=== PATIENT | female | born 1965 | race Caucasian/White ===

== ENCOUNTER 2016-10-18 12:29 | Inpatient (IN) ==
--- NOTE | 2016-10-18 13:10 | Emergency Department Note ---
Disposition Clinical Impression: Pulmonary edema, HLD (hyperlipidemia), Chronic renal failure, Diabetes mellitus , HTN (hypertension), Super-super obese, Anemia, Lower extremity edema, Fluid overload, CHF (congestive heart failure) Disposition: Admitted As Inpatient Referrals: NO,PCP [Non-Partnered Physician] - Forms: ED Satisfaction Letter General Adult HPI - General Chief complaint: ED Extremity Problem,Nontraumatic Stated complaint: LLE pain Time Seen by Provider: 10/18/16 13:08 Source: patient, family - History of Present Illness HPI Narrative: 51-year-old female with a history of diabetes and renal failure reports to the emergency department complaining of left lower extremity swelling and pain. The patient has a history of CVA and does not move her left lower extremity well. She has had progressive swelling in the left lower extremity associated with pain. There is no history of fall or injury. She does note she is having trouble even walking at this time secondary to the pain and swelling. There is no history of fever. No history of chest pain shortness of breath or abdominal pain. She describes baseline lower extremity edema but much worse on the left particular in the medial thigh and calf areas. She has not had any coughing up of blood. There is no history of syncope. No coldness blueness or acute weakness in any of the extremities. Chronic left lower extremity weakness secondary to remote CVA is reported. The patient is usually able to get up and get around but over the last month is essentially been nearly bedbound secondary to the pain and swelling. There is no history of fever. No acute back pain no history of bowel or bladder problems. No other complaints or concerns. The family and patient are concerned about left lower extremity swelling and pain. Onset (ago): day(s) Pain Scale: 10 - Related Data Home Medications Medication Instructions Recorded Confirmed Albuterol Sulfate [Proair Hfa] 2 puff IH Q4H PRN 06/07/16 06/07/16 Aspirin 81 mg PO DAILY 06/07/16 06/07/16 Atorvastatin Calcium [Lipitor] 20 mg PO DAILY 06/07/16 06/07/16 Furosemide [Lasix] 80 mg PO DAILY 06/07/16 06/07/16 Gabapentin [Neurontin] 300 mg PO BID 06/07/16 06/07/16 Insulin DETEMIR [Levemir Flextouch] 5 unit SQ QAM 06/07/16 06/07/16 Insulin DETEMIR [Levemir Flextouch] 15 unit SQ QPM 06/07/16 06/07/16 NIFEdipine [Nifedical Xl] 60 mg PO DAILY 06/07/16 06/07/16 Previous Rx's Medication Instructions Recorded Carvedilol 12.5 mg PO BID 30 Days 06/10/16 Darbepoetin [Aranesp] 100 mcg SQ QMONTH syringe 06/10/16 Darbepoetin [Aranesp] 200 mcg SQ QMONTH syringe 06/10/16 Furosemide [Lasix] 40 mg PO 1500 30 Days 06/10/16 Allergies Allergy/AdvReac Type Severity Reaction Status Date / Time No Known Allergies Allergy Verified 10/18/16 12:50 All systems ED: reviewed and negative except as stated. Past Medical History - Past Medical History Medical history: Reports: coronary artery disease, CVA, diabetes, hyperlipidemia , hypertension, renal disease, venous stasis, other Surgical history: Reports: no surgical history Psychiatric history: Reports: no psych history RISK MANAGEMENT SPECIALIST history: Reports: no RISK MANAGEMENT SPECIALIST history - Social History Smoking Status: Former smoker Smokeless Tobacco Status: No Alcohol use: Reports: none Drug use: Reports: none Physical Exam - General Limitations: no limitations General appearance: alert, in no apparent distress - Head Head exam: atraumatic, normocephalic, normal inspection - Eye Eye exam: Present: normal appearance, PERRL, EOMI - ENT ENT exam: normal exam, normal oropharynx, mucous membranes moist, normal external ear exam - Neck Neck exam: Present: normal inspection, full ROM, trachea midline - Chest Chest inspection: Present: symmetric chest wall rise. Absent: tenderness - Respiratory Respiratory exam: Present: normal lung sounds bilaterally. Absent: respiratory distress - Cardiovascular Cardiovascular exam: Present: regular rate, normal rhythm, normal heart sounds - Abdominal Exam Abdominal exam: Present: soft, Non-Tender. Absent: tenderness, distention, guarding, rebound, rigidity - Extremities Exam Extremities exam: Present: full ROM, tenderness, normal capillary refill, pedal edema, calf tenderness. Absent: normal inspection (Markedly lower extremity edema with multiple scabbed lesions and venous stasis changes noted bilaterally , significantly worse edema on the left particular in the medial thigh area. No crepitance of the skin or blackening. There is no evidence of acute joint compromise. There is pain with movement left knee and hip. There is pain in the medial thigh and calf areas.) - Expanded Lower Extremity Exam Neurovascular/Tendon exam: Present: normal capillary refill. Absent: pulse deficit, motor deficit, sensory deficit, tendon deficit - Back Exam Back exam: Present: normal inspection, full ROM. Absent: tenderness, CVA tenderness (R), CVA tenderness (L), vertebral tenderness - Neurological Exam Neurological exam: Present: alert, oriented X3, CN II-XII intact. Absent: motor sensory deficit - Psychiatric Psychiatric exam: Present: normal affect, normal mood - Skin Skin exam: Present: warm, dry, intact, normal color, other (Lower extremity venous stasis with multiple scabbed lesions, no tai cellulitic change noted no crepitance.). Absent: rash, cyanosis, diaphoresis, erythema, pallor, mottled Course Vital Signs Temperature 98.4 F 10/18/16 12:45 Pulse Rate 81 10/18/16 12:45 Respiratory Rate 18 10/18/16 12:45 Blood Pressure 161/62 10/18/16 12:45 O2 Sat by Pulse Oximetry 94 L 10/18/16 12:45 Temperature 98.4 F 10/18/16 12:45 Pulse Rate 81 10/18/16 12:45 Respiratory Rate 18 10/18/16 12:45 Blood Pressure 161/62 10/18/16 12:45 O2 Sat by Pulse Oximetry 94 L 10/18/16 12:45 Oxygen Delivery Oxygen Delivery Room Air Medical Decision Making - [facility] Narrative Medical decision making narrative: The patient appears to have fluid overload state, she has massive lower extremity edema worse on the left, she does demonstrate some pulmonary congestion and significant renal failure anemia and hypoalbuminemia. The patient is currently stable. She denies rectal bleeding. She may require transfusion. Lasix was given IV. Type and screen was ordered. Based on her multiple comorbidities, as well as severe anemia, renal failure, apparent fluid overload status, and marked functional decline, thought it would be appropriate to admit the patient to the hospital. I discussed the case with the hospitalist on-call who has accepted the patient to their care. - Lab Data Lab results reviewed: Yes I reviewed the patient's lab results. Result diagrams: 10/18/16 13:47 10/18/16 13:47 Lab Results 10/18/16 10/18/16 10/18/16 Range/Units 13:47 13:47 13:47 WBC 9.9 (4.3-11.1) K/mcL RBC 2.52 L (3.82-4.97) M/mcL Hgb 6.1 L (11.5-15.4) g/dL Hct 21.8 L (35.3-44.9) % MCV 86.5 (83.0-100.0) fL MCH 24.2 L (28.0-33.3) pg MCHC 28.0 L (31.6-35.5) g/dL RDW 18.2 H (11.5-14.5) % Plt Count 275 (140-400) K/mcL MPV 9.3 L (9.4-12.4) fL Immature Gran % 1.0 (0-4) % Seg Neutrophils % 82.8 % Lymphocytes % 5.3 % Monocytes % 7.6 % Eosinophils % 2.8 % Basophils % 0.5 % Neutrophils # 8.2 (1.6-8.9) K/mcL Lymphocytes # 0.5 L (0.6-4.6) K/mcL Monocytes # 0.8 (0.0-1.3) K/mcL Eosinophils # 0.3 (0.0-0.6) K/mcL Basophils # 0.1 (0.0-0.2) K/mcL Platelet Estimate Normal (Normal) Hypochromasia Present A (Not Present) Anisocytosis 2+ A (Not Present) Microcytosis Present A (Not Present) PT 15.4 H (9.4-12.1) Seconds INR 1.4 APTT 37.0 H (26.0-36.0) Seconds D-Dimer 2641 H (0-500) ng/mLFEU Sodium 137 (136-145) mEq/L Potassium 4.5 (3.5-4.5) mEq/L Chloride 106 (98-109) mEq/L Carbon Dioxide 18 L (19-29) mEq/L BUN 101 H (7-20) mg/dL Creatinine 7.06 H (0.57-1.11) mg/dL Est GFR ( Amer) 7 L (> 60) Est GFR (Non-Af Amer) 6 L (> 60) BUN/Creatinine Ratio 14 (6-26) Glucose 129 H (70-99) mg/dL Calculated Osmolality 317 H (280-300) Lactic Acid (0.5-2.2) mmol/L Calcium 8.0 L (8.6-10.8) mg/dL Total Bilirubin 0.6 (0.2-1.2) mg/dL Direct Bilirubin 0.5 (0.0-0.5) mg/dL Indirect Bilirubin 0.1 (0.0-1.2) mg/dL AST 12 (5-34) Units/L ALT < 6 (0-55) Units/L Alkaline Phosphatase 185 H (38-126) Units/L Troponin I (0-0.03) ng/mL C-Reactive Protein 157 H (Less than 5) mg/L B-Natriuretic Peptide (0-100) pg/mL Serum Total Protein 8.8 H (6.0-8.3) g/dL Albumin 2.1 L (3.5-5.0) g/dL Globulin 6.7 H (2.4-3.5) g/dL Albumin/Globulin Ratio 0.3 L (1.1-2.2) 10/18/16 10/18/16 10/18/16 Range/Units 13:47 13:47 13:47 WBC (4.3-11.1) K/mcL RBC (3.82-4.97) M/mcL Hgb (11.5-15.4) g/dL Hct (35.3-44.9) % MCV (83.0-100.0) fL MCH (28.0-33.3) pg MCHC (31.6-35.5) g/dL RDW (11.5-14.5) % Plt Count (140-400) K/mcL MPV (9.4-12.4) fL Immature Gran % (0-4) % Seg Neutrophils % % Lymphocytes % % Monocytes % % Eosinophils % % Basophils % % Neutrophils # (1.6-8.9) K/mcL Lymphocytes # (0.6-4.6) K/mcL Monocytes # (0.0-1.3) K/mcL Eosinophils # (0.0-0.6) K/mcL Basophils # (0.0-0.2) K/mcL Platelet Estimate (Normal) Hypochromasia (Not Present) Anisocytosis (Not Present) Microcytosis (Not Present) PT (9.4-12.1) Seconds INR APTT (26.0-36.0) Seconds D-Dimer (0-500) ng/mLFEU Sodium (136-145) mEq/L Potassium (3.5-4.5) mEq/L Chloride (98-109) mEq/L Carbon Dioxide (19-29) mEq/L BUN (7-20) mg/dL Creatinine (0.57-1.11) mg/dL Est GFR ( Amer) (> 60) Est GFR (Non-Af Amer) (> 60) BUN/Creatinine Ratio (6-26) Glucose (70-99) mg/dL Calculated Osmolality (280-300) Lactic Acid 0.5 (0.5-2.2) mmol/L Calcium (8.6-10.8) mg/dL Total Bilirubin (0.2-1.2) mg/dL Direct Bilirubin (0.0-0.5) mg/dL Indirect Bilirubin (0.0-1.2) mg/dL AST (5-34) Units/L ALT (0-55) Units/L Alkaline Phosphatase (38-126) Units/L Troponin I 0.02 (0-0.03) ng/mL C-Reactive Protein (Less than 5) mg/L B-Natriuretic Peptide 976 H (0-100) pg/mL Serum Total Protein (6.0-8.3) g/dL Albumin (3.5-5.0) g/dL Globulin (2.4-3.5) g/dL Albumin/Globulin Ratio (1.1-2.2) - Radiology Data Radiology results reviewed: Yes I reviewed the patient's radiology results.
[2016-10-18] MEDS ORDERED: *HR* HYDROmorphone (PF) 1 MG/ML SYRINGE IVP ONE (13:35)
[2016-10-18] MEDS ORDERED: Ondansetron 4 MG/2 ML VIAL IVP ONE (13:36)
[2016-10-18] MEDS ORDERED: *HR* HYDROcodone/Acet 5/325 mg TABLET PO ONE (13:54)
[2016-10-18 14:04] LABS: Basophils # 0.1 K/mcL (0.0-0.2); Basophils % 0.5 %; Eosinophils # 0.3 K/mcL (0.0-0.6); Eosinophils % 2.8 %; Hematocrit 21.8 % (35.3-44.9); Hemoglobin 6.1 g/dL (11.5-15.4); Lymphocytes # 0.5 K/mcL (0.6-4.6); Lymphocytes % 5.3 %; Mean Corpuscular Hemoglobin 24.2 pg (28.0-33.3); Mean Corpuscular Volume 86.5 fL (83.0-100.0); Mean Platelet Volume 9.3 fL (9.4-12.4); Monocytes # 0.8 K/mcL (0.0-1.3); Monocytes % 7.6 %; Neutrophils # 8.2 K/mcL (1.6-8.9); Platelet Count 275 K/mcL (140-400); Red Blood Count 2.52 M/mcL (3.82-4.97); Red Cell Distribution Width 18.2 % (11.5-14.5); Segmented Neutrophils % 82.8 %
[2016-10-18 14:10] LABS: INR 1.4; Prothrombin Time 15.4 Seconds (9.4-12.1)
[2016-10-18 14:20] LABS: Alanine Aminotransferase < 6 Units/L (0-55); Albumin 2.1 g/dL (3.5-5.0); Albumin/Globulin Ratio 0.3 (1.1-2.2); Alkaline Phosphatase 185 Units/L (38-126); Aspartate Amino Transferase 12 Units/L (5-34); BUN/Creatinine Ratio 14 (6-26); Bilirubin,Direct 0.5 mg/dL (0.0-0.5); Bilirubin,Indirect 0.1 mg/dL (0.0-1.2); Bilirubin,Total 0.6 mg/dL (0.2-1.2); Blood Urea Nitrogen 101 mg/dL (7-20); C-Reactive Protein 157 mg/L (Less than 5); Carbon Dioxide 18 mEq/L (19-29); Chloride 106 mEq/L (98-109); Globulin 6.7 g/dL (2.4-3.5); Glucose 129 mg/dL (70-99); Osmolality,Calculated 317 (280-300); Potassium 4.5 mEq/L (3.5-4.5); Sodium 137 mEq/L (136-145); Total Protein 8.8 g/dL (6.0-8.3); eGFR For African Americans 7 (> 60); eGFR For Non-African Americans 6 (> 60)
[2016-10-18 14:24] LABS: Anisocytosis 2+ (Not Present); Hypochromasia Present (Not Present); Microcytosis Present (Not Present); Platelet Estimate Normal (Normal)
[2016-10-18] MEDS ORDERED: Furosemide 40 MG in 0.9 % Sodium Chloride 50 ML IVPB ONE (15:28)
[2016-10-18] MEDS ORDERED: Naloxone 0.4 MG/ML INJ IVP PRN (17:09)
[2016-10-18] MEDS ORDERED: Dextrose Gel 15 GM PO PRN ×2 (17:12)
[2016-10-18] MEDS ORDERED: D5% in Water 1,000 ML IV PRN (17:12)
[2016-10-18] MEDS ORDERED: *HR* Dextrose 50 % in Water (Syg) 50 ML SYRINGE IVP PRN (17:12)
--- NOTE | 2016-10-18 17:38 | Internal Med History&Physical ---
Date of Encounter: 10/18/16 Time of Encounter: 17:00 Assessment and Plan (1) Acute on chronic renal failure Current visit: Yes Status: Acute -Follow up nephrology consult with DR. Greene (he is aware of the patient and requests a renal US) -Machine Ironer to evaluate in a.m. and will assess the need for hemodialysis -Given current clinical picture consistent with pulmonary edema, will need to continue Lasix at this time. (2) Dyspnea on exertion Current visit: Yes Status: Acute Continue IV diuresis Patient received 1 dose of Lasix in the ER Continue O2 supplementation as needed (3) Metabolic acidosis Current visit: Yes Status: Acute Likely secondary to acute renal failure Continue to monitor If worsens will supplement bicarb (4) COPD (chronic obstructive pulmonary disease) Current visit: Yes Status: Chronic Not in acute exacerbation Continue bronchodilator support as needed Continue O2 supplementation as needed Qualifiers: COPD type: unspecified COPD Qualified Code(s): J44.9 - Chronic obstructive pulmonary disease, unspecified (5) Hypertension Current visit: Yes Status: Chronic We will hold nifedipine at this time due to worsening peripheral edema Continue carvedilol We will add hydralazine IV when necessary systolic blood pressure greater than 160 Continue to closely monitor blood pressure Qualifiers: Hypertension type: essential hypertension Qualified Code(s): I10 - Essential (primary) hypertension (6) Anemia Current visit: Yes Status: Acute No active bleeding noted at this time Could be dilutional Follow up iron studies prior to transfusion We will transfuse 1 unit PRBC at this time and closely monitor for volume overload Continue to monitor H&H closely Qualifiers: Anemia type: unspecified type Qualified Code(s): D64.9 - Anemia, unspecified (7) CHF (congestive heart failure) Current visit: Yes Status: Chronic -2D echo form May 2016 reports of mild left ventricular diastolic dysfunction with LVEF of 60-65% -follow up repeat 2D echo -continue diuretic therapy -monitor daily weights -monitor I/Os -fluid restricted diet Qualifiers: Congestive heart failure type: diastolic Congestive heart failure chronicity: chronic Qualified Code(s): I50.32 - Chronic diastolic (congestive ) heart failure (8) Diabetes mellitus Current visit: Yes Status: Chronic -continue home insulin regimen -added as needed correctional low dose insulin ss algorithm -monitor fingerstick and blood glucose Qualifiers: Diabetes mellitus type: type 2 Diabetes mellitus complication status: with unspecified complications Diabetes mellitus care home insulin use: with petroleum terminal plant operator use Qualified Code(s): E11.8 - Type 2 diabetes mellitus with unspecified complications; Z79.4 - 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 Fernández is a 51 year old female with past medical history of CK disease stage V, hypertension, insulin-dependent diabetes, morbid obesity, hyperlipidemia, COPD who presents to the ER for worsening bilateral lower extremity edema, and dyspnea on exertion. Patient is noted to have previous admission due to the same symptoms in May 2016. Patient states she has history of bilateral lower extremity edema, however she has been noticing to have worsening of left lower extremity swelling along with pain, and worsening shortness of breath with exertion. As per family present at bedside, patient has difficulty ambulating and needs assistance with ambulation. Patient reports of currently having an appointment with validation analyst (Dr. Godoy) on Oct for evaluation of initiation of hemodialysis. At this time patient is resting comfortably in bed, denies any headache, chest pain, shortness of breath, abdominal pain, nausea, vomiting, fever, or chills. She received 1 dose of IV Lasix and hydrocodone in the ER which relieved her presenting symptoms. She states she is comfortable at rest and has no difficulty breathing at rest. Social hx: Former smoker-quit 6 months ago-history 1ppd x 30+ years Past Med Surg Social Fam HX - Past Medical History Medical history: coronary artery disease, CVA, diabetes, hyperlipidemia, hypertension, renal disease, venous stasis, other Psychiatric history: no psych history - Past Surgical History Surgical History: no surgical history - Social History Smoking Status: Former smoker Smokeless Tobacco Status: No Alcohol use: none Drug use: none Internal Medicine - H&P: Meds Albuterol Sulfate [Proair Hfa] 2 puff IH Q4H PRN 06/07/16 [History] Aspirin 81 mg PO DAILY 06/07/16 [History] Atorvastatin Calcium [Lipitor] 20 mg PO DAILY 06/07/16 [History] Furosemide [Lasix] 80 mg PO QAM 06/07/16 [History] Gabapentin [Neurontin] 300 mg PO BID 06/07/16 [History] Insulin DETEMIR [Levemir Flextouch] 5 unit SQ QAM 06/07/16 [History] Insulin DETEMIR [Levemir Flextouch] 15 unit SQ QPM 06/07/16 [History] NIFEdipine [Nifedical Xl] 60 mg PO DAILY 06/07/16 [History] Carvedilol 12.5 mg PO BID 30 Days 06/10/16 [Rx] Furosemide [Lasix] 20 mg PO QPM 10/18/16 [History] Oxygen 3.5 l .ROUTE AD 10/18/16 [History] Allergies lisinopril Adverse Reaction (Verified 10/18/16 15:49) Cough All Systems PM: A 10-system review of systems was performed and is negative for pertinent findings except as documented above in the HPI. - Constitutional Constitutional: as per HPI - Constitutional Vitals: Temp Pulse Resp BP Pulse Ox 97.3 F L 72 18 168/65 99 10/18/16 17:21 10/18/16 17:21 10/18/16 17:21 10/18/16 17:21 10/18/16 17:21 General appearance: Present: cooperative, A&O X 3, morbidly obese, pleasant, no acute distress, answers questions appropriately - Head Head exam: Present: atraumatic, normocephalic - Eye Eye exam: Present: conjuntiva pink, sclera anicteric - Respiratory Respiratory exam: Absent: respiratory distress, wheezes (bibasilar crackles) - Cardiovascular Cardiovascular exam: Present: RRR, +S1, +S2, systolic murmur - GI/Abdominal GI/Abdominal exam: Present: distended (obese), normal bowel sounds, soft. Absent: tenderness - Extremities Exam Extremities exam: Present: pedal edema (chronic venous stasis/lymphedema in bilateral lower extremities), warm, radial pulses palpable and symetrical. Absent: calf tenderness, tenderness - Neurological Exam Neurological exam: Present: alert, oriented X3, no focal deficits - Psychiatric Psychiatric exam: Present: normal affect, normal mood Internal Med - H&P Results - Labs CBC & Chem 7: 10/18/16 13:47 10/18/16 13:47
[2016-10-18] MEDS ORDERED: NON-FORMULARY MEDICATION 1 EACH EACH (Insulin Detemir [Levemir Flextouch] 15 UNIT) SQ SCH (18:00)
[2016-10-18] MEDS: *HR* Heparin 5,000 UNIT/ML VIAL SQ SCH (18:22)
[2016-10-18] MEDS: Insulin DETEMIR 100 UNIT/ML X5UNITS SQ SCH (18:22)
[2016-10-18 18:29] LABS: % Iron Saturation 9 % (15-50); Iron 22 mcg/dL (50-170); Transferrin 168 mg/dL (180-382)
[2016-10-18] MEDS ORDERED: 0.9 % Sodium Chloride 500 ML ONE (18:39)
[2016-10-18 18:49] LABS: Ferritin 178 ng/ml (5-204)
[2016-10-18] MEDS: Gabapentin 300 MG CAPSULE PO SCH (21:25)
[2016-10-18] MEDS: Insulin LISPRO 300 UNITS/3 ML VIAL SQ SCH (21:25)
[2016-10-19 04:20] LABS: Red Cell Distribution Width 17.9 % (11.5-14.5)
[2016-10-19 04:22] LABS: Basophils # 0.1 K/mcL (0.0-0.2); Basophils % 0.5 %; Eosinophils # 0.3 K/mcL (0.0-0.6); Eosinophils % 2.7 %; Hematocrit 19.9 % (35.3-44.9); Lymphocytes # 0.5 K/mcL (0.6-4.6); Lymphocytes % 4.9 %; Mean Corpuscular HGB Conc 29.1 g/dL (31.6-35.5); Mean Corpuscular Hemoglobin 25.3 pg (28.0-33.3); Mean Corpuscular Volume 86.9 fL (83.0-100.0); Mean Platelet Volume 9.4 fL (9.4-12.4); Monocytes # 1.1 K/mcL (0.0-1.3); Monocytes % 11.1 %; Nucleated Red Blood Cells 0.2 /100 WBC (0); Platelet Count 227 K/mcL (140-400); Red Blood Count 2.29 M/mcL (3.82-4.97); Segmented Neutrophils % 79.8 %
[2016-10-19 04:39] LABS: Hemoglobin 5.8 g/dL (11.5-15.4)
[2016-10-19 04:42] LABS: Calcium 7.6 mg/dL (8.6-10.8); Magnesium 1.5 mg/dL (1.6-2.6); Phosphorous 8.4 mg/dL (2.3-4.7); Potassium 5.2 mEq/L (3.5-4.5)
[2016-10-19 05:01] LABS: Anisocytosis 1+ (Not Present)
[2016-10-19 05:02] LABS: Basophilic Stippling 1+ (Not Present); Hypochromasia Present (Not Present); Platelet Estimate Normal (Normal); Polychromasia 1+ (Not Present)
[2016-10-19] MEDS ORDERED: Acetaminophen 325 MG TABLET PO ONE (05:13)
[2016-10-19] MEDS: *HR* Heparin 5,000 UNIT/ML VIAL SQ SCH ×2 (05:58→18:05)
[2016-10-19] MEDS: Insulin LISPRO 300 UNITS/3 ML VIAL SQ SCH ×4 (08:05→23:41)
[2016-10-19] MEDS: Furosemide 20 MG/2 ML VIAL IVP SCH ×2 (08:17→11:43)
[2016-10-19] MEDS: Furosemide 40 MG/4 ML VIAL IVP SCH ×3 (08:17→23:40)
[2016-10-19] MEDS: Gabapentin 300 MG CAPSULE PO SCH ×2 (08:22→23:40)
[2016-10-19] MEDS: Insulin DETEMIR 100 UNIT/ML X5UNITS SQ SCH ×2 (08:23→18:08)
[2016-10-19] MEDS ORDERED: NON-FORMULARY MEDICATION 1 EACH EACH (Insulin Detemir [Levemir Flextouch] 5 UNIT) SQ SCH (09:00)
[2016-10-19] MEDS ORDERED: Aspirin 81 MG TAB.CHEW PO SCH (09:00)
--- NOTE | 2016-10-19 09:49 | Internal Med Progress Note ---
Date of Encounter: 10/19/16 Time of Encounter: 09:42 - Assessment and plan (1) Acute on chronic renal failure Current Visit: Yes Status: Acute Assessment and plan: noted to have progressive worsening in renal function along with worsening metabolic acidosis, anemia, volume overload; Nephrology consulted, plan to initiate HD during this admission; plan for tunneled HD catheter today; high risk patient for respiratory failure and cardiac arrhythmias; Telemetry monitoring; (2) Anemia Current Visit: Yes Status: Acute Assessment and plan: acute on chronic, likely related to worseninf CKD; iron profile shows low iron stores; received 2units of PRBC so far; check LDH, Haptoglobin and reticulocyte count; will require Epogen and IV iron therapy with HD; Qualifiers: Anemia type: unspecified type Qualified Code(s): D64.9 - Anemia, unspecified (3) CHF (congestive heart failure) Current Visit: Yes Status: Chronic Qualifiers: Congestive heart failure type: diastolic Congestive heart failure chronicity: chronic Qualified Code(s): I50.32 - Chronic diastolic (congestive ) heart failure (4) Fluid overload Current Visit: Yes Status: Acute Assessment and plan: related to worsening renal failure; Qualifiers: Hypervolemia type: other Qualified Code(s): E87.79 - Other fluid overload (5) HLD (hyperlipidemia) Current Visit: Yes Status: Chronic Qualifiers: Hyperlipidemia type: unspecified Qualified Code(s): E78.5 - Hyperlipidemia , unspecified (6) COPD (chronic obstructive pulmonary disease) Current Visit: Yes Status: Chronic Qualifiers: COPD type: unspecified COPD Qualified Code(s): J44.9 - Chronic obstructive pulmonary disease, unspecified (7) Diabetes mellitus Current Visit: Yes Status: Chronic Qualifiers: Diabetes mellitus type: type 2 Diabetes mellitus complication status: with unspecified complications Diabetes mellitus chcf insulin 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 Qualified Code(s): E11.8 - Type 2 diabetes mellitus with unspecified complications; 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 (8) HTN (hypertension) Current Visit: Yes Status: Chronic Qualifiers: Hypertension type: essential hypertension Qualified Code(s): I10 - Essential (primary) hypertension (9) CKD (chronic kidney disease) stage 5, GFR less than 15 ml/min Current Visit: Yes Status: Chronic (10) Lymphedema of both lower extremities Current Visit: Yes Status: Chronic Assessment and plan: worsening pedal edema on chronic leg swelling; Venous Doppler shows no e/o- DVT; - Subjective Interval history: Reports feeling okay; no chest pain but does have significant leg swelling, left more than right, exertional dyspnea; no nausea, vomiting, diarrhea, recent weight loss; receiving blood transfusion at this time; - Constitutional Vitals: Temp Pulse Resp BP Pulse Ox 97.8 F 70 16 102/65 99 10/19/16 08:31 10/19/16 08:31 10/19/16 08:31 10/19/16 08:31 10/19/16 08:31 General appearance: Present: cooperative, A&O X 3, morbidly obese, answers questions appropriately - Head Head exam: Present: atraumatic, normocephalic - Neck Neck exam general surgery: Present: supple, trachea midline. Absent: lymphadenopathy - Respiratory Respiratory exam: Present: CTAB. Absent: accessory muscle use, rales, rhonchi, wheezes - Cardiovascular Cardiovascular exam: Present: RRR, +S1, +S2, systolic murmur (likely flow murmur ). Absent: diastolic murmur, gallop, rubs - GI/Abdominal GI/Abdominal exam: Present: normal bowel sounds, soft (very obese, nontender), no peritoneal signs. Absent: distended, tenderness - Extremities Exam Extremities exam: Present: pedal edema (B/L chronic lymphangitis with worsening edema left>right; ), warm, radial pulses palpable and symetrical. Absent: calf tenderness, cyanotic - Neurological Exam Neurological exam: Present: CN II-XII intact, oriented X3, no focal deficits. Absent: pronater drift, facial droop, speech deficit - Skin Skin exam: Present: dry, intact Internal Medicine: Result - Labs CBC & Chem 7: 10/19/16 20:53 10/19/16 04:04 Labs: Short CBC 10/19/16 Range/Units 04:04 WBC 10.0 (4.3-11.1) K/mcL Hgb 5.8 L* (11.5-15.4) g/dL Hct 19.9 L (35.3-44.9) % Plt Count 227 (140-400) K/mcL Neutrophils # 8.0 (1.6-8.9) K/mcL BMP 10/19/16 04:04 Sodium 137 Potassium 5.2 H Chloride 108 Carbon Dioxide 18 L BUN 105 H Creatinine 7.45 H Glucose 142 H Calcium 7.6 L - ABG Interpretation ABG results: PT/INR, D-dimer PT 15.4 Seconds (9.4-12.1) H 10/18/16 13:47 D-Dimer 2641 ng/mLFEU (0-500) H 10/18/16 13:47 Consult Discharge Plan - Plan Instructions: Heart Failure (DC) Referrals: Dee Negron SALES COMMUNICATIONS MANAGER [Primary Care Provider] - 10/27/16 10:00 am ()
[2016-10-19] MEDS ORDERED: 0.9 % Sodium Chloride 250 ML IV PRN (10:30)
--- NOTE | 2016-10-19 12:27 | Electrocardiograph Report ---
[facility] Test Date: 2016-10-18 Pat Name: Areli Fernández Department: 105 Room: 2A13 Gender: F Cloth [place]olt Bander: : 1965 Requested By: Jj Encarnacion Order Number: [id number] Reading MD: Adiel Kang DO Measurements Intervals [place] Rate: 77 P: 19 ND: 166 QRS: -29 QRSD: 95 T: 51 QT: 375 QTc: 407 Interpretive Statements Sinus rhythm Possible anterior myocardial infarction Electronically Signed On 10-19-16 12:25:52 EST by Adiel Kang DO
--- NOTE | 2016-10-19 12:27 | Electrocardiograph Report ---
[facility] Test Date: 2016-10-18 Pat Name: Areli Fernández Department: 112 Room: 2A13 Gender: F [address]: BALDO : 1965 Requested By: Sharmila Shine Order Number: [id number] Reading MD: Adiel Kang DO Measurements Intervals [place] Rate: 70 P: 47 NE: 213 QRS: -23 QRSD: 108 T: 59 QT: 396 QTc: 417 Interpretive Statements Sinus rhythm First degree AV block Possible anterior myocardial infarction, age undetermined Electronically Signed On 10-19-16 12:26:24 EST by Adiel Kang DO
[2016-10-19 12:37] LABS: Basophils % 0.4 %; Eosinophils # 0.3 K/mcL (0.0-0.6); Eosinophils % 2.8 %; Hematocrit 20.9 % (35.3-44.9); INR 1.4; Lymphocytes # 0.7 K/mcL (0.6-4.6); Lymphocytes % 6.9 %; Mean Corpuscular HGB Conc 28.7 g/dL (31.6-35.5); Mean Corpuscular Hemoglobin 25.1 pg (28.0-33.3); Mean Corpuscular Volume 87.4 fL (83.0-100.0); Monocytes % 10.8 %; Platelet Count 233 K/mcL (140-400); Prothrombin Time 15.1 Seconds (9.4-12.1); Red Blood Count 2.39 M/mcL (3.82-4.97); Red Cell Distribution Width 17.7 % (11.5-14.5); Segmented Neutrophils % 78.1 %
[2016-10-19 12:38] LABS: Neutrophils # 7.3 K/mcL (1.6-8.9)
[2016-10-19 12:40] LABS: Activated Partial Thrombo Time 36.1 Seconds (26.0-36.0)
[2016-10-19 13:11] LABS: Hepatitis B Surface Antigen Nonreactive (Nonreactive)
[2016-10-19 13:22] LABS: Folate 4.4 ng/mL (7.0-31.4); Hepatitis A Antibody IgM Nonreactive (Nonreactive); Hepatitis B Core IgM Nonreactive (Nonreactive); Hepatitis B Surface Antigen Nonreactive (Nonreactive); Hepatitis C Virus Antibody Nonreactive (Nonreactive); Vitamin B12 846 pg/mL (213-816)
[2016-10-19] MEDS ORDERED: Heparin 1,000 UNITS/500 mL NS 500 ML ONE (15:35)
--- NOTE | 2016-10-19 15:43 | Nephrology Consult Note ---
Date of Encounter: 10/19/16 Time of Encounter: 15:40 Assessment and Plan (1) Acute on chronic renal failure Current Visit: Yes Status: Acute Patient with stage 5 CKD several months ago. She was referred to vascular surgery for vein mapping and placement of an access and missed several appointments. Secondary to multiple metabolic derangements including hyperkalemia and acidosis I will order a tunneled catheter and initiate hemodialysis. Avoid nephrotoxic agents and adjust medication for renal function. (2) Dyspnea on exertion Current Visit: Yes Status: Acute Secondary to volume overload. Per primary team. (3) Diabetes mellitus Current Visit: Yes Status: Chronic per primary team. Qualifiers: Diabetes mellitus type: type 2 Diabetes mellitus complication status: with unspecified complications Diabetes mellitus intermediate insulin use: with intermodal dispatcher use Qualified Code(s): E11.8 - Type 2 diabetes mellitus with unspecified complications; Z79.4 - intermodal dispatcher (current) use of insulin History of Present Illness - Reason for Consult Consult date: 10/19/16 Chronic Kidney Disease - Chief Complaint CHRISTOPHER on CKD - History of Present Illness Ms. Fernández is a 51 yo woman followed by Dr. Dougherty for CKD who presents secondary to leg swelling. Patient reports she has been in her usual state of health. She was referred for vein mapping, but did not show for multiple appointments. She also has not seen Dr. Mccabe for several months. She presents because she is concerned that her legs have been swelling. She also reported that she had dyspnea upon admission. She denies any other complaints. Past Med Surg Social Fam HX - Past Medical History Medical history: coronary artery disease, CVA, diabetes, hyperlipidemia, hypertension, renal disease, venous stasis, other Psychiatric history: no psych history - Past Surgical History Surgical History: no surgical history - Social History Smoking Status: Former smoker Smokeless Tobacco Status: No Alcohol use: none Drug use: none Medications and Allergies Albuterol Sulfate [Proair Hfa] 2 puff IH Q4H PRN 06/07/16 [History] Aspirin 81 mg PO DAILY 06/07/16 [History] Atorvastatin Calcium [Lipitor] 20 mg PO DAILY 06/07/16 [History] Furosemide [Lasix] 80 mg PO QAM 06/07/16 [History] Gabapentin [Neurontin] 300 mg PO BID 06/07/16 [History] Insulin DETEMIR [Levemir Flextouch] 5 unit SQ QAM 06/07/16 [History] Insulin DETEMIR [Levemir Flextouch] 15 unit SQ QPM 06/07/16 [History] NIFEdipine [Nifedical Xl] 60 mg PO DAILY 06/07/16 [History] Carvedilol 12.5 mg PO BID 30 Days 06/10/16 [Rx] Furosemide [Lasix] 20 mg PO QPM 10/18/16 [History] Oxygen 3.5 l .ROUTE AD 10/18/16 [History] Allergies lisinopril Adverse Reaction (Verified 10/18/16 15:49) Cough Review of Systems All Systems: reviewed and no additional remarkable complaints except as stated ( as documented in the HPI) Exam - Vital Signs Vital signs: Initial Vital Signs Temp Pulse Resp BP Pulse Ox 98.4 F 81 18 161/62 94 L 10/18/16 12:45 10/18/16 12:45 10/18/16 12:45 10/18/16 12:45 10/18/16 12:45 Vital Signs - Last 8 Hours Temp Pulse Resp BP Pulse Ox 10/19/16 15:00 97.8 F 67 12 100/61 95 10/19/16 11:38 98 F 62 18 101/65 97 10/19/16 11:05 97.4 F L 62 16 90/45 98 10/19/16 08:31 97.8 F 70 16 102/65 99 10/19/16 08:16 97.6 F 63 14 109/73 99 Intake and Output 10/18/16 10/19/16 10/19/16 23:59 07:59 15:59 Intake Total 470 / 524 300 / 300 Output Total 0 / 0 Balance 470 / 524 300 / 300 Intake: Oral 120 / 120 Blood Product 350 / 350 300 / 300 Rbcs Leuko Poor As-1 300 / 300 Unit [id number] Rbcs Leuko Poor As-3 2nd 350 / 350 Unit [id number] Output: Urine 0 / 0 Other: Meal Dinner NPO Percent of Meal Consumed 25% # Voids 1 Weight 185.519 kg 183.025 kg Blood Glucose* 146 131 105 Patient Weight 10/19/16 23:59 Weight 183.025 kg - General Appearance General appearance: well-developed, well-nourished EENT: ATNC Neck: supple Additional Comments: few rales appreciated in the bases. Cardiology: edema, regular rate Gastrointestinal: normoactive bowel sounds, no tenderness, obese Integumentary: warm and dry Neurologic: alert and oriented x3 Musculoskeletal: no cyanosis Psychiatric: mood/affect appropriate Results - Lab Results 10/19/16 11:51 10/19/16 04:04 Most recent lab results Calcium 7.6 mg/dL (8.6-10.8) L 10/19/16 04:04 Phosphorus 8.4 mg/dL (2.3-4.7) H 10/19/16 04:04 Magnesium 1.5 mg/dL (1.6-2.6) L 10/19/16 04:04 Consult Discharge Plan - Plan Instructions: Heart Failure (DC) Referrals: Dee Negron CNP [Primary Care Provider] - 10/27/16 10:00 am ()
[2016-10-19] MEDS ORDERED: ceFAZolin 1,000 MG in D5% in Water 100 ML IVPB ONE (16:05)
[2016-10-19] MEDS ORDERED: *HR* FentaNYL (PF) 100 MCG/2 ML VIAL IVP PRN (16:06)
[2016-10-19] MEDS ORDERED: *HR* Midazolam HCl 2 MG/2 ML VIAL IVP PRN (16:06)
[2016-10-19 16:21] LABS: Immature Reticulocyte % 30.7 % (11.0-38.0); Retculocyte # 0.08 M/mcL (0.05-0.10); Reticulocyte % 3.3 % (1.6-2.8)
[2016-10-19] MEDS ORDERED: 0.9 % Sodium Chloride 500 ML ONE (16:25)
[2016-10-19] MEDS ORDERED: *HR* Heparin 5,000 UNIT/ML VIAL ONE (16:56)
[2016-10-19 21:01] LABS: Hematocrit 21.2 % (35.3-44.9); Hemoglobin 6.3 g/dL (11.5-15.4)
[2016-10-19] MEDS: Miconazole w/zinc oxide&karaya 92 APPL/92 GM TUBE TP SCH (22:30)
[2016-10-20] MEDS ORDERED: *HR* FentaNYL (PF) 100 MCG/2 ML VIAL IVP PRN (00:43)
[2016-10-20 06:19] LABS: VBG HCO3 23.2 mEq/L (21-27); VBG PH 7.36 pH Units (7.32-7.42)
[2016-10-20] MEDS ORDERED: Calcium Gluconate 2,000 MG in D5% in Water 100 ML IVPB ONE (06:19)
[2016-10-20] MEDS ORDERED: levETIRAcetam 1,000 MG in 0.9 % Sodium Chloride 100 ML IVPB ONE (06:19)
[2016-10-20] MEDS ORDERED: Magnesium Sulfate 1 GM in D5% in Water 100 ML IVPB ONE (06:19)
[2016-10-20 06:21] LABS: Basophils # 0.1 K/mcL (0.0-0.2); Basophils % 0.5 %; Eosinophils # 0.3 K/mcL (0.0-0.6); Eosinophils % 2.5 %; Hematocrit 21.7 % (35.3-44.9); Hemoglobin 6.3 g/dL (11.5-15.4); Immature Granulocytes % 1.3 % (0-4); Lymphocytes # 0.7 K/mcL (0.6-4.6); Mean Corpuscular Hemoglobin 25.3 pg (28.0-33.3); Mean Corpuscular Volume 87.1 fL (83.0-100.0); Mean Platelet Volume 9.2 fL (9.4-12.4); Monocytes # 1.3 K/mcL (0.0-1.3); Monocytes % 12.1 %; Neutrophils # 8.5 K/mcL (1.6-8.9); Platelet Count 213 K/mcL (140-400); Red Blood Count 2.49 M/mcL (3.82-4.97); Red Cell Distribution Width 17.9 % (11.5-14.5); Segmented Neutrophils % 77.6 %
[2016-10-20] MEDS ORDERED: *HR* LORazepam 2 MG/ML VIAL IVP PRN (06:22)
[2016-10-20 06:33] LABS: Calcium 7.6 mg/dL (8.6-10.8); Potassium 4.8 mEq/L (3.5-4.5)
[2016-10-20 06:50] LABS: Magnesium 1.6 mg/dL (1.6-2.6)
--- NOTE | 2016-10-20 06:56 | Event Note ---
Date of Encounter: 10/20/16 Time of Encounter: 06:44 Rapid Response Acute alteration in mental status. Lethargy /stuporous and somnolence. Arousable only with noxious stimuli. Encephalopathic. Spontaneous involuntary myoclonic jerking and twitching evident. Assessment= 1... Toxic metabolic encephalopathy/delirium 2... Acute on chronic, stage V renal failure/end-stage renal disease 3....Severe metabolic and derangements 4... Acute myoclonic seizure activity 5....Sepsis associated coagulopathy Rule out TTP/DIC/HUS 6....Suspect CHARLES/OHS 7....Epistaxis, witnessed episode p= Repletion of electrolytes deficits CT head scan stroke protocol EEG Keppra loading dose Neurology consult NPO status pending improvement in clinical status and neuro findings When necessary IV Ativan for convulsions Simplify medication regimen to avoid adverse drug drug interaction Hemodialysis as per nephrology team Cpap/Bipap Pulmonary toilet Transfer to N. versus ICU for higher level of care. Potential need for intubation for airway protection Orders written Vital Signs Temp Pulse Resp BP Pulse Ox 10/20/16 03:39 97.8 F 64 16 130/75 97 10/19/16 23:38 137/67 10/19/16 22:43 97.4 F L 68 18 104/81 95 10/19/16 22:16 97.6 F 20 132/74 10/19/16 21:10 145/68 10/19/16 20:55 149/82 10/19/16 20:40 150/75 10/19/16 20:25 132/74 10/19/16 20:10 126/65 10/19/16 19:55 141/80 10/19/16 19:40 144/84 10/19/16 19:25 142/61 10/19/16 19:10 97.6 F 22 129/60 10/19/16 18:09 97.6 F 68 20 99/65 96 10/19/16 17:36 94 L 10/19/16 17:02 67 20 125/62 93 L 10/19/16 16:55 71 20 111/70 92 L 10/19/16 15:00 97.8 F 67 12 100/61 95 10/19/16 11:38 98 F 62 18 101/65 97 10/19/16 11:05 97.4 F L 62 16 90/45 98 10/19/16 08:31 97.8 F 70 16 102/65 99 10/19/16 08:16 97.6 F 63 14 109/73 99 10/19/16 07:14 97.8 F 66 18 120/76 97 Intake and Output 10/19/16 10/19/16 10/20/16 15:59 23:59 07:59 Intake Total 300 / 300 400 / 400 Output Total 0 / 0 Balance 300 / 300 400 / 400 Intake: IV Fluids 100 / 100 Ancef 1,000 MG In 100 / 100 Dextrose 5% 100 ML @ 200 mls/hr IVPB ONCE ONE Rx#: [id number] Blood Product 300 / 300 Rbcs Leuko Poor As-1 300 / 300 Unit [id number] Intake, Rinseback and 300 / 300 Flushes Output: Total Dialysis Output 0 / 0 Other: Meal NPO Weight 180.2 kg Blood Glucose* 105 197 Hemodialysis Net Fluid 0 Removed (mL) Patient Weight 10/20/16 23:59 Weight 180.2 kg Short CBC 10/20/16 10/19/16 10/19/16 Range/Units 06:10 20:53 11:51 WBC 11.0 9.4 (4.3-11.1) K/mcL Hgb 6.3 L 6.3 L 6.0 L* (11.5-15.4) g/dL Hct 21.7 L 21.2 L 20.9 L (35.3-44.9) % Plt Count 213 233 (140-400) K/mcL Neutrophils # 8.5 7.3 (1.6-8.9) K/mcL BMP 10/20/16 Range/Units 06:10 Sodium 139 (136-145) mEq/L Potassium 4.8 H (3.5-4.5) mEq/L Chloride 108 (98-109) mEq/L Carbon Dioxide 19 (19-29) mEq/L BUN 90 H (7-20) mg/dL Creatinine 6.76 H (0.57-1.11) mg/dL Glucose 119 H (70-99) mg/dL Calcium 7.6 L (8.6-10.8) mg/dL 10/20/16 06:10 VBG pH 7.36 VBG pCO2 41 VBG pO2 76 H VBG HCO3 23.2 Abnormal lab results RBC 2.49 M/mcL (3.82-4.97) L 10/20/16 06:10 Hgb 6.3 g/dL (11.5-15.4) L 10/20/16 06:10 Hct 21.7 % (35.3-44.9) L 10/20/16 06:10 MCH 25.3 pg (28.0-33.3) L 10/20/16 06:10 MCHC 29.0 g/dL (31.6-35.5) L 10/20/16 06:10 RDW 17.9 % (11.5-14.5) H 10/20/16 06:10 MPV 9.2 fL (9.4-12.4) L 10/20/16 06:10 Nucleated RBCs/100 WBC 0.2 /100 WBC (0) H 10/19/16 04:04 Polychromasia 1+ (Not Present) A 10/19/16 04:04 Hypochromasia Present (Not Present) A 10/19/16 04:04 Basophilic Stippling 1+ (Not Present) A 10/19/16 04:04 Anisocytosis 1+ (Not Present) A 10/19/16 04:04 Microcytosis Present (Not Present) A 10/18/16 13:47 Percent Retic 3.3 % (1.6-2.8) H 10/19/16 16:09 Retic Hgb Equivalent 20.4 pg (28.61-36.33) L 10/19/16 16:09 PT 15.1 Seconds (9.4-12.1) H 10/19/16 11:51 APTT 36.1 Seconds (26.0-36.0) H 10/19/16 11:51 D-Dimer 2641 ng/mLFEU (0-500) H 10/18/16 13:47 VBG pO2 76 mmHg (25-40) H 10/20/16 06:10 Potassium 4.8 mEq/L (3.5-4.5) H 10/20/16 06:10 BUN 90 mg/dL (7-20) H 10/20/16 06:10 Creatinine 6.76 mg/dL (0.57-1.11) H 10/20/16 06:10 Est GFR ( Amer) 8 (> 60) L 10/20/16 06:10 Est GFR (Non-Af Amer) 6 (> 60) L 10/20/16 06:10 Glucose 119 mg/dL (70-99) H 10/20/16 06:10 POC Glucose 142 (58-89) H 10/20/16 06:12 Calculated Osmolality 317 (280-300) H 10/20/16 06:10 Uric Acid 10.2 mg/dL (2.6-6.0) H 10/19/16 11:51 Calcium 7.6 mg/dL (8.6-10.8) L 10/20/16 06:10 Ionized Calcium 0.92 mmol/L (1.15-1.35) L 10/20/16 06:10 Phosphorus 8.4 mg/dL (2.3-4.7) H 10/19/16 04:04 Iron 22 mcg/dL (50-170) L 10/18/16 13:47 % Saturation 9 % (15-50) L 10/18/16 13:47 Transferrin 168 mg/dL (180-382) L 10/18/16 13:47 Alkaline Phosphatase 185 Units/L (38-126) H 10/18/16 13:47 C-Reactive Protein 157 mg/L (Less than 5) H 10/18/16 13:47 B-Natriuretic Peptide 976 pg/mL (0-100) H 10/18/16 13:47 Serum Total Protein 8.8 g/dL (6.0-8.3) H 10/18/16 13:47 Albumin 2.1 g/dL (3.5-5.0) L 10/18/16 13:47 Globulin 6.7 g/dL (2.4-3.5) H 10/18/16 13:47 Albumin/Globulin Ratio 0.3 (1.1-2.2) L 10/18/16 13:47 Vitamin B12 846 pg/mL (213-816) H 10/19/16 11:51 25-OH Vitamin D Total 7 ng/mL (30-80) L 10/19/16 11:51 Folate 4.4 ng/mL (7.0-31.4) L 10/19/16 11:51 PTH Intact 479.6 pg/ml (8.5-72.5) H 10/19/16 11:51 Laboratory Results WBC 11.0 K/mcL (4.3-11.1) 10/20/16 06:10 RBC 2.49 M/mcL (3.82-4.97) L 10/20/16 06:10 Hgb 6.3 g/dL (11.5-15.4) L 10/20/16 06:10 Hct 21.7 % (35.3-44.9) L 10/20/16 06:10 MCV 87.1 fL (83.0-100.0) 10/20/16 06:10 MCH 25.3 pg (28.0-33.3) L 10/20/16 06:10 MCHC 29.0 g/dL (31.6-35.5) L 10/20/16 06:10 RDW 17.9 % (11.5-14.5) H 10/20/16 06:10 Plt Count 213 K/mcL (140-400) 10/20/16 06:10 MPV 9.2 fL (9.4-12.4) L 10/20/16 06:10 Reticulocyte # 0.08 M/mcL (0.05-0.10) 10/19/16 16:09 Immature Gran % 1.3 % (0-4) 10/20/16 06:10 Seg Neutrophils % 77.6 % 10/20/16 06:10 Lymphocytes % 6.0 % 10/20/16 06:10 Monocytes % 12.1 % 10/20/16 06:10 Eosinophils % 2.5 % 10/20/16 06:10 Basophils % 0.5 % 10/20/16 06:10 Neutrophils # 8.5 K/mcL (1.6-8.9) 10/20/16 06:10 Lymphocytes # 0.7 K/mcL (0.6-4.6) 10/20/16 06:10 Monocytes # 1.3 K/mcL (0.0-1.3) 10/20/16 06:10 Eosinophils # 0.3 K/mcL (0.0-0.6) 10/20/16 06:10 Basophils # 0.1 K/mcL (0.0-0.2) 10/20/16 06:10 Nucleated RBCs/100 WBC 0.2 /100 WBC (0) H 10/19/16 04:04 Platelet Estimate Normal (Normal) 10/19/16 04:04 Polychromasia 1+ (Not Present) A 10/19/16 04:04 Hypochromasia Present (Not Present) A 10/19/16 04:04 Basophilic Stippling 1+ (Not Present) A 10/19/16 04:04 Anisocytosis 1+ (Not Present) A 10/19/16 04:04 Microcytosis Present (Not Present) A 10/18/16 13:47 Percent Retic 3.3 % (1.6-2.8) H 10/19/16 16:09 Immature Retic Fraction 30.7 % (11.0-38.0) 10/19/16 16:09 Retic Hgb Equivalent 20.4 pg (28.61-36.33) L 10/19/16 16:09 PT 15.1 Seconds (9.4-12.1) H 10/19/16 11:51 INR 1.4 10/19/16 11:51 APTT 36.1 Seconds (26.0-36.0) H 10/19/16 11:51 D-Dimer 2641 ng/mLFEU (0-500) H 10/18/16 13:47 VBG pH 7.36 pH Units (7.32-7.42) 10/20/16 06:10 VBG pCO2 41 mmHg (41-51) 10/20/16 06:10 VBG pO2 76 mmHg (25-40) H 10/20/16 06:10 VBG HCO3 23.2 mEq/L (21-27) 10/20/16 06:10 Sodium 139 mEq/L (136-145) 10/20/16 06:10 Potassium 4.8 mEq/L (3.5-4.5) H 10/20/16 06:10 Chloride 108 mEq/L (98-109) 10/20/16 06:10 Carbon Dioxide 19 mEq/L (19-29) 10/20/16 06:10 BUN 90 mg/dL (7-20) H 10/20/16 06:10 Creatinine 6.76 mg/dL (0.57-1.11) H 10/20/16 06:10 Est GFR ( Amer) 8 (> 60) L 10/20/16 06:10 Est GFR (Non-Af Amer) 6 (> 60) L 10/20/16 06:10 BUN/Creatinine Ratio 13 (6-26) 10/20/16 06:10 Glucose 119 mg/dL (70-99) H 10/20/16 06:10 POC Glucose 142 (58-89) H 10/20/16 06:12 Calculated Osmolality 317 (280-300) H 10/20/16 06:10 Lactic Acid 0.5 mmol/L (0.5-2.2) 10/18/16 13:47 Uric Acid 10.2 mg/dL (2.6-6.0) H 10/19/16 11:51 Calcium 7.6 mg/dL (8.6-10.8) L 10/20/16 06:10 Ionized Calcium 0.92 mmol/L (1.15-1.35) L 10/20/16 06:10 Phosphorus 8.4 mg/dL (2.3-4.7) H 10/19/16 04:04 Magnesium 1.6 mg/dL (1.6-2.6) 10/20/16 06:10 Iron 22 mcg/dL (50-170) L 10/18/16 13:47 % Saturation 9 % (15-50) L 10/18/16 13:47 Transferrin 168 mg/dL (180-382) L 10/18/16 13:47 Ferritin 178 ng/ml (5-204) 10/18/16 13:47 Total Bilirubin 0.6 mg/dL (0.2-1.2) 10/18/16 13:47 Direct Bilirubin 0.5 mg/dL (0.0-0.5) 10/18/16 13:47 Indirect Bilirubin 0.1 mg/dL (0.0-1.2) 10/18/16 13:47 AST 12 Units/L (5-34) 10/18/16 13:47 ALT < 6 Units/L (0-55) 10/18/16 13:47 Alkaline Phosphatase 185 Units/L (38-126) H 10/18/16 13:47 Lactate Dehydrogenase 196 Units/L (159-327) 10/19/16 16:09 Troponin I 0.02 ng/mL (0-0.03) 10/18/16 13:47 C-Reactive Protein 157 mg/L (Less than 5) H 10/18/16 13:47 B-Natriuretic Peptide 976 pg/mL (0-100) H 10/18/16 13:47 Serum Total Protein 8.8 g/dL (6.0-8.3) H 10/18/16 13:47 Albumin 2.1 g/dL (3.5-5.0) L 10/18/16 13:47 Globulin 6.7 g/dL (2.4-3.5) H 10/18/16 13:47 Albumin/Globulin Ratio 0.3 (1.1-2.2) L 10/18/16 13:47 Vitamin B12 846 pg/mL (213-816) H 10/19/16 11:51 25-OH Vitamin D Total 7 ng/mL (30-80) L 10/19/16 11:51 Folate 4.4 ng/mL (7.0-31.4) L 10/19/16 11:51 PTH Intact 479.6 pg/ml (8.5-72.5) H 10/19/16 11:51 Hepatitis A IgM Ab Nonreactive (Nonreactive) 10/19/16 11:51 Hep Bs Antigen Nonreactive (Nonreactive) 10/19/16 11:51 Hep Bs Antibody 0.50 mIU/mL 10/19/16 11:51 Hep B Core IgM Ab Nonreactive (Nonreactive) 10/19/16 11:51 Hepatitis C Ab Screen Nonreactive (Nonreactive) 10/19/16 11:51 Blood Type A NEGATIVE 10/18/16 17:02 Antibody Screen NEGATIVE 10/18/16 17:02 Crossmatch See Detail 10/18/16 17:02 Impressions Femur X-Ray 10/18/16 13:34 IMPRESSION: Subcutaneous edema without acute or focal bony abnormality. D/ / Angy Rosa Cha, MD / Angy Rosa Cha, MD Interpreting Provider: Angy Rosa Cha, MD Tibia/Fibula X-Ray 10/18/16 13:34 IMPRESSION: Subcutaneous edema without focal or acute bony abnormality suspected. D/ / Angy Rosa Cha, MD / Angy Rosa Cha, MD Interpreting Provider: Angy Rosa Cha, MD Chest X-Ray 10/18/16 13:36 IMPRESSION: Cardiomegaly with suspected pulmonary edema. D/ / Angy Rosa Cha, MD / Angy Rosa Cha, MD Interpreting Provider: Angy Rosa Cha, MD
[2016-10-20] MEDS: *HR* Heparin 5,000 UNIT/ML VIAL SQ SCH ×2 (06:59→18:30)
[2016-10-20] MEDS: Furosemide 40 MG/4 ML VIAL IVP SCH ×2 (09:00→21:03)
[2016-10-20] MEDS: Gabapentin 300 MG CAPSULE PO SCH (09:00)
[2016-10-20] MEDS: Insulin LISPRO 300 UNITS/3 ML VIAL SQ SCH ×4 (09:06→21:04)
[2016-10-20] MEDS: *HR* OxyCODONE Immed Rel 5 MG TABLET PO PRN (09:18)
[2016-10-20] MEDS: Insulin DETEMIR 100 UNIT/ML X5UNITS SQ SCH ×2 (09:19→18:31)
[2016-10-20] MEDS: Miconazole w/zinc oxide&karaya 92 APPL/92 GM TUBE TP SCH ×2 (09:19→21:04)
[2016-10-20] MEDS ORDERED: Calcium Gluconate 1,000 MG in D5% in Water 100 ML IVPB ONE (09:57)
[2016-10-20] MEDS ORDERED: Permethrin Cream Rinse 60 ML LIQUID TP ONE (10:30)
[2016-10-20] MEDS ORDERED: 0.9 % Sodium Chloride 250 ML IV PRN (10:31)
[2016-10-20] MEDS ORDERED: *HR* Heparin 10,000 UNIT/10 ML VIAL IV PRN (10:31)
--- NOTE | 2016-10-20 10:31 | Nephrology Progress Note ---
Date of Encounter: 10/20/16 Time of Encounter: 10:30 - Assessment and Plan (1) Acute on chronic renal failure Current Visit: Yes Status: Acute Patient with stage 5 CKD that worsened. Will now declare her ESRD. A tunneled catheter has been placed. Her first HD session was 10/19/16. She will dialyze daily for 3 days then she will be on a MWF schedule. Social work is consulted for outpatient HD placement. Will consult nutrition for her renal diet. Renal dose medications. Vein mapping has been ordered. She will need permanent access placed. (2) Dyspnea on exertion Current Visit: Yes Status: Acute Will remove fluid with dialysis. (3) Diabetes mellitus Current Visit: Yes Status: Chronic Per primary team. Qualifiers: Diabetes mellitus type: type 2 Diabetes mellitus complication status: with unspecified complications Diabetes mellitus rn long term care insulin use: with rn long term care use Qualified Code(s): E11.8 - Type 2 diabetes mellitus with unspecified complications; Z79.4 - intermodal dispatcher (current) use of insulin (4) Hyperparathyroidism Current Visit: Yes Status: Acute Elevated PTH hyperphosphotemia - start binders. Educate on low phosphorus diet Vitamin D deficiency - Replacement ordered hypocalcemia - replace as needed. Repeat PTH as an outpatient. (5) Anemia Current Visit: Yes Status: Acute Etiology unclear. Inappropriate response to transfusion. No evidence of bleeding. Will check stool guiac. Evaluate for hemolysis with labs. Transfuse on dialysis. 1-2 units depending on results of hemolysis labs. iron deficiency - getting transfusion. Will start oral iron. Will likely need IV iron. Folate deficiency - replacement ordered. Vitamin B12 normal. Qualifiers: Anemia type: unspecified type Qualified Code(s): D64.9 - Anemia, unspecified (6) Hyperuricemia Current Visit: Yes Status: Acute Elevate uric acid. Nutrition consulted for dietary education. Allopurinol ordered. (7) Altered mental state Current Visit: Yes Status: Acute Concern for seizure, but patient able to verbalize during the event. Could be secondary to excess gabapentin. Primary team to evaluate. I will discontinue the gabapentin. Qualifiers: Qualified Code(s): R41.82 - Altered mental status, unspecified Subjective Principal diagnosis: CHRISTOPHER/CKD Volume overload Interval history: This am patient was found to have tremors and altered conciousness and concern for seizure activity. She was transferred to a higher level of care. When I spoke with her she was feeling better. She did not have a complaint. She wanted to eat the [employer] sandwich her family brought for her. No chest pain, no sob. ROS otherwise seemed appropriate. Objective - Vital Signs Vital signs: Vital Signs Temp Pulse Resp BP Pulse Ox 10/20/16 07:45 97.4 F L 63 18 132/76 93 L 10/20/16 07:14 97.4 F L 63 18 132/76 92 L 10/20/16 03:39 97.8 F 64 16 130/75 97 10/19/16 23:38 137/67 10/19/16 22:43 97.4 F L 68 18 104/81 95 10/19/16 22:16 97.6 F 20 132/74 10/19/16 21:10 145/68 10/19/16 20:55 149/82 10/19/16 20:40 150/75 10/19/16 20:25 132/74 10/19/16 20:10 126/65 10/19/16 19:55 141/80 10/19/16 19:40 144/84 10/19/16 19:25 142/61 10/19/16 19:10 97.6 F 22 129/60 10/19/16 18:09 97.6 F 68 20 99/65 96 10/19/16 17:36 94 L 10/19/16 17:02 67 20 125/62 93 L 10/19/16 16:55 71 20 111/70 92 L 10/19/16 15:00 97.8 F 67 12 100/61 95 10/19/16 11:38 98 F 62 18 101/65 97 10/19/16 11:05 97.4 F L 62 16 90/45 98 Intake and Output 10/19/16 10/20/16 10/20/16 23:59 07:59 15:59 Intake Total 400 / 400 Output Total 0 / 0 Balance 400 / 400 Intake: IV Fluids 100 / 100 Ancef 1,000 MG In 100 / 100 Dextrose 5% 100 ML @ 200 mls/hr IVPB ONCE ONE Rx#: [id number] Intake, Rinseback and 300 / 300 Flushes Output: Total Dialysis Output 0 / 0 Other: Weight 180.2 kg Blood Glucose* 197 Hemodialysis Net Fluid 0 Removed (mL) Patient Weight 10/20/16 23:59 Weight 180.2 kg - General Appearance General appearance: Present: well-developed, well-nourished, obese EENT: Present: ATNC Neck: Present: supple Respiratory: Present: clear Cardiology: Present: edema, regular rate, regular rhythm Gastrointestinal: Present: normoactive bowel sounds, no tenderness, obese Integumentary: Present: warm and dry Neurologic: Present: alert and oriented x3 Musculoskeletal: Present: no cyanosis Psychiatric: Present: mood/affect appropriate - Lab 10/20/16 06:10 10/20/16 06:10 Most recent lab results Calcium 7.6 mg/dL (8.6-10.8) L 10/20/16 06:10 Phosphorus 8.4 mg/dL (2.3-4.7) H 10/19/16 04:04 Magnesium 1.6 mg/dL (1.6-2.6) 10/20/16 06:10 Consult Discharge Plan - Plan Instructions: Heart Failure (DC) Referrals: Dee Negron, INDUSTRIAL ENGINEER [Primary Care Provider] - 10/27/16 10:00 am ()
[2016-10-20] MEDS ORDERED: 0.9 % Sodium Chloride 1,000 ML PRIME SCH (10:45)
[2016-10-20 10:48] LABS: Hemoglobin 6.2 g/dL (11.5-15.4)
[2016-10-20 10:50] LABS: Basophils # 0.1 K/mcL (0.0-0.2); Basophils % 0.7 %; Eosinophils # 0.2 K/mcL (0.0-0.6); Eosinophils % 2.1 %; Hematocrit 21.2 % (35.3-44.9); Immature Granulocytes % 0.9 % (0-4); Lymphocytes # 0.6 K/mcL (0.6-4.6); Mean Corpuscular HGB Conc 29.2 g/dL (31.6-35.5); Mean Corpuscular Hemoglobin 25.5 pg (28.0-33.3); Mean Corpuscular Volume 87.2 fL (83.0-100.0); Mean Platelet Volume 9.7 fL (9.4-12.4); Monocytes % 10.2 %; Neutrophils # 8.1 K/mcL (1.6-8.9); Platelet Count 226 K/mcL (140-400); Red Blood Count 2.43 M/mcL (3.82-4.97); Red Cell Distribution Width 17.8 % (11.5-14.5); Segmented Neutrophils % 80.1 %
[2016-10-20 10:55] LABS: INR 1.3; Prothrombin Time 14.5 Seconds (9.4-12.1)
[2016-10-20 10:58] LABS: Activated Partial Thrombo Time 21.9 Seconds (26.0-36.0)
[2016-10-20] MEDS ORDERED: 0.9 % Sodium Chloride 3,000 ML ONE (10:58)
[2016-10-20 11:05] LABS: Albumin/Globulin Ratio 0.3 (1.1-2.2); Bilirubin,Total 0.6 mg/dL (0.2-1.2); Calcium 7.8 mg/dL (8.6-10.8); Globulin 6.3 g/dL (2.4-3.5); Potassium 4.8 mEq/L (3.5-4.5); Total Protein 8.1 g/dL (6.0-8.3)
[2016-10-20 11:07] LABS: Albumin 1.8 g/dL (3.5-5.0)
[2016-10-20] MEDS: Folic Acid 1 MG TABLET PO SCH (11:52)
[2016-10-20 12:14] LABS: Hypochromasia Present (Not Present); Platelet Estimate Normal (Normal)
[2016-10-20 12:15] LABS: Anisocytosis 1+ (Not Present); Microcytosis Present (Not Present)
--- NOTE | 2016-10-20 13:09 | Neurology - Consult Note ---
Date of Encounter: 10/20/16 Time of Encounter: 09:45 Assessment and Plan (1) Altered mental state Current Visit: Yes Status: Acute PT had change in Mental status earlier which is better now, at considering her symptoms it was thought that she may have had a seizure, scheduled for EEG, will review, at this time dont think she need to be on any AEDS, unless any abnormality on EEG she has h/o Parkinsonism, and multiple conditions, also having Myoclonic jerking continue other meds, will review EEG, suspect due to metabolic and perhaps medication related History of Present Illness HPI: Ms. Fernández is a 51 year old female had Acute alteration in mental status. Lethargy /stuporous and somnolence. Arousable only with noxious stimuli. . Spontaneous involuntary myoclonic jerking and twitching noted, evaluated by rapid response, back to normal gradually. patient has past medical history of CK disease stage V, hypertension, insulin- dependent diabetes, morbid obesity, hyperlipidemia, COPD who was admitted for worsening of bilateral lower extremity edema, and dyspnea on exertion. she was having worsening shortness of breath with exertion. She received 1 dose of IV Lasix and hydrocodone in the ER which relieved her symptoms. she has history of Parkinsonism diagnosed in [place] in 2013, not sure she is on meds or not, she is on lot of meds Past Med Surg Social Fam HX - Past Medical History Medical history: coronary artery disease, CVA, diabetes, hyperlipidemia, hypertension, renal disease, venous stasis, other Psychiatric history: no psych history - Past Surgical History Surgical History: no surgical history - Social History Smoking Status: Former smoker Smokeless Tobacco Status: No Alcohol use: none Drug use: none Medications and Allergies Albuterol Sulfate [Proair Hfa] 2 puff IH Q4H PRN 06/07/16 [History] Aspirin 81 mg PO DAILY 06/07/16 [History] Atorvastatin Calcium [Lipitor] 20 mg PO DAILY 06/07/16 [History] Furosemide [Lasix] 80 mg PO QAM 06/07/16 [History] Gabapentin [Neurontin] 300 mg PO BID 06/07/16 [History] Insulin DETEMIR [Levemir Flextouch] 5 unit SQ QAM 06/07/16 [History] Insulin DETEMIR [Levemir Flextouch] 15 unit SQ QPM 06/07/16 [History] NIFEdipine [Nifedical Xl] 60 mg PO DAILY 06/07/16 [History] Carvedilol 12.5 mg PO BID 30 Days 06/10/16 [Rx] Furosemide [Lasix] 20 mg PO QPM 10/18/16 [History] Oxygen 3.5 l .ROUTE AD 10/18/16 [History] Allergies lisinopril Adverse Reaction (Verified 10/18/16 15:49) Cough All Systems: A 10-system review of systems was performed and is negative for pertinent findings except as documented above in the HPI. Review of Systems: A 10-system review of systems was performed and is negative for pertinent findings except as documented above in the HPI. Physical Examination - Vital Signs Vital Signs: Initial Vital Signs Temp Pulse Resp BP Pulse Ox 98.4 F 81 18 161/62 94 L 10/18/16 12:45 10/18/16 12:45 10/18/16 12:45 10/18/16 12:45 10/18/16 12:45 - Constitutional General appearance: comfortable (HEART : S1 S2 Audible, LUNG: CTA, EXT: non pitting pedal edema ) - Neurologic Detailed motor examination: grossly full strength in all extremities Motor examination - right side: 4/5: deltoids, biceps, triceps, wrist flexion, wrist extension, feed mixer helper, hip flexors, tibialis Anterior, quadriceps, toe extension (EHL), plantarflexion Motor examination - left side: 4/5: deltoids, biceps, triceps, wrist flexion, wrist extension, hip flexors, feed mixer helper, quadriceps, tibialis Anterior, toe extension (EHL), plantarflexion Detailed sensory examination: other (Decrease in both lower extremeties, ) Reflexes: Biceps: 1+, Triceps: 1+, Brachioradialis: 1+, Patella: 0, Achilles: 0 Mental Status Examination: awake, alert, oriented to person, oriented to place, follows commands appropriately, follows simple commands, localizes noxious stimulation Cranial nerve examination: PERRL, EOMI, sensory to face intact, no facial asymmetry is present, no dysarthria, hearing is intact symmetrically Cerebellar examination: no dysmetria Results - Laboratory Findings CBC and BMP: 10/21/16 01:46 10/21/16 01:46 Abnormal lab findings: Abnormal lab results RBC 2.43 M/mcL (3.82-4.97) L 10/20/16 10:38 Hgb 6.2 g/dL (11.5-15.4) L 10/20/16 10:38 Hct 21.2 % (35.3-44.9) L 10/20/16 10:38 MCH 25.5 pg (28.0-33.3) L 10/20/16 10:38 MCHC 29.2 g/dL (31.6-35.5) L 10/20/16 10:38 RDW 17.8 % (11.5-14.5) H 10/20/16 10:38 Nucleated RBCs/100 WBC 0.2 /100 WBC (0) H 10/19/16 04:04 Polychromasia 1+ (Not Present) A 10/19/16 04:04 Hypochromasia Present (Not Present) A 10/20/16 10:38 Basophilic Stippling 1+ (Not Present) A 10/19/16 04:04 Anisocytosis 1+ (Not Present) A 10/20/16 10:38 Microcytosis Present (Not Present) A 10/20/16 10:38 Percent Retic 3.3 % (1.6-2.8) H 10/19/16 16:09 Retic Hgb Equivalent 20.4 pg (28.61-36.33) L 10/19/16 16:09 PT 14.5 Seconds (9.4-12.1) H 10/20/16 10:38 APTT 21.9 Seconds (26.0-36.0) L 10/20/16 10:38 D-Dimer 2641 ng/mLFEU (0-500) H 10/18/16 13:47 VBG pO2 76 mmHg (25-40) H 10/20/16 06:10 Potassium 4.8 mEq/L (3.5-4.5) H 10/20/16 10:38 Carbon Dioxide 18 mEq/L (19-29) L 10/20/16 10:38 BUN 92 mg/dL (7-20) H 10/20/16 10:38 Creatinine 6.92 mg/dL (0.57-1.11) H 10/20/16 10:38 Est GFR ( Amer) 8 (> 60) L 10/20/16 10:38 Est GFR (Non-Af Amer) 6 (> 60) L 10/20/16 10:38 Glucose 117 mg/dL (70-99) H 10/20/16 10:38 POC Glucose 137 (58-89) H 10/20/16 11:30 Calculated Osmolality 317 (280-300) H 10/20/16 10:38 Uric Acid 10.2 mg/dL (2.6-6.0) H 10/19/16 11:51 Calcium 7.8 mg/dL (8.6-10.8) L 10/20/16 10:38 Ionized Calcium 0.99 mmol/L (1.15-1.35) L 10/20/16 12:02 Phosphorus 8.4 mg/dL (2.3-4.7) H 10/19/16 04:04 Iron 22 mcg/dL (50-170) L 10/18/16 13:47 % Saturation 9 % (15-50) L 10/18/16 13:47 Transferrin 168 mg/dL (180-382) L 10/18/16 13:47 Alkaline Phosphatase 161 Units/L (38-126) H 10/20/16 10:38 C-Reactive Protein 157 mg/L (Less than 5) H 10/18/16 13:47 B-Natriuretic Peptide 976 pg/mL (0-100) H 10/18/16 13:47 Albumin 1.8 g/dL (3.5-5.0) L 10/20/16 10:38 Globulin 6.3 g/dL (2.4-3.5) H 10/20/16 10:38 Albumin/Globulin Ratio 0.3 (1.1-2.2) L 10/20/16 10:38 Vitamin B12 846 pg/mL (213-816) H 10/19/16 11:51 25-OH Vitamin D Total 7 ng/mL (30-80) L 10/19/16 11:51 Folate 4.4 ng/mL (7.0-31.4) L 10/19/16 11:51 PTH Intact 479.6 pg/ml (8.5-72.5) H 10/19/16 11:51 Consult Discharge Plan - Plan Instructions: Heart Failure (DC) Referrals: Dee Negron, SECURITIES ADVISER [Primary Care Provider] - 10/27/16 10:00 am ()
[2016-10-20] MEDS: Calcium Acetate 667 MG CAPSULE PO SCH ×2 (16:11→18:30)
--- NOTE | 2016-10-20 16:31 | EEG/EMG/Oth Biometrics Report ---
EEG Procedure Report Date of procedure: 10/20/16 EEG Procedure: Routine EEG Procedure Note: pt with jerking of body, with altered consciousness Routine EEG Routine 18-channel digital EEG was obtained to rule out any seizure activity or focal abnormalities. FINDINGS: Background rhythm during awake stage shows well-organized, well- developed, average voltage 8 to 9 hertz alpha activity in the posterior regions. It blocks with eye opening and it is bilaterally synchronous and symmetrical. No vivna-diz-kbij discharges or any lateralizing abnormalities are seen. Photic stimulation did not produce any abnormalities. Hyperventilation was not performed. No abnormalities were found during the procedure. Intermittent EMG artifacts were seen. Stage II sleep was not achieved. IMPRESSION: Normal awake study. No epileptiform discharges or any other paroxysmal activities or focal abnormalities seen. Clinical correlation is recommended
--- NOTE | 2016-10-20 17:50 | Internal Med Progress Note ---
Date of Encounter: 10/20/16 Time of Encounter: 10:00 - Assessment and plan (1) Acute on chronic renal failure Current Visit: Yes Status: Acute Assessment and plan: noted to have progressive worsening in renal function along with worsening metabolic acidosis, anemia, volume overload; Nephrology consulted, plan to initiate HD during this admission; plan for tunneled HD catheter today; high risk patient for respiratory failure and cardiac arrhythmias; Telemetry monitoring; (2) DVT prophylaxis Current Visit: Yes Status: Acute Assessment and plan: We will use subcutaneous heparin. (3) Fluid overload Current Visit: Yes Status: Acute Assessment and plan: related to worsening renal failure; will get hemodialysis today. Qualifiers: Hypervolemia type: other Qualified Code(s): E87.79 - Other fluid overload (4) Lower extremity edema Current Visit: Yes Status: Acute Assessment and plan: Likely related to fluid overload. Should improve with diuresis and hemodialysis and fluid removal. Qualifiers: Laterality: bilateral Qualified Code(s): R60.0 - Localized edema (5) CHF (congestive heart failure) Current Visit: Yes Status: Chronic Qualifiers: Congestive heart failure type: diastolic Congestive heart failure chronicity: chronic Qualified Code(s): I50.32 - Chronic diastolic (congestive ) heart failure (6) Diabetes mellitus Current Visit: Yes Status: Chronic Assessment and plan: Insulin sliding scale. Qualifiers: Diabetes mellitus type: type 2 Diabetes mellitus complication status: with unspecified complications Diabetes mellitus shelter insulin use: with intermediate designer use Qualified Code(s): E11.8 - Type 2 diabetes mellitus with unspecified complications; Z79.4 - penitentiary (current) use of insulin (7) Anemia Current Visit: Yes Status: Acute Assessment and plan: I will reorder hemolysis studies. We will transfuse 2 units PRBCs and monitor her response. I suspect anemia related to chronic disease secondary to kidney dysfunction. We will check iron studies. Qualifiers: Anemia type: unspecified type Qualified Code(s): D64.9 - Anemia, unspecified - Subjective Interval history: history is limited by mental confusion. Per records she had a rapid response for generalized upper and lower body shaking movements.he was arousable during the event. she remembers the episode and says that she has been having shaking movements in the past. Denies headache and vision changes. - Constitutional Vitals: Temp Pulse Resp BP Pulse Ox 96.4 F L 66 12 111/67 100 10/20/16 16:03 10/20/16 16:03 10/20/16 16:03 10/20/16 17:20 10/20/16 16:03 General appearance: Present: cooperative, A&O X 3, morbidly obese, answers questions appropriately - Respiratory Respiratory exam: Present: CTAB. Absent: accessory muscle use, rales, rhonchi, wheezes - Cardiovascular Cardiovascular exam: Present: RRR, +S1, +S2. Absent: diastolic murmur, gallop, rubs, systolic murmur - GI/Abdominal GI/Abdominal exam: Present: normal bowel sounds, soft, no peritoneal signs. Absent: distended, tenderness - Extremities Exam Extremities exam: Present: pedal edema, warm, radial pulses palpable and symetrical. Absent: calf tenderness, cyanotic - Neurological Exam Neurological exam: Present: CN II-XII intact, no focal deficits. Absent: pronater drift, facial droop, speech deficit - Skin Skin exam: Present: dry, intact Internal Medicine: Result - Labs CBC & Chem 7: 10/20/16 10:38 10/20/16 10:38 Labs: Short CBC 10/19/16 10/20/16 10/20/16 Range/Units 20:53 06:10 10:38 WBC 11.0 10.1 (4.3-11.1) K/mcL Hgb 6.3 L 6.3 L 6.2 L (11.5-15.4) g/dL Hct 21.2 L 21.7 L 21.2 L (35.3-44.9) % Plt Count 213 226 (140-400) K/mcL Neutrophils # 8.5 8.1 (1.6-8.9) K/mcL BMP 10/20/16 10/20/16 06:10 10:38 Sodium 139 139 Potassium 4.8 H 4.8 H Chloride 108 107 Carbon Dioxide 19 18 L BUN 90 H 92 H Creatinine 6.76 H 6.92 H Glucose 119 H 117 H Calcium 7.6 L 7.8 L Liver Function 10/20/16 Range/Units 10:38 Total Bilirubin 0.6 (0.2-1.2) mg/dL AST 9 (5-34) Units/L ALT 6 (0-55) Units/L Alkaline Phosphatase 161 H (38-126) Units/L Albumin 1.8 L (3.5-5.0) g/dL - ABG Interpretation ABG results: PT/INR, D-dimer PT 14.5 Seconds (9.4-12.1) H 10/20/16 10:38 D-Dimer 2641 ng/mLFEU (0-500) H 10/18/16 13:47 - Impressions Impressions Guidance Needle Placement Ultrasound 10/19/16 00:00 IMPRESSION: Successful ultrasound and fluoroscopy guided tunneled dialysis catheter placement . D/ / 10/20/2016 10:37:08 Alexis Butt MD / jenni Interpreting Provider: Alexis Butt MD Permanent Dialysis Access 10/19/16 00:00 IMPRESSION: Successful ultrasound and fluoroscopy guided tunneled dialysis catheter placement . D/ /20/2016 10:37:08 Alexis Butt MD / jenni Interpreting Provider: Alexis Butt MD Head CT 10/20/16 06:43 IMPRESSION: New focal area of white matter disease in the right parietal lobe, favored to be chronic given the associated dilatation of the posterior wall of the right lateral ventricle. No obvious hemorrhage noted Paranasal sinus disease D/ / Joseluis Ferrara MD / Joseluis Ferrara MD Interpreting Provider: Joseluis Ferrara MD Consult Discharge Plan - Plan Instructions: Heart Failure (DC) Referrals: Dee Negron, BUYER INTERNSHIP [Primary Care Provider] - 10/27/16 10:00 am ()
[2016-10-21 01:56] LABS: Basophils # 0.1 K/mcL (0.0-0.2); Basophils % 0.5 %; Eosinophils # 0.3 K/mcL (0.0-0.6); Eosinophils % 3.1 %; Hematocrit 21.2 % (35.3-44.9); Hemoglobin 6.4 g/dL (11.5-15.4); Immature Granulocytes % 1.1 % (0-4); Lymphocytes # 0.5 K/mcL (0.6-4.6); Lymphocytes % 5.4 %; Mean Corpuscular HGB Conc 30.2 g/dL (31.6-35.5); Mean Corpuscular Hemoglobin 25.8 pg (28.0-33.3); Mean Corpuscular Volume 85.5 fL (83.0-100.0); Mean Platelet Volume 9.4 fL (9.4-12.4); Monocytes # 1.6 K/mcL (0.0-1.3); Monocytes % 15.6 %; Neutrophils # 7.4 K/mcL (1.6-8.9); Platelet Count 214 K/mcL (140-400); Red Blood Count 2.48 M/mcL (3.82-4.97); Red Cell Distribution Width 17.9 % (11.5-14.5); Segmented Neutrophils % 74.3 %
[2016-10-21 02:04] LABS: INR 1.4
[2016-10-21 02:07] LABS: Activated Partial Thrombo Time 35.4 Seconds (26.0-36.0)
[2016-10-21 02:08] LABS: Magnesium 1.6 mg/dL (1.6-2.6)
[2016-10-21 02:13] LABS: Albumin/Globulin Ratio 0.3 (1.1-2.2); Bilirubin,Total 0.6 mg/dL (0.2-1.2); Calcium 7.6 mg/dL (8.6-10.8); Globulin 6.1 g/dL (2.4-3.5); Potassium 4.4 mEq/L (3.5-4.5); Total Protein 7.8 g/dL (6.0-8.3)
[2016-10-21 02:14] LABS: Albumin 1.7 g/dL (3.5-5.0)
[2016-10-21] MEDS ORDERED: Magnesium Sulfate 2 GM in D5% in Water 100 ML IVPB PRN (03:16)
[2016-10-21] MEDS ORDERED: Potassium Phosphate 44 MEQ in 0.9 % Sodium Chloride 250 ML IVPB PRN (03:16)
[2016-10-21] MEDS ORDERED: Calcium Gluconate 1,000 MG in D5% in Water 100 ML IVPB PRN (03:16)
[2016-10-21] MEDS: *HR* Heparin 5,000 UNIT/ML VIAL SQ SCH ×2 (05:10→20:59)
--- NOTE | 2016-10-21 07:33 | Venous Imaging Report ---
LE Venous Duplex Patient Name:Areli Fernández Order Number:[id number] Procedure Date:10/18/2016 Date:1965Age:51 yrs Gender:Female Location:[facility] ED Room #: 11 Automotive Parts Advisor:Frida Escobar RVT, RDCS Referring MD:Jj Encarnacion MD manufacturing engineer:Dee Negron, RN PAR[place] Reading MD:Justin Calderon MD Study Quality:Technically Difficult Primary Indications:Edema and pain Secondary Indications: Risk Factors Yes/No Anticoagulants Yes Impressions: Left lower extremity: normal superficial and deep exam. Incomplete exam secondary to body habitus Recommendations: Test completed on 10/18/2016 at 2:45:00 pm. Critical findings reported to Dr Joyce in person at 2:45:00 pm on 10/18/2016 by Frida Escobar RVT, RDCS. Findings Venous Duplex Results: Right: Venous imaging of the lower extremity reveals full patency and normal vessel compressibility of the right common femoral. Doppler signals in the evaluated veins were normal. Left: Venous imaging of the lower extremity reveals full patency and normal vessel compressibility of the left common femoral, left superficial femoral, left popliteal, left great saphenous and left lesser saphenous. Doppler signals in the evaluated veins were normal. The left superficial femoral, left posterior tibial and left peroneal veins were not well visualized. Lower Extremity Venous Duplex Side Vein Compress Spontaneous Flow Augment Diameter (cm) Depth (cm) Left Common Femoral Normal Yes Phasic Yes Left Superficial Femoral Normal Yes Phasic Yes Left Popliteal Normal Yes Phasic Yes Left Posterior Tibial Left Peroneal Left Great Saphenous Normal Yes Phasic Yes Left Lesser Saphenous Normal Yes Phasic Yes Right Common Femoral Normal Yes Phasic Yes Updated by Justin Calderon MD on 10/21/2016 7:29:06 AM electronically signed on 10/21/2016 7:29:15 AM with status of Final
[2016-10-21] MEDS: Insulin LISPRO 300 UNITS/3 ML VIAL SQ SCH ×4 (07:35→20:47)
[2016-10-21] MEDS: Folic Acid 1 MG TABLET PO SCH (07:41)
[2016-10-21] MEDS: Furosemide 40 MG/4 ML VIAL IVP SCH ×2 (07:41→20:59)
[2016-10-21] MEDS: Calcium Acetate 667 MG CAPSULE PO SCH ×3 (07:41→17:22)
[2016-10-21] MEDS: Miconazole w/zinc oxide&karaya 92 APPL/92 GM TUBE TP SCH (07:42)
[2016-10-21] MEDS: Insulin DETEMIR 100 UNIT/ML X5UNITS SQ SCH ×2 (07:45→21:29)
[2016-10-21] MEDS ORDERED: 0.9 % Sodium Chloride 250 ML IV PRN ×2 (08:07→09:43)
--- NOTE | 2016-10-21 09:35 | Neurology Progress Note ---
Date of Encounter: 10/21/16 Time of Encounter: 09:33 Assessment and Plan (1) Myoclonic jerking Current Visit: Yes Status: Acute Patient with a history of Parkinson's disease. She reports her muscle jerks and tremors are at her baseline. She underwent an EEG yesterday to evaluate for seizure-like activity. No evidence of epileptiform activity on her EEG. Recommend to continue her current medication regimen. Neurology will sign off. Subjective Principal diagnosis: CHRISTOPHER/CKD Volume overload Interval history: patient reports no complaints overnight. I discussed results of her EEG with her which showed no seizure-like activity. She reports that her muscle jerking and tremors are baseline. She is currently undergoing dialysis for renal failure. No other complaints. Objective - Constitutional Vitals: Temp Pulse Resp BP Pulse Ox 97.6 F 63 16 122/60 100 10/21/16 07:13 10/21/16 07:13 10/21/16 07:13 10/21/16 07:13 10/21/16 07:13 General appearance: Present: A&O X 3, pleasant, no acute distress - Head Head exam: Present: atraumatic, normal inspection, normocephalic - Eye Eye exam: Present: EOMI, normal appearance. Absent: conjunctival injection - Extremities Exam Extremities exam: Present: full ROM, normal inspection - Neurological Exam Motor Examination: Present: grossly full strength in all extremities Motor examination - left side: 4/5: deltoids, biceps, triceps, wrist flexion, wrist extension, hip flexors, fuel truck driver, quadriceps, tibialis Anterior, toe extension (EHL), plantarflexion Sensation intact: Present: other (Decreased sensation to light touch in the lower extremities) Mental Status Examination: Present: awake, alert, oriented to person, oriented to place, follows commands appropriately, answers questions appropriately, makes eye contact, follows simple commands, localizes noxious stimulation Cranial nerve examination: Present: PERRL, EOMI, sensory to face intact, no facial asymmetry is present, no dysarthria, hearing is intact symmetrically Cerebellar examination: Present: no dysmetria Results - Laboratory Findings CBC and BMP: 10/21/16 01:46 10/21/16 01:46 Abnormal lab findings: Abnormal lab results RBC 2.48 M/mcL (3.82-4.97) L 10/21/16 01:46 Hgb 6.4 g/dL (11.5-15.4) L 10/21/16 01:46 Hct 21.2 % (35.3-44.9) L 10/21/16 01:46 MCH 25.8 pg (28.0-33.3) L 10/21/16 01:46 MCHC 30.2 g/dL (31.6-35.5) L 10/21/16 01:46 RDW 17.9 % (11.5-14.5) H 10/21/16 01:46 Lymphocytes # 0.5 K/mcL (0.6-4.6) L 10/21/16 01:46 Monocytes # 1.6 K/mcL (0.0-1.3) H 10/21/16 01:46 Nucleated RBCs/100 WBC 0.2 /100 WBC (0) H 10/19/16 04:04 Polychromasia 1+ (Not Present) A 10/19/16 04:04 Hypochromasia Present (Not Present) A 10/20/16 10:38 Basophilic Stippling 1+ (Not Present) A 10/19/16 04:04 Anisocytosis 1+ (Not Present) A 10/20/16 10:38 Microcytosis Present (Not Present) A 10/20/16 10:38 Percent Retic 3.3 % (1.6-2.8) H 10/19/16 16:09 Retic Hgb Equivalent 20.4 pg (28.61-36.33) L 10/19/16 16:09 PT 15.0 Seconds (9.4-12.1) H 10/21/16 01:46 D-Dimer 2641 ng/mLFEU (0-500) H 10/18/16 13:47 VBG pO2 76 mmHg (25-40) H 10/20/16 06:10 BUN 73 mg/dL (7-20) H 10/21/16 01:46 Creatinine 6.03 mg/dL (0.57-1.11) H 10/21/16 01:46 Est GFR ( Amer) 9 (> 60) L 10/21/16 01:46 Est GFR (Non-Af Amer) 7 (> 60) L 10/21/16 01:46 Glucose 112 mg/dL (70-99) H 10/21/16 01:46 POC Glucose 144 (58-89) H 10/20/16 20:21 Calculated Osmolality 310 (280-300) H 10/21/16 01:46 Uric Acid 10.2 mg/dL (2.6-6.0) H 10/19/16 11:51 Calcium 7.6 mg/dL (8.6-10.8) L 10/21/16 01:46 Ionized Calcium 1.00 mmol/L (1.15-1.35) L 10/21/16 01:46 Phosphorus 6.4 mg/dL (2.3-4.7) H 10/21/16 01:46 Iron 22 mcg/dL (50-170) L 10/18/16 13:47 % Saturation 9 % (15-50) L 10/18/16 13:47 Transferrin 168 mg/dL (180-382) L 10/18/16 13:47 Alkaline Phosphatase 155 Units/L (38-126) H 10/21/16 01:46 C-Reactive Protein 157 mg/L (Less than 5) H 10/18/16 13:47 B-Natriuretic Peptide 976 pg/mL (0-100) H 10/18/16 13:47 Albumin 1.7 g/dL (3.5-5.0) L 10/21/16 01:46 Globulin 6.1 g/dL (2.4-3.5) H 10/21/16 01:46 Albumin/Globulin Ratio 0.3 (1.1-2.2) L 10/21/16 01:46 Vitamin B12 846 pg/mL (213-816) H 10/19/16 11:51 25-OH Vitamin D Total 7 ng/mL (30-80) L 10/19/16 11:51 Folate 4.4 ng/mL (7.0-31.4) L 10/19/16 11:51 PTH Intact 479.6 pg/ml (8.5-72.5) H 10/19/16 11:51 Consult Discharge Plan - Plan Instructions: Heart Failure (DC) Referrals: Dee Negron, MANAGER OF RADIOLOGY [Primary Care Provider] - 10/27/16 10:00 am ()
--- NOTE | 2016-10-21 10:06 | ECHO - Doppler Report ---
Echocardiogram Name: Areli Fernández Date of Study: 10/20/2016 Date: 1965 Ht: 69.0 in Medical Record#: [id number] Age: 51 Wt: 397.0 lb Gender: Female BSA: 2.76 Order #: [id number] Location: [facility] Room #: IC10 Reading Physician: Laverne Rubin DO Mainframe Architect: Dorothy Boston Ordering Physician: Sharmila Shine MD Primary Physician: Dee Negron CNP Indications: Congestive heart failure Impressions: LVEF 55%. Moderate concentric hypertrophy of the left ventricle. There is evidence of moderate diastolic dysfunction of the left ventricle. Normal right ventricular size and function. Aortic sclerosis without stenosis. No pulmonary hypertension. Findings: Study Quality * Technically sub-optimal due to body habitus. ECG Findings * Sinus bradycardia. Left Ventricle * Moderate concentric left ventricular hypertrophy. * Moderate left ventricular diastolic dysfunction. * LVEF 55%. Aortic Valve * No aortic regurgitation. * Aortic valve not well visualized. * No aortic stenosis. PV 3.1m/s, MG 18 mmHg, DI 0.56, ZURDO 1.76cm2 * Aortic sclerosis. Mitral Valve * No mitral regurgitation. * Normal mitral valve structure. * No mitral stenosis. Tricuspid Valve * Tricuspid valve not well visualized. * Trace tricuspid regurgitation. Pulmonic Valve * Pulmonic valve is not well visualized. * No pulmonic stenosis. * No pulmonic regurgitation. Pulmonary Artery * Pulmonary artery not well visualized. Right Ventricle * Normal right ventricular structure and function. Left Atrium * Normal left atrial size. Right Atrium * Normal right atrial size. Interatrial Septum * Interatrial septum not well evaluated. IVC * The IVC is not well evaluated. Pericardium * There is no pericardial effusion present. Aorta * Difficult to visualize. History Hypertension Diabetes Hypercholesteremia History of CAD/PTCA 06/08/2016 a Previous Echo was performed. Measurements: BP: 113/ 55 2D Normal Values IVSd: 1.10 cm 0.6 - 1.0 cm LVIDd: 5.85 cm 3.7 - 5.6 cm LVPWd: 1.31 cm 0.6 - 1.1 cm LVIDs: 3.90 cm 1.5 - 3.6 cm AO: 2.10 cm < 4.0 cm LA: 3.80 cm 2.0 - 4.0cm %FS: 33.30 cm >25 % LVOT Diam: 2.00 cm LA volume: 91 Mitral Valve Peak E:1.64 m/sec Peak A:1.20 m/sec E/A Ratio:1.4 Peak E' Lat Edmond:9.57 cm/s Peak E' Med Edmond:7.09 cm/s E/E' Lat Ratio:17.1 E/E' Med Ratio:23.1 LVOT Peak Edmond:1.52 m/sec Mean Edmond:.98 m/sec Peak Grad:9.00 mmHg Mean Grad:4.33 mmHg Aortic Valve Peak Edmond:3.96 m/sec Mean Edmond:2.50 m/sec Peak Grad:63.00 mmHg Mean Grad:29.00 mmHg Valve Area:1.35 cm2 Updated by Laverne Rubin on 10/21/2016 9:59:11 AM electronically signed on 10/21/2016 10:01:19 AM with status of Final Wall Motion Guevara: 1=Normal, 2=Hypokinesis, 3=Akinesis, 4=Dyskinesis, 5=Aneurysmal, 6=Hyperkinetic, X=Not Visualized (Blank)=Missing
--- NOTE | 2016-10-21 10:24 | Internal Med Progress Note ---
<Win Uriostegui - Last Filed: 10/21/16 16:09> Date of Encounter: 10/21/16 Time of Encounter: 10:23 - Assessment and plan (1) Acute on chronic renal failure Current Visit: Yes Status: Acute Assessment and plan: noted to have progressive worsening in renal function along with worsening metabolic acidosis, anemia, volume overload; Nephrology consulted, HD today. high risk patient for respiratory failure and cardiac arrhythmias; Telemetry monitoring; Renal dose meds (2) Anemia Current Visit: Yes Status: Acute Assessment and plan: Suspect anemia related to chronic disease secondary to kidney dysfunction. We will check iron studies. Iron 22, %sat 9, Transferrin 168, Ferritin 168. LDH, Haptoglobin pending. Indirect bili 0.1 on 10/18/16 Pt. has already received 3 units PRBC with inappropriate response to transfusion. No evidence of bleeding. Hemolysis labs pending FOBS pending Hgb 6.4 Will transfuse 2 more units PRBC and monitor cbc Qualifiers: Anemia type: unspecified type Qualified Code(s): D64.9 - Anemia, unspecified (3) Fluid overload Current Visit: Yes Status: Acute Assessment and plan: related to worsening renal failure; will get hemodialysis today. net negative 412ml since admission Qualifiers: Hypervolemia type: other Qualified Code(s): E87.79 - Other fluid overload (4) Lower extremity edema Current Visit: Yes Status: Acute Assessment and plan: Likely related to fluid overload. Should improve with diuresis and hemodialysis and fluid removal. Qualifiers: Laterality: bilateral Qualified Code(s): R60.0 - Localized edema (5) CHF (congestive heart failure) Current Visit: Yes Status: Chronic Qualifiers: Congestive heart failure type: diastolic Congestive heart failure chronicity: chronic Qualified Code(s): I50.32 - Chronic diastolic (congestive ) heart failure (6) Diabetes mellitus Current Visit: Yes Status: Chronic Assessment and plan: Insulin sliding scale. Qualifiers: Diabetes mellitus type: type 2 Diabetes mellitus complication status: with unspecified complications Diabetes mellitus longterm insulin use: with terminal make up operator use Qualified Code(s): E11.8 - Type 2 diabetes mellitus with unspecified complications; Z79.4 - skilled nursing (current) use of insulin (7) DVT prophylaxis Current Visit: Yes Status: Acute Assessment and plan: Heparin subq - Subjective Interval history: Patient seen and examined. States she is feeling better today. - Constitutional Vitals: Temp Pulse Resp BP Pulse Ox 97.6 F 63 16 122/60 100 10/21/16 07:13 10/21/16 07:13 10/21/16 07:13 10/21/16 07:13 10/21/16 07:13 General appearance: Present: cooperative, A&O X 3, morbidly obese, answers questions appropriately - Head Head exam: Present: atraumatic, normocephalic - Eye Eye exam: Present: PERRL, conjuntiva pink, sclera anicteric Pupils: Present: PERRL - Neck Neck exam general surgery: Present: supple, trachea midline. Absent: lymphadenopathy - Respiratory Respiratory exam: Present: rhonchi, wheezes. Absent: accessory muscle use, CTAB , rales - Cardiovascular Cardiovascular exam: Present: RRR, +S1, +S2. Absent: diastolic murmur, gallop, rubs, systolic murmur - GI/Abdominal GI/Abdominal exam: Present: normal bowel sounds, soft, no peritoneal signs. Absent: distended, tenderness - Extremities Exam Extremities exam: Present: pedal edema, warm, radial pulses palpable and symetrical. Absent: calf tenderness, cyanotic - Neurological Exam Neurological exam: Present: CN II-XII intact, oriented X3, no focal deficits. Absent: pronater drift, facial droop, speech deficit - Skin Skin exam: Present: dry, intact Internal Medicine: Result - Labs CBC & Chem 7: 10/21/16 01:46 10/21/16 01:46 Labs: Short CBC 10/20/16 10/21/16 Range/Units 10:38 01:46 WBC 10.1 9.9 (4.3-11.1) K/mcL Hgb 6.2 L 6.4 L (11.5-15.4) g/dL Hct 21.2 L 21.2 L (35.3-44.9) % Plt Count 226 214 (140-400) K/mcL Neutrophils # 8.1 7.4 (1.6-8.9) K/mcL BMP 10/20/16 10/21/16 10:38 01:46 Sodium 139 139 Potassium 4.8 H 4.4 Chloride 107 105 Carbon Dioxide 18 L 23 BUN 92 H 73 H Creatinine 6.92 H 6.03 H Glucose 117 H 112 H Calcium 7.8 L 7.6 L Liver Function 10/20/16 10/21/16 Range/Units 10:38 01:46 Total Bilirubin 0.6 0.6 (0.2-1.2) mg/dL AST 9 7 (5-34) Units/L ALT 6 6 (0-55) Units/L Alkaline Phosphatase 161 H 155 H (38-126) Units/L Albumin 1.8 L 1.7 L (3.5-5.0) g/dL - ABG Interpretation ABG results: PT/INR, D-dimer PT 15.0 Seconds (9.4-12.1) H 10/21/16 01:46 D-Dimer 2641 ng/mLFEU (0-500) H 10/18/16 13:47 - Impressions Impressions Guidance Needle Placement Ultrasound 10/19/16 00:00 IMPRESSION: Successful ultrasound and fluoroscopy guided tunneled dialysis catheter placement . D/ /20/2016 10:37:08 Alexis Butt MD / jenni Interpreting Provider: Alexis Butt MD Permanent Dialysis Access 10/19/16 00:00 IMPRESSION: Successful ultrasound and fluoroscopy guided tunneled dialysis catheter placement . D/ /20/2016 10:37:08 Alexis Butt MD / jenni Interpreting Provider: Alexis Butt MD Retroperitoneum Ultrasound 10/19/16 20:30 IMPRESSION: 1. Diffusely increased renal parenchymal echogenicity in keeping with chronic medical renal disease. 2. No evidence of obstructive uropathy. 3. Empty urinary bladder. D/ / Lokesh Garcia MD / Lokesh Garcia MD Interpreting Provider: Lokesh Garcia MD Head CT 10/20/16 06:43 IMPRESSION: New focal area of white matter disease in the right parietal lobe, favored to be chronic given the associated dilatation of the posterior wall of the right lateral ventricle. No obvious hemorrhage noted Paranasal sinus disease D/ / Joseluis Ferrara MD / Joseluis Ferrara MD Interpreting Provider: Joseluis Ferrara MD Consult Discharge Plan - Plan Instructions: Heart Failure (DC) Referrals: Dee Negron RESIDENTIAL ELECTRICIAN [Primary Care Provider] - 10/27/16 10:00 am () <RamuFili - Last Filed: 10/21/16 18:17> - Assessment and plan (1) Acute on chronic renal failure Current Visit: Yes Status: Acute (2) DVT prophylaxis Current Visit: Yes Status: Acute (3) Fluid overload Current Visit: Yes Status: Acute Qualifiers: Hypervolemia type: other Qualified Code(s): E87.79 - Other fluid overload (4) Lower extremity edema Current Visit: Yes Status: Acute Qualifiers: Laterality: bilateral Qualified Code(s): R60.0 - Localized edema (5) CHF (congestive heart failure) Current Visit: Yes Status: Chronic Qualifiers: Congestive heart failure type: diastolic Congestive heart failure chronicity: chronic Qualified Code(s): I50.32 - Chronic diastolic (congestive ) heart failure (6) Diabetes mellitus Current Visit: Yes Status: Chronic Qualifiers: Diabetes mellitus type: type 2 Diabetes mellitus complication status: with unspecified complications Diabetes mellitus longterm insulin use: with terminal make up operator use Qualified Code(s): E11.8 - Type 2 diabetes mellitus with unspecified complications; Z79.4 - skilled nursing (current) use of insulin (7) Anemia Current Visit: Yes Status: Acute Qualifiers: Anemia type: unspecified type Qualified Code(s): D64.9 - Anemia, unspecified - Constitutional Vitals: Temp Pulse Resp BP Pulse Ox 98.7 F 65 18 106/79 99 10/21/16 16:51 10/21/16 16:24 10/21/16 16:24 10/21/16 16:51 10/21/16 11:04 Internal Medicine: Result - Labs CBC & Chem 7: 10/21/16 01:46 10/21/16 01:46 Labs: Short CBC 10/21/16 Range/Units 01:46 WBC 9.9 (4.3-11.1) K/mcL Hgb 6.4 L (11.5-15.4) g/dL Hct 21.2 L (35.3-44.9) % Plt Count 214 (140-400) K/mcL Neutrophils # 7.4 (1.6-8.9) K/mcL BMP 10/21/16 01:46 Sodium 139 Potassium 4.4 Chloride 105 Carbon Dioxide 23 BUN 73 H Creatinine 6.03 H Glucose 112 H Calcium 7.6 L Liver Function 10/21/16 Range/Units 01:46 Total Bilirubin 0.6 (0.2-1.2) mg/dL AST 7 (5-34) Units/L ALT 6 (0-55) Units/L Alkaline Phosphatase 155 H (38-126) Units/L Albumin 1.7 L (3.5-5.0) g/dL - ABG Interpretation ABG results: PT/INR, D-dimer PT 15.0 Seconds (9.4-12.1) H 10/21/16 01:46 D-Dimer 2641 ng/mLFEU (0-500) H 10/18/16 13:47 - Impressions Impressions Retroperitoneum Ultrasound 10/19/16 20:30 IMPRESSION: 1. Diffusely increased renal parenchymal echogenicity in keeping with chronic medical renal disease. 2. No evidence of obstructive uropathy. 3. Empty urinary bladder. D/ / Lokesh Garcia MD / Lokesh Garcia MD Interpreting Provider: Lokesh Garcia MD - Attending Attestation I examined this patient and my medical decision-making was reviewed with the Resident Physician. I agree with the documented findings, disposition and treatment plan as described except to the extent set forth below. Continue hemodialysis per nephrology. Transfuse 2 units PRBC today. Check Hemoccult stool. Follow-up H&H in the morning. Appreciate neurology recommendations.
[2016-10-21 11:27] LABS: Magnesium 1.7 mg/dL (1.6-2.6)
[2016-10-21 11:33] LABS: Ionized Calcium 1.03 mmol/L (1.15-1.35)
[2016-10-21] MEDS ORDERED: *HR* Heparin 10,000 UNIT/10 ML VIAL IV PRN (17:49)
[2016-10-21] MEDS ORDERED: 0.9 % Sodium Chloride 3,000 ML ONE (17:58)
--- NOTE | 2016-10-21 19:23 | Nephrology Progress Note ---
Date of Encounter: 10/21/16 Time of Encounter: 19:21 - Assessment and Plan (1) Acute on chronic renal failure Current Visit: Yes Status: Acute Patient with stage 5 CKD that worsened. Will now declare her ESRD. A tunneled catheter has been placed. Her first HD session was 10/19/16. She has dialyzed daily for 3 days nowshe will be on a MWF schedule. Social work is consulted for outpatient HD placement. Consulted nutrition for her renal diet. Renal dose medications. Vein mapping has been ordered. She will need permanent access placed. (2) Dyspnea on exertion Current Visit: Yes Status: Acute Will remove fluid with dialysis. (3) Diabetes mellitus Current Visit: Yes Status: Chronic Per primary team. 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 Educate on low phosphorus diet Vitamin D deficiency - Replacement ordered hypocalcemia - replace as needed. Repeat PTH as an outpatient. (5) Anemia Current Visit: Yes Status: Acute Etiology unclear. Inappropriate response to transfusion. No evidence of bleeding. Will check stool guiac. No hemolysis based on labs and not acute bleeding noted. Transfuse on dialysis. 1-2 units depending on results of hemolysis labs. iron deficiency - getting transfusion. Will start oral iron. Will likely need IV iron. Folate deficiency - replacement ordered. Vitamin B12 normal. Consider hematology consult. Qualifiers: Qualified Code(s): D64.9 - Anemia, unspecified (6) Hyperuricemia Current Visit: Yes Status: Acute Elevate uric acid. Nutrition consulted for dietary education. Allopurinol ordered. (7) Altered mental state Current Visit: Yes Status: Acute Concern for seizure, but patient able to verbalize during the event. Could be secondary to excess gabapentin. Primary team and neurology managing. Discontinued gabapentin. Qualifiers: Qualified Code(s): R41.82 - Altered mental status, unspecified Subjective Principal diagnosis: CHRISTOPHER/CKD Volume overload Interval history: Patient seen on dialysis. She has no new complaint. No chest pain, no sob. ROS otherwise seemed appropriate. Objective - Vital Signs Vital signs: Vital Signs Temp Pulse Resp BP Pulse Ox 10/21/16 17:50 165/88 10/21/16 17:35 157/87 10/21/16 17:20 156/82 10/21/16 17:05 156/74 10/21/16 16:51 98.7 F 106/79 10/21/16 16:50 151/92 10/21/16 16:35 106/79 10/21/16 16:24 98.7 F 65 18 138/85 10/21/16 16:20 120/71 10/21/16 16:09 98.9 F 61 20 120/71 10/21/16 16:05 126/81 10/21/16 15:50 131/70 10/21/16 15:35 106/79 10/21/16 15:20 104/70 10/21/16 15:05 142/61 10/21/16 11:04 97.5 F L 68 18 127/63 99 10/21/16 07:13 97.6 F 63 16 122/60 100 10/21/16 04:11 62 10/21/16 03:54 97.9 F 65 14 123/73 100 10/20/16 23:07 65 10/20/16 23:00 98.1 F 67 18 115/47 97 10/20/16 20:38 98.2 F 10/20/16 20:00 98.2 F 61 12 101/56 98 Intake and Output 10/21/16 10/21/16 10/21/16 07:59 15:59 23:59 Intake Total 214 / 214 480 / 480 1400 / 1400 Balance 214 / 214 480 / 480 1400 / 1400 Intake: IV Fluids 214 / 214 Calcium Gluconate 1,000 110 / 110 MG In Dextrose 5% 100 ML @ 50 mls/hr IVPB Q6HR PRN Rx#:[id number] Magnesium Sulfate 2 GM In 104 / 104 Dextrose 5% 100 ML @ 50 mls/hr IVPB Q6H PRN Rx#: [id number] Oral 480 / 480 Blood Product 1400 / 1400 Rbcs Leuko Poor As-1 700 / 700 Unit [id number] Rbcs Leuko Poor As-1 700 / 700 Unit [id number] Other: Meal Lunch Percent of Meal Consumed 100% Weight 178.3 kg Blood Glucose* 99 131 Hemodialysis Net Fluid 875 3000 Removed (mL) Patient Weight 10/21/16 23:59 Weight 178.3 kg - General Appearance General appearance: Present: well-developed, well-nourished, obese EENT: Present: ATNC Neck: Present: supple Respiratory: Present: clear Cardiology: Present: edema, regular rate, regular rhythm Gastrointestinal: Present: normoactive bowel sounds Neurologic: Present: alert and oriented x3 Psychiatric: Present: mood/affect appropriate - Lab 10/22/16 05:46 10/22/16 05:46 Most recent lab results Calcium 7.6 mg/dL (8.6-10.8) L 10/21/16 01:46 Phosphorus 6.4 mg/dL (2.3-4.7) H 10/21/16 01:46 Magnesium 1.7 mg/dL (1.6-2.6) 10/21/16 11:12 Consult Discharge Plan - Plan Instructions: Heart Failure (DC) Referrals: Dee Negron CNP [Primary Care Provider] - 10/27/16 10:00 am ()
[2016-10-21] MEDS: *HR* OxyCODONE Immed Rel 5 MG TABLET PO PRN (20:28)
[2016-10-22] MEDS: Miconazole w/zinc oxide&karaya 92 APPL/92 GM TUBE TP SCH ×3 (00:30→21:43)
[2016-10-22 06:09] LABS: Basophils # 0.1 K/mcL (0.0-0.2); Basophils % 0.8 %; Eosinophils # 0.4 K/mcL (0.0-0.6); Hematocrit 26.1 % (35.3-44.9); Hemoglobin 7.7 g/dL (11.5-15.4); Immature Granulocytes % 0.8 % (0-4); Lymphocytes # 0.5 K/mcL (0.6-4.6); Lymphocytes % 5.9 %; Mean Corpuscular HGB Conc 29.5 g/dL (31.6-35.5); Mean Corpuscular Hemoglobin 25.7 pg (28.0-33.3); Mean Platelet Volume 9.7 fL (9.4-12.4); Monocytes # 1.5 K/mcL (0.0-1.3); Monocytes % 16.4 %; Neutrophils # 6.7 K/mcL (1.6-8.9); Platelet Count 235 K/mcL (140-400); Red Cell Distribution Width 17.5 % (11.5-14.5); Segmented Neutrophils % 72.1 %
[2016-10-22 06:23] LABS: Alanine Aminotransferase < 6 Units/L (0-55); Albumin 1.8 g/dL (3.5-5.0); Albumin/Globulin Ratio 0.3 (1.1-2.2); Alkaline Phosphatase 164 Units/L (38-126); Aspartate Amino Transferase 8 Units/L (5-34); BUN/Creatinine Ratio 11 (6-26); Bilirubin,Total 0.6 mg/dL (0.2-1.2); Blood Urea Nitrogen 58 mg/dL (7-20); Carbon Dioxide 22 mEq/L (19-29); Chloride 106 mEq/L (98-109); Globulin 6.6 g/dL (2.4-3.5); Glucose 69 mg/dL (70-99); Magnesium 1.8 mg/dL (1.6-2.6); Osmolality,Calculated 303 (280-300); Phosphorous 5.7 mg/dL (2.3-4.7); Potassium 4.6 mEq/L (3.5-4.5); Sodium 139 mEq/L (136-145); Total Protein 8.4 g/dL (6.0-8.3); eGFR For African Americans 11 (> 60); eGFR For Non-African Americans 9 (> 60)
[2016-10-22] MEDS: *HR* Heparin 5,000 UNIT/ML VIAL SQ SCH ×2 (06:25→18:30)
--- NOTE | 2016-10-22 06:58 | Venous Imaging Report ---
UE Vein Map Patient Name:Areli Fernández Order Number:[id number] Procedure Date:10/21/2016 Date:1965Age:51 yrs Gender:Female Location:[facility] Room #: 2A9 Electrical Test Engineer:Karrie Deluna RVT Referring MD:Eleuterio Greene MD early head start director:Dee Negron, [employer] Reading MD:Aki Scott MD Primary Indications:mapping for dialysis access Risk Factors Yes/No Hx central line Yes Recent IV therapy ( past 2 weeks) Yes Impressions: Normal right upper extremity deep and superficial venous exam. Normal left upper extremity deep venous exam. Acute superficial thrombosis is present in the left cephalic vein. Measurements are listed below. Recommendations: Critical findings reported to Patient's nurse in person by Karrie Deluna RVT. Findings Venous Duplex Results: Right: Venous imaging of the upper extremity reveals full patency and normal vessel compressibility of the right jugular, right subclavian, right axillary, right brachial, right cephalic upper arm, right cephalic forearm, right basilic upper arm, right basilic forearm, right radial and right ulnar. Doppler signals in the evaluated veins were normal. Left: Venous imaging of the upper extremity reveals full patency and normal vessel compressibility of the left jugular, left subclavian, left axillary, left brachial, left cephalic forearm, left basilic upper arm, left radial and left ulnar. Doppler signals in the evaluated veins were normal. There is an acute partially occlusive thrombus seen in the left cephalic upper arm. It demonstrates a partially compressible vein. Flow was phasic and it did augment. Prior Study: No prior study available for comparison. Upper Extremity Vein Map Side Vein Depth (cm) Diameter (cm) Characteristics Flow Right Proximal Basilic - Upper Arm 2.77 0.52 Normal Right Mid Basilic - Upper Arm 1.98 0.49 Normal Right Proximal Basilic - Forearm 0.43 0.18 Normal Right Mid Basilic - Forearm 0.48 0.17 Normal Right Distal Basilic - Forearm 0.35 0.17 Normal Right Proximal Cephalic - Upper Arm 1.93 0.42 Normal Right Mid Cephalic - Upper Arm 1.51 0.41 Normal Right Distal Cephalic - Upper Arm 0.94 0.50 Normal Right Proximal Cephalic - Forearm 0.64 0.20 Normal Right Mid Cephalic - Forearm 1.05 0.21 Normal Right Distal Cephalic - Forearm 0.71 0.22 Normal Left Proximal Basilic - Upper Arm 2.48 0.52 Normal Left Mid Basilic - Upper Arm 2.13 0.43 Normal Left Distal Basilic - Upper Arm 1.34 0.43 Normal Left Proximal Cephalic - Upper Arm 1.31 0.29 Normal Left Mid Cephalic - Upper Arm 1.23 0.39 Normal Left Distal Cephalic - Upper Arm 0.43 0.70 Thrombus Left Proximal Cephalic - Forearm 0.85 0.21 Normal Left Mid Cephalic - Forearm 0.47 0.17 Normal Left Distal Cephalic - Forearm 0.30 0.17 Normal Right Distal Basilic - Upper Arm 1.58 0.50 Normal Updated by Aki Scott MD on 10/22/2016 6:52:40 AM electronically signed on 10/22/2016 6:53:14 AM with status of Final
[2016-10-22 07:48] LABS: Haptoglobin 293 mg/dL (30-200)
[2016-10-22] MEDS: Furosemide 40 MG/4 ML VIAL IVP SCH ×2 (08:57→21:43)
[2016-10-22] MEDS: *HR* OxyCODONE Immed Rel 5 MG TABLET PO PRN ×2 (08:59→23:56)
[2016-10-22] MEDS: Folic Acid 1 MG TABLET PO SCH (09:01)
[2016-10-22] MEDS: Calcium Acetate 667 MG CAPSULE PO SCH ×3 (09:02→18:29)
[2016-10-22] MEDS: Insulin LISPRO 300 UNITS/3 ML VIAL SQ SCH ×4 (09:40→21:47)
[2016-10-22] MEDS: Insulin DETEMIR 100 UNIT/ML X5UNITS SQ SCH ×2 (09:43→18:32)
--- NOTE | 2016-10-22 09:57 | Nephrology Progress Note ---
Date of Encounter: 10/22/16 Time of Encounter: 09:54 - Assessment and Plan (1) ESRD (end stage renal disease) on dialysis Current Visit: Yes Status: Acute Plan for a M, W, F dialysis schedule with next treatment tomorrow location worker Christy working on getting patient a chair time at [facility] Continue renal diet and fluid restriction Vein mapping complete Avoid nephrotoxins if possible (2) Anemia Current Visit: Yes Status: Acute Hgb 7.7 up from 6.4 Transfer per parameters Qualifiers: Anemia type: unspecified type Qualified Code(s): D64.9 - Anemia, unspecified (3) Fluid overload Current Visit: Yes Status: Acute Will continue to pull fluids with dialysis Continue diuretics Qualifiers: Hypervolemia type: other Qualified Code(s): E87.79 - Other fluid overload (4) Diabetes mellitus Current Visit: Yes Status: Chronic per primary team Qualifiers: Diabetes mellitus type: type 2 Diabetes mellitus complication status: with unspecified complications Diabetes mellitus fpc insulin use: with fpc use Qualified Code(s): E11.8 - Type 2 diabetes mellitus with unspecified complications; 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 States she will be going to [facility] for her outpatient dialysis treatments. Objective - Vital Signs Vital signs: Vital Signs Temp Pulse Resp BP Pulse Ox 10/22/16 07:07 97.7 F 60 18 145/91 97 10/22/16 04:37 98.7 F 59 16 132/75 95 10/22/16 00:58 98.2 F 64 16 126/76 97 10/21/16 20:02 98.5 F 69 16 144/66 97 10/21/16 19:24 98.7 F 22 160/87 10/21/16 18:05 160/87 10/21/16 17:50 165/88 10/21/16 17:35 157/87 10/21/16 17:20 156/82 10/21/16 17:05 156/74 10/21/16 16:51 98.7 F 106/79 10/21/16 16:50 151/92 10/21/16 16:35 106/79 10/21/16 16:24 98.7 F 65 18 138/85 10/21/16 16:20 120/71 10/21/16 16:09 98.9 F 61 20 120/71 10/21/16 16:05 126/81 10/21/16 15:50 131/70 10/21/16 15:35 106/79 10/21/16 15:20 104/70 10/21/16 15:05 142/61 10/21/16 11:04 97.5 F L 68 18 127/63 99 Intake and Output 10/21/16 10/22/16 10/22/16 23:59 07:59 15:59 Intake Total 1400 / 1400 0 / 0 240 / 240 Output Total 4400 / 4400 0 / 0 Balance -3000 / -3000 0 / 0 240 / 240 Intake: Oral 0 / 0 240 / 240 Blood Product 1400 / 1400 Rbcs Leuko Poor As-1 700 / 700 Unit [id number] Rbcs Leuko Poor As-1 700 / 700 Unit [id number] Output: Urine 100 / 100 0 / 0 Total Dialysis Output 4300 / 4300 Other: Meal Breakfast Percent of Meal Consumed 100% Weight 177.8 kg Blood Glucose* 99 70 Hemodialysis Net Fluid 3000 Removed (mL) Patient Weight 10/22/16 23:59 Weight 177.8 kg - General Appearance General appearance: Present: obese EENT: Present: ATNC, mucous membranes moist, hearing intact, vision intact Neck: Present: supple Respiratory: Present: clear Cardiology: Present: edema, normal S1, normal S2 Dialysis Vascular Access: Venous Catheter Gastrointestinal: Present: no guarding, obese Integumentary: Present: warm and dry Neurologic: Present: alert and oriented x3 Psychiatric: Present: mood/affect appropriate, cooperative - Lab 10/22/16 05:46 10/22/16 05:46 Most recent lab results Calcium 8.0 mg/dL (8.6-10.8) L 10/22/16 05:46 Phosphorus 5.7 mg/dL (2.3-4.7) H 10/22/16 05:46 Magnesium 1.8 mg/dL (1.6-2.6) 10/22/16 05:46 Consult Discharge Plan - Plan Instructions: Heart Failure (DC) Referrals: Dee Negron, TIRE MOLDER [Primary Care Provider] - 10/27/16 10:00 am ()
--- NOTE | 2016-10-22 10:29 | Internal Med Progress Note ---
<Win Uriostegui - Last Filed: 10/22/16 15:21> Date of Encounter: 10/22/16 Time of Encounter: 10:27 - Assessment and plan (1) Acute on chronic renal failure Current Visit: Yes Status: Acute Assessment and plan: noted to have progressive worsening in renal function along with worsening metabolic acidosis, anemia, volume overload; Nephrology consulted, high risk patient for respiratory failure and cardiac arrhythmias; Telemetry monitoring; 10/22/16: Plan for a M, W, F dialysis schedule with next treatment tomorrow. petroleum refinery worker Christy working on getting patient a chair time at [facility] Continue renal diet and fluid restriction. K+4.6 Cr 5.14 Phos 5.7, continue phosphate binder Monitor closely (2) Anemia Current Visit: Yes Status: Acute Assessment and plan: Suspect anemia related to chronic disease secondary to kidney dysfunction. We will check iron studies. Iron 22, %sat 9, Transferrin 168, Ferritin 168. LDH, Haptoglobin pending. Indirect bili 0.1 on 10/18/16 Pt. has already received 3 units PRBC with inappropriate response to transfusion. No evidence of bleeding. Hemolysis labs pending FOBS pending Hgb 6.4 Will transfuse 2 more units PRBC and monitor cbc 10/22/16: Hgb: 7.7. Start IV iron Monitor H&H Transfuse if Hgb <7 Will consult Hematology. Qualifiers: Anemia type: unspecified type Qualified Code(s): D64.9 - Anemia, unspecified (3) Fluid overload Current Visit: Yes Status: Acute Assessment and plan: related to worsening renal failure; will get hemodialysis today. net negative 412ml since admission 10/22/16: Net negative 3522 since admission still appears fluid overloaded w BL LE and UE edema HD m-w-f Qualifiers: Hypervolemia type: other Qualified Code(s): E87.79 - Other fluid overload (4) Lower extremity edema Current Visit: Yes Status: Acute Assessment and plan: Likely related to fluid overload. Should improve with hemodialysis and fluid removal. Qualifiers: Laterality: bilateral Qualified Code(s): R60.0 - Localized edema (5) CHF (congestive heart failure) Current Visit: Yes Status: Chronic Qualifiers: Congestive heart failure type: diastolic Congestive heart failure chronicity: chronic Qualified Code(s): I50.32 - Chronic diastolic (congestive ) heart failure (6) Diabetes mellitus Current Visit: Yes Status: Chronic Assessment and plan: Insulin sliding scale. Qualifiers: Diabetes mellitus type: type 2 Diabetes mellitus complication status: with unspecified complications Diabetes mellitus terminal manager insulin use: with terminal manager use Qualified Code(s): E11.8 - Type 2 diabetes mellitus with unspecified complications; Z79.4 - halfway (current) use of insulin (7) DVT prophylaxis Current Visit: Yes Status: Acute Assessment and plan: Heparin subq (8) Sacral pain Current Visit: Yes Status: Acute Assessment and plan: Unable to inspect at this time d/t morbid obesity and small bed. Order for bariatric bed wound care consult - Subjective Interval history: Patient seen and examined. States she is feeling better today. Sitting up in bed eating. She is complaining of pain in her bottom from laying in bed a lot. Had dialysis yesterday. Next HD treatment planned for tomorrow. petroleum refinery worker Christy working on getting patient a chair time at [facility]. Denies chest pain, sob, abd pain, n/v/d. - Constitutional Vitals: Temp Pulse Resp BP Pulse Ox 97.7 F 60 18 145/91 97 10/22/16 07:07 10/22/16 07:07 10/22/16 07:07 10/22/16 07:07 10/22/16 07:07 General appearance: Present: cooperative, A&O X 3, morbidly obese, answers questions appropriately - Head Head exam: Present: atraumatic, normocephalic - Eye Eye exam: Present: PERRL, conjuntiva pink, sclera anicteric Pupils: Present: PERRL - Neck Neck exam general surgery: Present: supple, trachea midline. Absent: lymphadenopathy - Respiratory Respiratory exam: Present: rhonchi, wheezes - Cardiovascular Cardiovascular exam: Present: RRR, +S1, +S2, systolic murmur - GI/Abdominal GI/Abdominal exam: Present: normal bowel sounds, soft, no peritoneal signs. Absent: distended, tenderness - Extremities Exam Extremities exam: Present: pedal edema. Absent: normal inspection (b/l venous stasis) - Neurological Exam Neurological exam: Present: CN II-XII intact, oriented X3, no focal deficits. Absent: facial droop, speech deficit - Skin Skin exam: Present: dry, intact Internal Medicine: Result - Labs CBC & Chem 7: 10/22/16 05:46 10/22/16 05:46 Labs: Short CBC 10/22/16 Range/Units 05:46 WBC 9.2 (4.3-11.1) K/mcL Hgb 7.7 L (11.5-15.4) g/dL Hct 26.1 L (35.3-44.9) % Plt Count 235 (140-400) K/mcL Neutrophils # 6.7 (1.6-8.9) K/mcL BMP 10/22/16 05:46 Sodium 139 Potassium 4.6 H Chloride 106 Carbon Dioxide 22 BUN 58 H Creatinine 5.14 H Glucose 69 L Calcium 8.0 L Liver Function 10/22/16 Range/Units 05:46 Total Bilirubin 0.6 (0.2-1.2) mg/dL AST 8 (5-34) Units/L ALT < 6 (0-55) Units/L Alkaline Phosphatase 164 H (38-126) Units/L Albumin 1.8 L (3.5-5.0) g/dL - ABG Interpretation ABG results: PT/INR, D-dimer PT 15.0 Seconds (9.4-12.1) H 10/21/16 01:46 D-Dimer 2641 ng/mLFEU (0-500) H 10/18/16 13:47 Consult Discharge Plan - Plan Instructions: Heart Failure (DC) Referrals: Dee Negron, [employer] [Primary Care Provider] - 10/27/16 10:00 am () <Fili Guallpa - Last Filed: 10/22/16 18:56> - Assessment and plan (1) Acute on chronic renal failure Current Visit: Yes Status: Acute (2) DVT prophylaxis Current Visit: Yes Status: Acute (3) Fluid overload Current Visit: Yes Status: Acute Qualifiers: Hypervolemia type: other Qualified Code(s): E87.79 - Other fluid overload (4) Lower extremity edema Current Visit: Yes Status: Acute Qualifiers: Laterality: bilateral Qualified Code(s): R60.0 - Localized edema (5) CHF (congestive heart failure) Current Visit: Yes Status: Chronic Qualifiers: Congestive heart failure type: diastolic Congestive heart failure chronicity: chronic Qualified Code(s): I50.32 - Chronic diastolic (congestive ) heart failure (6) Diabetes mellitus Current Visit: Yes Status: Chronic Qualifiers: Diabetes mellitus type: type 2 Diabetes mellitus complication status: with unspecified complications Diabetes mellitus terminal manager insulin use: with mcfp use Qualified Code(s): E11.8 - Type 2 diabetes mellitus with unspecified complications; Z79.4 - terminal manager (current) use of insulin (7) Anemia Current Visit: Yes Status: Acute Qualifiers: Anemia type: unspecified type Qualified Code(s): D64.9 - Anemia, unspecified - Constitutional Vitals: Temp Pulse Resp BP Pulse Ox 97.6 F 62 18 114/58 95 10/22/16 14:39 10/22/16 14:39 10/22/16 14:39 10/22/16 14:39 10/22/16 14:39 Internal Medicine: Result - Labs CBC & Chem 7: 10/22/16 05:46 10/22/16 05:46 Labs: Short CBC 10/22/16 Range/Units 05:46 WBC 9.2 (4.3-11.1) K/mcL Hgb 7.7 L (11.5-15.4) g/dL Hct 26.1 L (35.3-44.9) % Plt Count 235 (140-400) K/mcL Neutrophils # 6.7 (1.6-8.9) K/mcL BMP 10/22/16 05:46 Sodium 139 Potassium 4.6 H Chloride 106 Carbon Dioxide 22 BUN 58 H Creatinine 5.14 H Glucose 69 L Calcium 8.0 L Liver Function 10/22/16 Range/Units 05:46 Total Bilirubin 0.6 (0.2-1.2) mg/dL AST 8 (5-34) Units/L ALT < 6 (0-55) Units/L Alkaline Phosphatase 164 H (38-126) Units/L Albumin 1.8 L (3.5-5.0) g/dL - ABG Interpretation ABG results: PT/INR, D-dimer PT 15.0 Seconds (9.4-12.1) H 10/21/16 01:46 D-Dimer 2641 ng/mLFEU (0-500) H 10/18/16 13:47 - Attending Attestation I examined this patient and my medical decision-making was reviewed with the Resident Physician. I agree with the documented findings, disposition and treatment plan as described except to the extent set forth below. Patient appears in no acute distress. Overall improving. Hemoglobin improving with transfusion however does not show adequate response. We will consult hematology.
[2016-10-23 05:13] LABS: Hemoglobin 7.5 g/dL (11.5-15.4); Mean Platelet Volume 9.6 fL (9.4-12.4); Red Cell Distribution Width 17.7 % (11.5-14.5)
[2016-10-23 05:15] LABS: Basophils # 0.1 K/mcL (0.0-0.2); Basophils % 0.8 %; Eosinophils # 0.4 K/mcL (0.0-0.6); Hematocrit 25.7 % (35.3-44.9); Immature Granulocytes % 0.8 % (0-4); Lymphocytes # 0.6 K/mcL (0.6-4.6); Lymphocytes % 6.8 %; Mean Corpuscular HGB Conc 29.2 g/dL (31.6-35.5); Mean Corpuscular Hemoglobin 26.1 pg (28.0-33.3); Mean Corpuscular Volume 89.5 fL (83.0-100.0); Monocytes # 1.5 K/mcL (0.0-1.3); Monocytes % 16.5 %; Neutrophils # 6.5 K/mcL (1.6-8.9); Platelet Count 210 K/mcL (140-400); Red Blood Count 2.87 M/mcL (3.82-4.97); Segmented Neutrophils % 71.1 %
[2016-10-23 05:26] LABS: Albumin/Globulin Ratio 0.3 (1.1-2.2); Alkaline Phosphatase 167 Units/L (38-126); Aspartate Amino Transferase 8 Units/L (5-34); BUN/Creatinine Ratio 11 (6-26); Bilirubin,Total 0.7 mg/dL (0.2-1.2); Blood Urea Nitrogen 68 mg/dL (7-20); Calcium 8.3 mg/dL (8.6-10.8); Carbon Dioxide 24 mEq/L (19-29); Chloride 105 mEq/L (98-109); Globulin 6.4 g/dL (2.4-3.5); Glucose 105 mg/dL (70-99); Osmolality,Calculated 306 (280-300); Sodium 138 mEq/L (136-145); Total Protein 8.3 g/dL (6.0-8.3); eGFR For African Americans 9 (> 60); eGFR For Non-African Americans 7 (> 60)
[2016-10-23 05:39] LABS: Alanine Aminotransferase < 6 Units/L (0-55); Albumin 1.9 g/dL (3.5-5.0)
[2016-10-23] MEDS: *HR* Heparin 5,000 UNIT/ML VIAL SQ SCH ×2 (06:15→21:21)
[2016-10-23] MEDS: Folic Acid 1 MG TABLET PO SCH (06:15)
[2016-10-23 06:42] LABS: Hypochromasia Present (Not Present)
[2016-10-23 06:43] LABS: Platelet Estimate Normal (Normal)
[2016-10-23 08:14] LABS: ANA IgG by ELISA NONE DETECTED (None Detected)
[2016-10-23] MEDS ORDERED: 0.9 % Sodium Chloride 250 ML IV PRN (08:49)
--- NOTE | 2016-10-23 10:10 | Internal Med Progress Note ---
<Fili Guallpa - Last Filed: 10/23/16 17:12> - Assessment and plan (1) Acute on chronic renal failure Current Visit: Yes Status: Acute (2) DVT prophylaxis Current Visit: Yes Status: Acute (3) Fluid overload Current Visit: Yes Status: Acute Qualifiers: Hypervolemia type: other Qualified Code(s): E87.79 - Other fluid overload (4) Lower extremity edema Current Visit: Yes Status: Acute Qualifiers: Laterality: bilateral Qualified Code(s): R60.0 - Localized edema (5) CHF (congestive heart failure) Current Visit: Yes Status: Chronic Qualifiers: Congestive heart failure type: diastolic Congestive heart failure chronicity: chronic Qualified Code(s): I50.32 - Chronic diastolic (congestive ) heart failure (6) Diabetes mellitus Current Visit: Yes Status: Chronic Qualifiers: Diabetes mellitus type: type 2 Diabetes mellitus complication status: with unspecified complications Diabetes mellitus superintendent terminal insulin use: with custodial use Qualified Code(s): E11.8 - Type 2 diabetes mellitus with unspecified complications; Z79.4 - intermodal customer service (current) use of insulin (7) Anemia Current Visit: Yes Status: Acute Qualifiers: Anemia type: unspecified type Qualified Code(s): D64.9 - Anemia, unspecified - Constitutional Vitals: Temp Pulse Resp BP Pulse Ox 98 F 61 16 143/66 100 10/23/16 06:48 10/23/16 11:00 10/23/16 11:00 10/23/16 11:00 10/23/16 11:00 Internal Medicine: Result - Labs CBC & Chem 7: 10/23/16 04:43 10/23/16 04:43 Labs: Short CBC 10/23/16 Range/Units 04:43 WBC 9.1 (4.3-11.1) K/mcL Hgb 7.5 L (11.5-15.4) g/dL Hct 25.7 L (35.3-44.9) % Plt Count 210 (140-400) K/mcL Neutrophils # 6.5 (1.6-8.9) K/mcL BMP 10/23/16 04:43 Sodium 138 Potassium 5.0 H Chloride 105 Carbon Dioxide 24 BUN 68 H Creatinine 6.17 H Glucose 105 H Calcium 8.3 L Liver Function 10/23/16 Range/Units 04:43 Total Bilirubin 0.7 (0.2-1.2) mg/dL AST 8 (5-34) Units/L ALT < 6 (0-55) Units/L Alkaline Phosphatase 167 H (38-126) Units/L Albumin 1.9 L (3.5-5.0) g/dL - ABG Interpretation ABG results: PT/INR, D-dimer PT 15.0 Seconds (9.4-12.1) H 10/21/16 01:46 D-Dimer 2641 ng/mLFEU (0-500) H 10/18/16 13:47 - Impressions Impressions Guidance Needle Placement Ultrasound 10/19/16 00:00 IMPRESSION: Successful ultrasound and fluoroscopy guided tunneled dialysis catheter placement . D/ : / 10/20/2016 10:37:08 Alexis Butt MD / jenni Interpreting Provider: Alexis Butt MD Permanent Dialysis Access 10/19/16 00:00 IMPRESSION: Successful ultrasound and fluoroscopy guided tunneled dialysis catheter placement . D/ : / 10/20/2016 10:37:08 Alexis Butt MD / jenni Interpreting Provider: Alexis Butt MD Consult Discharge Plan - Plan Instructions: Heart Failure (DC) Referrals: Dee Negron, SHEETMETAL WORKER [Primary Care Provider] - 10/27/16 10:00 am () - Attending Attestation I examined this patient and my medical decision-making was reviewed with the Resident Physician. I agree with the documented findings, disposition and treatment plan as described except to the extent set forth below. For ESRD the patient will continue with hemodialysis. For edema, fluid overload and CHF she will have fluid removed with dialysis. She is severely debilitated then, I had a long discussion with her about need for subacute rehabilitation placement however she adamantly refuses. I consulted hematology for further workup of anemia. We will follow-up with him. Transfusions and hemoglobin less than 7.0. <Win Uriostegui - Last Filed: 10/23/16 19:30> Date of Encounter: 10/23/16 Time of Encounter: 10:10 - Assessment and plan (1) Acute on chronic renal failure Current Visit: Yes Status: Acute Assessment and plan: noted to have progressive worsening in renal function along with worsening metabolic acidosis, anemia, volume overload; Nephrology consulted, high risk patient for respiratory failure and cardiac arrhythmias; Telemetry monitoring; 10/22/16: Plan for a M, W, F dialysis schedule with next treatment tomorrow. sheetmetal worker Christy working on getting patient a chair time at [facility] Continue renal diet and fluid restriction. K+4.6 Cr 5.14 Phos 5.7 Monitor closely 10/23/16 Hemodialysis today K+ 5 Cr 6.17 (2) Anemia Current Visit: Yes Status: Acute Assessment and plan: Suspect anemia related to chronic disease secondary to kidney dysfunction. We will check iron studies. Iron 22, %sat 9, Transferrin 168, Ferritin 168. LDH, Haptoglobin pending. Indirect bili 0.1 on 10/18/16 Pt. has already received 3 units PRBC with inappropriate response to transfusion. No evidence of bleeding. Hemolysis labs pending FOBS pending Hgb 6.4 Will transfuse 2 more units PRBC and monitor cbc 10/22/16: Hgb: 7.7. Start IV iron Monitor H&H Transfuse if Hgb <7 Will consult Hematology. 10/23/16 Hgb 7.5 IV iron with HD today. Heme consult pending Qualifiers: Anemia type: unspecified type Qualified Code(s): D64.9 - Anemia, unspecified (3) Fluid overload Current Visit: Yes Status: Acute Assessment and plan: related to worsening renal failure; will get hemodialysis today. net negative 412ml since admission 10/22/16: Net negative 3522 since admission still appears fluid overloaded w BL LE and UE edema HD m-w-f 10/23/16: net negative 6802 HD today Qualifiers: Hypervolemia type: other Qualified Code(s): E87.79 - Other fluid overload (4) Lower extremity edema Current Visit: Yes Status: Acute Assessment and plan: Likely related to fluid overload. Should improve with hemodialysis and fluid removal. Qualifiers: Laterality: bilateral Qualified Code(s): R60.0 - Localized edema (5) CHF (congestive heart failure) Current Visit: Yes Status: Chronic Qualifiers: Congestive heart failure type: diastolic Congestive heart failure chronicity: chronic Qualified Code(s): I50.32 - Chronic diastolic (congestive ) heart failure (6) Diabetes mellitus Current Visit: Yes Status: Chronic Assessment and plan: Insulin sliding scale. Qualifiers: Diabetes mellitus type: type 2 Diabetes mellitus complication status: with unspecified complications Diabetes mellitus custodial insulin use: with superintendent terminal use Qualified Code(s): E11.8 - Type 2 diabetes mellitus with unspecified complications; Z79.4 - intermodal customer service (current) use of insulin (7) DVT prophylaxis Current Visit: Yes Status: Acute Assessment and plan: Heparin subq (8) Sacral pain Current Visit: Yes Status: Acute Assessment and plan: Unable to inspect at this time d/t morbid obesity and small bed. Order for bariatric bed wound care consult 2 small 2cm ulcers on bottom, stage I 1 small 3cm ulcer on sacram, stage II Wound care following. Pt. up to chair. PT/OT. - Subjective Interval history: Patient seen and examined. States she is feeling better today. She was unhappy as she was informed that she would benefit from transfer to a SNF upon discharge. She stated over and over that she wants to go home and not to a SNF. HD scheduled for today. Denies chest pain, sob, abd pain, n/v/d. - Constitutional Vitals: Temp Pulse Resp BP Pulse Ox 98 F 61 18 124/79 100 10/23/16 06:48 10/23/16 06:48 10/23/16 06:48 10/23/16 06:48 10/23/16 06:48 General appearance: Present: cooperative, A&O X 3, morbidly obese, answers questions appropriately - Head Head exam: Present: atraumatic, normocephalic - Eye Eye exam: Present: PERRL, conjuntiva pink, sclera anicteric Pupils: Present: PERRL - Neck Neck exam general surgery: Present: supple, trachea midline. Absent: lymphadenopathy - Respiratory Respiratory exam: Present: wheezes - Cardiovascular Cardiovascular exam: Present: RRR, +S1, +S2. Absent: diastolic murmur, gallop, rubs, systolic murmur - GI/Abdominal GI/Abdominal exam: Present: distended, normal bowel sounds, soft, no peritoneal signs. Absent: tenderness - Extremities Exam Extremities exam: Present: pedal edema, warm, radial pulses palpable and symetrical. Absent: calf tenderness, cyanotic - Neurological Exam Neurological exam: Present: CN II-XII intact, oriented X3, no focal deficits. Absent: facial droop, speech deficit - Skin Skin exam: Present: dry, intact Internal Medicine: Result - Labs CBC & Chem 7: 10/23/16 04:43 10/23/16 04:43 Labs: Short CBC 10/23/16 Range/Units 04:43 WBC 9.1 (4.3-11.1) K/mcL Hgb 7.5 L (11.5-15.4) g/dL Hct 25.7 L (35.3-44.9) % Plt Count 210 (140-400) K/mcL Neutrophils # 6.5 (1.6-8.9) K/mcL BMP 10/23/16 04:43 Sodium 138 Potassium 5.0 H Chloride 105 Carbon Dioxide 24 BUN 68 H Creatinine 6.17 H Glucose 105 H Calcium 8.3 L Liver Function 10/23/16 Range/Units 04:43 Total Bilirubin 0.7 (0.2-1.2) mg/dL AST 8 (5-34) Units/L ALT < 6 (0-55) Units/L Alkaline Phosphatase 167 H (38-126) Units/L Albumin 1.9 L (3.5-5.0) g/dL - ABG Interpretation ABG results: PT/INR, D-dimer PT 15.0 Seconds (9.4-12.1) H 10/21/16 01:46 D-Dimer 2641 ng/mLFEU (0-500) H 10/18/16 13:47
--- NOTE | 2016-10-23 11:14 | Nephrology Progress Note ---
Date of Encounter: 10/23/16 Time of Encounter: 17:25 - Assessment and Plan (1) ESRD (end stage renal disease) on dialysis Current Visit: Yes Status: Acute Progression to ESRD. HD today; pt was seen on HD. I reviewed the pt's vitals, labs and HD pressures. Next HD is planned for Wednesday. Will be available this weekend as needed. Thank you. (2) Fluid overload Current Visit: Yes Status: Acute Qualifiers: Hypervolemia type: other Qualified Code(s): E87.79 - Other fluid overload Subjective Principal diagnosis: CHRISTOPHER/CKD Volume overload Interval history: Pt was s/e both earlier today and then this afternoon after 5pm while on HD. She did not affirm N/V/D or cramping while on HD. Objective - Vital Signs Vital signs: Vital Signs Temp Pulse Resp BP Pulse Ox 10/23/16 06:48 98 F 61 18 124/79 100 10/23/16 03:41 97.6 F 59 20 134/90 98 10/22/16 23:26 97.7 F 60 18 162/76 98 10/22/16 19:08 97.8 F 67 18 145/70 96 10/22/16 14:39 97.6 F 62 18 114/58 95 10/22/16 11:25 98.4 F 64 18 140/59 95 Intake and Output 10/22/16 10/23/16 10/23/16 23:59 07:59 15:59 Intake Total 360 / 360 Balance 360 / 360 Intake: Oral 360 / 360 Other: Meal Dinner Percent of Meal Consumed 100% Weight 183.4 kg Blood Glucose* 135 98 Patient Weight 10/23/16 23:59 Weight 183.4 kg - General Appearance General appearance: Present: well-developed, well-nourished, appears started age , obese EENT: Present: ATNC, PERRL, mucous membranes moist Neck: Present: supple Respiratory: Present: clear Cardiology: Present: edema, regular rate, regular rhythm, normal S1, normal S2 Dialysis Vascular Access: Venous Catheter Gastrointestinal: Present: normoactive bowel sounds, no tenderness, no guarding Integumentary: Present: no rash, warm and dry Neurologic: Present: no focal deficit, no asterixis, alert and oriented x3 Musculoskeletal: Present: no deformities, no erythema, no cyanosis Psychiatric: Present: mood/affect appropriate, cooperative - Lab 10/23/16 04:43 10/23/16 04:43 Most recent lab results Calcium 8.3 mg/dL (8.6-10.8) L 10/23/16 04:43 Phosphorus 5.7 mg/dL (2.3-4.7) H 10/22/16 05:46 Magnesium 1.8 mg/dL (1.6-2.6) 10/22/16 05:46 Consult Discharge Plan - Plan Instructions: Heart Failure (DC) Referrals: Dee Negron, IVANIA [Primary Care Provider] - 10/27/16 10:00 am ()
[2016-10-23] MEDS: Insulin LISPRO 300 UNITS/3 ML VIAL SQ SCH ×4 (12:06→21:23)
[2016-10-23] MEDS: Calcium Acetate 667 MG CAPSULE PO SCH ×3 (12:07→21:20)
[2016-10-23] MEDS: Insulin DETEMIR 100 UNIT/ML X5UNITS SQ SCH ×2 (12:08→21:22)
[2016-10-23] MEDS: Miconazole w/zinc oxide&karaya 92 APPL/92 GM TUBE TP SCH ×2 (12:17→21:22)
[2016-10-23] MEDS: Furosemide 40 MG/4 ML VIAL IVP SCH ×2 (12:17→21:21)
[2016-10-23] MEDS: *HR* OxyCODONE Immed Rel 5 MG TABLET PO PRN ×2 (12:17→20:34)
--- NOTE | 2016-10-23 15:09 | Oncology Inp Consult Note ---
<Tran Schwartz - Last Filed: 10/23/16 15:01> Date of Encounter: 10/23/16 Time of Encounter: 15:01 Assessment and Plan (1) Anemia Status: Acute Assessment and plan: In setting of chronic disease Per record review, baseline hemoglobin appears to be around 8.2 (as of 05/2016). Hemoglobin on admission 5.8 currently improved to 7.5 Patient has received multiple units of PRBCs Workup including vitamin levels and assessing for hemolysis has been normal so far while in hospital In light of chronic kidney disease and new diagnosis of ESRD may be secondary to lack of erythropoitein less likely to be bone marrow issue given normal WBC and platelet counts. No evidence of bleeding but may consider tagged RBC scan to determine if patient having a silent bleed Will obtain peripheral smear and recheck coagulation studies Will continue to follow Qualifiers: Anemia type: unspecified type Qualified Code(s): D64.9 - Anemia, unspecified - Data of Consult Patient: new to practice Consult date: 10/23/16 Requesting Physician: Fili Guallpa MD Primary Care Provider: Dee Negron CNP - Consult Narrative Reason for consult: anemia History of present illness: Ms. Fernández is a 51 year old female with past medical history of CHF with LVEF 55 %, morbid obesity, COPD, on home oxygen, type 2 diabetes mellitus and new diagnosis of ESRD requiring dialysis whom oncology was asked to consult for anemia which has been poorly responsive to transfusions of RBCs. Per note, patient is a poor historian and most of information was gathered from chart and review of notes. Patient states she originally presented to emergency room after helping her sister move lights into her car and experiencing increased pain in the back of her right leg which felt tight. SHe states her leg still is painful but overall is looking better and less swollen and tight than it was when she came to the emergency room. She also reports she received her first dialysis 3 days ago on 10/20 and before she was hospitalized she was not requiring dialysis. She will plan to continue dialysis M/W?F as an outpatient. She does endorse a history of anemia but is unsure what her last hemoglobin was. She states she has no current complaints otehr than the pain in her back from lying on the bed. Sister who is in the room with her states she recently became aware that the patient was rescheduling appointments. Patient had been telling her sister that the doctors office's were rescheduling but now is aware that the patient was rescheduling because patient did not want to come. Sister also states that they have been informed while they were here that there was a diagnosis of Parkinsons from [facility] and sister states they were never informed of that diagnosis and does not believe it is accurate. Both sister and patient deny any history of heart failure. Past Med Surg Social Fam HX - Past Medical History Medical history: coronary artery disease, CVA, diabetes, hyperlipidemia, hypertension, renal disease, venous stasis, other Psychiatric history: no psych history - Past Surgical History Surgical History: no surgical history - Social History Smoking Status: Former smoker Smokeless Tobacco Status: No Alcohol use: none Drug use: none Medications and Allergies Albuterol Sulfate [Proair Hfa] 2 puff IH Q4H PRN 06/07/16 [History] Aspirin 81 mg PO DAILY 06/07/16 [History] Atorvastatin Calcium [Lipitor] 20 mg PO DAILY 06/07/16 [History] Furosemide [Lasix] 80 mg PO QAM 06/07/16 [History] Gabapentin [Neurontin] 300 mg PO BID 06/07/16 [History] Insulin DETEMIR [Levemir Flextouch] 5 unit SQ QAM 06/07/16 [History] Insulin DETEMIR [Levemir Flextouch] 15 unit SQ QPM 06/07/16 [History] NIFEdipine [Nifedical Xl] 60 mg PO DAILY 06/07/16 [History] Carvedilol 12.5 mg PO BID 30 Days 06/10/16 [Rx] Furosemide [Lasix] 20 mg PO QPM 10/18/16 [History] Oxygen 3.5 l .ROUTE AD 10/18/16 [History] Allergies lisinopril Adverse Reaction (Verified 10/18/16 15:49) Cough Constitutional: Absent: chills, fever(s) Eyes: Absent: change in vision, dry eye Ears: Absent: decreased hearing Nose, mouth and throat: Absent: change in voice, hoarseness Cardiovascular: Present: leg edema, pedal edema. Absent: chest pain, irregular heart rhythm Respiratory: Present: other (on home oxygen). Absent: hemoptysis, wheezing, pain on inspiration, chest congestion Gastrointestinal: Absent: abdominal pain, change in bowel habits, change in stool character, constipation Musculoskeletal: Present: back pain, myalgias. Absent: deformity, muscle cramps Integumentary: Present: dry skin. Absent: change in hair Hematologic/Lymphatic: Present: other (amenia). Absent: easy bleeding, easy bruising Oncology - Exam - Constitutional Vitals: Temp Pulse Resp BP Pulse Ox 98 F 61 16 143/66 100 10/23/16 06:48 10/23/16 11:00 10/23/16 11:00 10/23/16 11:00 10/23/16 11:00 Provider Comments:: sitting in bed General appearance: cooperative, morbidly obese - Head Head exam: Present: atraumatic, normocephalic - Eye Eye exam: Present: EOMI, normal appearance. Absent: conjunctival injection, scleral icterus - ENT ENT exam: Present: mucous membranes moist - Neck Neck exam: Present: normal inspection. Absent: lymphadenopathy - Respiratory Respiratory exam: Present: rhonchi. Absent: rales, respiratory distress, stridor, wheezes Additional comments: diminished sounds bilaterally - Cardiovascular Cardiovascular exam: Present: RRR, systolic murmur (2/6 holosystolic murmur heard at aortic post). Absent: clicks, gallop - GI/Abdominal GI/Abdominal exam: Present: normal bowel sounds, soft. Absent: distended, firm , tenderness - Extremities Exam Extremities exam: Present: pedal edema. Absent: calf tenderness - Neurological Exam Neurological exam: Present: alert, oriented X3 Oncology - Results - Labs Labs: Short CBC 10/23/16 Range/Units 04:43 WBC 9.1 (4.3-11.1) K/mcL Hgb 7.5 L (11.5-15.4) g/dL Hct 25.7 L (35.3-44.9) % Plt Count 210 (140-400) K/mcL Neutrophils # 6.5 (1.6-8.9) K/mcL BMP 10/23/16 04:43 Sodium 138 Potassium 5.0 H Chloride 105 Carbon Dioxide 24 BUN 68 H Creatinine 6.17 H Glucose 105 H Calcium 8.3 L Liver Function 10/23/16 Range/Units 04:43 Total Bilirubin 0.7 (0.2-1.2) mg/dL AST 8 (5-34) Units/L ALT < 6 (0-55) Units/L Alkaline Phosphatase 167 H (38-126) Units/L Albumin 1.9 L (3.5-5.0) g/dL Consult Discharge Plan - Plan Instructions: Heart Failure (DC) Referrals: Dee Negron CNP [Primary Care Provider] - 10/27/16 10:00 am () <Michael Richardson - Last Filed: 10/23/16 17:22> - Data of Consult Requesting Physician: Fili Guallpa MD Primary Care Provider: Dee Negron CNP - Consult Narrative History of present illness: Ms. Fernández is a 51 year old female Oncology - Exam - Constitutional Vitals: Temp Pulse Resp BP Pulse Ox 98 F 61 16 143/66 100 10/23/16 06:48 10/23/16 11:00 10/23/16 11:00 10/23/16 11:00 10/23/16 11:00 Oncology - Results - Labs Labs: Short CBC 10/23/16 Range/Units 04:43 WBC 9.1 (4.3-11.1) K/mcL Hgb 7.5 L (11.5-15.4) g/dL Hct 25.7 L (35.3-44.9) % Plt Count 210 (140-400) K/mcL Neutrophils # 6.5 (1.6-8.9) K/mcL BMP 10/23/16 04:43 Sodium 138 Potassium 5.0 H Chloride 105 Carbon Dioxide 24 BUN 68 H Creatinine 6.17 H Glucose 105 H Calcium 8.3 L Liver Function 10/23/16 Range/Units 04:43 Total Bilirubin 0.7 (0.2-1.2) mg/dL AST 8 (5-34) Units/L ALT < 6 (0-55) Units/L Alkaline Phosphatase 167 H (38-126) Units/L Albumin 1.9 L (3.5-5.0) g/dL
[2016-10-23] MEDS ORDERED: *HR* Heparin 10,000 UNIT/10 ML VIAL IV PRN (18:47)
[2016-10-24] MEDS: *HR* OxyCODONE Immed Rel 5 MG TABLET PO PRN ×4 (03:29→21:18)
[2016-10-24] MEDS: *HR* Heparin 5,000 UNIT/ML VIAL SQ SCH ×2 (05:08→18:58)
[2016-10-24 07:07] LABS: Calcium 8.2 mg/dL (8.6-10.8); Potassium 4.4 mEq/L (3.5-4.5)
--- NOTE | 2016-10-24 07:39 | Internal Med Progress Note ---
Date of Encounter: 10/24/16 Time of Encounter: 15:00 - Assessment and plan (1) Acute on chronic renal failure Current Visit: Yes Status: Acute Assessment and plan: noted to have progressive worsening in renal function along with worsening metabolic acidosis, anemia, volume overload; Nephrology consulted, high risk patient for respiratory failure and cardiac arrhythmias; Telemetry monitoring; 10/22/16: Plan for a M, W, F dialysis schedule with next treatment tomorrow. community mental health social worker Christy working on getting patient a chair time at [facility] Continue renal diet and fluid restriction. K+4.6 Cr 5.14 Phos 5.7 Monitor closely 10/23/16 Hemodialysis today K+ 5 Cr 6.17 (2) DVT prophylaxis Current Visit: Yes Status: Acute Assessment and plan: Heparin subq (3) Fluid overload Current Visit: Yes Status: Acute Assessment and plan: related to worsening renal failure; will get hemodialysis today. net negative 412ml since admission 10/22/16: Net negative 3522 since admission still appears fluid overloaded w BL LE and UE edema HD m-w-f 10/23/16: net negative 6802 HD today Qualifiers: Hypervolemia type: other Qualified Code(s): E87.79 - Other fluid overload (4) Lower extremity edema Current Visit: Yes Status: Acute Assessment and plan: Likely related to fluid overload. Should improve with hemodialysis and fluid removal. Qualifiers: Laterality: bilateral Qualified Code(s): R60.0 - Localized edema (5) CHF (congestive heart failure) Current Visit: Yes Status: Chronic Assessment and plan: Complaints compensated. Remove fluid with hemodialysis. Fluid restriction and daily weights. Qualifiers: Congestive heart failure type: diastolic Congestive heart failure chronicity: acute on chronic Qualified Code(s): I50.33 - Acute on chronic diastolic (congestive) heart failure (6) Diabetes mellitus Current Visit: Yes Status: Chronic Assessment and plan: Insulin sliding scale. Qualifiers: Diabetes mellitus type: type 2 Diabetes mellitus complication status: with unspecified complications Diabetes mellitus [facility] insulin use: with watermaster use Qualified Code(s): E11.8 - Type 2 diabetes mellitus with unspecified complications; Z79.4 - shelter (current) use of insulin (7) Anemia Current Visit: Yes Status: Acute Assessment and plan: Suspect anemia related to chronic disease secondary to kidney dysfunction. Iron studies show some iron deficiency. Patient started on IV iron will continue dose with hemodialysis. Hemoglobin is stable today. Monitor daily. Iron 22, %sat 9, Transferrin 168, Ferritin 168. LDH, Haptoglobin pending. Indirect bili 0.1 on 10/18/16 Pt. has already received 3 units PRBC with inappropriate response to transfusion. No evidence of bleeding. Hemolysis labs pending FOBS pending Hgb 6.4 Will transfuse 2 more units PRBC and monitor cbc 10/22/16: Hgb: 7.7. Start IV iron Monitor H&H Transfuse if Hgb <7 Will consult Hematology. 10/23/16 Hgb 7.5 IV iron with HD today. Heme consult pending Qualifiers: Anemia type: iron deficiency Iron deficiency anemia type: other iron deficiency Qualified Code(s): D50.8 - Other iron deficiency anemias (8) Decubitus ulcer of buttock, stage 2 Current Visit: Yes Status: Acute Assessment and plan: Turning regimen and skin care team consult. Qualifiers: Laterality: right Qualified Code(s): L89.312 - Pressure ulcer of right buttock, stage 2 (9) Decubitus ulcer of buttock, stage 2 Current Visit: Yes Status: Acute Qualifiers: Laterality: left Qualified Code(s): L89.322 - Pressure ulcer of left buttock, stage 2 - Subjective Interval history: history is limited by mental confusion. Per records she had a rapid response for generalized upper and lower body shaking movements.he was arousable during the event. she remembers the episode and says that she has been having shaking movements in the past. Denies headache and vision changes. - Constitutional Vitals: Temp Pulse Resp BP Pulse Ox 98.9 F 63 16 140/76 97 10/24/16 07:03 10/24/16 07:03 10/24/16 07:03 10/24/16 07:03 10/24/16 07:03 General appearance: Present: cooperative, A&O X 3, morbidly obese, answers questions appropriately - Respiratory Respiratory exam: Present: CTAB. Absent: accessory muscle use, rales, rhonchi, wheezes - Cardiovascular Cardiovascular exam: Present: RRR, +S1, +S2, systolic murmur. Absent: diastolic murmur, gallop, rubs - GI/Abdominal GI/Abdominal exam: Present: normal bowel sounds, soft, no peritoneal signs. Absent: distended, tenderness - Extremities Exam Extremities exam: Present: pedal edema, warm, radial pulses palpable and symetrical. Absent: calf tenderness, cyanotic - Neurological Exam Neurological exam: Present: CN II-XII intact, oriented X3, no focal deficits. Absent: pronater drift, facial droop, speech deficit - Skin Additional comments: stage II buttock skin ulcers. Internal Medicine: Result - Labs CBC & Chem 7: 10/23/16 04:43 10/24/16 06:06 Labs: BMP 10/24/16 06:06 Sodium 136 Potassium 4.4 Chloride 102 Carbon Dioxide 23 BUN 46 H D Creatinine 4.66 H Glucose 104 H Calcium 8.2 L - ABG Interpretation ABG results: PT/INR, D-dimer PT 15.0 Seconds (9.4-12.1) H 10/21/16 01:46 D-Dimer 2641 ng/mLFEU (0-500) H 10/18/16 13:47 - Impressions Impressions Guidance Needle Placement Ultrasound 10/19/16 00:00 IMPRESSION: Successful ultrasound and fluoroscopy guided tunneled dialysis catheter placement . D/ / 10/20/2016 10:37:08 Alexis Butt MD / jenni Interpreting Provider: Alexis Butt MD Permanent Dialysis Access 10/19/16 00:00 IMPRESSION: Successful ultrasound and fluoroscopy guided tunneled dialysis catheter placement . D/ / 10/20/2016 10:37:08 Alexis Butt MD / jenni Interpreting Provider: Alexis Butt MD Consult Discharge Plan - Plan Instructions: Heart Failure (DC) Referrals: Dee Negron CNP [Primary Care Provider] - 10/27/16 10:00 am ()
[2016-10-24] MEDS: Insulin LISPRO 300 UNITS/3 ML VIAL SQ SCH ×4 (09:29→21:19)
[2016-10-24] MEDS: Insulin DETEMIR 100 UNIT/ML X5UNITS SQ SCH ×2 (09:30→18:57)
[2016-10-24] MEDS: Folic Acid 1 MG TABLET PO SCH (09:34)
[2016-10-24] MEDS: Calcium Acetate 667 MG CAPSULE PO SCH ×3 (09:35→18:58)
[2016-10-24] MEDS: Miconazole w/zinc oxide&karaya 92 APPL/92 GM TUBE TP SCH ×2 (09:35→21:19)
[2016-10-24] MEDS: Furosemide 40 MG/4 ML VIAL IVP SCH ×2 (09:36→21:18)
--- NOTE | 2016-10-24 11:48 | Discharge Summary ---
Date of Encounter: 10/24/16 Time of Encounter: 11:46 - Discharge Diagnosis (1) Acute on chronic renal failure Status: Acute (2) Fluid overload Priority: Primary Status: Acute Qualifiers: Hypervolemia type: other Qualified Code(s): E87.79 - Other fluid overload (3) Lower extremity edema Priority: Secondary Status: Acute Qualifiers: Laterality: bilateral Qualified Code(s): R60.0 - Localized edema (4) CHF (congestive heart failure) Priority: Secondary Status: Chronic Qualifiers: Congestive heart failure type: diastolic Congestive heart failure chronicity: acute on chronic Qualified Code(s): I50.33 - Acute on chronic diastolic (congestive) heart failure (5) Diabetes mellitus Priority: Secondary Status: Chronic Qualifiers: Diabetes mellitus type: type 2 Diabetes mellitus complication status: with unspecified complications 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 use: with equipment operator intermodal yard use Qualified Code(s): E11.8 - Type 2 diabetes mellitus with unspecified complications; Z79.4 - senior care (current) use of insulin (6) Anemia Priority: Secondary Status: Acute Qualifiers: Anemia type: iron deficiency (7) Decubitus ulcer of buttock, stage 2 Priority: Secondary Status: Acute Qualifiers: Laterality: right Qualified Code(s): L89.312 - Pressure ulcer of right buttock, stage 2 (8) Decubitus ulcer of buttock, stage 2 Priority: Secondary Status: Acute Qualifiers: Laterality: left Qualified Code(s): L89.322 - Pressure ulcer of left buttock, stage 2 - Discharge Medications Home Medications: Albuterol Sulfate [Proair Hfa] 2 puff IH Q4H PRN 06/07/16 [History] Aspirin 81 mg PO DAILY 06/07/16 [History] Atorvastatin Calcium [Lipitor] 20 mg PO DAILY 06/07/16 [History] Furosemide [Lasix] 80 mg PO QAM 06/07/16 [History] Gabapentin [Neurontin] 300 mg PO BID 06/07/16 [History] Insulin DETEMIR [Levemir Flextouch] 5 unit SQ QAM 06/07/16 [History] Insulin DETEMIR [Levemir Flextouch] 15 unit SQ QPM 06/07/16 [History] NIFEdipine [Nifedical Xl] 60 mg PO DAILY 06/07/16 [History] Carvedilol 12.5 mg PO BID 30 Days 06/10/16 [Rx] Furosemide [Lasix] 20 mg PO QPM 10/18/16 [History] Oxygen 3.5 l .ROUTE AD 10/18/16 [History] Allergies/Adverse Reactions: Allergies lisinopril Adverse Reaction (Verified 10/18/16 15:49) Cough Date of admission: 10/18/16 17:09 Primary care physician: Dee Negron CNP Consults: 10/18/16 18:10 Consult to Supervisor [employer] [CONS] Routine Reason for SW Consult: possible home health need 10/19/16 06:40 Consult to Wound Care [CONS] Routine Reason for Consult: wound to buttocks Call Completed: Yes 10/19/16 10:00 Consult to Interventional Radiology [CONS] Routine Consulting Provider: Radiology Interventional Cols Reason for Consult: permcath placement for dialysis re ESRD Call Completed: No 10/19/16 10:14 Consult to Supervisor [employer] [CONS] Routine Reason for SW Consult: patient will need outpatient dialysis. 10/19/16 10:30 Consult to Dialysis [CONS] ONCE 10/20/16 09:00 Consult to Neurology [CONS] Routine Consulting Provider: Neurology [facility] Reason for Consult: New onset myoclonic jerking and twitches in ESRD patient beginning HD. Please eval and advise. Call Completed: No 10/20/16 10:20 Consult to Interpret Exam [CONS] Routine Consulting Provider: Radha Rodriguez I Consult to Interpret Exam: Interpret EEG 10/20/16 10:30 Consult to Dialysis [CONS] ONCE 10/20/16 10:45 Consult to Dialysis [CONS] ONCE 10/20/16 10:49 dietary consult [Consult to Nutrition] [CONS] Routine Comment: Diabetic with ESRD, obesity and hyperuricemia Consulting Provider: NUTRITION Reason for Dietary Consult: Diet Education Other:: needs dietary education. 10/21/16 08:15 Consult to Dialysis [CONS] ONCE 10/21/16 09:45 Consult to Dialysis [CONS] ONCE 10/22/16 11:24 Consult to Physical Therapy [CONS] Routine Comment: Evaluate, develop and implement POC OT [Consult to Occupational Therapy] [CONS] Routine Comment: Evaluate, develop and implement POC 10/22/16 15:25 Consult to Oncology Hematology [CONS] Routine Consulting Provider: [place]. Reason for Consult: Inappropriate response to PRBC Call Completed: Yes 10/23/16 09:00 Consult to Dialysis [CONS] ONCE - Discharge Instructions Instructions: Heart Failure (DC) Follow Up With: Dee Negron CNP [Primary Care Provider] - 10/27/16 10:00 am () Hospital course: Ms. Fernández is a 51 year old female - Time Spent with Patient Total time spent providing and/or coordinating discharge services: - Constitutional Vitals: Temp Pulse Resp BP Pulse Ox 98.4 F 64 14 142/70 89 L 10/24/16 11:14 10/24/16 11:14 10/24/16 11:14 10/24/16 11:14 10/24/16 11:14 General appearance: Present: cooperative, A&O X 3, morbidly obese, answers questions appropriately
[2016-10-25] MEDS: *HR* OxyCODONE Immed Rel 5 MG TABLET PO PRN ×4 (01:43→15:06)
[2016-10-25] MEDS: *HR* Heparin 5,000 UNIT/ML VIAL SQ SCH ×2 (05:57→17:17)
[2016-10-25 06:11] LABS: Calcium 8.2 mg/dL (8.6-10.8); Potassium 4.3 mEq/L (3.5-4.5)
[2016-10-25] MEDS: Insulin LISPRO 300 UNITS/3 ML VIAL SQ SCH ×4 (10:37→21:09)
[2016-10-25] MEDS: Insulin DETEMIR 100 UNIT/ML X5UNITS SQ SCH ×2 (10:37→17:14)
[2016-10-25] MEDS: Folic Acid 1 MG TABLET PO SCH (10:43)
[2016-10-25] MEDS: Furosemide 40 MG/4 ML VIAL IVP SCH ×2 (10:43→21:08)
[2016-10-25] MEDS: Calcium Acetate 667 MG CAPSULE PO SCH ×3 (10:43→17:17)
[2016-10-25] MEDS: Miconazole w/zinc oxide&karaya 92 APPL/92 GM TUBE TP SCH ×2 (10:43→21:09)
--- NOTE | 2016-10-25 19:22 | Internal Med Progress Note ---
Date of Encounter: 10/25/16 Time of Encounter: 13:00 - Assessment and plan (1) Acute on chronic renal failure Current Visit: Yes Status: Acute Assessment and plan: noted to have progressive worsening in renal function along with worsening metabolic acidosis, anemia, volume overload; Nephrology consulted, high risk patient for respiratory failure and cardiac arrhythmias; Telemetry monitoring; 10/22/16: Plan for a M, W, F dialysis schedule with next treatment tomorrow. crop or grain farmworker Christy working on getting patient a chair time at [facility] Continue renal diet and fluid restriction. K+4.6 Cr 5.14 Phos 5.7 Monitor closely 10/23/16 Hemodialysis today K+ 5 Cr 6.17 (2) DVT prophylaxis Current Visit: Yes Status: Acute Assessment and plan: Heparin subq (3) Fluid overload Current Visit: Yes Status: Acute Assessment and plan: related to worsening renal failure; will get hemodialysis tomorrow. net negative 412ml since admission 10/22/16: Net negative 3522 since admission still appears fluid overloaded w BL LE and UE edema HD m-w-f 10/23/16: net negative 6802 HD today Continue removing fluid removed will follow with hemodialysis Qualifiers: Hypervolemia type: other Qualified Code(s): E87.79 - Other fluid overload (4) Lower extremity edema Current Visit: Yes Status: Acute Assessment and plan: Likely related to fluid overload. Should improve with hemodialysis and fluid removal. Qualifiers: Laterality: bilateral Qualified Code(s): R60.0 - Localized edema (5) CHF (congestive heart failure) Current Visit: Yes Status: Chronic Assessment and plan: Currently it is compensated. Remove fluid with hemodialysis. Oral Fluid restriction and daily weights. Qualifiers: Congestive heart failure type: diastolic Congestive heart failure chronicity: acute on chronic Qualified Code(s): I50.33 - Acute on chronic diastolic (congestive) heart failure (6) Diabetes mellitus Current Visit: Yes Status: Chronic Assessment and plan: Insulin sliding scale. Diabetic diet. Qualifiers: Diabetes mellitus type: type 2 Diabetes mellitus complication status: with unspecified complications Diabetes mellitus terminal operator insulin use: with terminal operator use Qualified Code(s): E11.8 - Type 2 diabetes mellitus with unspecified complications; Z79.4 - intermediate designer (current) use of insulin (7) Anemia Current Visit: Yes Status: Acute Assessment and plan: Suspect anemia related to chronic disease secondary to kidney dysfunction. Iron studies show some iron deficiency. Patient started on IV iron will continue dose with hemodialysis. Hemoglobin is stable today. Monitor daily. Iron 22, %sat 9, Transferrin 168, Ferritin 168. LDH, Haptoglobin pending. Indirect bili 0.1 on 10/18/16 Pt. has already received 3 units PRBC with inappropriate response to transfusion. No evidence of bleeding. Hemolysis labs pending FOBS pending Hgb 6.4 Will transfuse 2 more units PRBC and monitor cbc 10/22/16: Hgb: 7.7. Start IV iron Monitor H&H Transfuse if Hgb <7 Will consult Hematology. 10/23/16 Hgb 7.5 IV iron with HD today. Heme consult pending Qualifiers: Anemia type: iron deficiency Iron deficiency anemia type: other iron deficiency Qualified Code(s): D50.8 - Other iron deficiency anemias (8) Decubitus ulcer of buttock, stage 2 Current Visit: Yes Status: Acute Assessment and plan: Turning regimen and skin care team consult. Qualifiers: Laterality: right Qualified Code(s): L89.312 - Pressure ulcer of right buttock, stage 2 (9) Decubitus ulcer of buttock, stage 2 Current Visit: Yes Status: Acute Qualifiers: Laterality: left Qualified Code(s): L89.322 - Pressure ulcer of left buttock, stage 2 - Subjective Interval history: she reports severe sacral pain due to the position she lies in bed, changes with position, no radiation, not associated with numbness. She does have generalized lower extremity weakness. Her shortness of breath is at baseline right now. She has chronic lower extremity edema which also is close to her baseline. - Constitutional Vitals: Temp Pulse Resp BP Pulse Ox 98.3 F 66 16 141/61 96 10/25/16 15:17 10/25/16 15:17 10/25/16 15:17 10/25/16 15:17 10/25/16 15:17 General appearance: Present: cooperative, A&O X 3, morbidly obese, answers questions appropriately - Eye Eye exam: Present: PERRL, conjuntiva pink, sclera anicteric Pupils: Present: PERRL - Respiratory Respiratory exam: Present: CTAB. Absent: accessory muscle use, rales, rhonchi, wheezes - Cardiovascular Cardiovascular exam: Present: RRR, +S1, +S2. Absent: diastolic murmur, gallop, rubs, systolic murmur - GI/Abdominal GI/Abdominal exam: Present: normal bowel sounds, soft, no peritoneal signs. Absent: distended, tenderness Internal Medicine: Result - Labs CBC & Chem 7: 10/23/16 04:43 10/25/16 05:36 Labs: BMP 10/25/16 05:36 Sodium 135 L Potassium 4.3 Chloride 100 Carbon Dioxide 23 BUN 55 H Creatinine 5.74 H Glucose 104 H Calcium 8.2 L - ABG Interpretation ABG results: PT/INR, D-dimer PT 15.0 Seconds (9.4-12.1) H 10/21/16 01:46 D-Dimer 2641 ng/mLFEU (0-500) H 10/18/16 13:47 Consult Discharge Plan - Plan Instructions: Heart Failure (DC) Referrals: Dee Negron CNP [Primary Care Provider] - 10/27/16 10:00 am ()
[2016-10-26] MEDS: *HR* OxyCODONE Immed Rel 5 MG TABLET PO PRN ×4 (02:02→23:45)
[2016-10-26] MEDS: *HR* Heparin 5,000 UNIT/ML VIAL SQ SCH ×2 (05:33→17:19)
[2016-10-26 06:49] LABS: Calcium 8.2 mg/dL (8.6-10.8); Potassium 4.8 mEq/L (3.5-4.5)
[2016-10-26] MEDS ORDERED: 0.9 % Sodium Chloride 250 ML IV PRN (08:36)
[2016-10-26] MEDS: Insulin DETEMIR 100 UNIT/ML X5UNITS SQ SCH ×2 (08:45→17:19)
[2016-10-26] MEDS: Insulin LISPRO 300 UNITS/3 ML VIAL SQ SCH ×4 (08:45→20:41)
[2016-10-26] MEDS: Folic Acid 1 MG TABLET PO SCH (08:49)
[2016-10-26] MEDS: Calcium Acetate 667 MG CAPSULE PO SCH ×3 (08:49→17:19)
[2016-10-26] MEDS: Furosemide 40 MG/4 ML VIAL IVP SCH ×2 (08:50→20:30)
[2016-10-26] MEDS: Miconazole w/zinc oxide&karaya 92 APPL/92 GM TUBE TP SCH ×2 (08:50→20:30)
[2016-10-26 09:14] LABS: Basophils # 0.1 K/mcL (0.0-0.2); Basophils % 0.6 %; Eosinophils # 0.3 K/mcL (0.0-0.6); Eosinophils % 3.7 %; Hematocrit 25.4 % (35.3-44.9); Hemoglobin 7.3 g/dL (11.5-15.4); Immature Granulocytes % 0.8 % (0-4); Immature Platelets 2.8 % (1.1-6.1); Lymphocytes # 0.6 K/mcL (0.6-4.6); Lymphocytes % 5.9 %; Mean Corpuscular HGB Conc 28.7 g/dL (31.6-35.5); Mean Corpuscular Volume 90.4 fL (83.0-100.0); Mean Platelet Volume 10.1 fL (9.4-12.4); Monocytes # 1.3 K/mcL (0.0-1.3); Monocytes % 13.5 %; Platelet Count 216 K/mcL (140-400); Red Blood Count 2.81 M/mcL (3.82-4.97); Red Cell Distribution Width 17.2 % (11.5-14.5); Segmented Neutrophils % 75.5 %
[2016-10-26 09:29] LABS: Anisocytosis 2+ (Not Present); Hypochromasia Present (Not Present); Microcytosis Present (Not Present); Platelet Estimate Normal (Normal)
[2016-10-26 15:22] LABS: Kappa Qnt Free Light Chains 43.1 mg/dL (0.33-1.94); Lambda Qnt Free Light Chains 41.8 mg/dL (0.57-2.63)
--- NOTE | 2016-10-26 18:15 | Nephrology Progress Note ---
Date of Encounter: 10/26/16 Time of Encounter: 14:20 - Assessment and Plan (1) ESRD (end stage renal disease) on dialysis Current Visit: Yes Status: Acute Progression to ESRD. HD today. I reviewed the pt's vitals, labs and interval notes. I also called the dialysis unit and gave orders for outpt HD. Next HD is planned for Wednesday, which could be on an outpt basis at [facility] if discharged before then. Thank you. (2) Fluid overload Current Visit: Yes Status: Acute Edema is improving. Will continue to challenge her edema with UF during HD with a max limit of 10mL/kg/hr. Qualifiers: Hypervolemia type: other Qualified Code(s): E87.79 - Other fluid overload Subjective Principal diagnosis: CHRISTOPHER/CKD Volume overload Interval history: Pt was s/e earlier today. She did not affirm N/V/D. She reported feeling better without major uremic complaints. Objective - Vital Signs Vital signs: Vital Signs Temp Pulse Resp BP Pulse Ox 10/26/16 07:48 94 L 10/26/16 07:12 98.3 F 65 16 142/78 94 L 10/25/16 21:00 98.2 F 62 20 132/88 95 Intake and Output 10/26/16 10/26/16 10/26/16 07:59 15:59 23:59 Intake Total 345 / 345 Balance 345 / 345 Intake: IV Fluids 105 / 105 Venofer 100 MG In 0.9 % 105 / 105 Sodium Chloride 100 ML @ 200 mls/hr IVPB MOWEFR@ 1400 [facility] Rx#:[id number] Oral 240 / 240 Other: Meal Lunch Percent of Meal Consumed 90% Blood Glucose* 118 109 - General Appearance General appearance: Present: well-developed, well-nourished, appears started age , obese EENT: Present: ATNC, PERRL, mucous membranes moist Neck: Present: supple Respiratory: Present: clear (but limited by body habitus) Cardiology: Present: edema, regular rate (but limited by body habitus), regular rhythm, normal S1, normal S2 Dialysis Vascular Access: Venous Catheter (Tunneled dialysis catheter, right) Gastrointestinal: Present: normoactive bowel sounds, no tenderness, no guarding , obese Integumentary: Present: no rash, warm and dry Neurologic: Present: no focal deficit, no asterixis, alert and oriented x3 Musculoskeletal: Present: no deformities, no clubbing Psychiatric: Present: mood/affect appropriate, cooperative - Lab 10/26/16 05:49 10/26/16 05:49 Most recent lab results Calcium 8.2 mg/dL (8.6-10.8) L 10/26/16 05:49 Phosphorus 5.7 mg/dL (2.3-4.7) H 10/22/16 05:46 Magnesium 1.8 mg/dL (1.6-2.6) 10/22/16 05:46 Consult Discharge Plan - Plan Instructions: Heart Failure (DC) Referrals: Dee Negron, RECEIVING DOCK CHECKER [Primary Care Provider] - 11/06/16 10:00 am ()
[2016-10-26] MEDS ORDERED: *HR* Heparin 10,000 UNIT/10 ML VIAL IV PRN (19:18)
--- NOTE | 2016-10-26 19:43 | Internal Med Progress Note ---
Date of Encounter: 10/26/16 Time of Encounter: 13:00 - Assessment and plan (1) Acute on chronic renal failure Current Visit: Yes Status: Acute Assessment and plan: noted to have progressive worsening in renal function along with worsening metabolic acidosis, anemia, volume overload; Nephrology consulted, high risk patient for respiratory failure and cardiac arrhythmias; Telemetry monitoring; 10/22/16: Plan for a M, W, F dialysis schedule with next treatment tomorrow. homeworker Christy working on getting patient a chair time at [facility] Continue renal diet and fluid restriction. K+4.6 Cr 5.14 Phos 5.7 Monitor closely 10/23/16 Hemodialysis today K+ 5 Cr 6.17 10/26/2016: Patient had hemodialysis today, tolerated well. He has outpatient dialysis chair set up by social work, needs transportation set up, likely discharge tomorrow. (2) DVT prophylaxis Current Visit: Yes Status: Acute Assessment and plan: Heparin subq (3) Fluid overload Current Visit: Yes Status: Acute Assessment and plan: related to worsening renal failure; will get hemodialysis tomorrow. net negative 412ml since admission 10/22/16: Net negative 3522 since admission still appears fluid overloaded w BL LE and UE edema HD m-w-f 10/23/16: net negative 6802 HD today Continue removing fluid removed will follow with hemodialysis Qualifiers: Hypervolemia type: other Qualified Code(s): E87.79 - Other fluid overload (4) Lower extremity edema Current Visit: Yes Status: Acute Assessment and plan: Likely related to fluid overload. Should improve with hemodialysis and fluid removal. Qualifiers: Laterality: bilateral Qualified Code(s): R60.0 - Localized edema (5) CHF (congestive heart failure) Current Visit: Yes Status: Chronic Assessment and plan: Currently it is compensated. Remove fluid with hemodialysis. Oral Fluid restriction and daily weights. Qualifiers: Congestive heart failure type: diastolic Congestive heart failure chronicity: acute on chronic Qualified Code(s): I50.33 - Acute on chronic diastolic (congestive) heart failure (6) Diabetes mellitus Current Visit: Yes Status: Chronic Assessment and plan: Insulin sliding scale. Diabetic diet. 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 Iron studies show some iron deficiency. Patient started on IV iron will continue dose with hemodialysis. Hemoglobin is stable today. Monitor daily. Iron 22, %sat 9, Transferrin 168, Ferritin 168. LDH, Haptoglobin pending. Indirect bili 0.1 on 10/18/16 Pt. has already received 3 units PRBC with inappropriate response to transfusion. No evidence of bleeding. Hemolysis labs pending FOBS pending Hgb 6.4 Will transfuse 2 more units PRBC and monitor cbc 10/22/16: Hgb: 7.7. Start IV iron Monitor H&H Transfuse if Hgb <7 Will consult Hematology. 10/23/16 Hgb 7.5 IV iron with HD today. Heme consult pending 10/26/2016: Hemoglobin remains stable. We will transfuse if it dips below 7.0. Continue IV iron infusion were each hemodialysis for a total of 10 treatments. Qualifiers: Anemia type: iron deficiency Iron deficiency anemia type: other iron deficiency Qualified Code(s): D50.8 - Other iron deficiency anemias (8) Decubitus ulcer of buttock, stage 2 Current Visit: Yes Status: Acute Assessment and plan: Turning regimen and skin care team consult. Qualifiers: Laterality: right Qualified Code(s): L89.312 - Pressure ulcer of right buttock, stage 2 (9) Decubitus ulcer of buttock, stage 2 Current Visit: Yes Status: Acute Qualifiers: Laterality: left Qualified Code(s): L89.322 - Pressure ulcer of left buttock, stage 2 (10) Morbid obesity with BMI of 50.0-59.9, adult Current Visit: Yes Status: Acute Assessment and plan: Turning regimen to prevent pressure ulcers, Outpatient follow-up with exercise and weight loss regimen. PTOT for home health. The patient adamantly refuses subacute rehabilitation placement. - Subjective Interval history: she reports severe sacral pain has resolved since yesterday. Her shortness of breath is at baseline right now. She has chronic lower extremity edema which has improved significantly over the last few days and now is close to her baseline. - Constitutional Vitals: Temp Pulse Resp BP Pulse Ox 98.3 F 65 16 144/79 94 L 10/26/16 19:25 10/26/16 07:12 10/26/16 19:25 10/26/16 19:25 10/26/16 07:48 General appearance: Present: cooperative, A&O X 3, morbidly obese, answers questions appropriately - Eye Eye exam: Present: PERRL, conjuntiva pink, sclera anicteric Pupils: Present: PERRL - Respiratory Respiratory exam: Present: CTAB. Absent: accessory muscle use, rales, rhonchi, wheezes - Cardiovascular Cardiovascular exam: Present: RRR, +S1, +S2, systolic murmur. Absent: diastolic murmur, gallop, rubs - GI/Abdominal GI/Abdominal exam: Present: normal bowel sounds, soft, no peritoneal signs. Absent: distended, tenderness - Neurological Exam Neurological exam: Present: CN II-XII intact, oriented X3, no focal deficits. Absent: facial droop, speech deficit Internal Medicine: Result - Labs CBC & Chem 7: 10/26/16 05:49 10/26/16 05:49 Labs: Short CBC 10/26/16 Range/Units 05:49 WBC 9.3 (4.3-11.1) K/mcL Hgb 7.3 L (11.5-15.4) g/dL Hct 25.4 L (35.3-44.9) % Plt Count 216 (140-400) K/mcL Neutrophils # 7.0 (1.6-8.9) K/mcL BMP 10/26/16 05:49 Sodium 136 Potassium 4.8 H Chloride 100 Carbon Dioxide 24 BUN 66 H Creatinine 6.61 H Glucose 118 H Calcium 8.2 L - ABG Interpretation ABG results: PT/INR, D-dimer PT 15.0 Seconds (9.4-12.1) H 10/21/16 01:46 D-Dimer 2641 ng/mLFEU (0-500) H 10/18/16 13:47 Consult Discharge Plan - Plan Instructions: Heart Failure (DC) Referrals: Dee Negron ADDRESS CHANGE CLERK [Primary Care Provider] - 11/06/16 10:00 am ()
[2016-10-27] MEDS ORDERED: Acetaminophen 325 MG TABLET PO PRN (02:34)
[2016-10-27] MEDS: *HR* OxyCODONE Immed Rel 5 MG TABLET PO PRN ×4 (04:04→18:25)
[2016-10-27 05:47] LABS: Basophils # 0.1 K/mcL (0.0-0.2); Basophils % 0.8 %; Eosinophils # 0.3 K/mcL (0.0-0.6); Eosinophils % 3.1 %; Hematocrit 22.7 % (35.3-44.9); Hemoglobin 6.8 g/dL (11.5-15.4); Immature Granulocytes % 0.9 % (0-4); Lymphocytes # 0.6 K/mcL (0.6-4.6); Lymphocytes % 6.1 %; Mean Corpuscular Hemoglobin 26.5 pg (28.0-33.3); Mean Corpuscular Volume 88.3 fL (83.0-100.0); Mean Platelet Volume 9.7 fL (9.4-12.4); Monocytes # 1.6 K/mcL (0.0-1.3); Monocytes % 15.3 %; Neutrophils # 7.5 K/mcL (1.6-8.9); Platelet Count 166 K/mcL (140-400); Red Blood Count 2.57 M/mcL (3.82-4.97); Red Cell Distribution Width 17.2 % (11.5-14.5); Segmented Neutrophils % 73.8 %
[2016-10-27] MEDS: *HR* Heparin 5,000 UNIT/ML VIAL SQ SCH ×2 (05:57→16:56)
[2016-10-27 06:04] LABS: Calcium 7.9 mg/dL (8.6-10.8); Potassium 4.2 mEq/L (3.5-4.5)
[2016-10-27] MEDS: Insulin LISPRO 300 UNITS/3 ML VIAL SQ SCH ×4 (08:51→21:34)
[2016-10-27] MEDS: Insulin DETEMIR 100 UNIT/ML X5UNITS SQ SCH ×2 (08:52→16:55)
[2016-10-27] MEDS: Calcium Acetate 667 MG CAPSULE PO SCH ×3 (08:58→16:57)
[2016-10-27] MEDS: Folic Acid 1 MG TABLET PO SCH (08:58)
[2016-10-27] MEDS: Furosemide 40 MG/4 ML VIAL IVP SCH ×2 (08:59→21:29)
[2016-10-27] MEDS: Miconazole w/zinc oxide&karaya 92 APPL/92 GM TUBE TP SCH ×2 (09:05→21:34)
--- NOTE | 2016-10-27 09:08 | Event Note ---
Date of Encounter: 10/27/16 Time of Encounter: 09:06 Nephrology Chart Review Next HD is planned for tomorrow. In the interim, her H/H continues to drop despite typical measures such as Iron and CHAVO. So I recommend anemia workup and transfusion of 1-2 units, as per primary. I will be available today, but I plan to see her tomorrow with Dialysis. Thank you
--- NOTE | 2016-10-27 09:54 | Internal Med Progress Note ---
<Fred Hoff - Last Filed: 10/27/16 17:18> Date of Encounter: 10/27/16 Time of Encounter: 09:00 - Assessment and plan (1) Anemia Current Visit: Yes Status: Acute Assessment and plan: -Suspect anemia related to chronic disease secondary to kidney dysfunction. Iron studies show some iron deficiency. Patient started on IV iron will continue dose with hemodialysis. Hemoglobin is stable today. Monitor daily. -Iron 22, %sat 9, Transferrin 168, Ferritin 168. LDH, Haptoglobin. -Pt. has already received 5 units PRBC. No evidence of bleeding. GI has been consulted. -Hgb <7.0. Asymtomatic. Will transfuse 2 PRBC per nephrology recommendation. Likely dialysis tomorrow. Qualifiers: Anemia type: iron deficiency Iron deficiency anemia type: other iron deficiency Qualified Code(s): D50.8 - Other iron deficiency anemias (2) Acute on chronic renal failure Current Visit: Yes Status: Acute Assessment and plan: -Noted to have progressive worsening in renal function along with worsening metabolic acidosis, anemia, volume overload; Nephrology consulted. high risk patient for respiratory failure and cardiac arrhythmias; Telemetry monitoring; -Patient had hemodialysis on 10/26 and feels better afterward. Would like to go home. However, patient anemic. She has outpatient dialysis chair set up by social work, needs transportation set up, likely discharge in 2 days. (3) DVT prophylaxis Current Visit: Yes Status: Acute Assessment and plan: Heparin subq (4) Lower extremity edema Current Visit: Yes Status: Acute Assessment and plan: -Bilateral. L leg painful. Less painful compared to yesterday following dialysis. -Venous US neg for DVT. Pain most likeley from fluid overload. Qualifiers: Laterality: bilateral Qualified Code(s): R60.0 - Localized edema (5) Decubitus ulcer of buttock, stage 2 Current Visit: Yes Status: Acute Qualifiers: Laterality: left Qualified Code(s): L89.322 - Pressure ulcer of left buttock, stage 2 (6) ESRD (end stage renal disease) on dialysis Current Visit: Yes Status: Acute Assessment and plan: -Hemo Dialysis tomorrow. (7) CHF (congestive heart failure) Current Visit: Yes Status: Chronic Assessment and plan: Currently it is compensated. Remove fluid with hemodialysis. Oral Fluid restriction and daily weights. Qualifiers: Congestive heart failure type: diastolic Congestive heart failure chronicity: acute on chronic Qualified Code(s): I50.33 - Acute on chronic diastolic (congestive) heart failure (8) home mission worker involved in patient's care Current Visit: Yes Status: Acute Assessment and plan: -Patient set up with Home Health when discharged. - Time Spent With Patient 25 - 35 minutes - Subjective Interval history: Patient received hemodialysis yesterday. Feels much better today compared to yesterday. Denies CP, SOB, cough, abdominal pain, dizziness, blurry vision, weakness. Is eating and has had a bowel movement. She still has leg swelling bilaterally, which has decreased since dialysis. Compains of continual L leg pain. Doppler negative. States she would like to go home. - Constitutional Vitals: Temp Pulse Resp BP Pulse Ox 97.8 F 71 18 146/63 95 10/27/16 08:36 10/27/16 08:36 10/27/16 08:36 10/27/16 08:36 10/27/16 08:36 General appearance: Present: cooperative, A&O X 3, morbidly obese, answers questions appropriately - Respiratory Respiratory exam: Present: CTAB - Cardiovascular Cardiovascular exam: Present: RRR, systolic murmur (patient is aware) - Extremities Exam Additional comments: Bilateral lower leg swelling, Mild edema. Normal temperature. L leg pain when squeezed. no erythema. - Neurological Exam Neurological exam: Present: alert, no focal deficits - Psychiatric Psychiatric exam: Present: normal affect, normal mood Internal Medicine: Result - Labs CBC & Chem 7: 10/27/16 13:07 10/27/16 05:12 Labs: Short CBC 10/27/16 Range/Units 05:12 WBC 10.1 (4.3-11.1) K/mcL Hgb 6.8 L (11.5-15.4) g/dL Hct 22.7 L (35.3-44.9) % Plt Count 166 (140-400) K/mcL Neutrophils # 7.5 (1.6-8.9) K/mcL BMP 10/27/16 05:12 Sodium 133 L Potassium 4.2 Chloride 100 Carbon Dioxide 24 BUN 41 H D Creatinine 4.77 H Glucose 112 H Calcium 7.9 L - ABG Interpretation ABG results: PT/INR, D-dimer PT 15.0 Seconds (9.4-12.1) H 10/21/16 01:46 D-Dimer 2641 ng/mLFEU (0-500) H 10/18/16 13:47 - EKG Interpretation EKG Interpreted by Myself: No Consult Discharge Plan - Plan Instructions: Heart Failure (DC) Referrals: Dee Negron, EKG MANAGER [Primary Care Provider] - 11/06/16 10:00 am () <Juan Manuel Valiente - Last Filed: 10/27/16 18:40> - Assessment and plan (1) Anemia Current Visit: Yes Status: Acute Qualifiers: Anemia type: iron deficiency Iron deficiency anemia type: other iron deficiency Qualified Code(s): D50.8 - Other iron deficiency anemias (2) ESRD (end stage renal disease) on dialysis Current Visit: Yes Status: Acute (3) Decubitus ulcer of buttock, stage 2 Current Visit: Yes Status: Acute Qualifiers: Laterality: right Qualified Code(s): L89.312 - Pressure ulcer of right buttock, stage 2 (4) Diabetes mellitus Current Visit: Yes Status: Chronic Qualifiers: Diabetes mellitus type: type 2 Diabetes mellitus complication status: with unspecified complications Diabetes mellitus oil heaterman insulin use: with oil heaterman use Qualified Code(s): E11.8 - Type 2 diabetes mellitus with unspecified complications; Z79.4 - exterminator termite (current) use of insulin (5) Lymphedema of both lower extremities Current Visit: Yes Status: Chronic - Constitutional Vitals: Temp Pulse Resp BP Pulse Ox 99 F 71 16 116/69 95 10/27/16 16:00 10/27/16 16:00 10/27/16 16:00 10/27/16 16:00 10/27/16 16:00 Internal Medicine: Result - Labs CBC & Chem 7: 10/27/16 13:07 10/27/16 05:12 Labs: Short CBC 10/27/16 10/27/16 Range/Units 05:12 13:07 WBC 10.1 (4.3-11.1) K/mcL Hgb 6.8 L 6.9 L (11.5-15.4) g/dL Hct 22.7 L 22.9 L (35.3-44.9) % Plt Count 166 (140-400) K/mcL Neutrophils # 7.5 (1.6-8.9) K/mcL BMP 10/27/16 05:12 Sodium 133 L Potassium 4.2 Chloride 100 Carbon Dioxide 24 BUN 41 H D Creatinine 4.77 H Glucose 112 H Calcium 7.9 L - ABG Interpretation ABG results: PT/INR, D-dimer PT 15.0 Seconds (9.4-12.1) H 10/21/16 01:46 D-Dimer 2641 ng/mLFEU (0-500) H 10/18/16 13:47 - Attending Attestation I examined this patient and my medical decision-making was reviewed with the Resident Physician on 10/27/16. I agree with the documented findings, disposition and treatment plan as described except to the extent set forth below. Ms. Fernández is currently admitted for acute on chronic renal failure and starting of hemodialysis. She also has been very anemic and work up in progress. She remains moderate risk due to the potential of complications from renal failure and anemia. Ms. Fernández is resting comfortably. No new issues currently. Tolerated dialysis yesterday. No overt bleeding noted. Exam Alert. Comfortable Heart reg Lungs diminished Abd soft I/P 1. Anemia - work up in progress 2. ESRD on dialysis 3. Decubitus 4. CHF Further diagnoses and plan as above.
[2016-10-27 13:19] LABS: Hematocrit 22.9 % (35.3-44.9); Hemoglobin 6.9 g/dL (11.5-15.4)
--- NOTE | 2016-10-27 15:52 | Oncology Inp Progress Note ---
<Bharati Cortes E - Last Filed: 10/28/16 15:17> Date of Encounter: 10/27/16 Time of Encounter: 14:00 (1) Anemia Current Visit: Yes Status: Acute Assessment and plan: Peripheral smear-indicated normocytic anemia. Awaiting SPEP and Light chains. Could consider aranesp/procrit Will request GI consult. Oncology: Subj Interval history: Patient states she is feeling some better. Initial report having fatigue, and ongoing pain in her left leg. She is receiving dialysis and is being seen by Dr. Mccabe. Denies blood in stool and abdominal pain. Discussed with patient that we are going to ask for GI consult. - Constitutional Vitals: Vital Signs Temp Pulse Resp BP Pulse Ox 10/27/16 11:23 97.6 F 72 16 129/65 98 10/27/16 08:36 97.8 F 71 18 146/63 95 10/26/16 21:00 98.1 F 73 20 138/64 92 L 10/26/16 19:25 98.3 F 16 144/79 10/26/16 19:20 135/75 10/26/16 19:05 153/67 10/26/16 18:50 151/75 10/26/16 18:35 128/72 10/26/16 18:20 136/67 10/26/16 18:05 141/85 10/26/16 17:50 144/73 10/26/16 17:35 128/78 10/26/16 17:20 135/69 10/26/16 17:05 144/63 10/26/16 16:50 127/76 10/26/16 16:35 133/77 10/26/16 16:20 128/68 10/26/16 16:05 159/72 10/26/16 15:50 98.3 F 16 129/65 Intake and Output 10/26/16 10/27/16 10/27/16 23:59 07:59 15:59 Intake Total 380 / 380 Output Total 4600 / 4600 Balance -4600 / -4600 380 / 380 Intake: Oral 380 / 380 Output: Urine 0 / 0 Total Dialysis Output 4600 / 4600 Other: Meal Lunch Percent of Meal Consumed 100% Blood Glucose* 96 132 Hemodialysis Net Fluid 4000 Removed (mL) General appearance: cooperative, morbidly obese, no acute distress - Head Head exam: Present: normal inspection - ENT ENT exam: Present: mucous membranes moist - Respiratory Respiratory exam: Present: CTAB (Central line in right upper chest) - Cardiovascular Cardiovascular exam: Present: RRR (With murmur present) - GI/Abdominal GI/Abdominal exam: Present: normal bowel sounds, soft (Nontender) - Extremities Exam Extremities exam: Present: pedal edema (Edema in lower legs with dark brownish discoloration of the skin) - Neurological Exam Neurological exam: Present: alert - Psychiatric Psychiatric exam: Present: normal affect Oncology: Obj Data - Labs CBC & Chem 7: 10/28/16 08:32 10/28/16 08:32 Labs: Laboratory Results - last 24 hr 10/23/16 10/23/16 10/26/16 16:26 20:33 12:02 WBC RBC Hgb Hct MCV MCH MCHC RDW Plt Count MPV Immature Gran % Seg Neutrophils % Lymphocytes % Monocytes % Eosinophils % Basophils % Neutrophils # Lymphocytes # Monocytes # Eosinophils # Basophils # Smear Path Review See Below Sodium Potassium Chloride Carbon Dioxide BUN Creatinine Est GFR ( Amer) Est GFR (Non-Af Amer) BUN/Creatinine Ratio Glucose POC Glucose 109 H Calculated Osmolality Calcium Free [place] LC, Quant 43.10 H Free Lambda LC, Quant 41.80 H Free [place]/Lambda Ratio 1.03 10/26/16 10/27/16 10/27/16 20:35 05:12 05:12 WBC 10.1 RBC 2.57 L Hgb 6.8 L Hct 22.7 L MCV 88.3 MCH 26.5 L MCHC 30.0 L RDW 17.2 H Plt Count 166 MPV 9.7 Immature Gran % 0.9 Seg Neutrophils % 73.8 Lymphocytes % 6.1 Monocytes % 15.3 Eosinophils % 3.1 Basophils % 0.8 Neutrophils # 7.5 Lymphocytes # 0.6 Monocytes # 1.6 H Eosinophils # 0.3 Basophils # 0.1 Smear Path Review Sodium 133 L Potassium 4.2 Chloride 100 Carbon Dioxide 24 BUN 41 H D Creatinine 4.77 H Est GFR ( Amer) 12 L Est GFR (Non-Af Amer) 10 L BUN/Creatinine Ratio 9 Glucose 112 H POC Glucose 96 H Calculated Osmolality 287 Calcium 7.9 L Free [place] LC, Quant Free Lambda LC, Quant Free [place]/Lambda Ratio 10/27/16 10/27/16 08:38 13:07 WBC RBC Hgb 6.9 L Hct 22.9 L MCV MCH MCHC RDW Plt Count MPV Immature Gran % Seg Neutrophils % Lymphocytes % Monocytes % Eosinophils % Basophils % Neutrophils # Lymphocytes # Monocytes # Eosinophils # Basophils # Smear Path Review Sodium Potassium Chloride Carbon Dioxide BUN Creatinine Est GFR ( Amer) Est GFR (Non-Af Amer) BUN/Creatinine Ratio Glucose POC Glucose 105 H Calculated Osmolality Calcium Free [place] LC, Quant Free [place]ambda LC, Quant Free [place]/Lambda Ratio - ABG Interpretation ABG results: PT/INR, D-dimer PT 15.0 Seconds (9.4-12.1) H 10/21/16 01:46 D-Dimer 2641 ng/mLFEU (0-500) H 10/18/16 13:47 Consult Discharge Plan - Plan Instructions: Heart Failure (DC) Referrals: Dee Negron HOUSING MANAGEMENT OFFICER [Primary Care Provider] - 11/06/16 10:00 am () Attestation: My signature below is to certify that this patient is under my care and that I, or nurse practitioner, or a physician's paraprofessional education assistant working with me, has a face-to -face encounter with this patient. <Michael Richardson S - Last Filed: 10/28/16 17:05> - Constitutional Vitals: Vital Signs Temp Pulse Resp BP Pulse Ox 10/28/16 15:10 98.7 F 76 16 135/71 98 10/28/16 14:00 98.2 F 14 146/79 10/28/16 13:45 152/76 10/28/16 13:30 133/64 10/28/16 13:15 140/74 10/28/16 13:00 143/62 10/28/16 12:45 141/86 10/28/16 12:30 143/73 10/28/16 12:15 161/87 10/28/16 12:00 147/76 10/28/16 11:45 142/66 10/28/16 11:30 120/62 10/28/16 11:15 129/56 10/28/16 11:00 142/58 10/28/16 10:45 127/56 10/28/16 10:30 98.2 F 14 132/74 10/28/16 07:22 98.2 F 65 14 117/64 93 L 10/28/16 05:05 98.2 F 65 20 124/64 94 L 10/28/16 04:20 98.9 F 64 16 112/60 94 L 10/28/16 02:43 98.2 F 66 18 128/64 97 10/28/16 02:37 98.1 F 70 20 119/59 93 L 10/27/16 22:55 98.7 F 68 18 115/63 100 10/27/16 22:54 98.7 F 65 20 109/57 97 10/27/16 22:30 98.2 F 75 18 140/63 95 10/27/16 21:45 99.1 F 71 18 117/45 92 L Intake and Output 10/28/16 10/28/16 10/28/16 07:59 15:59 23:59 Intake Total 600 / 600 720 / 720 Output Total 800 / 800 3600 / 3600 Balance -200 / -200 -2880 / -2880 Intake: Oral 120 / 120 Blood Product 600 / 600 Rbcs Leuko Poor As-1 250 / 250 Unit [id number] Rbcs Leuko Poor As-1 350 / 350 Unit [id number] Intake, Rinseback and 600 / 600 Flushes Output: Urine 800 / 800 0 / 0 Total Dialysis Output 3600 / 3600 Other: Meal Breakfast Percent of Meal Consumed 40% Weight 171.6 kg Blood Glucose* 119 181 Hemodialysis Net Fluid 3600 Removed (mL) Patient Weight 10/28/16 23:59 Weight 171.6 kg Oncology: Obj Data - Labs CBC & Chem 7: 10/28/16 08:32 10/28/16 08:32 Labs: Laboratory Results - last 24 hr 10/27/16 10/27/16 10/28/16 16:55 20:21 07:25 WBC RBC Hgb Hct MCV MCH MCHC RDW Plt Count MPV Immature Gran % Seg Neutrophils % Lymphocytes % Monocytes % Eosinophils % Basophils % Neutrophils # Lymphocytes # Monocytes # Eosinophils # Basophils # Sodium Potassium Chloride Carbon Dioxide BUN Creatinine Est GFR ( Amer) Est GFR (Non-Af Amer) BUN/Creatinine Ratio Glucose POC Glucose 145 H 119 H Calculated Osmolality Calcium Blood Type A NEGATIVE Antibody Screen NEGATIVE Crossmatch See Detail 10/28/16 10/28/16 08:32 08:32 WBC 10.9 RBC 2.90 L Hgb 7.7 L Hct 25.6 L MCV 88.3 MCH 26.6 L MCHC 30.1 L RDW 17.2 H Plt Count 158 MPV 9.5 Immature Gran % 0.9 Seg Neutrophils % 73.4 Lymphocytes % 5.3 Monocytes % 16.6 Eosinophils % 3.3 Basophils % 0.5 Neutrophils # 8.0 Lymphocytes # 0.6 Monocytes # 1.8 H Eosinophils # 0.4 Basophils # 0.1 Sodium 133 L Potassium 4.2 Chloride 99 Carbon Dioxide 25 BUN 50 H Creatinine 6.12 H Est GFR ( Amer) 9 L Est GFR (Non-Af Amer) 7 L BUN/Creatinine Ratio 8 Glucose 128 H POC Glucose Calculated Osmolality 291 Calcium 8.2 L Blood Type Antibody Screen Crossmatch - ABG Interpretation ABG results: PT/INR, D-dimer PT 15.0 Seconds (9.4-12.1) H 10/21/16 01:46 D-Dimer 2641 ng/mLFEU (0-500) H 10/18/16 13:47 Attestation: My signature below is to certify that this patient is under my care and that I, or nurse practitioner, or a physician's paraprofessional education assistant working with me, has a face-to -face encounter with this patient.
[2016-10-27] MEDS ORDERED: 0.9 % Sodium Chloride 250 ML ONE (22:29)
[2016-10-28] MEDS ORDERED: 0.9 % Sodium Chloride 250 ML ONE (02:35)
[2016-10-28] MEDS: *HR* OxyCODONE Immed Rel 5 MG TABLET PO PRN ×3 (06:07→23:29)
[2016-10-28] MEDS: Folic Acid 1 MG TABLET PO SCH (06:07)
[2016-10-28] MEDS: *HR* Heparin 5,000 UNIT/ML VIAL SQ SCH ×2 (06:08→17:34)
[2016-10-28] MEDS: Insulin LISPRO 300 UNITS/3 ML VIAL SQ SCH ×4 (07:59→21:03)
[2016-10-28] MEDS: Calcium Acetate 667 MG CAPSULE PO SCH ×3 (08:00→17:34)
[2016-10-28] MEDS ORDERED: 0.9 % Sodium Chloride 250 ML IV PRN (08:31)
--- NOTE | 2016-10-28 08:35 | Gastroenterology Consult Note ---
<Jeannette Obrien - Last Filed: 10/28/16 10:41> Date of Encounter: 10/28/16 Time of Encounter: 10:00 - Assessment and plan (1) Alkaline phosphatase elevation Current Visit: Yes Status: Chronic Assessment and plan: normal LFTs, normal liver on imaging. Differentiate. (2) Anemia Current Visit: Yes Status: Acute Assessment and plan: Acute on chronic. 7 units of PRBC during this admission. hgb remains very low at 6.9. EGD/Cscope to evaluate for GIB, r/o esophagitis, gastritis, duodenitis, PUD, MW tear, AVMS, varices, tumor, polyps, colitis, anorectal pathology. Qualifiers: Anemia type: iron deficiency Iron deficiency anemia type: other iron deficiency Qualified Code(s): D50.8 - Other iron deficiency anemias (3) ESRD (end stage renal disease) on dialysis Current Visit: Yes Status: Chronic - Time Spent With Patient Total time spent is greater than 50% in coordination of care (as documented) at patient's floor/unit and/or counseling patient: less than 15 minutes GI History of Present Illness - Data of Consult Patient: new to practice Consult date: 10/28/16 Requesting Physician: Juan Manuel Valiente DO - Consult Narrative Reason for consult: anemia, r/o GIB History of present illness: Ms. Fernández is a 51 year old female with a PMH of ESRD now on dialysis, hypertension, insulin-dependent diabetes, morbid obesity, hyperlipidemia, COPD who presents to the ER for worsening bilateral lower extremity edema, and dyspnea on exertion. Patient is noted to have previous admission due to the same symptoms in May 2016. Patient states she has history of bilateral lower extremity edema, however she has been noticing to have worsening of left lower extremity swelling along with pain, and worsening shortness of breath with exertion. As per family present at bedside, patient has difficulty ambulating and needs assistance with ambulation. She was noted to have a hgb of 5 on admission. During her hospital course (9 days), she has received 7 units PRBC. Currently her hgb is 6.9. GI consulted to r/o GIB. Hematology has also been consulted due to her inappropriate response to repeat blood transfusion. Iron studies at time of admission showed very low Fe (22). She is receiving IV iron supplementation at this time. Patient denies any GI symptoms, no black stool or blood in stools. Colonoscopy: No record - patient states last year on '[facility]' EGD: ? Past Med Surg Social Fam HX - Past Medical History Medical history: coronary artery disease, CVA, diabetes, hyperlipidemia, hypertension, renal disease, venous stasis, other Psychiatric history: no psych history - Past Surgical History Surgical History: no surgical history - Social History Smoking Status: Former smoker Smokeless Tobacco Status: No Alcohol use: none Drug use: none - Gastrointestinal NSAID use: None noted Anticoagulation Use: Heparin Number of BM Per Day: 1 - Constitutional Constitutional: as per HPI - EENT Eyes: as per HPI Ears: Present: as per HPI Nose, mouth and throat: Present: as per HPI Additional Comment: Edentulous - Cardiovascular Cardiovascular ROS: Present: as per HPI - Respiratory Respiratory IM: Present: as per HPI - Neurological ROS Neurological GI: Present: weakness - Hematologic/Lymphatic Hematologic/Lymphatic pediatric: Present: as per HPI - Musculoskeletal Musculoskeletal ROS GI: Present: joint swelling - Integumentary Integumentary GI: Present: as per HPI - Psychiatric ROS Psychiatric GI: Present: as per HPI - Endocrine Endocrine IM: Present: fatigue - Constitutional Vitals: Temp Pulse Resp BP Pulse Ox 98.2 F 65 14 117/64 93 L 10/28/16 07:22 10/28/16 07:22 10/28/16 07:22 10/28/16 07:22 10/28/16 07:22 General appearance: Present: A&O X 3, pleasant, no acute distress - Head Head exam: Present: atraumatic, normocephalic - Eye Eye exam: Present: normal appearance, sclera anicteric - ENT ENT exam: Present: mucous membranes moist Additional comments: Edentulous - Neck Neck exam general surgery: Present: normal inspection, trachea midline - Respiratory Respiratory exam: Present: decreased breath sounds - Cardiovascular Cardiovascular exam: Present: RRR, +S1, +S2 - GI/Abdominal GI/Abdominal exam: Present: normal bowel sounds, soft, no peritoneal signs - Rectal Rectal exam: Present: deferred - Extremities Exam Extremities exam: Present: joint swelling, pedal edema, warm Additional comments: discoloration - Neurological Exam Neurological exam: Present: no focal deficits - Psychiatric Psychiatric exam: Present: normal affect, normal mood - Skin Skin exam: Present: dry, intact, normal color, warm Results - Labs CBC & Chem 7: 10/28/16 08:32 10/28/16 08:32 Labs: Last Result ESR >= 130 mm/hr (0-15) H 10/23/16 20:33 Calcium 7.9 mg/dL (8.6-10.8) L 10/27/16 05:12 Iron 22 mcg/dL (50-170) L 10/18/16 13:47 % Saturation 9 % (15-50) L 10/18/16 13:47 Transferrin 168 mg/dL (180-382) L 10/18/16 13:47 Ferritin 178 ng/ml (5-204) 10/18/16 13:47 Troponin I 0.02 ng/mL (0-0.03) 10/18/16 13:47 C-Reactive Protein 157 mg/L (Less than 5) H 10/18/16 13:47 Vitamin B12 846 pg/mL (213-816) H 10/19/16 11:51 Folate 4.4 ng/mL (7.0-31.4) L 10/19/16 11:51 Entire Visit Hgb 6.9 g/dL (11.5-15.4) L 10/27/16 13:07 Hct 22.9 % (35.3-44.9) L 10/27/16 13:07 Haptoglobin 293 mg/dL (30-200) H 10/20/16 10:38 PT 15.0 Seconds (9.4-12.1) H 10/21/16 01:46 Ferritin 178 ng/ml (5-204) 10/18/16 13:47 Total Bilirubin 0.7 mg/dL (0.2-1.2) 10/23/16 04:43 AST 8 Units/L (5-34) 10/23/16 04:43 ALT < 6 Units/L (0-55) 10/23/16 04:43 Folate 4.4 ng/mL (7.0-31.4) L 10/19/16 11:51 - ABG ABG results: PT/INR, D-dimer PT 15.0 Seconds (9.4-12.1) H 10/21/16 01:46 D-Dimer 2641 ng/mLFEU (0-500) H 10/18/16 13:47 Consult Discharge Plan - Plan Instructions: Heart Failure (DC) Referrals: Dee Negron, CANDY ROLLING MACHINE OPERATOR [Primary Care Provider] - 11/06/16 10:00 am () <Alan Turner - Last Filed: 10/28/16 15:00> Time of Encounter: 14:00 - Time Spent With Patient Total time spent is greater than 50% in coordination of care (as documented) at patient's floor/unit and/or counseling patient: GI History of Present Illness - Data of Consult Requesting Physician: Juan Manuel Valiente DO - Consult Narrative History of present illness: Ms. Fernández is a 51 year old female - Constitutional Vitals: Temp Pulse Resp BP Pulse Ox 98.2 F 65 14 158/85 93 L 10/28/16 14:00 10/28/16 07:22 10/28/16 14:00 10/28/16 14:00 10/28/16 07:22 Results - Labs CBC & Chem 7: 10/28/16 08:32 10/28/16 08:32 Labs: Last Result ESR >= 130 mm/hr (0-15) H 10/23/16 20:33 Calcium 8.2 mg/dL (8.6-10.8) L 10/28/16 08:32 Iron 22 mcg/dL (50-170) L 10/18/16 13:47 % Saturation 9 % (15-50) L 10/18/16 13:47 Transferrin 168 mg/dL (180-382) L 10/18/16 13:47 Ferritin 178 ng/ml (5-204) 10/18/16 13:47 Troponin I 0.02 ng/mL (0-0.03) 10/18/16 13:47 C-Reactive Protein 157 mg/L (Less than 5) H 10/18/16 13:47 Vitamin B12 846 pg/mL (213-816) H 10/19/16 11:51 Folate 4.4 ng/mL (7.0-31.4) L 10/19/16 11:51 Entire Visit Hgb 7.7 g/dL (11.5-15.4) L 10/28/16 08:32 Hct 25.6 % (35.3-44.9) L 10/28/16 08:32 Haptoglobin 293 mg/dL (30-200) H 10/20/16 10:38 PT 15.0 Seconds (9.4-12.1) H 10/21/16 01:46 Ferritin 178 ng/ml (5-204) 10/18/16 13:47 Total Bilirubin 0.7 mg/dL (0.2-1.2) 10/23/16 04:43 AST 8 Units/L (5-34) 10/23/16 04:43 ALT < 6 Units/L (0-55) 10/23/16 04:43 Folate 4.4 ng/mL (7.0-31.4) L 10/19/16 11:51 - ABG ABG results: PT/INR, D-dimer PT 15.0 Seconds (9.4-12.1) H 10/21/16 01:46 D-Dimer 2641 ng/mLFEU (0-500) H 10/18/16 13:47 - Attending Attestation I examined this patient and my medical decision-making was reviewed with the INSURANCE ASSISTANT/PA/Advanced Practice Nurse/Resident Physician. I agree with the documented findings, disposition and treatment plan as described except to the extent set forth below.
[2016-10-28 08:42] LABS: Basophils # 0.1 K/mcL (0.0-0.2); Basophils % 0.5 %; Eosinophils # 0.4 K/mcL (0.0-0.6); Eosinophils % 3.3 %; Hematocrit 25.6 % (35.3-44.9); Hemoglobin 7.7 g/dL (11.5-15.4); Immature Granulocytes % 0.9 % (0-4); Lymphocytes # 0.6 K/mcL (0.6-4.6); Lymphocytes % 5.3 %; Mean Corpuscular HGB Conc 30.1 g/dL (31.6-35.5); Mean Corpuscular Hemoglobin 26.6 pg (28.0-33.3); Mean Corpuscular Volume 88.3 fL (83.0-100.0); Mean Platelet Volume 9.5 fL (9.4-12.4); Monocytes # 1.8 K/mcL (0.0-1.3); Monocytes % 16.6 %; Platelet Count 158 K/mcL (140-400); Red Cell Distribution Width 17.2 % (11.5-14.5); Segmented Neutrophils % 73.4 %
[2016-10-28 08:53] LABS: Calcium 8.2 mg/dL (8.6-10.8); Potassium 4.2 mEq/L (3.5-4.5)
--- NOTE | 2016-10-28 09:07 | Nephrology Progress Note ---
Date of Encounter: 10/28/16 Time of Encounter: 10:30 - Assessment and Plan (1) ESRD (end stage renal disease) on dialysis Current Visit: Yes Status: Chronic Progression to ESRD. HD is scheduled for today. I reviewed the pt's vitals, labs and interval notes. Edema: will continue to challenge her weight with fluid removal on HD today. I will change her to a PO diuretic regimen today (she has been on IV lasix). Anemia, multifactorial. Provided Aranesp to day. Agree with anemia work up. Appreciate GI and Heme/Onc. CKD-BMD: Agree with the Phos binder and will continue the D2 to help suppress iPTH (she has a hx of SHPT) Nutrition: goal serum albumin is 4, so I will have her start Nepro shakes. Renal multivitamin too. Thank you. (2) Fluid overload Current Visit: Yes Status: Acute Edema is improving. Will continue to challenge her edema with UF during HD with a max limit of 10mL/kg/hr. Qualifiers: Hypervolemia type: other Qualified Code(s): E87.79 - Other fluid overload (3) Secondary hyperparathyroidism (of renal origin) Current Visit: Yes Status: Acute (4) Hyperphosphatemia Current Visit: Yes Status: Acute (5) Anemia Current Visit: Yes Status: Acute Qualifiers: Anemia type: iron deficiency Iron deficiency anemia type: unspecified iron deficiency Qualified Code(s): D50.9 - Iron deficiency anemia, unspecified (6) Hypertension Current Visit: Yes Status: Chronic Controlled with the fluid removal of HD. Qualifiers: Hypertension type: essential hypertension Qualified Code(s): I10 - Essential (primary) hypertension Subjective Principal diagnosis: CHRISTOPHER/CKD Volume overload Interval history: Pt was s/e and she did not affirm N/V/D or uremic complaints. She was seen on HD. Objective - Vital Signs Vital signs: Vital Signs Temp Pulse Resp BP Pulse Ox 10/28/16 07:22 98.2 F 65 14 117/64 93 L 10/28/16 05:05 98.2 F 65 20 124/64 94 L 10/28/16 04:20 98.9 F 64 16 112/60 94 L 10/28/16 02:43 98.2 F 66 18 128/64 97 10/28/16 02:37 98.1 F 70 20 119/59 93 L 10/27/16 22:55 98.7 F 68 18 115/63 100 10/27/16 22:54 98.7 F 65 20 109/57 97 10/27/16 22:30 98.2 F 75 18 140/63 95 10/27/16 21:45 99.1 F 71 18 117/45 92 L 10/27/16 16:00 99 F 71 16 116/69 95 10/27/16 11:23 97.6 F 72 16 129/65 98 Intake and Output 10/27/16 10/28/16 10/28/16 23:59 07:59 15:59 Intake Total 360 / 360 600 / 600 Output Total 800 / 800 Balance 360 / 360 -200 / -200 Intake: Oral 360 / 360 Blood Product 0 / 0 600 / 600 Rbcs Leuko Poor As-1 0 / 0 250 / 250 Unit [id number] Rbcs Leuko Poor As-1 350 / 350 Unit [id number] Output: Urine 800 / 800 Other: Meal Dinner Percent of Meal Consumed 100% Weight 171.6 kg Blood Glucose* 145 119 Patient Weight 10/28/16 23:59 Weight 171.6 kg - General Appearance Exam: General appearance: Present: well-developed, well-nourished, appears started age , obese EENT: Present: ATNC, PERRL, mucous membranes moist Neck: Present: supple Respiratory: Present: clear (but limited by body habitus) Cardiology: Present: edema, regular rate (but limited by body habitus), regular rhythm, normal S1, normal S2 Dialysis Vascular Access: Venous Catheter (Tunneled dialysis catheter, right) Gastrointestinal: Present: normoactive bowel sounds, no tenderness, no guarding , obese Integumentary: Present: no rash, warm and dry Neurologic: Present: no focal deficit, no asterixis, alert and oriented x3 Musculoskeletal: Present: no deformities, no clubbing Psychiatric: Present: mood/affect appropriate, cooperative - Lab 10/29/16 04:31 10/29/16 04:31 Most recent lab results Calcium 8.2 mg/dL (8.6-10.8) L 10/28/16 08:32 Phosphorus 5.7 mg/dL (2.3-4.7) H 10/22/16 05:46 Magnesium 1.8 mg/dL (1.6-2.6) 10/22/16 05:46 Consult Discharge Plan - Plan Instructions: Heart Failure (DC) Referrals: Dee Negron, IVANIA [Primary Care Provider] - 11/06/16 10:00 am ()
[2016-10-28] MEDS: Insulin DETEMIR 100 UNIT/ML X5UNITS SQ SCH ×2 (09:38→17:34)
[2016-10-28] MEDS: Miconazole w/zinc oxide&karaya 92 APPL/92 GM TUBE TP SCH (09:47)
--- NOTE | 2016-10-28 12:43 | Internal Med Progress Note ---
<Fred Hoff - Last Filed: 10/28/16 19:01> Date of Encounter: 10/28/16 Time of Encounter: 07:15 - Assessment and plan (1) Anemia Current Visit: Yes Status: Acute Assessment and plan: -Suspect anemia related to chronic disease secondary to kidney dysfunction, Iron deficiency, Multiple Myloma. -Iron studies done. [place] and lamda light chains done. Hemodialysis started yesterday. 7 units PRBC given. Hemoglobin is stable today following blood transfusion. Monitor daily. -Patient remains asymptomatic. -Unknown source of bleeding. GI has been consulted. Colonoscopy and EGD scheduled. -Hgb >7.0. Asymtomatic. Continue to monitor. Qualifiers: Anemia type: iron deficiency Iron deficiency anemia type: unspecified iron deficiency Qualified Code(s): D50.9 - Iron deficiency anemia, unspecified (2) ESRD (end stage renal disease) on dialysis Current Visit: Yes Status: Chronic Assessment and plan: -HD scheduled for today. -Per nephrology: patient changed to PO diuretic regimen on 10/28 from IV lasixs; aranesp started for anemia; phos binder started and continue the vitamin D (aka D2) to help suppress iPTH for secondary hyperparathyroidism, albumin goal is 4...nepro shakes and renal multivitamin. (3) Acute on chronic renal failure Current Visit: Yes Status: Acute Assessment and plan: -Noted to have progressive worsening in renal function along with worsening metabolic acidosis, anemia, volume overload; Nephrology consulted. high risk patient for respiratory failure and cardiac arrhythmias; Telemetry monitoring; -Will follow nephrology recommendation (4) Decubitus ulcer of buttock, stage 2 Current Visit: Yes Status: Acute Assessment and plan: -Spoke with nurse. Wound care being done. -Continue specialty bed. TQ2 Qualifiers: Laterality: left Qualified Code(s): L89.322 - Pressure ulcer of left buttock, stage 2 (5) Abnormal laboratory test Current Visit: Yes Status: Acute Assessment and plan: -Patient has an elevated lambda and kappa light chains. Multiple myloma on diff. Does have renal failure, anemia. Lacks hypercalcemia. -Oncology on board. Will follow recommendations and call tomorrow if I do not hear from them. (6) CHF (congestive heart failure) Current Visit: Yes Status: Chronic Assessment and plan: Currently it is compensated. Remove fluid with hemodialysis. Oral Fluid restriction and daily weights. 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 (8) Lower extremity edema Current Visit: Yes Status: Chronic Assessment and plan: -Bilateral. L leg painful. Less painful compared to yesterday. -Venous US neg for DVT. Pain most likely from fluid overload. Qualifiers: Laterality: bilateral Qualified Code(s): R60.0 - Localized edema (9) DVT prophylaxis Current Visit: Yes Status: Acute Assessment and plan: Continue Heparin subq unless advised not to by GI. - Subjective Interval history: Patient received hemodialysis. Feels much better today compared to yesterday. Denies CP, SOB, cough, abdominal pain, dizziness, blurry vision, weakness. Is eating and has had a bowel movement. She still has leg swelling bilaterally, which has decreased since dialysis. Complains of continual L leg pain. Doppler negative. States she would like to go home. Scheduled for EGD and colonoscopy - Constitutional Vitals: Temp Pulse Resp BP Pulse Ox 98.2 F 65 14 117/64 93 L 10/28/16 07:22 10/28/16 07:22 10/28/16 07:22 10/28/16 07:22 10/28/16 07:22 General appearance: Present: cooperative, A&O X 3, morbidly obese, answers questions appropriately - Other Additional findings: Bilateral lower extremity edema. Resting comfortably in bed. A&Ox3. Lungs are CTAB. Heart is RRR. Internal Medicine: Result - Labs CBC & Chem 7: 10/28/16 08:32 10/28/16 08:32 Labs: Short CBC 10/27/16 10/28/16 Range/Units 13:07 08:32 WBC 10.9 (4.3-11.1) K/mcL Hgb 6.9 L 7.7 L (11.5-15.4) g/dL Hct 22.9 L 25.6 L (35.3-44.9) % Plt Count 158 (140-400) K/mcL Neutrophils # 8.0 (1.6-8.9) K/mcL BMP 10/28/16 08:32 Sodium 133 L Potassium 4.2 Chloride 99 Carbon Dioxide 25 BUN 50 H Creatinine 6.12 H Glucose 128 H Calcium 8.2 L - ABG Interpretation ABG results: PT/INR, D-dimer PT 15.0 Seconds (9.4-12.1) H 10/21/16 01:46 D-Dimer 2641 ng/mLFEU (0-500) H 10/18/16 13:47 Consult Discharge Plan - Plan Instructions: Heart Failure (DC) Referrals: Dee Negron, STATE EPIDEMIOLOGIST [Primary Care Provider] - 11/06/16 10:00 am () <Juan Manuel Valiente - Last Filed: 10/29/16 19:56> - Assessment and plan (1) Anemia Current Visit: Yes Status: Acute Qualifiers: Anemia type: iron deficiency Iron deficiency anemia type: unspecified iron deficiency Qualified Code(s): D50.9 - Iron deficiency anemia, unspecified (2) ESRD (end stage renal disease) on dialysis Current Visit: Yes Status: Chronic (3) Decubitus ulcer of buttock, stage 2 Current Visit: Yes Status: Acute Qualifiers: Laterality: right Qualified Code(s): L89.312 - Pressure ulcer of right buttock, stage 2 (4) Diabetes mellitus Current Visit: Yes Status: Chronic Qualifiers: Diabetes mellitus type: type 2 Diabetes mellitus complication status: with unspecified complications Diabetes mellitus buttermaker helper insulin use: with nursing home use Qualified Code(s): E11.8 - Type 2 diabetes mellitus with unspecified complications; Z79.4 - intermediate card tender (current) use of insulin (5) Lymphedema of both lower extremities Current Visit: Yes Status: Chronic - Constitutional Vitals: Temp Pulse Resp BP Pulse Ox 97.8 F 69 18 126/64 95 10/29/16 15:54 10/29/16 15:54 10/29/16 15:54 10/29/16 15:54 10/29/16 15:54 Internal Medicine: Result - Labs CBC & Chem 7: 10/29/16 04:31 10/29/16 04:31 Labs: Short CBC 10/29/16 Range/Units 04:31 WBC 10.7 (4.3-11.1) K/mcL Hgb 7.6 L (11.5-15.4) g/dL Hct 25.9 L (35.3-44.9) % Plt Count 155 (140-400) K/mcL Neutrophils # 7.6 (1.6-8.9) K/mcL BMP 10/29/16 04:31 Sodium 137 Potassium 4.0 Chloride 98 Carbon Dioxide 30 H BUN 32 H D Creatinine 4.72 H Glucose 89 Calcium 8.1 L - ABG Interpretation ABG results: PT/INR, D-dimer PT 15.0 Seconds (9.4-12.1) H 10/21/16 01:46 D-Dimer 2641 ng/mLFEU (0-500) H 10/18/16 13:47 - Attending Attestation I examined this patient and my medical decision-making was reviewed with the Resident Physician on 10/28/16. I agree with the documented findings, disposition and treatment plan as described except to the extent set forth below. Ms. Fernández is currently admitted for acute dialysis and work up of significant anemia. She remains moderate risk due to potential worsening of respiratory and overall status. Ms. Fernández is going to dialysis. She denies new issues. To have endoscopy tomorrow for anemia. Exam Alert. Comfortable Heart reg Lungs diminished Abd soft Edema present I/P 1. Anemia 2. Lymphedema Further diagnoses and plan as above.
[2016-10-28] MEDS: Furosemide 40 MG TABLET PO SCH (17:34)
[2016-10-28] MEDS ORDERED: SODIUM CHLORIDE/NAHCO3/KCL/PEG 4,000 ML SOLN.RECON PO ONE (19:00)
[2016-10-29 05:05] LABS: Eosinophils % 3.7 %; Hemoglobin 7.6 g/dL (11.5-15.4); Monocytes % 18.1 %
[2016-10-29 05:06] LABS: Basophils # 0.1 K/mcL (0.0-0.2); Basophils % 0.5 %; Eosinophils # 0.4 K/mcL (0.0-0.6); Hematocrit 25.9 % (35.3-44.9); Immature Granulocytes % 0.8 % (0-4); Lymphocytes # 0.7 K/mcL (0.6-4.6); Lymphocytes % 6.1 %; Mean Corpuscular HGB Conc 29.3 g/dL (31.6-35.5); Mean Corpuscular Volume 88.7 fL (83.0-100.0); Mean Platelet Volume 9.7 fL (9.4-12.4); Monocytes # 1.9 K/mcL (0.0-1.3); Neutrophils # 7.6 K/mcL (1.6-8.9); Platelet Count 155 K/mcL (140-400); Red Blood Count 2.92 M/mcL (3.82-4.97); Red Cell Distribution Width 17.1 % (11.5-14.5); Segmented Neutrophils % 70.8 %
[2016-10-29 05:15] LABS: Calcium 8.1 mg/dL (8.6-10.8)
[2016-10-29 05:52] LABS: Platelet Estimate Normal (Normal)
[2016-10-29 05:53] LABS: Hypochromasia Present (Not Present); Toxic Granulation Present (Not Present)
[2016-10-29] MEDS: Miconazole w/zinc oxide&karaya 92 APPL/92 GM TUBE TP SCH ×3 (06:32→21:31)
[2016-10-29] MEDS: *HR* Heparin 5,000 UNIT/ML VIAL SQ SCH ×2 (07:06→16:29)
[2016-10-29] MEDS: Insulin LISPRO 300 UNITS/3 ML VIAL SQ SCH ×4 (07:58→21:32)
[2016-10-29] MEDS: *HR* OxyCODONE Immed Rel 5 MG TABLET PO PRN ×2 (08:03→16:29)
[2016-10-29] MEDS: Furosemide 40 MG TABLET PO SCH ×2 (09:05→16:29)
[2016-10-29] MEDS: Folic Acid 1 MG TABLET PO SCH (09:10)
[2016-10-29] MEDS: Calcium Acetate 667 MG CAPSULE PO SCH ×3 (09:57→16:29)
[2016-10-29] MEDS: Insulin DETEMIR 100 UNIT/ML X5UNITS SQ SCH ×2 (11:30→16:31)
--- NOTE | 2016-10-29 12:51 | Anesthesia Evaluation PreOp ---
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: CVA Other Medical History: Renal (Acute on Chronic Renal failure), Diabetes Type II , Other (Metabolic acidosis) : No Alcohol Use: none Drug use: none Medications and Allergies Albuterol Sulfate [Proair Hfa] 2 puff IH Q4H PRN 06/07/16 [History] Aspirin 81 mg PO DAILY 06/07/16 [History] Atorvastatin Calcium [Lipitor] 20 mg PO DAILY 06/07/16 [History] Furosemide [Lasix] 80 mg PO QAM 06/07/16 [History] Gabapentin [Neurontin] 300 mg PO BID 06/07/16 [History] Insulin DETEMIR [Levemir Flextouch] 5 unit SQ QAM 06/07/16 [History] Insulin DETEMIR [Levemir Flextouch] 15 unit SQ QPM 06/07/16 [History] NIFEdipine [Nifedical Xl] 60 mg PO DAILY 06/07/16 [History] Carvedilol 12.5 mg PO BID 30 Days 06/10/16 [Rx] Furosemide [Lasix] 20 mg PO QPM 10/18/16 [History] Oxygen 3.5 l .ROUTE AD 10/18/16 [History] Allergies lisinopril Adverse Reaction (Verified 10/18/16 15:49) Cough - Meds/Allergy Pre-op Review Medications Reviewed: Yes Allergies Reviewed: Yes Beta Blockers on Current Med List: Yes If Beta Blockers taken, Date/Time (Last Dose taken): 10/29/2016 @ 09:07 Anesthesia Results - Labs 10/29/16 04:31 10/29/16 04:31 Echo 10/20/16 EF-55% Mild diastolic dysfunction - Imaging EKG: image reviewed (SR, 1st Degree AV Block,Poss old Ant. TX) Anesthesia Exam O2 Sat O2 Sat by Pulse Oximetry 96 O2 Sat by Pulse Oximetry 96 O2 Sat by Pulse Oximetry 89 O2 Sat by Pulse Oximetry 91 O2 Sat by Pulse Oximetry 91 O2 Sat by Pulse Oximetry 98 Vital Signs Temp Pulse Resp BP Pulse Ox 98.4 F 81 18 161/62 94 L 10/18/16 12:45 10/18/16 12:45 10/18/16 12:45 10/18/16 12:45 10/18/16 12:45 Vital Signs/O2 Sat, Most Current Temp Pulse Resp BP Pulse Ox 98.3 F 71 16 131/67 96 10/29/16 11:32 10/29/16 11:32 10/29/16 11:32 10/29/16 11:32 10/29/16 11:32
--- NOTE | 2016-10-29 18:28 | Event Note ---
<Fred Hoff - Last Filed: 10/29/16 18:23> Date of Encounter: 10/29/16 Time of Encounter: 07:15 Unable to put in progress note for patient. IT is beside me now to try to resolve issue. -Patient refused Colonoscopy and EGD. Very anxious at bed side about "being put under". Ultimately she refused to have proceedure. Dr. Turner saw patient at bedside. -Niles, with oncology, spoke with patient at bedside. Benze [place] proteins in urine negative. No Multiple myeloma. Oncology believes anemia due to chronic renal failure. -Patient is resting comfortably in the room. No questions. Family member present. -Heart has systolic mummer. Lungs CTABL. STill has peripheral edema, but improved. -Likely discharge home tomorrow following dialysis. <Juan Manuel Valiente - Last Filed: 10/29/16 19:53> Ms Fernández is currently inpatient due to ESRD and anemia. She remains moderate to high risk due to new dialysis and anemia work up. Ms. Fernández is very distressed due to fear of sedation. She does not want procedures. No CP or SOB. No cough. Exam Alert. Distressed due to fear Heart reg Lungs clear Abd soft and nontender Edema persists. I/P 1. Anemia - refuses endoscopy now. Will continue current treatment plan. 2. ESRD on HD 3. Edema - continue dialysis 4. Stage 2 decubitus of buttocks - conservative care 5. Acute on chronic diastyolic heart failure 6. Diabetes mellitus on insulin. Anticipate d/c tomorrow.
[2016-10-29] MEDS ORDERED: Permethrin Cream Rinse 60 ML LIQUID TP ONE (21:08)
--- NOTE | 2016-10-29 22:09 | Nephrology Progress Note ---
Date of Encounter: 10/29/16 Time of Encounter: 10:10 - Assessment and Plan (1) ESRD (end stage renal disease) on dialysis Current Visit: Yes Status: Chronic Progression to ESRD now on intermittant HD with the last treatment on Wednesday. The next HD is scheduled for tomorrow (Wednesday) Edema: will continue to challenge her weight with fluid removal on HD. Anemia, multifactorial. Status post Aranesp. Agree with anemia work up. Appreciate GI and Heme/Onc. CKD-BMD: Agree with the Phos binder and will continue the D2 to help suppress iPTH (she has a hx of SHPT) Nutrition: goal serum albumin is 4, so I will have her start Nepro shakes. Renal multivitamin too. Thank you. (2) Fluid overload Current Visit: Yes Status: Acute Edema is improving. Qualifiers: Hypervolemia type: other Qualified Code(s): E87.79 - Other fluid overload (3) Secondary hyperparathyroidism (of renal origin) Current Visit: Yes Status: Acute (4) Hyperphosphatemia Current Visit: Yes Status: Acute (5) Anemia Current Visit: Yes Status: Acute Qualifiers: Anemia type: iron deficiency Iron deficiency anemia type: unspecified iron deficiency Qualified Code(s): D50.9 - Iron deficiency anemia, unspecified (6) Hypertension Current Visit: Yes Status: Chronic Controlled with the fluid removal of HD. Qualifiers: Hypertension type: essential hypertension Qualified Code(s): I10 - Essential (primary) hypertension Subjective Principal diagnosis: CHRISTOPHER/CKD Volume overload Interval history: Pt was s/e and she did not affirm N/V/D or uremic complaints. She c/o itching diffusely that she attributed to her pain medications. Objective - Vital Signs Vital signs: Vital Signs Temp Pulse Resp BP Pulse Ox 10/29/16 15:54 97.8 F 69 18 126/64 95 10/29/16 11:32 98.3 F 71 16 131/67 96 10/29/16 07:40 98.1 F 70 18 120/53 96 10/29/16 04:00 98.9 F 66 22 120/69 89 L 10/29/16 01:20 98.3 F 70 22 121/63 91 L Intake and Output 10/29/16 10/29/16 10/29/16 07:59 15:59 23:59 Intake Total 300 / 300 240 / 240 Balance 300 / 300 240 / 240 Intake: Oral 300 / 300 240 / 240 Other: Meal Dinner Percent of Meal Consumed 60% Stool Size Large Large Stool Consistency formed loose liquid soft Stool Color Brown Green # Voids 1 # Urine Diapers 1 Blood Glucose* 94 93 132 - General Appearance General appearance: Present: well-developed, well-nourished, obese EENT: Present: ATNC, PERRL, mucous membranes moist Neck: Present: supple Respiratory: Present: clear Cardiology: Present: edema, normal S1, normal S2 Gastrointestinal: Present: normoactive bowel sounds, tenderness Integumentary: Present: no rash, warm and dry Neurologic: Present: no focal deficit, no asterixis, alert and oriented x3 Musculoskeletal: Present: no deformities, no clubbing Psychiatric: Present: mood/affect appropriate, cooperative - Lab 10/29/16 04:31 10/29/16 04:31 Most recent lab results Calcium 8.1 mg/dL (8.6-10.8) L 10/29/16 04:31 Phosphorus 5.7 mg/dL (2.3-4.7) H 10/22/16 05:46 Magnesium 1.8 mg/dL (1.6-2.6) 10/22/16 05:46 Consult Discharge Plan - Plan Instructions: Heart Failure (DC) Referrals: Dee Negron CNP [Primary Care Provider] - 11/06/16 10:00 am ()
[2016-10-30] MEDS ORDERED: 0.9 % Sodium Chloride 250 ML IV PRN (05:49)
[2016-10-30 05:52] LABS: Basophils # 0.1 K/mcL (0.0-0.2); Basophils % 0.6 %; Eosinophils # 0.4 K/mcL (0.0-0.6); Eosinophils % 3.2 %; Hematocrit 25.4 % (35.3-44.9); Hemoglobin 7.4 g/dL (11.5-15.4); Immature Granulocytes % 1.1 % (0-4); Lymphocytes # 0.6 K/mcL (0.6-4.6); Lymphocytes % 5.2 %; Mean Corpuscular HGB Conc 29.1 g/dL (31.6-35.5); Mean Corpuscular Hemoglobin 26.1 pg (28.0-33.3); Mean Corpuscular Volume 89.8 fL (83.0-100.0); Mean Platelet Volume 10.4 fL (9.4-12.4); Monocytes # 1.7 K/mcL (0.0-1.3); Monocytes % 15.2 %; Neutrophils # 8.5 K/mcL (1.6-8.9); Platelet Count 164 K/mcL (140-400); Red Blood Count 2.83 M/mcL (3.82-4.97); Red Cell Distribution Width 16.9 % (11.5-14.5); Segmented Neutrophils % 74.7 %
[2016-10-30 06:09] LABS: Calcium 7.9 mg/dL (8.6-10.8)
[2016-10-30] MEDS: *HR* Heparin 5,000 UNIT/ML VIAL SQ SCH (07:11)
--- NOTE | 2016-10-30 08:59 | Internal Med Progress Note ---
Date of Encounter: 10/30/16 Time of Encounter: 08:59 - Assessment and plan (1) Anemia Current Visit: Yes Status: Acute Qualifiers: Anemia type: iron deficiency Iron deficiency anemia type: unspecified iron deficiency Qualified Code(s): D50.9 - Iron deficiency anemia, unspecified (2) ESRD (end stage renal disease) on dialysis Current Visit: Yes Status: Chronic (3) Acute on chronic renal failure Current Visit: Yes Status: Acute (4) Decubitus ulcer of buttock, stage 2 Current Visit: Yes Status: Acute Qualifiers: Laterality: left Qualified Code(s): L89.322 - Pressure ulcer of left buttock, stage 2 (5) Abnormal laboratory test Current Visit: Yes Status: Acute (6) CHF (congestive heart failure) Current Visit: Yes Status: Chronic Qualifiers: Congestive heart failure type: diastolic Congestive heart failure chronicity: acute on chronic Qualified Code(s): I50.33 - Acute on chronic diastolic (congestive) heart failure (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 Feels much better today compared to yesterday. Denies CP, SOB, cough, abdominal pain, dizziness, blurry vision, weakness. Is eating and has had a bowel movement. She still has leg swelling bilaterally, which has decreased since dialysis. Complains of continual L leg pain. Doppler negative. States she would like to go home. Scheduled for EGD and colonoscopy - Constitutional Vitals: Temp Pulse Resp BP Pulse Ox 98.3 F 67 20 131/60 98 10/30/16 08:04 10/30/16 08:04 10/30/16 08:04 10/30/16 08:04 10/30/16 08:04 General appearance: Present: cooperative, A&O X 3, morbidly obese, answers questions appropriately Internal Medicine: Result - Labs CBC & Chem 7: 10/30/16 05:18 10/30/16 05:18 Labs: Short CBC 10/30/16 Range/Units 05:18 WBC 11.4 H (4.3-11.1) K/mcL Hgb 7.4 L (11.5-15.4) g/dL Hct 25.4 L (35.3-44.9) % Plt Count 164 (140-400) K/mcL Neutrophils # 8.5 (1.6-8.9) K/mcL BMP 10/30/16 05:18 Sodium 136 Potassium 4.0 Chloride 99 Carbon Dioxide 27 BUN 43 H D Creatinine 5.75 H Glucose 110 H Calcium 7.9 L - ABG Interpretation ABG results: PT/INR, D-dimer PT 15.0 Seconds (9.4-12.1) H 10/21/16 01:46 D-Dimer 2641 ng/mLFEU (0-500) H 10/18/16 13:47 Consult Discharge Plan - Plan Instructions: Heart Failure (DC) Referrals: Dee Negron CNP [Primary Care Provider] - 11/06/16 10:00 am ()
--- NOTE | 2016-10-30 09:05 | Oncology Inp Progress Note ---
Date of Encounter: 10/29/16 Time of Encounter: 17:40 (1) Anemia Current Visit: Yes Status: Acute Assessment and plan: I spoke to patient this evening about urine tests, immunofixation. We were concerned that patient's anemia could be related to a bone marrow malignancy. Specifically, we had concerns about multiple myeloma. However, urine test was negative for monoclonal proteins, negative Bence Del Rosario protein..Patient does not have multiple myeloma. Patient was relived. I spoke to her hospitalist physician about results. We believe she has anemia from ESRD. Hospitalist will re-consult us for any new concerns. Dr Richardson in agreement with above results and plan. Qualifiers: Anemia type: iron deficiency Iron deficiency anemia type: unspecified iron deficiency Qualified Code(s): D50.9 - Iron deficiency anemia, unspecified Oncology: Subj Interval history: Patient resting comfortably, no acute distress today - Constitutional Vitals: Vital Signs Temp Pulse Resp BP Pulse Ox 10/30/16 08:04 98.3 F 67 20 131/60 98 10/30/16 04:43 65 17 122/67 98 10/29/16 22:55 67 17 137/55 97 10/29/16 15:54 97.8 F 69 18 126/64 95 10/29/16 11:32 98.3 F 71 16 131/67 96 Intake and Output 10/29/16 10/30/16 10/30/16 23:59 07:59 15:59 Intake Total 640 / 640 0 / 0 Output Total 0 / 0 Balance 640 / 640 0 / 0 Intake: Oral 640 / 640 0 / 0 Output: Urine 0 / 0 Other: Meal Dinner Percent of Meal Consumed 60% Stool Size Large Stool Consistency loose Stool Color Brown Green # Voids 1 Weight 166.6 kg Blood Glucose* 140 111 Patient Weight 10/30/16 23:59 Weight 166.6 kg General appearance: cooperative, morbidly obese, no acute distress - Head Head exam: Present: atraumatic, normal inspection - ENT ENT exam: Present: mucous membranes moist - Cardiovascular Cardiovascular exam: Present: RRR - GI/Abdominal GI/Abdominal exam: Present: soft - Extremities Exam Extremities exam: Present: full ROM, joint swelling, normal inspection - Neurological Exam Neurological exam: Present: alert, oriented X3, no focal deficits - Psychiatric Psychiatric exam: Present: normal affect Oncology: Obj Data - Labs CBC & Chem 7: 10/30/16 05:18 10/30/16 05:18 Labs: Laboratory Results - last 24 hr 10/29/16 10/29/16 10/30/16 11:27 16:14 05:18 WBC 11.4 H RBC 2.83 L Hgb 7.4 L Hct 25.4 L MCV 89.8 MCH 26.1 L MCHC 29.1 L RDW 16.9 H Plt Count 164 MPV 10.4 Immature Gran % 1.1 Seg Neutrophils % 74.7 Lymphocytes % 5.2 Monocytes % 15.2 Eosinophils % 3.2 Basophils % 0.6 Neutrophils # 8.5 Lymphocytes # 0.6 Monocytes # 1.7 H Eosinophils # 0.4 Basophils # 0.1 Sodium Potassium Chloride Carbon Dioxide BUN Creatinine Est GFR ( Amer) Est GFR (Non-Af Amer) BUN/Creatinine Ratio Glucose POC Glucose 93 H 132 H Calculated Osmolality Calcium 10/30/16 05:18 WBC RBC Hgb Hct MCV MCH MCHC RDW Plt Count MPV Immature Gran % Seg Neutrophils % Lymphocytes % Monocytes % Eosinophils % Basophils % Neutrophils # Lymphocytes # Monocytes # Eosinophils # Basophils # Sodium 136 Potassium 4.0 Chloride 99 Carbon Dioxide 27 BUN 43 H D Creatinine 5.75 H Est GFR ( Amer) 9 L Est GFR (Non-Af Amer) 8 L BUN/Creatinine Ratio 7 Glucose 110 H POC Glucose Calculated Osmolality 293 Calcium 7.9 L - ABG Interpretation ABG results: PT/INR, D-dimer PT 15.0 Seconds (9.4-12.1) H 10/21/16 01:46 D-Dimer 2641 ng/mLFEU (0-500) H 10/18/16 13:47 Consult Discharge Plan - Plan Instructions: Heart Failure (DC) Referrals: Dee Negron CNP [Primary Care Provider] - 11/06/16 10:00 am ()
[2016-10-30 11:04] LABS: Beta Globulin (PEP) 0.9 g/dL (0.5-1.1)
--- NOTE | 2016-10-30 11:11 | Nephrology Progress Note ---
Date of Encounter: 10/30/16 Time of Encounter: 11:01 - Assessment and Plan (1) Acute on chronic renal failure Current Visit: Yes Status: Acute Patient with stage 5 CKD that worsened. She is now ESRD. A tunneled catheter has been placed. Her first HD session was 10/19/16. She is on dialysis on a MWF schedule. Renal dose medications. She will need permanent access placed. Possible discharge today. (2) Diabetes mellitus Current Visit: Yes Status: Chronic Per primary team. 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 Educate on low phosphorus diet Vitamin D deficiency - Replacement ordered hypocalcemia - replace as needed. Repeat PTH as an outpatient. (4) Anemia Current Visit: Yes Status: Acute iron deficiency - recieved transfusion. On oral iron. Folate deficiency - replacement ordered. Vitamin B12 normal. patient refused colonoscopy Qualifiers: Anemia type: iron deficiency Iron deficiency anemia type: unspecified iron deficiency Qualified Code(s): D50.9 - Iron deficiency anemia, unspecified (5) Hyperuricemia Current Visit: Yes Status: Acute Elevate uric acid. Nutrition consulted for dietary education. Allopurinol ordered. Subjective Principal diagnosis: CHRISTOPHER/CKD Volume overload Interval history: Patient seen and evaluated. She has no new complaint. She refused endoscopy. She is hoping to go home today. Objective - Vital Signs Vital signs: Vital Signs Temp Pulse Resp BP Pulse Ox 10/30/16 10:05 98.3 F 20 125/64 10/30/16 08:04 98.3 F 67 20 131/60 98 10/30/16 04:43 65 17 122/67 98 10/29/16 22:55 67 17 137/55 97 10/29/16 15:54 97.8 F 69 18 126/64 95 10/29/16 11:32 98.3 F 71 16 131/67 96 Intake and Output 10/29/16 10/30/16 10/30/16 23:59 07:59 15:59 Intake Total 640 / 640 840 / 840 Output Total 0 / 0 Balance 640 / 640 840 / 840 Intake: Oral 640 / 640 240 / 240 Intake, Rinseback and 600 / 600 Flushes Output: Urine 0 / 0 Other: Meal Dinner Breakfast Percent of Meal Consumed 60% 50% Stool Size Large Stool Consistency loose Stool Color Brown Green # Voids 1 Weight 166.6 kg Blood Glucose* 140 111 Patient Weight 10/30/16 23:59 Weight 166.6 kg - General Appearance General appearance: Present: well-developed, well-nourished EENT: Present: ATNC Neck: Present: supple Respiratory: Present: clear Cardiology: Present: no edema, regular rate, regular rhythm Gastrointestinal: Present: normoactive bowel sounds Integumentary: Present: warm and dry Neurologic: Present: alert and oriented x3 Musculoskeletal: Present: no cyanosis Psychiatric: Present: mood/affect appropriate - Lab 10/30/16 05:18 10/30/16 05:18 Most recent lab results Calcium 7.9 mg/dL (8.6-10.8) L 10/30/16 05:18 Phosphorus 5.7 mg/dL (2.3-4.7) H 10/22/16 05:46 Magnesium 1.8 mg/dL (1.6-2.6) 10/22/16 05:46 Consult Discharge Plan - Plan Instructions: Heart Failure (DC) Referrals: Dee Negron CNP [Primary Care Provider] - 11/06/16 10:00 am ()
--- NOTE | 2016-10-30 15:03 | Discharge Summary ---
<KavyaFred - Last Filed: 10/30/16 15:55> Time of Encounter: 13:00 - Discharge Diagnosis (1) Anemia Priority: Primary Status: Acute Comments: -Anemia likely due to Stage V CKD. -Patient did refuse colonoscopy and EGD -Patient will need close f/u with nephrology Qualifiers: Anemia type: iron deficiency Iron deficiency anemia type: unspecified iron deficiency Qualified Code(s): D50.9 - Iron deficiency anemia, unspecified (2) ESRD (end stage renal disease) on dialysis Status: Chronic Comments: -Dailysis MWF. 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 Status: Acute (7) Lower extremity edema Status: Chronic Qualifiers: Laterality: bilateral Qualified Code(s): R60.0 - Localized edema (8) DVT prophylaxis Status: Acute - Discharge Medications Prescriptions: Allopurinol [Zyloprim 100 MG] 100 mg PO Q48H #10 tablet B Complex W-C No.20/Folic Acid [Nephrocaps Softgel] 1 mg PO DAILY #30 capsule Ergocalciferol (VITAMIN D2) [Drisdol (50,000 Unit)] 50,000 unit PO QWEEK #5 capsule Folic Acid 5 mg PO DAILY #30 tablet Miconazole w/zinc oxide&karaya [Antifungal Extra Thick] 1 appl TP BID PRN #1 tube PRN Reason: Rash Home Medications: Aspirin 81 mg PO DAILY 06/07/16 [History] Atorvastatin Calcium [Lipitor] 20 mg PO DAILY 06/07/16 [History] Furosemide [Lasix] 80 mg PO QAM 06/07/16 [History] Gabapentin [Neurontin] 300 mg PO BID 06/07/16 [History] Insulin DETEMIR [Levemir Flextouch] 5 unit SQ QAM 06/07/16 [History] Insulin DETEMIR [Levemir Flextouch] 15 unit SQ QPM 06/07/16 [History] NIFEdipine [Nifedical Xl] 60 mg PO DAILY 06/07/16 [History] Carvedilol 12.5 mg PO BID 30 Days 06/10/16 [Rx] Furosemide [Lasix] 20 mg PO QPM 10/18/16 [History] Oxygen 3.5 l .ROUTE AD 10/18/16 [History] Albuterol Sulfate [Albuterol Inhaler] 2 puff IH Q4H PRN #0 inhaler 10/30/16 [Rx] Allopurinol [Zyloprim 100 MG] 100 mg PO Q48H #10 tablet 10/30/16 [Rx] B Complex W-C No.20/Folic Acid [Nephrocaps Softgel] 1 mg PO DAILY #30 capsule [Rx] Darbepoetin [Aranesp] 60 mcg SQ QWEEK syringe 10/30/16 [Rx] Ergocalciferol (VITAMIN D2) [Drisdol (50,000 Unit)] 50,000 unit PO QWEEK #5 capsule 10/30/16 [Rx] Folic Acid 5 mg PO DAILY #30 tablet 10/30/16 [Rx] Miconazole w/zinc oxide&karaya [Antifungal Extra Thick] 1 appl TP BID PRN #1 tube 10/30/16 [Rx] Allergies/Adverse Reactions: Allergies Fish Containing Products Allergy (Verified 10/30/16 11:00) Swelling of Lip/Tongue/Throat lisinopril Adverse Reaction (Verified 10/18/16 15:49) Cough Date of admission: 10/18/16 17:09 Primary care physician: Dee Negron CNP Consults: 10/18/16 18:10 Consult to Casino Supervisor [CONS] Routine Reason for SW Consult: possible home health need 10/19/16 06:40 Consult to Wound Care [CONS] Routine Reason for Consult: wound to buttocks Call Completed: Yes 10/19/16 10:00 Consult to Interventional Radiology [CONS] Routine Consulting Provider: Radiology Interventional Cols Reason for Consult: permcath placement for dialysis re ESRD Call Completed: No 10/19/16 10:14 Consult to Casino Supervisor [CONS] Routine Reason for SW Consult: patient will need outpatient dialysis. 10/19/16 10:30 Consult to Dialysis [CONS] ONCE 10/20/16 09:00 Consult to Neurology [CONS] Routine Consulting Provider: [facility] Reason for Consult: New onset myoclonic jerking and twitches in ESRD patient beginning HD. Please eval and advise. Call Completed: No 10/20/16 10:20 Consult to Interpret Exam [CONS] Routine Consulting Provider: Radha Rodriguez I Consult to Interpret Exam: Interpret EEG 10/20/16 10:30 Consult to Dialysis [CONS] ONCE 10/20/16 10:45 Consult to Dialysis [CONS] ONCE 10/20/16 10:49 dietary consult [Consult to Nutrition] [CONS] Routine Comment: Diabetic with ESRD, obesity and hyperuricemia Consulting Provider: NUTRITION Reason for Dietary Consult: Diet Education Other:: needs dietary education. 10/21/16 08:15 Consult to Dialysis [CONS] ONCE 10/21/16 09:45 Consult to Dialysis [CONS] ONCE 10/22/16 11:24 Consult to Physical Therapy [CONS] Routine Comment: Evaluate, develop and implement POC OT [Consult to Occupational Therapy] [CONS] Routine Comment: Evaluate, develop and implement POC 10/22/16 15:25 Consult to Oncology Hematology [CONS] Routine Consulting Provider: Emery Gonzalez Reason for Consult: Inappropriate response to PRBC Call Completed: Yes 10/23/16 09:00 Consult to Dialysis [CONS] ONCE 10/26/16 08:45 Consult to Dialysis [CONS] ONCE 10/27/16 17:15 Consult to Gastroenterology [CONS] Routine Consulting Provider: Chloe Evans Reason for Consult: R/o GI bleeding, anemia Time Notified: 17:16 Call Completed: No 10/28/16 08:45 Consult to Dialysis [CONS] ONCE 10/30/16 06:00 Consult to Dialysis [CONS] ONCE Discharging clinician: Fred Hoff Anticipated date of discharge: 10/30/16 - Patient Status Disposition: Home Health Service Condition: Fair Functional capacity at discharge: independent ambulation (per patient she is ambulatory, but doesn't like to walk.) Overall status at discharge: patient is back to baseline - Discharge Instructions Instructions: Heart Failure (DC), Anemia (GEN) Follow Up With: Dee Negron CNP [Primary Care Provider] - 11/06/16 10:00 am () Juan Miguel Mccabe, [Partnered Physician] - Additional Instructions: Please followup with primary care doctor in the next 3 days. Please call and make appointment with jailor concerning continuation of medication and dialysis. - Diet and Activity Activity: increase activity as tolerated Diet: diabetic diet Interval History: Patient feeling well today. ready to go home. No complaints or concerns. States that she has daily home health, is ambulatory, brother is able to pick her up. She feels comfortable going home. I spoke with the daughter over the phone. Spent 10 min discussion treatment, proceedures done, diagnosis and care for the patient. Answered any questions. Hospital course: Ms. Fernández is a 51 year old female that had a complex hospital stay. She has anemia due to chronic renal failure. First time hemodialysis this week. She will be on a MWF dialysis. Needs close followup with PCP, cardiology and nephrology. Patient has home health daily. - Time Spent with Patient Total time spent providing and/or coordinating discharge services: Less than 30 minutes - Constitutional Vitals: Temp Pulse Resp BP Pulse Ox 98.3 F 67 20 135/71 98 10/30/16 10:05 10/30/16 08:04 10/30/16 10:05 10/30/16 13:05 10/30/16 08:04 General appearance: Present: cooperative, A&O X 3, morbidly obese, answers questions appropriately Exam: -patient resting comfortably in bed and eating. - Respiratory Respiratory exam: Present: wheezes - Cardiovascular Cardiovascular exam: Present: RRR, systolic murmur - Other Additional findings: Lower extremities still swollen, but less comparted to admission. Not as painful to the touch. <Juan Manuel Valiente - Last Filed: 10/30/16 17:56> Date of Encounter: 10/30/16 - Discharge Diagnosis (1) ESRD (end stage renal disease) on dialysis Priority: Primary Status: Chronic (2) Anemia Status: Acute Qualifiers: Anemia type: iron deficiency Iron deficiency anemia type: unspecified iron deficiency Qualified Code(s): D50.9 - Iron deficiency anemia, unspecified (3) Decubitus ulcer of buttock, stage 2 Priority: Secondary Status: Acute Qualifiers: Laterality: right Qualified Code(s): L89.312 - Pressure ulcer of right buttock, stage 2 (4) Diabetes mellitus Priority: Secondary Status: Chronic Qualifiers: Diabetes mellitus type: type 2 Diabetes mellitus complication status: with unspecified complications 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: with truck terminal manager use Qualified Code(s): E11.8 - Type 2 diabetes mellitus with unspecified complications; Z79.4 - terminal computer operator (current) use of insulin (5) Lymphedema of both lower extremities Priority: Secondary Status: Chronic Date of admission: 10/18/16 17:09 Primary care physician: Dee Negron CNP Consults: 10/18/16 18:10 Consult to Casino Supervisor [CONS] Routine Reason for SW Consult: possible home health need 10/19/16 06:40 Consult to Wound Care [CONS] Routine Reason for Consult: wound to buttocks Call Completed: Yes 10/19/16 10:00 Consult to Interventional Radiology [CONS] Routine Consulting Provider: Radiology Interventional Cols Reason for Consult: permcath placement for dialysis re ESRD Call Completed: No 10/19/16 10:14 Consult to Casino Supervisor [CONS] Routine Reason for SW Consult: patient will need outpatient dialysis. 10/19/16 10:30 Consult to Dialysis [CONS] ONCE 10/20/16 09:00 Consult to Neurology [CONS] Routine Consulting Provider: [facility] Reason for Consult: New onset myoclonic jerking and twitches in ESRD patient beginning HD. Please eval and advise. Call Completed: No 10/20/16 10:20 Consult to Interpret Exam [CONS] Routine Consulting Provider: Radha Rodriguez I Consult to Interpret Exam: Interpret EEG 10/20/16 10:30 Consult to Dialysis [CONS] ONCE 10/20/16 10:45 Consult to Dialysis [CONS] ONCE 10/20/16 10:49 dietary consult [Consult to Nutrition] [CONS] Routine Comment: Diabetic with ESRD, obesity and hyperuricemia Consulting Provider: NUTRITION Reason for Dietary Consult: Diet Education Other:: needs dietary education. 10/21/16 08:15 Consult to Dialysis [CONS] ONCE 10/21/16 09:45 Consult to Dialysis [CONS] ONCE 10/22/16 11:24 Consult to Physical Therapy [CONS] Routine Comment: Evaluate, develop and implement POC OT [Consult to Occupational Therapy] [CONS] Routine Comment: Evaluate, develop and implement POC 10/22/16 15:25 Consult to Oncology Hematology [CONS] Routine Consulting Provider: Emery Gonzalez Reason for Consult: Inappropriate response to PRBC Call Completed: Yes 10/23/16 09:00 Consult to Dialysis [CONS] ONCE 10/26/16 08:45 Consult to Dialysis [CONS] ONCE 10/27/16 17:15 Consult to Gastroenterology [CONS] Routine Consulting Provider: Gastroentermelanie Evans Reason for Consult: R/o GI bleeding, anemia Time Notified: 17:16 Call Completed: No 10/28/16 08:45 Consult to Dialysis [CONS] ONCE 10/30/16 06:00 Consult to Dialysis [CONS] ONCE Hospital course: Ms. Fernández is a 51 year old female - Time Spent with Patient Total time spent providing and/or coordinating discharge services: 25min - Constitutional Vitals: Temp Pulse Resp BP Pulse Ox 98.4 F 76 20 141/64 96 10/30/16 15:29 10/30/16 15:29 10/30/16 15:29 10/30/16 15:29 10/30/16 15:29 - Attending Attestation I examined this patient and my medical decision-making was reviewed with the Resident Physician on 10/30/16. I agree with the documented findings, disposition and treatment plan as described except to the extent set forth below. Ms Fernández is feeling OK today. She did not want endoscopy yesterday. Tolerated dialysis today and is stable for discharge today. Exam Alert. Comfortable Heart reg Lungs diminished. Plan D/C today Follow up as outpatient.
[2016-10-30] MEDS: Insulin LISPRO 300 UNITS/3 ML VIAL SQ SCH ×2 (15:10→15:13)
[2016-10-30] MEDS: Calcium Acetate 667 MG CAPSULE PO SCH ×2 (15:11→15:12)
[2016-10-30] MEDS: Furosemide 40 MG TABLET PO SCH (15:12)
[2016-10-30] MEDS: Folic Acid 1 MG TABLET PO SCH (15:12)
[2016-10-30 15:31] VITALS: BP 141/64
--- NOTE | 2016-10-30 15:48 | Physician Discharge Referral ---
Home Health/Hosp Referral Info Transfer to: Home Health Attending Provider: Dr. 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 For more information, call the [employer] Tobacco Quit Line at 4-270-FUCI-NOW. - Dressing/Wound Care Site: Sacrum Type of Dressing/Treatments w/Frequency: Daily dressing change, clean the area, keep area dry, cover and secure. - Diet/Nutrition Diet/Nutrition Orders: Renal - Activity Activity Orders: Ambulate (once patient proves that she is stable, may be up ad viktoria) - Services Needed Following services are medically necessary services: Home Health Aide, Physical Therapy, Occupational Therapy Home Care Orders: -Patient will need wound care (sacrum ulcer). -She will need careful examination and help with her daily living needs. - Transfer Medications Prescriptions: Allopurinol [Zyloprim 100 MG] 100 mg PO Q48H #10 tablet Ergocalciferol (VITAMIN D2) [Drisdol (50,000 Unit)] 50,000 unit PO QWEEK #5 capsule Folic Acid 5 mg PO DAILY #30 tablet Miconazole w/zinc oxide&karaya [Antifungal Extra Thick] 1 appl TP BID PRN #1 tube PRN Reason: Rash Home Medications: Aspirin 81 mg PO DAILY 06/07/16 [History] Atorvastatin Calcium [Lipitor] 20 mg PO DAILY 06/07/16 [History] Furosemide [Lasix] 80 mg PO QAM 06/07/16 [History] Gabapentin [Neurontin] 300 mg PO BID 06/07/16 [History] Insulin DETEMIR [Levemir Flextouch] 5 unit SQ QAM 06/07/16 [History] Insulin DETEMIR [Levemir Flextouch] 15 unit SQ QPM 06/07/16 [History] NIFEdipine [Nifedical Xl] 60 mg PO DAILY 06/07/16 [History] Carvedilol 12.5 mg PO BID 30 Days 06/10/16 [Rx] Furosemide [Lasix] 20 mg PO QPM 10/18/16 [History] Oxygen 3.5 l .ROUTE AD 10/18/16 [History] Albuterol Sulfate [Albuterol Inhaler] 2 puff IH Q4H PRN #0 inhaler 10/30/16 [Rx] Allopurinol [Zyloprim 100 MG] 100 mg PO Q48H #10 tablet 10/30/16 [Rx] Darbepoetin [Aranesp] 60 mcg SQ QWEEK syringe 10/30/16 [Rx] Ergocalciferol (VITAMIN D2) [Drisdol (50,000 Unit)] 50,000 unit PO QWEEK #5 capsule 10/30/16 [Rx] Folic Acid 5 mg PO DAILY #30 tablet 10/30/16 [Rx] Miconazole w/zinc oxide&karaya [Antifungal Extra Thick] 1 appl TP BID PRN #1 tube 10/30/16 [Rx] Allergies/Adverse Reactions: Allergies Fish Containing Products Allergy (Verified 10/30/16 11:00) Swelling of Lip/Tongue/Throat lisinopril Adverse Reaction (Verified 10/18/16 15:49) Cough Certification: Further, I certify that my clinical findings support that this patient is homebound (i.e. absences from home require considerable and taxing effort and are for medical reasons or yazdanism services or infrequently or short duration when for other reasons) because: Homebound Reason: Leaving home requires considerable and taxing effort due to condition Attestation: My signature below is to certify that this patient is under my care and that I, or nurse practitioner, or a physician's interior design assistant working with me, has a face-to -face encounter with this patient.
[2016-10-31 01:51] LABS: Alkaline Phosphatase 188 U/L (40-120); Alkaline Phosphatase Bone 34 U/L (0-55)
[2016-10-31 08:31] LABS: Alkaline Phosphatase Liver 154 U/L (0-94); Alkaline Phosphatase Other 0 U/L
== END 2016-10-30 18:03 | disposition home health service (06) | DRG 470 ==
LOC: 2ANU 12:29 → EMEROO 12:29 → 2ANU 16:35 → SUATTDRO 17:09 → ICNU 10-20 08:37 → 2NNU 10-20 23:22 → 2ANU 10-21 22:23 → 2NENU 10-22 14:23
PROVIDERS: ADMIT Internal Medicine; ATTEND Internal Medicine
PROC: IRPERMA (2016-10-19 12:00)

== ENCOUNTER 2016-11-18 10:25 | Observation (INO) ==
[2016-11-18] MEDS ORDERED: 0.9 % Sodium Chloride 1,000 ML IVC ONE (11:53)
--- NOTE | 2016-11-18 11:53 | Emergency Department Note ---
Disposition Clinical Impression: Pulmonary edema, CHF (congestive heart failure), Chronic renal failure, Anemia , ESRD (end stage renal disease) on dialysis, Alkaline phosphatase elevation, Lower extremity edema, Diabetes mellitus, Super-super obese, Ataxia Disposition: Admitted As Inpatient Condition: Fair Referrals: Dee Negron CNP [Primary Care Provider] - Forms: ED Satisfaction Letter General Adult HPI - General Chief complaint: ED Weakness Stated complaint: Can't Hardly walk Source: patient Limitations: no limitations - History of Present Illness HPI Narrative: 51-year-old female reports to the emergency department complaining she is having difficulty walking secondary to swelling in the legs. The patient was recently admitted for 10 days she states. The patient has a history of coronary artery disease, CHF, obesity, diabetes, peripheral edema, and chronic renal failure on dialysis. The patient reports progressive swelling in both legs. She denies taking any anticoagulant medication. She states she had bilateral lower extremity ultrasounds recently which were negative. The patient denies any chest pain, no significant shortness of breath, no back pain falls or injuries. No fever or runny nose or ear pain or sore throat. There is no history of abdominal pain vomiting or diarrhea. No problems moving the arms or legs independently, no weakness or numbness in the arms or legs no confusion or dysarthria. The patient reports or difficulty walking secondary to significant leg swelling which is getting worse and worse. She reports she last had dialysis on Wednesday. The patient comes from home. Onset (ago): day(s) Pain Scale: 10 - Related Data Home Medications Medication Instructions Recorded Confirmed Aspirin 81 mg PO DAILY 06/07/16 11/18/16 Atorvastatin Calcium [Lipitor] 20 mg PO DAILY 06/07/16 11/18/16 Furosemide [Lasix] 80 mg PO QAM 06/07/16 11/18/16 Gabapentin [Neurontin] 300 mg PO BID 06/07/16 11/18/16 Insulin DETEMIR [Levemir Flextouch] 5 unit SQ QAM 06/07/16 11/18/16 Insulin DETEMIR [Levemir Flextouch] 15 unit SQ QPM 06/07/16 11/18/16 NIFEdipine [Nifedical Xl] 60 mg PO DAILY 06/07/16 11/18/16 Furosemide [Lasix] 20 mg PO QPM 10/18/16 11/18/16 Oxygen 2.5 - 3 l .ROUTE AD 10/18/16 11/18/16 Previous Rx's Medication Instructions Recorded Carvedilol 12.5 mg PO BID 30 Days 06/10/16 Albuterol Sulfate [Albuterol 2 puff IH Q4H PRN #0 inhaler 10/30/16 Inhaler] Miconazole w/zinc oxide&karaya 1 appl TP BID PRN #1 tube 10/30/16 [Antifungal Extra Thick] Allergies Allergy/AdvReac Type Severity Reaction Status Date / Time Fish Containing Products Allergy Anaphylaxis Verified 11/18/16 14:30 lisinopril AdvReac Cough Verified 11/18/16 10:28 All systems ED: reviewed and negative except as stated. Past Medical History - Past Medical History Medical history: Reports: coronary artery disease, CVA, diabetes, hyperlipidemia , hypertension, renal disease, venous stasis, other Surgical history: Reports: no surgical history Psychiatric history: Reports: no psych history ENGINEER AND GEOLOGIST history: Reports: no ENGINEER AND GEOLOGIST history - Social History Smoking Status: Never smoker Smokeless Tobacco Status: No Alcohol use: Reports: none Drug use: Reports: none Physical Exam - General Limitations: no limitations General appearance: alert, in no apparent distress - Head Head exam: atraumatic, normocephalic, normal inspection - Eye Eye exam: Present: normal appearance, PERRL, EOMI - ENT ENT exam: normal exam, normal oropharynx, mucous membranes moist - Neck Neck exam: Present: normal inspection, full ROM, trachea midline - Chest Chest inspection: Present: symmetric chest wall rise. Absent: tenderness - Respiratory Respiratory exam: Present: normal lung sounds bilaterally. Absent: respiratory distress - Cardiovascular Cardiovascular exam: Present: regular rate, normal rhythm, normal heart sounds - Abdominal Exam Abdominal exam: Present: soft, Non-Tender, other (Morbidly obese). Absent: tenderness, distention, guarding, rebound, rigidity - Extremities Exam Extremities exam: Present: full ROM, normal capillary refill, pedal edema, other (Marked essentially symmetric bilateral lower extremity edema). Absent: normal inspection, tenderness, calf tenderness - Expanded Lower Extremity Exam Hip/Pelvis exam: Present: full ROM Upper leg exam: Present: full ROM Knee exam: Present: full ROM Lower leg exam: Present: full ROM. Absent: Homans' sign Neurovascular/Tendon exam: Absent: motor deficit, sensory deficit, tendon deficit, extremity cold to touch - Back Exam Back exam: Present: normal inspection, full ROM. Absent: tenderness, CVA tenderness (R), CVA tenderness (L), vertebral tenderness - Neurological Exam Neurological exam: Present: alert, oriented X3, CN II-XII intact, motor sensory deficit - Psychiatric Psychiatric exam: Present: normal affect, normal mood - Skin Skin exam: Present: warm, dry, intact, normal color, other (Chronic venous stasis and chafing in the lower extremities). Absent: rash, cyanosis, diaphoresis, erythema, pallor, mottled Course Vital Signs Temperature 98.2 F 11/18/16 10:27 Pulse Rate 89 11/18/16 10:27 Respiratory Rate 18 11/18/16 10:27 Blood Pressure 161/71 11/18/16 10:27 O2 Sat by Pulse Oximetry 97 11/18/16 10:27 Temperature 98.2 F 11/18/16 10:27 Pulse Rate 73 11/18/16 11:30 Respiratory Rate 16 11/18/16 11:30 Blood Pressure 129/69 11/18/16 11:30 O2 Sat by Pulse Oximetry 96 11/18/16 11:30 Oxygen Delivery Oxygen Delivery Room Air Medical Decision Making - MDM Narrative Medical decision making narrative: The patient was previously admitted and reportedly they were able to help remove 20 pounds of fluid. She reports essentially a 20 pound water weight gain. The patient's sister is here with her, the patient is unable to ambulate and cannot provide for activities of daily living. Previously there was considering for alf and/or rehabilitation placement, the patient declined at that time but is now willing to go into an F. Given the patient' s multiple comorbidities, massive lower extremity edema, inability for self-care , ataxia, and second presentation with similar concerns, I thought it would be appropriate to admit to the hospital for further medical care and management, PT OT evaluations, and likely alf and/or rehabilitation placement. I reviewed the case with the social service director who reports the patient does not qualify for direct admission to a alf from the ED. I discussed the case with the hospitalist on-call. - Lab Data Lab results reviewed: Yes I reviewed the patient's lab results. Result diagrams: 11/18/16 12:39 11/18/16 12:39 Lab Results 02/05/2711/18/16 11/18/16 Range/Units 12:39 12:39 12:39 WBC 6.8 (4.3-11.1) K/mcL RBC 2.86 L (3.82-4.97) M/mcL Hgb 7.4 L (11.5-15.4) g/dL Hct 25.8 L (35.3-44.9) % MCV 90.2 (83.0-100.0) fL MCH 25.9 L (28.0-33.3) pg MCHC 28.7 L (31.6-35.5) g/dL RDW 18.3 H (11.5-14.5) % Plt Count 223 (140-400) K/mcL MPV 9.2 L (9.4-12.4) fL Immature Gran % 0.7 (0-4) % Seg Neutrophils % 76.3 % Lymphocytes % 7.9 % Monocytes % 10.2 % Eosinophils % 3.9 % Basophils % 1.0 % Neutrophils # 5.2 (1.6-8.9) K/mcL Lymphocytes # 0.5 L (0.6-4.6) K/mcL Monocytes # 0.7 (0.0-1.3) K/mcL Eosinophils # 0.3 (0.0-0.6) K/mcL Basophils # 0.1 (0.0-0.2) K/mcL Platelet Estimate Normal (Normal) Hypochromasia Present A (Not Present) Anisocytosis 1+ A (Not Present) Microcytosis Present A (Not Present) Macrocytosis Present A (Not Present) PT (9.4-12.1) Seconds INR APTT (26.0-36.0) Seconds Sodium 140 (136-145) mEq/L Potassium 4.3 (3.5-4.5) mEq/L Chloride 103 (98-109) mEq/L Carbon Dioxide 24 (19-29) mEq/L BUN 57 H (7-20) mg/dL Creatinine 7.79 H (0.57-1.11) mg/dL Est GFR ( Amer) 7 L (> 60) Est GFR (Non-Af Amer) 5 L (> 60) BUN/Creatinine Ratio 7 (6-26) Glucose 125 H (70-99) mg/dL Calculated Osmolality 307 H (280-300) Lactic Acid 0.7 (0.5-2.2) mmol/L Calcium 8.1 L (8.6-10.8) mg/dL Magnesium 1.5 L (1.6-2.6) mg/dL Total Bilirubin (0.2-1.2) mg/dL Direct Bilirubin (0.0-0.5) mg/dL Indirect Bilirubin (0.0-1.2) mg/dL AST (5-34) Units/L ALT (0-55) Units/L Alkaline Phosphatase (38-126) Units/L Troponin I (0-0.03) ng/mL C-Reactive Protein (Less than 5) mg/L B-Natriuretic Peptide (0-100) pg/mL Serum Total Protein (6.0-8.3) g/dL Albumin (3.5-5.0) g/dL Globulin (2.4-3.5) g/dL Albumin/Globulin Ratio (1.1-2.2) 11/18/16 11/18/16 11/18/16 Range/Units 12:39 12:39 12:39 WBC (4.3-11.1) K/mcL RBC (3.82-4.97) M/mcL Hgb (11.5-15.4) g/dL Hct (35.3-44.9) % MCV (83.0-100.0) fL MCH (28.0-33.3) pg MCHC (31.6-35.5) g/dL RDW (11.5-14.5) % Plt Count (140-400) K/mcL MPV (9.4-12.4) fL Immature Gran % (0-4) % Seg Neutrophils % % Lymphocytes % % Monocytes % % Eosinophils % % Basophils % % Neutrophils # (1.6-8.9) K/mcL Lymphocytes # (0.6-4.6) K/mcL Monocytes # (0.0-1.3) K/mcL Eosinophils # (0.0-0.6) K/mcL Basophils # (0.0-0.2) K/mcL Platelet Estimate (Normal) Hypochromasia (Not Present) Anisocytosis (Not Present) Microcytosis (Not Present) Macrocytosis (Not Present) PT (9.4-12.1) Seconds INR APTT (26.0-36.0) Seconds Sodium (136-145) mEq/L Potassium (3.5-4.5) mEq/L Chloride (98-109) mEq/L Carbon Dioxide (19-29) mEq/L BUN (7-20) mg/dL Creatinine (0.57-1.11) mg/dL Est GFR ( Amer) (> 60) Est GFR (Non-Af Amer) (> 60) BUN/Creatinine Ratio (6-26) Glucose (70-99) mg/dL Calculated Osmolality (280-300) Lactic Acid (0.5-2.2) mmol/L Calcium (8.6-10.8) mg/dL Magnesium (1.6-2.6) mg/dL Total Bilirubin 0.9 (0.2-1.2) mg/dL Direct Bilirubin 0.6 H (0.0-0.5) mg/dL Indirect Bilirubin 0.3 (0.0-1.2) mg/dL AST 16 (5-34) Units/L ALT 8 (0-55) Units/L Alkaline Phosphatase 210 H (38-126) Units/L Troponin I 0.01 (0-0.03) ng/mL C-Reactive Protein 92 H (Less than 5) mg/L B-Natriuretic Peptide (0-100) pg/mL Serum Total Protein 8.5 H (6.0-8.3) g/dL Albumin 1.9 L (3.5-5.0) g/dL Globulin 6.6 H (2.4-3.5) g/dL Albumin/Globulin Ratio 0.3 L (1.1-2.2) 11/18/16 11/18/16 Range/Units 12:39 12:39 WBC (4.3-11.1) K/mcL RBC (3.82-4.97) M/mcL Hgb (11.5-15.4) g/dL Hct (35.3-44.9) % MCV (83.0-100.0) fL MCH (28.0-33.3) pg MCHC (31.6-35.5) g/dL RDW (11.5-14.5) % Plt Count (140-400) K/mcL MPV (9.4-12.4) fL Immature Gran % (0-4) % Seg Neutrophils % % Lymphocytes % % Monocytes % % Eosinophils % % Basophils % % Neutrophils # (1.6-8.9) K/mcL Lymphocytes # (0.6-4.6) K/mcL Monocytes # (0.0-1.3) K/mcL Eosinophils # (0.0-0.6) K/mcL Basophils # (0.0-0.2) K/mcL Platelet Estimate (Normal) Hypochromasia (Not Present) Anisocytosis (Not Present) Microcytosis (Not Present) Macrocytosis (Not Present) PT 14.7 H (9.4-12.1) Seconds INR 1.4 APTT 32.4 (26.0-36.0) Seconds Sodium (136-145) mEq/L Potassium (3.5-4.5) mEq/L Chloride (98-109) mEq/L Carbon Dioxide (19-29) mEq/L BUN (7-20) mg/dL Creatinine (0.57-1.11) mg/dL Est GFR ( Amer) (> 60) Est GFR (Non-Af Amer) (> 60) BUN/Creatinine Ratio (6-26) Glucose (70-99) mg/dL Calculated Osmolality (280-300) Lactic Acid (0.5-2.2) mmol/L Calcium (8.6-10.8) mg/dL Magnesium (1.6-2.6) mg/dL Total Bilirubin (0.2-1.2) mg/dL Direct Bilirubin (0.0-0.5) mg/dL Indirect Bilirubin (0.0-1.2) mg/dL AST (5-34) Units/L ALT (0-55) Units/L Alkaline Phosphatase (38-126) Units/L Troponin I (0-0.03) ng/mL C-Reactive Protein (Less than 5) mg/L B-Natriuretic Peptide 953 H (0-100) pg/mL Serum Total Protein (6.0-8.3) g/dL Albumin (3.5-5.0) g/dL Globulin (2.4-3.5) g/dL Albumin/Globulin Ratio (1.1-2.2) - Radiology Data Radiology results reviewed: Yes I reviewed the patient's radiology results.
[2016-11-18 12:49] LABS: Basophils # 0.1 K/mcL (0.0-0.2); Eosinophils # 0.3 K/mcL (0.0-0.6); Eosinophils % 3.9 %; Hematocrit 25.8 % (35.3-44.9); Hemoglobin 7.4 g/dL (11.5-15.4); Immature Granulocytes % 0.7 % (0-4); Lymphocytes # 0.5 K/mcL (0.6-4.6); Lymphocytes % 7.9 %; Mean Corpuscular HGB Conc 28.7 g/dL (31.6-35.5); Mean Corpuscular Hemoglobin 25.9 pg (28.0-33.3); Mean Corpuscular Volume 90.2 fL (83.0-100.0); Mean Platelet Volume 9.2 fL (9.4-12.4); Monocytes # 0.7 K/mcL (0.0-1.3); Monocytes % 10.2 %; Neutrophils # 5.2 K/mcL (1.6-8.9); Platelet Count 223 K/mcL (140-400); Red Blood Count 2.86 M/mcL (3.82-4.97); Red Cell Distribution Width 18.3 % (11.5-14.5); Segmented Neutrophils % 76.3 %
[2016-11-18 12:53] LABS: INR 1.4; Prothrombin Time 14.7 Seconds (9.4-12.1)
[2016-11-18 12:56] LABS: Activated Partial Thrombo Time 32.4 Seconds (26.0-36.0)
[2016-11-18 13:03] LABS: Calcium 8.1 mg/dL (8.6-10.8); Magnesium 1.5 mg/dL (1.6-2.6); Potassium 4.3 mEq/L (3.5-4.5)
[2016-11-18 13:06] LABS: Albumin 1.9 g/dL (3.5-5.0); Albumin/Globulin Ratio 0.3 (1.1-2.2); Bilirubin,Direct 0.6 mg/dL (0.0-0.5); Bilirubin,Indirect 0.3 mg/dL (0.0-1.2); Bilirubin,Total 0.9 mg/dL (0.2-1.2); Globulin 6.6 g/dL (2.4-3.5); Total Protein 8.5 g/dL (6.0-8.3)
[2016-11-18 13:16] LABS: Hypochromasia Present (Not Present)
[2016-11-18 13:17] LABS: Anisocytosis 1+ (Not Present); Macrocytosis Present (Not Present); Microcytosis Present (Not Present); Platelet Estimate Normal (Normal)
[2016-11-18] MEDS ORDERED: Acetaminophen 325 MG TABLET PO PRN (14:57)
[2016-11-18] MEDS ORDERED: Naloxone 0.4 MG/ML INJ IVP PRN (14:57)
[2016-11-18] MEDS ORDERED: Dextrose Gel 15 GM PO PRN ×2 (15:09)
[2016-11-18] MEDS ORDERED: D5% in Water 1,000 ML IV PRN (15:09)
[2016-11-18] MEDS ORDERED: *HR* Dextrose 50 % in Water (Syg) 50 ML SYRINGE IVP PRN (15:09)
--- NOTE | 2016-11-18 15:22 | Internal Med History&Physical ---
Date of Encounter: 11/18/16 Time of Encounter: 15:13 Assessment and Plan (1) ESRD (end stage renal disease) on dialysis Current visit: Yes Status: Chronic Patient missed her dialysis session on Wednesday, last treatment was Wednesday. She is complaining of increased swelling in BLE, and CXR shows improved but persistent pulmonary vascular congestion and mild pulmonary edema. Potassium is 4.3, BUN/Cr 57/7.79. Explained the importance of making it to dialysis treatments. She reports she missed Wednesday's session because her legs hurt. Nephrology consulted, spoke with Dr. Mccabe and he plans to see patient and order dialysis. (2) Diastolic congestive heart failure Current visit: Yes Status: Acute Patient not reported any shortness of breath or GALE. Last echo 10/20/16 showed EF 55% with moderate diastolic dysfunction and moderate LVH. BNP elevated at 953, but down from previous of 976. Continue home dose of lasix. Qualifiers: Congestive heart failure chronicity: chronic Qualified Code(s): I50.32 - Chronic diastolic (congestive) heart failure (3) Type 2 diabetes mellitus Current visit: Yes Status: Acute Diabetic diet. 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 She is unable to dress herself or take care of activities of daily living. Increased swelling is likely due to missed dialysis on Wednesday. Explained the importance of making it to dialysis sessions. Social work consult for discharge planning PT/OT consult. (5) Risk for falls Current visit: No Status: Acute Patient has difficulty walking due to swelling in legs. Fall precautions PT/OT consulted. (6) Anemia Current visit: Yes Status: Chronic Anemia of chronic kidney disease. Hgb 7.4, consistent with previous results. Patient denies any signs of bleeding, denies black or bloody stools. No indication for transfusion at this time. Check CBC tomorrow morning. Qualifiers: Anemia type: iron deficiency Iron deficiency anemia type: unspecified iron deficiency Qualified Code(s): D50.9 - Iron deficiency anemia, unspecified (7) COPD (chronic obstructive pulmonary disease) Current visit: No Status: Chronic Patient with history of COPD. Denies any current SOB or cough. Expiratory wheezes heard on exam. duoneb treatments QIDR Albuterol Q4hr PRN Qualifiers: COPD type: unspecified COPD Qualified Code(s): J44.9 - Chronic obstructive pulmonary disease, unspecified (8) Hypertension Current visit: No Status: Chronic Continue home doses of carvedilol, nifedipine and lasix. Qualifiers: Hypertension type: essential hypertension Qualified Code(s): I10 - Essential (primary) hypertension (9) Lymphedema of both lower extremities Current visit: No Status: Chronic (10) Hypomagnesemia Current visit: Yes Status: Acute Magnesium of 1.5. Ordered Magnesium Oxide 400mg PO. Recheck magnesium with morning labs. (11) DVT prophylaxis Current visit: No Status: Acute Encourage ambulation anti-embolic stockings heparin 5,000u SQ BID Internal Medicine - H&P: HPI Chief complaint: leg swelling and difficulty walking Admitted From: Emergency Dept Plans for Post Hospital Care: Transfer [facility] History of present illness: Ms. Fernández is a 51 year old female with type 2 diabetes, ESRD on HD MWF, morbid obesity, HTN, COPD, diastolic CHF, who presented to the ED this morning with increased bilateral lower extremity swelling and difficulty walking. She reports she can't walk because her legs are painful and swollen. She is unable to care for herself at home or make it to dialysis appointments because of her discomfort. She missed dialysis on Wednesday and her last treatment was Wednesday. She denies any shortness of breath, chest pain, dizziness, lightheadedness, palpitations, focal weakness, nausea, vomiting or abdominal pain. She states, "I'd feel fine if my legs were okay". Evaluation in the ED revealed a CXR that showed improved but persistent pulmonary vascular congestion and mild pulmonary edema, Anemia with hgb of 7.4, but consistent with previous results, hypocalcemia with calcium of 8.1, also consistent with previous results, hypomagnesemia with magnesium of 1.5, elevated BNP of 953, but down from previous of 976. On exam, patient is alert and oriented, bilateral legs have significant swelling from hip to ankle, feet with only mild edema and +2 pedal pulses. Lungs have mild diffuse expiratory wheezes. Heart has regular rate and rhythm with loud systolic murmur. Past Med Surg Social Fam HX - Past Medical History Medical history: coronary artery disease, CVA, diabetes, hyperlipidemia, hypertension, renal disease, venous stasis, other Psychiatric history: no psych history - Past Surgical History Surgical History: no surgical history - Social History Smoking Status: Never smoker Smokeless Tobacco Status: No Alcohol use: none Drug use: none - Family History Mother Living Status: Age at : 56 Cause of : [place] Father Living Status: Age at : 72 Cause of : Lung CA Internal Medicine - H&P: Meds Aspirin 81 mg PO DAILY 06/07/16 [History] Atorvastatin Calcium [Lipitor] 20 mg PO DAILY 06/07/16 [History] Furosemide [Lasix] 80 mg PO QAM 06/07/16 [History] Gabapentin [Neurontin] 300 mg PO BID 06/07/16 [History] Insulin DETEMIR [Levemir Flextouch] 5 unit SQ QAM 06/07/16 [History] Insulin DETEMIR [Levemir Flextouch] 15 unit SQ QPM 06/07/16 [History] NIFEdipine [Nifedical Xl] 60 mg PO DAILY 06/07/16 [History] Carvedilol 12.5 mg PO BID 30 Days 06/10/16 [Rx] Furosemide [Lasix] 20 mg PO QPM 10/18/16 [History] Oxygen 2.5 - 3 l .ROUTE AD 10/18/16 [History] Albuterol Sulfate [Albuterol Inhaler] 2 puff IH Q4H PRN #0 inhaler 10/30/16 [Rx] Miconazole w/zinc oxide&karaya [Antifungal Extra Thick] 1 appl TP BID PRN #1 tube 10/30/16 [Rx] Allergies Fish Containing Products Allergy (Verified 11/18/16 14:30) Anaphylaxis lisinopril Adverse Reaction (Verified 11/18/16 10:28) Cough All Systems PM: A 10-system review of systems was performed and is negative for pertinent findings except as documented above in the HPI. - Constitutional Constitutional: no chills, no fever(s), no night sweats - EENT Eyes: no change in vision, no discharge, no pain, no photophobia Ears: no ear discharge, no ear pain, no tinnitus Nose, mouth and throat: no dysphagia, no nasal discharge, no neck pain, no sore throat - Cardiovascular Cardiovascular ROS IM: edema (BLE), no chest pain, no diaphoresis, no dyspnea, no lightheadedness, no palpitations, no syncope - Respiratory Respiratory: no cough, no dyspnea, no wheezing, no excessive phlegm production - Gastrointestinal Gastrointestinal: no abdominal pain, no diarrhea, no hematemesis, no hematochezia, no melena, no nausea, no vomiting - Genitourinary Genitourinary: no change in urinary stream, no dysuria, no flank pain, no hematuria - Musculoskeletal Musculoskeletal ROS IM: other (difficulty walking due to leg swelling), no numbness, no tingling - Integumentary Integumentary IM: no rash, no unusual bruising - Neurological Neurological ROS: no confusion, no convulsions, no focal weakness, no numbness, no tingling, no tremor(s) - Hematologic/Lymphatic Hematologic/Lymphatic: no easy bruising - Constitutional Vitals: Temp Pulse Resp BP Pulse Ox 98.2 F 67 18 176/86 96 11/18/16 10:27 11/18/16 14:30 11/18/16 14:30 11/18/16 14:30 11/18/16 14:30 General appearance: Present: A&O X 3, morbidly obese, no acute distress - Head Head exam: Present: atraumatic, normocephalic Additional comments: scabbed lesion on right worship, patient reported she "picked at something" - Eye Eye exam: Present: PERRL, conjuntiva pink, sclera anicteric Pupils: Present: PERRL - Neck Neck exam general surgery: Present: supple, trachea midline. Absent: lymphadenopathy - Respiratory Respiratory exam: Present: wheezes (bilateral diffuse mild expiratory). Absent : accessory muscle use, rales, rhonchi - Cardiovascular Cardiovascular exam: Present: RRR, +S1, +S2, systolic murmur. Absent: diastolic murmur, gallop, rubs - Expanded Cardiovascular Exam Type of murmur: Present: systolic Location: Present: RUSB Intensity: 3/6 Peripheral pulses: 2+: Radial (L), Radial (R), Dorsalis Pedis (L) PM, Dorsalis Pedis (R) PM - GI/Abdominal GI/Abdominal exam: Present: normal bowel sounds, soft, no peritoneal signs. Absent: distended, tenderness - Extremities Exam Extremities exam: Present: pedal edema, tenderness, warm, radial pulses palpable and symetrical. Absent: calf tenderness, cyanotic - Expanded Lower Extremities Exam Upper Leg exam: Present: swelling, tenderness Lower Leg exam: Present: swelling, tenderness - Neurological Exam Neurological exam: Present: CN II-XII intact, oriented X3, no focal deficits. Absent: pronater drift, facial droop, speech deficit - Skin Skin exam: Present: dry, intact Internal Med - H&P Results - Labs CBC & Chem 7: 11/18/16 12:39 11/18/16 12:39 Labs: All Lab Results (24 Hours) 11/18/16 11/18/16 11/18/16 Range/Units 12:39 12:39 12:39 WBC 6.8 (4.3-11.1) K/mcL RBC 2.86 L (3.82-4.97) M/mcL Hgb 7.4 L (11.5-15.4) g/dL Hct 25.8 L (35.3-44.9) % MCV 90.2 (83.0-100.0) fL MCH 25.9 L (28.0-33.3) pg MCHC 28.7 L (31.6-35.5) g/dL RDW 18.3 H (11.5-14.5) % Plt Count 223 (140-400) K/mcL MPV 9.2 L (9.4-12.4) fL Immature Gran % 0.7 (0-4) % Seg Neutrophils % 76.3 % Lymphocytes % 7.9 % Monocytes % 10.2 % Eosinophils % 3.9 % Basophils % 1.0 % Neutrophils # 5.2 (1.6-8.9) K/mcL Lymphocytes # 0.5 L (0.6-4.6) K/mcL Monocytes # 0.7 (0.0-1.3) K/mcL Eosinophils # 0.3 (0.0-0.6) K/mcL Basophils # 0.1 (0.0-0.2) K/mcL Platelet Estimate Normal (Normal) Hypochromasia Present A (Not Present) Anisocytosis 1+ A (Not Present) Microcytosis Present A (Not Present) Macrocytosis Present A (Not Present) PT (9.4-12.1) Seconds INR APTT (26.0-36.0) Seconds Sodium 140 (136-145) mEq/L Potassium 4.3 (3.5-4.5) mEq/L Chloride 103 (98-109) mEq/L Carbon Dioxide 24 (19-29) mEq/L BUN 57 H (7-20) mg/dL Creatinine 7.79 H (0.57-1.11) mg/dL Est GFR ( Amer) 7 L (> 60) Est GFR (Non-Af Amer) 5 L (> 60) BUN/Creatinine Ratio 7 (6-26) Glucose 125 H (70-99) mg/dL Calculated Osmolality 307 H (280-300) Lactic Acid 0.7 (0.5-2.2) mmol/L Calcium 8.1 L (8.6-10.8) mg/dL Magnesium 1.5 L (1.6-2.6) mg/dL Total Bilirubin (0.2-1.2) mg/dL Direct Bilirubin (0.0-0.5) mg/dL Indirect Bilirubin (0.0-1.2) mg/dL AST (5-34) Units/L ALT (0-55) Units/L Alkaline Phosphatase (38-126) Units/L Troponin I (0-0.03) ng/mL C-Reactive Protein (Less than 5) mg/L B-Natriuretic Peptide (0-100) pg/mL Serum Total Protein (6.0-8.3) g/dL Albumin (3.5-5.0) g/dL Globulin (2.4-3.5) g/dL Albumin/Globulin Ratio (1.1-2.2) 11/18/16 11/18/16 11/18/16 Range/Units 12:39 12:39 12:39 WBC (4.3-11.1) K/mcL RBC (3.82-4.97) M/mcL Hgb (11.5-15.4) g/dL Hct (35.3-44.9) % MCV (83.0-100.0) fL MCH (28.0-33.3) pg MCHC (31.6-35.5) g/dL RDW (11.5-14.5) % Plt Count (140-400) K/mcL MPV (9.4-12.4) fL Immature Gran % (0-4) % Seg Neutrophils % % Lymphocytes % % Monocytes % % Eosinophils % % Basophils % % Neutrophils # (1.6-8.9) K/mcL Lymphocytes # (0.6-4.6) K/mcL Monocytes # (0.0-1.3) K/mcL Eosinophils # (0.0-0.6) K/mcL Basophils # (0.0-0.2) K/mcL Platelet Estimate (Normal) Hypochromasia (Not Present) Anisocytosis (Not Present) Microcytosis (Not Present) Macrocytosis (Not Present) PT (9.4-12.1) Seconds INR APTT (26.0-36.0) Seconds Sodium (136-145) mEq/L Potassium (3.5-4.5) mEq/L Chloride (98-109) mEq/L Carbon Dioxide (19-29) mEq/L BUN (7-20) mg/dL Creatinine (0.57-1.11) mg/dL Est GFR ( Amer) (> 60) Est GFR (Non-Af Amer) (> 60) BUN/Creatinine Ratio (6-26) Glucose (70-99) mg/dL Calculated Osmolality (280-300) Lactic Acid (0.5-2.2) mmol/L Calcium (8.6-10.8) mg/dL Magnesium (1.6-2.6) mg/dL Total Bilirubin 0.9 (0.2-1.2) mg/dL Direct Bilirubin 0.6 H (0.0-0.5) mg/dL Indirect Bilirubin 0.3 (0.0-1.2) mg/dL AST 16 (5-34) Units/L ALT 8 (0-55) Units/L Alkaline Phosphatase 210 H (38-126) Units/L Troponin I 0.01 (0-0.03) ng/mL C-Reactive Protein 92 H (Less than 5) mg/L B-Natriuretic Peptide (0-100) pg/mL Serum Total Protein 8.5 H (6.0-8.3) g/dL Albumin 1.9 L (3.5-5.0) g/dL Globulin 6.6 H (2.4-3.5) g/dL Albumin/Globulin Ratio 0.3 L (1.1-2.2) 11/18/16 11/18/16 Range/Units 12:39 12:39 WBC (4.3-11.1) K/mcL RBC (3.82-4.97) M/mcL Hgb (11.5-15.4) g/dL Hct (35.3-44.9) % MCV (83.0-100.0) fL MCH (28.0-33.3) pg MCHC (31.6-35.5) g/dL RDW (11.5-14.5) % Plt Count (140-400) K/mcL MPV (9.4-12.4) fL Immature Gran % (0-4) % Seg Neutrophils % % Lymphocytes % % Monocytes % % Eosinophils % % Basophils % % Neutrophils # (1.6-8.9) K/mcL Lymphocytes # (0.6-4.6) K/mcL Monocytes # (0.0-1.3) K/mcL Eosinophils # (0.0-0.6) K/mcL Basophils # (0.0-0.2) K/mcL Platelet Estimate (Normal) Hypochromasia (Not Present) Anisocytosis (Not Present) Microcytosis (Not Present) Macrocytosis (Not Present) PT 14.7 H (9.4-12.1) Seconds INR 1.4 APTT 32.4 (26.0-36.0) Seconds Sodium (136-145) mEq/L Potassium (3.5-4.5) mEq/L Chloride (98-109) mEq/L Carbon Dioxide (19-29) mEq/L BUN (7-20) mg/dL Creatinine (0.57-1.11) mg/dL Est GFR ( Amer) (> 60) Est GFR (Non-Af Amer) (> 60) BUN/Creatinine Ratio (6-26) Glucose (70-99) mg/dL Calculated Osmolality (280-300) Lactic Acid (0.5-2.2) mmol/L Calcium (8.6-10.8) mg/dL Magnesium (1.6-2.6) mg/dL Total Bilirubin (0.2-1.2) mg/dL Direct Bilirubin (0.0-0.5) mg/dL Indirect Bilirubin (0.0-1.2) mg/dL AST (5-34) Units/L ALT (0-55) Units/L Alkaline Phosphatase (38-126) Units/L Troponin I (0-0.03) ng/mL C-Reactive Protein (Less than 5) mg/L B-Natriuretic Peptide 953 H (0-100) pg/mL Serum Total Protein (6.0-8.3) g/dL Albumin (3.5-5.0) g/dL Globulin (2.4-3.5) g/dL Albumin/Globulin Ratio (1.1-2.2)
[2016-11-18] MEDS ORDERED: 0.9 % Sodium Chloride 250 ML IV PRN (15:38)
[2016-11-18] MEDS ORDERED: Albuterol 2.5 MG/3 ML NEBULIZER IH PRN (15:40)
[2016-11-18] MEDS ORDERED: Miconazole w/zinc oxide&karaya 92 APPL/92 GM TUBE TP PRN (15:41)
[2016-11-18] MEDS: Ipratropium/Albuterol Neb 3 ML IH SCH ×2 (16:06→22:32)
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
[2016-11-18] MEDS: Insulin LISPRO 300 UNITS/3 ML VIAL SQ SCH ×2 (17:32→22:03)
[2016-11-18] MEDS: Furosemide 40 MG TABLET PO SCH (17:49)
[2016-11-18] MEDS: Magnesium Oxide 400 MG TABLET PO SCH (17:50)
[2016-11-18] MEDS ORDERED: Furosemide 20 MG TABLET PO SCH (18:00)
[2016-11-18 18:23] LABS: Hepatitis B Surface Antibody 0.12 mIU/mL; Hepatitis B Surface Antigen Nonreactive (Nonreactive)
[2016-11-18] MEDS ORDERED: 0.9 % Sodium Chloride 2,000 ML ONE (19:25)
[2016-11-18] MEDS: *HR* HYDROcodone/Acet 5/325 mg TABLET PO PRN ×2 (20:28→23:45)
[2016-11-18] MEDS: Gabapentin 300 MG CAPSULE PO SCH (20:28)
[2016-11-18] MEDS: Insulin DETEMIR 100 UNIT/ML X5UNITS SQ SCH (22:03)
[2016-11-19] MEDS: Ipratropium/Albuterol Neb 3 ML IH SCH ×4 (04:43→22:55)
[2016-11-19 06:23] LABS: Basophils # 0.1 K/mcL (0.0-0.2); Basophils % 0.9 %; Eosinophils # 0.3 K/mcL (0.0-0.6); Eosinophils % 4.9 %; Hematocrit 23.8 % (35.3-44.9); Hemoglobin 6.9 g/dL (11.5-15.4); Immature Granulocytes % 0.4 % (0-4); Lymphocytes # 0.6 K/mcL (0.6-4.6); Lymphocytes % 9.3 %; Mean Corpuscular Hemoglobin 25.7 pg (28.0-33.3); Mean Corpuscular Volume 88.5 fL (83.0-100.0); Mean Platelet Volume 9.4 fL (9.4-12.4); Monocytes # 1.1 K/mcL (0.0-1.3); Monocytes % 15.7 %; Neutrophils # 4.6 K/mcL (1.6-8.9); Platelet Count 209 K/mcL (140-400); Red Blood Count 2.69 M/mcL (3.82-4.97); Red Cell Distribution Width 18.2 % (11.5-14.5); Segmented Neutrophils % 68.8 %
[2016-11-19 06:37] LABS: Magnesium 1.3 mg/dL (1.6-2.6); Phosphorous 5.5 mg/dL (2.3-4.7); Potassium 4.2 mEq/L (3.5-4.5)
[2016-11-19] MEDS ORDERED: Aspirin 81 MG TAB.CHEW PO SCH (09:00)
[2016-11-19] MEDS: Insulin LISPRO 300 UNITS/3 ML VIAL SQ SCH ×4 (09:02→23:49)
[2016-11-19] MEDS: Furosemide 40 MG TABLET PO SCH (09:09)
[2016-11-19] MEDS: Magnesium Oxide 400 MG TABLET PO SCH (09:09)
[2016-11-19] MEDS: Insulin DETEMIR 100 UNIT/ML X5UNITS SQ SCH ×2 (09:10→21:59)
[2016-11-19] MEDS: NIFEdipine XL (24 HR) 60 MG TAB.ER.24 PO SCH (09:10)
[2016-11-19] MEDS: Gabapentin 300 MG CAPSULE PO SCH (09:17)
--- NOTE | 2016-11-19 09:18 | Nephrology Progress Note ---
Date of Encounter: 11/19/16 Time of Encounter: 09:15 - Assessment and Plan (1) ESRD (end stage renal disease) on dialysis Current Visit: Yes Status: Chronic Non-compliant with outpatient dialysis, missing treatments frequently 5100ml taken off yesterday UF again today for fluid removal Review of home meds show Lasix 100mg every am; patient has had no urine output documented, may no longer urinate. Will adjust dosage of Lasix Caution with higher dosage of Neurontin; patient on 300mg BID; prefer dialysis patient to be on no more than 100mg TID Needs a renal diet-ordered Needs fluid restriction-ordered Need strict I/Os Avoid nephrotoxins if possible Phos level 5.5. Not on binders at this time; will continue to monitor phos level in outpatient setting. (2) Anemia Current Visit: Yes Status: Chronic Will give a unit of PRBC today with UF. Continue to monitor closely. Patient's hgb has ran in the 7s at outpatient HD unit. Gets 8600 units epo and Venofer 50mg in outpatient HD. Will give Aranesp while hospitalized. Qualifiers: Anemia type: iron deficiency Iron deficiency anemia type: unspecified iron deficiency Qualified Code(s): D50.9 - Iron deficiency anemia, unspecified (3) Morbid obesity with BMI of 50.0-59.9, adult Current Visit: No Status: Acute per primary team (4) Hypertension Current Visit: No Status: Chronic Qualifiers: Hypertension type: essential hypertension Qualified Code(s): I10 - Essential (primary) hypertension Subjective Principal diagnosis: ESRD on dialysis, BLL edema, anemia Interval history: Patient seen and examined. Sitting on side of bed, states she is feeling better. Objective - Vital Signs Vital signs: Vital Signs Temp Pulse Resp BP Pulse Ox 11/19/16 07:38 98.2 F 66 18 138/61 94 L 11/19/16 04:43 24 84 L 11/19/16 04:06 98.0 F 68 20 139/49 92 L 11/19/16 00:19 98.2 F 66 14 158/72 97 11/18/16 22:32 16 98 11/18/16 20:30 97.9 F 65 18 165/81 97 11/18/16 20:05 97.9 F 16 160/77 11/18/16 20:00 140/62 11/18/16 19:45 136/74 11/18/16 19:30 155/79 11/18/16 19:15 150/73 11/18/16 19:00 144/59 11/18/16 18:45 139/68 11/18/16 18:30 149/91 11/18/16 18:21 95 11/18/16 18:15 138/76 11/18/16 18:00 177/60 11/18/16 17:45 169/77 11/18/16 17:30 182/63 11/18/16 17:15 172/78 11/18/16 17:00 97.9 F 16 178/79 11/18/16 16:06 16 95 11/18/16 15:34 91 L 11/18/16 15:33 97.9 F 66 16 138/61 82 L 11/18/16 15:00 16 163/88 Intake and Output 11/18/16 11/19/16 11/19/16 23:59 07:59 15:59 Intake Total 720 / 720 Output Total 5100 / 5100 Balance -4380 / -4380 Intake: Oral 120 / 120 Intake, Rinseback and 600 / 600 Flushes Output: Urine 0 / 0 Total Dialysis Output 5100 / 5100 Other: Meal [place] sandwich Percent of Meal Consumed 100% # Voids 1 Weight 166 kg Blood Glucose* 119 99 Hemodialysis Net Fluid 4500 Removed (mL) Patient Weight 11/19/16 23:59 Weight 166 kg - General Appearance General appearance: Present: obese EENT: Present: ATNC, mucous membranes moist, hearing intact, vision intact Neck: Present: supple Respiratory: Present: wheezing (left posterior-mild) Cardiology: Present: edema (chronic BLL edema, tight brownish skin on BLL), normal S1, normal S2 Dialysis Vascular Access: Venous Catheter Gastrointestinal: Present: no guarding, obese Integumentary: Present: warm and dry Neurologic: Present: alert and oriented x3 Psychiatric: Present: mood/affect appropriate, cooperative - Lab 11/19/16 06:03 11/19/16 06:03 Most recent lab results Calcium 8.0 mg/dL (8.6-10.8) L 11/19/16 06:03 Phosphorus 5.5 mg/dL (2.3-4.7) H 11/19/16 06:03 Magnesium 1.3 mg/dL (1.6-2.6) L 11/19/16 06:03 Consult Discharge Plan - Plan Referrals: Dee Negron, [employer] NE[employer]ER [Primary Care Provider] -
[2016-11-19] MEDS ORDERED: 0.9 % Sodium Chloride 250 ML IV PRN (09:24)
[2016-11-19] MEDS ORDERED: *HR* Heparin 10,000 UNIT/10 ML VIAL IV PRN (10:33)
[2016-11-19] MEDS ORDERED: 0.9 % Sodium Chloride 1,000 ML PRIME SCH (10:45)
[2016-11-19] MEDS: Darbepoetin 100 MCG/0.5 ML SYRINGE SQ SCH ×2 (11:59→15:40)
[2016-11-19] MEDS: *HR* HYDROcodone/Acet 5/325 mg TABLET PO PRN ×2 (15:43→21:58)
[2016-11-19] MEDS: *HR* Heparin 5,000 UNIT/ML VIAL SQ SCH (17:39)
--- NOTE | 2016-11-19 17:41 | Internal Med Progress Note ---
Date of Encounter: 11/19/16 Time of Encounter: 17:39 - Assessment and plan (1) Anemia Current Visit: Yes Status: Chronic Assessment and plan: Status post 1 unit of PRBC. hb 6.9 today,most likley 2/2 anemia of chronic disease. if drops further, may need another BT at HD. Aranesp while hospitalized. Qualifiers: Anemia type: iron deficiency Iron deficiency anemia type: unspecified iron deficiency Qualified Code(s): D50.9 - Iron deficiency anemia, unspecified (2) ESRD (end stage renal disease) on dialysis Current Visit: Yes Status: Chronic Assessment and plan: Non-compliant with outpatient dialysis, missing treatments frequently Underwent HD yesterday, 5100ml taken off yesterday, renal has been consulted. UF again today for fluid removal Dose of gabapentin was changed to 100mg TID Renal diet with fluid restriction. Need strict I/Os Avoid nephrotoxins (3) Lower extremity edema Current Visit: Yes Status: Chronic Assessment and plan: most likely 2/2 dvolume overload from ESRD and missed HD. nina has been stoppped as she does not make any urine. Qualifiers: Laterality: bilateral Qualified Code(s): R60.0 - Localized edema (4) HTN (hypertension) Current Visit: No Status: Chronic Assessment and plan: BP stable now, will continue home meds Qualifiers: Hypertension type: essential hypertension Qualified Code(s): I10 - Essential (primary) hypertension - Time Spent With Patient 25 - 35 minutes - Subjective Interval history: patinet at HD, reports feeling better. admitted for missed HD and volume overload. - Constitutional Vitals: Temp Pulse Resp BP Pulse Ox 98.3 F 61 17 115/54 93 L 11/19/16 16:18 11/19/16 16:18 11/19/16 16:18 11/19/16 16:18 11/19/16 16:18 General appearance: Present: A&O X 3, morbidly obese, no acute distress Exam: Neck: Present: supple Respiratory: occ wheezing.no creptns Cardiology: Present: edema (chronic BLL edema), normal S1, normal S2 Dialysis Vascular Access: Venous Catheter Gastrointestinal: Present: no guarding, obese Integumentary: Present: warm and dry Neurologic: Present: alert and oriented x3 Psychiatric: Present: mood/affect appropriate, cooperative Internal Medicine: Result - Labs CBC & Chem 7: 11/19/16 17:52 11/19/16 06:03 Labs: Short CBC 11/19/16 Range/Units 06:03 WBC 6.7 (4.3-11.1) K/mcL Hgb 6.9 L (11.5-15.4) g/dL Hct 23.8 L (35.3-44.9) % Plt Count 209 (140-400) K/mcL Neutrophils # 4.6 (1.6-8.9) K/mcL BMP 11/19/16 06:03 Sodium 139 Potassium 4.2 Chloride 103 Carbon Dioxide 26 BUN 39 H D Creatinine 5.76 H Glucose 97 Calcium 8.0 L - ABG Interpretation ABG results: PT/INR, D-dimer PT 14.7 Seconds (9.4-12.1) H 11/18/16 12:39 Consult Discharge Plan - Plan Referrals: Dee Negron, [facility] [Primary Care Provider] - 11/27/16 1:20 pm (Please follow up as schedule...)
[2016-11-19] MEDS ORDERED: *HR* OxyCODONE/APAP 5/325 TABLET PO PRN (17:54)
[2016-11-19 17:59] LABS: Basophils # 0.1 K/mcL (0.0-0.2); Basophils % 1.1 %; Eosinophils # 0.2 K/mcL (0.0-0.6); Eosinophils % 3.4 %; Hematocrit 27.7 % (35.3-44.9); Hemoglobin 8.1 g/dL (11.5-15.4); Immature Granulocytes % 0.6 % (0-4); Immature Platelets 1.4 % (1.1-6.1); Lymphocytes # 0.5 K/mcL (0.6-4.6); Lymphocytes % 8.2 %; Mean Corpuscular HGB Conc 29.2 g/dL (31.6-35.5); Mean Corpuscular Hemoglobin 25.6 pg (28.0-33.3); Mean Corpuscular Volume 87.7 fL (83.0-100.0); Mean Platelet Volume 8.8 fL (9.4-12.4); Monocytes # 0.7 K/mcL (0.0-1.3); Monocytes % 10.9 %; Neutrophils # 4.9 K/mcL (1.6-8.9); Platelet Count 250 K/mcL (140-400); Red Blood Count 3.16 M/mcL (3.82-4.97); Red Cell Distribution Width 17.8 % (11.5-14.5); Segmented Neutrophils % 75.8 %
[2016-11-19] MEDS: Gabapentin 100 MG CAPSULE PO SCH (21:59)
[2016-11-20] MEDS: Ipratropium/Albuterol Neb 3 ML IH SCH ×3 (04:30→16:17)
[2016-11-20] MEDS ORDERED: 0.9 % Sodium Chloride 250 ML IV PRN (05:04)
[2016-11-20 06:24] LABS: Basophils # 0.1 K/mcL (0.0-0.2); Basophils % 1.3 %; Eosinophils # 0.4 K/mcL (0.0-0.6); Eosinophils % 5.7 %; Hematocrit 25.3 % (35.3-44.9); Hemoglobin 7.5 g/dL (11.5-15.4); Immature Granulocytes % 0.6 % (0-4); Lymphocytes # 0.8 K/mcL (0.6-4.6); Lymphocytes % 11.1 %; Mean Corpuscular HGB Conc 29.6 g/dL (31.6-35.5); Mean Corpuscular Hemoglobin 26.2 pg (28.0-33.3); Mean Corpuscular Volume 88.5 fL (83.0-100.0); Mean Platelet Volume 9.8 fL (9.4-12.4); Monocytes % 14.6 %; Neutrophils # 4.6 K/mcL (1.6-8.9); Platelet Count 200 K/mcL (140-400); Red Blood Count 2.86 M/mcL (3.82-4.97); Red Cell Distribution Width 17.7 % (11.5-14.5); Segmented Neutrophils % 66.7 %
[2016-11-20 06:38] LABS: Potassium 4.2 mEq/L (3.5-4.5)
[2016-11-20] MEDS: *HR* Heparin 5,000 UNIT/ML VIAL SQ SCH (06:49)
[2016-11-20] MEDS ORDERED: 0.9 % Sodium Chloride 2,000 ML ONE (07:59)
[2016-11-20] MEDS ORDERED: *HR* Heparin 5,000 UNIT/ML VIAL ONE (07:59)
[2016-11-20] MEDS: Insulin LISPRO 300 UNITS/3 ML VIAL SQ SCH ×3 (08:01→15:49)
[2016-11-20] MEDS: Magnesium Oxide 400 MG TABLET PO SCH (08:04)
[2016-11-20] MEDS: Gabapentin 100 MG CAPSULE PO SCH (08:04)
[2016-11-20] MEDS ORDERED: Aspirin Enteric Coated 81 MG Tablet PO SCH (09:00)
--- NOTE | 2016-11-20 09:56 | Electrocardiograph Report ---
[address] [place] [address] Test Date: 2016-11-18 Pat Name: Areli Fernández Department: 103 Room: 2A Gender: F Record Changer: : 1965 Requested By: Jj Encarnacion Order Number: [id number] Reading MD: Uzma Jones Measurements Intervals [place] Rate: 64 P: 0 NH: 182 QRS: -25 QRSD: 100 T: 133 QT: 413 QTc: 423 Interpretive Statements SINUS RHYTHM POSSIBLE ANTERIOR MYOCARDIAL INFARCTION, OF INDETERMINATE AGE Electronically Signed On 11-20-2016 9:54:35 EST by Uzma Jones
--- NOTE | 2016-11-20 12:02 | Nephrology Progress Note ---
Date of Encounter: 11/20/16 Time of Encounter: 10:30 - Assessment and Plan (1) ESRD (end stage renal disease) on dialysis Status: Chronic Continue HD with UF as tolerated Will plan another UF tomorrow if still hospitalized Continue fluid restriction (2) Anemia Status: Chronic Hgb noted at 7.5 despite transfusion and aranesp Previously iron levels very low as of october, will recheck and dose with iv iron if needed Qualifiers: Anemia type: iron deficiency Iron deficiency anemia type: unspecified iron deficiency Qualified Code(s): D50.9 - Iron deficiency anemia, unspecified Subjective Principal diagnosis: ESRD on dialysis, BLL edema, anemia Interval history: Pt seen and examined on HD resting but arousable. No new complaints. s/p UF yesterday Objective - Vital Signs Vital signs: Vital Signs Temp Pulse Resp BP Pulse Ox 11/20/16 07:39 98.1 F 54 16 123/65 92 L 11/20/16 04:30 16 90 L 11/20/16 04:20 98.2 F 54 20 102/58 92 L 11/20/16 00:12 98.3 F 62 20 131/58 98 11/19/16 22:55 18 98 11/19/16 20:04 98.1 F 68 20 134/57 92 L 11/19/16 16:18 98.3 F 61 17 115/54 93 L 11/19/16 15:40 138/61 11/19/16 14:15 127/67 11/19/16 14:00 128/65 11/19/16 13:45 136/72 11/19/16 13:30 146/69 11/19/16 13:15 148/75 11/19/16 13:00 140/79 11/19/16 12:45 145/70 11/19/16 12:30 139/76 11/19/16 12:15 145/73 11/19/16 12:08 97.7 F 66 20 131/72 94 L Intake and Output 11/19/16 11/20/16 11/20/16 23:59 07:59 15:59 Intake Total 120 / 120 Balance 120 / 120 Intake: Oral 120 / 120 Other: Meal Breakfast Percent of Meal Consumed 30% Weight 163.2 kg 163.2 kg Blood Glucose* 136 95 88 Patient Weight 11/20/16 23:59 Weight 163.2 kg - General Appearance General appearance: Present: chronically ill (NAD) EENT: Present: ATNC, mucous membranes moist Neck: Present: no JVD, supple Additional Comments: good areation ant bilat Cardiology: Present: edema (LE bilat, chronic), normal S1, normal S2 Dialysis Vascular Access: Venous Catheter Gastrointestinal: Present: no tenderness, no guarding, obese Integumentary: Present: warm and dry, hyperpigmentation, chronic venous stasis Neurologic: Present: no focal deficit Musculoskeletal: Present: no deformities Psychiatric: Present: mood/affect appropriate - Lab 11/20/16 06:11 11/20/16 06:11 Most recent lab results Calcium 8.0 mg/dL (8.6-10.8) L 11/20/16 06:11 Phosphorus 5.5 mg/dL (2.3-4.7) H 11/19/16 06:03 Magnesium 1.3 mg/dL (1.6-2.6) L 11/19/16 06:03 Consult Discharge Plan - Plan Instructions: Heart Failure (DC), Diabetes Mellitus Type 2 in Adults (DC), Anemia (GEN) Referrals: Dee Negron, STAFF INTERNIST OFFICE BASED ONLY [Primary Care Provider] - 11/27/16 1:20 pm (Please follow up as schedule...)
[2016-11-20 12:37] LABS: % Iron Saturation 15 % (15-50); Iron 28 mcg/dL (50-170); Transferrin 133 mg/dL (180-382)
[2016-11-20] MEDS: NIFEdipine XL (24 HR) 60 MG TAB.ER.24 PO SCH (13:13)
[2016-11-20] MEDS: Insulin DETEMIR 100 UNIT/ML X5UNITS SQ SCH (13:13)
[2016-11-20 13:36] LABS: Ferritin 180 ng/ml (5-204)
--- NOTE | 2016-11-20 14:46 | Discharge Summary ---
Date of Encounter: 11/20/16 Time of Encounter: 14:42 - Discharge Diagnosis (1) Anemia Priority: Primary Status: Chronic Qualifiers: Anemia type: iron deficiency Iron deficiency anemia type: unspecified iron deficiency Qualified Code(s): D50.9 - Iron deficiency anemia, unspecified (2) ESRD (end stage renal disease) on dialysis Priority: Primary Status: Chronic (3) Lower extremity edema Priority: Primary Status: Chronic Qualifiers: Laterality: bilateral Qualified Code(s): R60.0 - Localized edema (4) HTN (hypertension) Priority: Secondary Status: Chronic Qualifiers: Hypertension type: essential hypertension Qualified Code(s): I10 - Essential (primary) hypertension - Discharge Medications Home Medications: Aspirin 81 mg PO DAILY 06/07/16 [History] Atorvastatin Calcium [Lipitor] 20 mg PO DAILY 06/07/16 [History] Furosemide [Lasix] 80 mg PO QAM 06/07/16 [History] Gabapentin [Neurontin] 300 mg PO BID 06/07/16 [History] Insulin DETEMIR [Levemir Flextouch] 5 unit SQ QAM 06/07/16 [History] Insulin DETEMIR [Levemir Flextouch] 15 unit SQ QPM 06/07/16 [History] NIFEdipine [Nifedical Xl] 60 mg PO DAILY 06/07/16 [History] Carvedilol 12.5 mg PO BID 30 Days 06/10/16 [Rx] Furosemide [Lasix] 20 mg PO QPM 10/18/16 [History] Oxygen 2.5 - 3 l .ROUTE AD 10/18/16 [History] Albuterol Sulfate [Albuterol Inhaler] 2 puff IH Q4H PRN #0 inhaler 10/30/16 [Rx] Miconazole w/zinc oxide&karaya [Antifungal Extra Thick] 1 appl TP BID PRN #1 tube 10/30/16 [Rx] Allergies/Adverse Reactions: Allergies Fish Containing Products Allergy (Verified 11/18/16 14:30) Anaphylaxis lisinopril Adverse Reaction (Verified 11/18/16 10:28) Cough Date of admission: 11/18/16 14:49 Primary care physician: Dee Negron CNP Consults: 11/18/16 15:00 Consult to Occupational Therapy [CONS] Routine Comment: Evaluate, develop and implement POC Consult to Physical Therapy [CONS] Routine Comment: Evaluate, develop and implement POC Consult to Manager Treasury [CONS] Routine Reason for SW Consult: 51 yo F with 2nd admission in 1 month for fluid overload, difficulty walking, unable to care for self at home, may need placement to SNF on discharge. 11/18/16 15:03 Consult to Nephrology [CONS] Routine Consulting Provider: Kidney Cristina/MIRIAM/HELEN/LUIS Reason for Consult: 51F with ESRD on HD MWF, missed dialysis wednesday, here with increased BLE edema, fluid overload Call Completed: Yes 11/18/16 15:45 Consult to Dialysis [CONS] ONCE 11/19/16 09:30 Consult to Dialysis [CONS] ONCE 11/20/16 05:15 Consult to Dialysis [CONS] ONCE Discharging clinician: Micaela Amos Anticipated date of discharge: 11/20/16 - Patient Status Disposition: Home, Self-Care Condition: Fair Functional capacity at discharge: independent ambulation Overall status at discharge: patient is back to baseline - Discharge Instructions Instructions: Heart Failure (DC), Diabetes Mellitus Type 2 in Adults (DC), Anemia (GEN) Follow Up With: Dee Negron CNP [Primary Care Provider] - 11/27/16 1:20 pm (Please follow up as schedule...) - Diet and Activity Activity: resume usual activities as tolerated Diet: other (renal diet) Interval History: Ms. Fernández is a 51 year old female with type 2 diabetes, ESRD on HD MWF, morbid obesity, HTN, COPD, diastolic CHF, who presented to the ED this morning with increased bilateral lower extremity swelling and difficulty walking.Evaluation in the ED revealed a CXR that showed improved but persistent pulmonary vascular congestion and mild pulmonary edema, Anemia with hgb of 7.4, but consistent with previous results, hypocalcemia with calcium of 8.1, also consistent with previous results, hypomagnesemia with magnesium of 1.5, elevated BNP of 953, but down from previous of 976 Patient missed her dialysis session on Wednesday, last treatment was Wednesday. She reports she missed Wednesday's session because her legs hurt. renal was consulted and underwent HD with extra fluid removal he next day that improved the anasarca and LE edema/\. today she is being dc in stable condition. Hospital course: Ms. Fernández is a 51 year old female Time spent discussing smoking cessation with patient: more than 10 minutes - Time Spent with Patient Total time spent providing and/or coordinating discharge services: Greater than 30 minutes - Constitutional Vitals: Temp Pulse Resp BP Pulse Ox 98.1 F 69 16 137/95 91 L 11/20/16 13:13 11/20/16 13:13 11/20/16 13:13 11/20/16 13:13 11/20/16 13:13 General appearance: Present: A&O X 3, morbidly obese, no acute distress Exam: HEENT: ATNC, PERRL, mucous membranes moist Neck: supple Respiratory: clear Cardiology: normal S1, normal S2 abd- soft, non tender, bs are present ext- b/l lower leg edema, much better than presentation.
[2016-11-20] MEDS ORDERED: FLU VACC QS2016-17 36MOS UP/PF 0.5 ML SYRINGE IM ONE (15:24)
[2016-11-20 15:41] VITALS: BP 141/73
--- NOTE | 2016-11-20 15:46 | Physician Discharge Referral ---
Home Health/Hosp Referral Info Transfer to: Home Health Attending Provider: yari pabon - Diagnosis (1) Anemia Status: Chronic (2) ESRD (end stage renal disease) on dialysis Status: Chronic (3) Lower extremity edema Status: Chronic (4) HTN (hypertension) Status: Chronic - Respiratory Orders Smoking Cessation: Smoking cessation has been advised. For more information, call the [employer] Tobacco Quit Line at 8-515-TPLQ-NOW. - Diet/Nutrition Diet/Nutrition Orders: Regular - Activity Activity Orders: Ambulate - Services Needed Following services are medically necessary services: Nursing, Home Health Aide, Physical Therapy, Occupational Therapy - Transfer Medications Home Medications: Aspirin 81 mg PO DAILY 06/07/16 [History] Atorvastatin Calcium [Lipitor] 20 mg PO DAILY 06/07/16 [History] Furosemide [Lasix] 80 mg PO QAM 06/07/16 [History] Gabapentin [Neurontin] 300 mg PO BID 06/07/16 [History] Insulin DETEMIR [Levemir Flextouch] 5 unit SQ QAM 06/07/16 [History] Insulin DETEMIR [Levemir Flextouch] 15 unit SQ QPM 06/07/16 [History] NIFEdipine [Nifedical Xl] 60 mg PO DAILY 06/07/16 [History] Carvedilol 12.5 mg PO BID 30 Days 06/10/16 [Rx] Furosemide [Lasix] 20 mg PO QPM 10/18/16 [History] Oxygen 2.5 - 3 l .ROUTE AD 10/18/16 [History] Albuterol Sulfate [Albuterol Inhaler] 2 puff IH Q4H PRN #0 inhaler 10/30/16 [Rx] Miconazole w/zinc oxide&karaya [Antifungal Extra Thick] 1 appl TP BID PRN #1 tube 10/30/16 [Rx] Allergies/Adverse Reactions: Allergies Fish Containing Products Allergy (Verified 11/18/16 14:30) Anaphylaxis lisinopril Adverse Reaction (Verified 11/18/16 10:28) Cough Certification: Further, I certify that my clinical findings support that this patient is homebound (i.e. absences from home require considerable and taxing effort and are for medical reasons or religion services or infrequently or short duration when for other reasons) because: Homebound Reason: Patient requires assistance of a person or device to safely leave home Attestation: My signature below is to certify that this patient is under my care and that I, or nurse practitioner, or a physician's assistant research scientist working with me, has a face-to -face encounter with this patient.
[2016-11-20] MEDS: *HR* HYDROcodone/Acet 5/325 mg TABLET PO PRN (16:07)
== END 2016-11-20 16:58 | disposition home health service (06) ==
LOC: 3BNU 10:25 → EMEROO 10:25 → 3BNU 15:14 → 2ANU 16:49
PROVIDERS: ADMIT Family Medicine; ATTEND Nurse Practitioner Family

== ENCOUNTER 2017-02-20 21:04 | Inpatient (IN) ==
--- NOTE | 2017-02-20 22:37 | Emergency Department Note ---
Disposition Clinical Impression: Hyperkalemia, Weakness, Morbid obesity, ESRD (end stage renal disease) on dialysis, Dyspnea on exertion Disposition: Admitted As Inpatient Condition: Fair Time of Disposition: 02:03 Weakness HPI - General Chief complaint: ED Weakness Stated complaint: weakness Time Seen by Provider: 02/20/17 21:53 Source: patient, family, EMS Limitations: no limitations Nursing Notes Reviewed: Yes Vital Signs Reviewed: Yes - History of Present Illness HPI Narrative: Patient is a 51-year-old female who presents with her daughter by ambulance. Patient is complaining of one week history of weakness. Patient states that she is unable to walk 10 feet without becoming weak and short of breath. Patient states that she can ambulate with a cane, but the daughter states that patient has not been ambulating this past week. The daughter also states that the patient is unable to roll over in bed without dyspnea. Patient states that her dyspnea is improved with oxygen supplementation. Patient does have home oxygen. However she only uses the oxygen as needed. The patient states that she has had profuse nonbloody diarrhea for the past week. Patient has been treating the diarrhea with Imodium. However, the daughter states that today the patient's bed clothes that were covered in diarrhea and blood. Daughter is unsure if the patient is bleeding per rectum. Patient usually goes to dialysis M//, but she missed dialysis on and due to weakness. Patient admits muscle shaking this past week. She denies syncope or fall. Also denies fever, chills, diaphoresis, headache, dizziness, weight loss, weight gain, night sweats , chest pain, racing heart, palpitations abdominal pain, nausea, vomiting, melena, dysuria, hematuria, numbness, or tingling. Pain Scale: 0 - Related Data Home Medications Medication Instructions Recorded Confirmed Aspirin 81 mg PO DAILY 06/07/16 02/21/17 Atorvastatin Calcium [Lipitor] 20 mg PO DAILY 06/07/16 02/21/17 Furosemide [Lasix] 80 mg PO QAM 06/07/16 02/21/17 Gabapentin [Neurontin] 300 mg PO BID 06/07/16 02/21/17 Insulin DETEMIR [Levemir Flextouch] 5 unit SQ QAM 06/07/16 02/21/17 Insulin DETEMIR [Levemir Flextouch] 15 unit SQ QPM 06/07/16 02/21/17 NIFEdipine [Nifedical Xl] 60 mg PO DAILY 06/07/16 02/21/17 Furosemide [Lasix] 20 mg PO QPM 10/18/16 02/21/17 Oxygen 2.5 - 3 l .ROUTE AD 10/18/16 02/21/17 Previous Rx's Medication Instructions Recorded Carvedilol 12.5 mg PO BID 30 Days 06/10/16 Albuterol Sulfate [Albuterol 2 puff IH Q4H PRN #0 inhaler 10/30/16 Inhaler] Allergies Allergy/AdvReac Type Severity Reaction Status Date / Time Fish Containing Products Allergy Anaphylaxis Verified 11/18/16 14:30 lisinopril AdvReac Cough Verified 11/18/16 10:28 All systems ED: reviewed and negative except as stated. Constitutional: Reports: as per HPI Eyes: Reports: as per HPI ENT ED: Reports: as per HPI Cardiovascular: Reports: as per HPI Respiratory: Reports: as per HPI Gastrointestinal: Reports: as per HPI Genitourinary: Reports: as per HPI Musculoskeletal: Reports: as per HPI Integumentary: Reports: as per HPI Neurological: Reports: as per HPI Psychiatric: Reports: as per HPI Endocrine: Reports: as per HPI Hematological/Lymphatic: Reports: as per HPI Allergic/Immunologic: Reports: as per HPI Past Medical History - Past Medical History Medical history: Reports: coronary artery disease, CVA, diabetes, dialysis, hyperlipidemia, hypertension, renal disease, venous stasis, other Surgical history: Reports: no surgical history Psychiatric history: Reports: no psych history MANAGER ENDOSCOPY history: Reports: no MANAGER ENDOSCOPY history - Social History Smoking Status: Never smoker Smokeless Tobacco Status: No Alcohol use: Reports: none Drug use: Reports: none Physical Exam - General Limitations: no limitations General appearance: alert, in no apparent distress, obese - Head Head exam: other (head with multiple ulcerated exoriations to scalp) - Eye Eye exam: Present: normal appearance, EOMI - ENT ENT exam: normal exam - Neck Neck exam: Present: normal inspection, full ROM, trachea midline. Absent: tenderness, meningismus, lymphadenopathy, thyromegaly - Chest Chest inspection: Present: normal inspection, symmetric chest wall rise. Absent : tenderness - Respiratory Respiratory exam: Present: normal lung sounds bilaterally. Absent: respiratory distress, wheezes, stridor, accessory muscle use - Cardiovascular Cardiovascular exam: Present: regular rate, normal rhythm, systolic murmur, + S2. Absent: diastolic murmur - Abdominal Exam Abdominal exam: Present: soft (morbidly obese), Non-Tender, normal bowel sounds. Absent: distention, guarding, rebound, rigidity - Rectal Exam Rectal exam: Present: normal inspection, normal rectal tone. Absent: mass, tenderness - Extremities Exam Extremities exam: Present: full ROM, pedal edema (Bilateral lower extremities with 3+ tense nonpitting edema, purple hue with associated leathery texture of skin) - Back Exam Back exam: Present: normal inspection, full ROM - Neurological Exam Neurological exam: Present: alert, oriented X3, CN II-XII intact - Psychiatric Psychiatric exam: Present: normal affect, normal mood - Skin Skin exam: Present: other (scalp, abdomen, arms, and legs with multiple excoriations and ulcerations. Patient's fingernails are covered in blood from self-picking behavior. ) Course Vital Signs Temperature 98.5 F 02/20/17 21:10 Pulse Rate 57 02/20/17 21:10 Respiratory Rate 16 02/20/17 21:10 Blood Pressure 116/54 02/20/17 21:10 O2 Sat by Pulse Oximetry 96 02/20/17 21:10 Temperature 97.4 F L 02/21/17 04:00 Pulse Rate 55 02/21/17 04:00 Respiratory Rate 18 02/21/17 04:00 Blood Pressure 100/61 02/21/17 04:00 O2 Sat by Pulse Oximetry 97 02/21/17 04:00 Oxygen Delivery Oxygen Delivery Nasal Cannula Weakness - MDM Narrative Medical decision making narrative: Patient presented with 1 week history of generalized weakness OCA in with a one- week history of diarrhea. Weakness is multifactorial given multiple medical conditions, recent episode of diarrhea, baseline severe muscular deconditioning , and missing multiple dialysis treatments. Patient chronic kidney disease on dialysis. She missed her dialysis sessions on Wednesday and Wednesday this week. Patient came in with the potassium 6.2 and creatinine of 10. Patient will be admitted for dialysis. With regard to her diarrhea, she denies any recent antibiotic use. She has known chronic anemia. Hemoglobin is 8.3 at this time. Patient is morbidly obese and has severe muscular deconditioning. - Medical Records Medical records reviewed: Yes I reviewed the patient's medical records. - Lab Data Lab results reviewed: Yes I reviewed the patient's lab results. Result diagrams: 02/21/17 05:25 02/21/17 05:25 Lab Results 02/20/17 02/20/17 Range/Units 22:32 22:32 WBC 7.2 (4.3-11.1) K/mcL RBC 3.03 L (3.82-4.97) M/mcL Hgb 8.3 L (11.5-15.4) g/dL Hct 28.4 L (35.3-44.9) % MCV 93.7 (83.0-100.0) fL MCH 27.4 L (28.0-33.3) pg MCHC 29.2 L (31.6-35.5) g/dL RDW 20.2 H (11.5-14.5) % Plt Count 146 (140-400) K/mcL MPV 9.0 L (9.4-12.4) fL Immature Gran % 4.4 H (0-4) % Seg Neutrophils % 74.7 % Lymphocytes % 8.2 % Monocytes % 10.2 % Eosinophils % 1.8 % Basophils % 0.7 % Neutrophils # 5.4 (1.6-8.9) K/mcL Lymphocytes # 0.6 (0.6-4.6) K/mcL Monocytes # 0.7 (0.0-1.3) K/mcL Eosinophils # 0.1 (0.0-0.6) K/mcL Basophils # 0.1 (0.0-0.2) K/mcL Nucleated RBCs/100 WBC 0.3 H (0) /100 WBC Platelet Estimate Decreased L (Normal) Hypochromasia Present A (Not Present) Anisocytosis 1+ A (Not Present) Sodium 137 (136-145) mEq/L Potassium 6.2 H (3.5-4.5) mEq/L Chloride 102 (98-109) mEq/L Carbon Dioxide 19 (19-29) mEq/L BUN 99 H (7-20) mg/dL Creatinine 10.01 H (0.57-1.11) mg/dL Est GFR ( Amer) 5 L (> 60) Est GFR (Non-Af Amer) 4 L (> 60) BUN/Creatinine Ratio 10 (6-26) Glucose 67 L (70-99) mg/dL Calculated Osmolality 313 H (280-300) Calcium 6.9 L (8.6-10.8) mg/dL Total Bilirubin 1.4 H (0.2-1.2) mg/dL Direct Bilirubin 0.7 H (0.0-0.5) mg/dL Indirect Bilirubin 0.7 (0.0-1.2) mg/dL AST 11 (5-34) Units/L ALT 8 (0-55) Units/L Alkaline Phosphatase 179 H (38-126) Units/L Serum Total Protein 9.2 H (6.0-8.3) g/dL Albumin 2.5 L (3.5-5.0) g/dL Globulin 6.7 H (2.4-3.5) g/dL Albumin/Globulin Ratio 0.4 L (1.1-2.2) - EKG Data EKG attestation: Yes I reviewed and interpreted this EKG. EKG results narrative: EKG NSR with rate of 53 and first degree AV block. No evidence of ST segment elevation or depression or T wave changes suggestive of ischemia. Critical Care Time Critical Care Time: Yes Total Critical Care Time: 40 Attestation: Critical care performed: Time is exclusive of separately billable procedures. Time includes: direct patient care, patient reassessment, coordination of patient care, interpretation of data (laboratory data, radiology data, and respiratory data), review of patient's medical records, medical consultation and documentation of patient care. Procedures included in critical care time: Procedures excluded from critical care time: Attestation Statement - Attestation Attestation: I, Kit Lugo MD, personally evaluated this patient and discussed their management with the resident physician. I reviewed the resident's note and agree with the documented findings, medical decision making, and plan of care. 51-year-old female presents to the emergency department with a complaint of increasing generalized weakness and fatigue. Increasing shortness of breath especially with exertion. For about the past week she has been unable to ambulate around her home without getting extremely short of breath. She is on hemodialysis and has missed her last 2 dialysis appointments due to her weakness. She has also had some diarrhea and apparently some rectal bleeding. On examination patient is a morbidly obese female who appears much older than her actual age. She is alert and oriented 3. No cyanosis or diaphoresis. Breath sounds are decreased but equal bilaterally. There may be a few faint bibasilar rales and occasional expiratory wheezes. Heart regular rate and rhythm. Abdomen is soft with normal bowel sounds. Labs reviewed. Hyperkalemia noted and treated. The hospitalist, Dr. Downey, was consulted and accepted admission of the patient. Patient was also discussed with the therapeutic program worker on-call, Dr. Mccabe.
[2017-02-20 22:40] LABS: Eosinophils % 1.8 %; Hemoglobin 8.3 g/dL (11.5-15.4); Nucleated Red Blood Cells 0.3 /100 WBC (0)
[2017-02-20 22:41] LABS: Basophils # 0.1 K/mcL (0.0-0.2); Basophils % 0.7 %; Eosinophils # 0.1 K/mcL (0.0-0.6); Hematocrit 28.4 % (35.3-44.9); Immature Granulocytes % 4.4 % (0-4); Lymphocytes # 0.6 K/mcL (0.6-4.6); Lymphocytes % 8.2 %; Mean Corpuscular HGB Conc 29.2 g/dL (31.6-35.5); Mean Corpuscular Hemoglobin 27.4 pg (28.0-33.3); Mean Corpuscular Volume 93.7 fL (83.0-100.0); Monocytes # 0.7 K/mcL (0.0-1.3); Monocytes % 10.2 %; Neutrophils # 5.4 K/mcL (1.6-8.9); Platelet Count 146 K/mcL (140-400); Red Blood Count 3.03 M/mcL (3.82-4.97); Red Cell Distribution Width 20.2 % (11.5-14.5); Segmented Neutrophils % 74.7 %
[2017-02-20 22:51] LABS: Calcium 6.9 mg/dL (8.6-10.8); Potassium 6.2 mEq/L (3.5-4.5)
[2017-02-20 22:54] LABS: Anisocytosis 1+ (Not Present); Hypochromasia Present (Not Present); Platelet Estimate Decreased (Normal)
[2017-02-20] MEDS ORDERED: Calcium Gluconate 1,000 MG in D5% in Water 100 ML IVPB ONE (23:04)
[2017-02-20] MEDS ORDERED: Albuterol 2.5 MG/3 ML NEBULIZER IH ONE (23:05)
[2017-02-20] MEDS ORDERED: *HR* Dextrose 50 % in Water (Syg) 50 ML SYRINGE IVP ONE (23:05)
[2017-02-20] MEDS ORDERED: Insulin Human Regular 10 UNIT in 0.9 % Sodium Chloride 10 ML IV ONE (23:06)
[2017-02-20 23:25] LABS: Albumin 2.5 g/dL (3.5-5.0); Albumin/Globulin Ratio 0.4 (1.1-2.2); Bilirubin,Direct 0.7 mg/dL (0.0-0.5); Bilirubin,Indirect 0.7 mg/dL (0.0-1.2); Bilirubin,Total 1.4 mg/dL (0.2-1.2); Globulin 6.7 g/dL (2.4-3.5); Total Protein 9.2 g/dL (6.0-8.3)
[2017-02-21] MEDS ORDERED: Ondansetron 4 MG/2 ML VIAL IVP PRN (04:51)
[2017-02-21] MEDS ORDERED: Naloxone 0.4 MG/ML INJ IVP PRN (04:51)
[2017-02-21] MEDS ORDERED: Dextrose Gel 15 GM PO PRN ×2 (04:51)
[2017-02-21] MEDS ORDERED: Acetaminophen 325 MG TABLET PO PRN (04:51)
[2017-02-21] MEDS ORDERED: *HR* Dextrose 50 % in Water (Syg) 50 ML SYRINGE IVP PRN (04:51)
[2017-02-21] MEDS ORDERED: D5% in Water 1,000 ML IVC PRN (04:51)
--- NOTE | 2017-02-21 05:08 | Internal Med History&Physical ---
Date of Encounter: 02/21/17 Time of Encounter: 04:35 Assessment and Plan (1) Weakness of both lower extremities Current visit: Yes Status: Acute 1. I am concerned about her sudden decline. This may be related to yet to be diagnosed ovarian malignancy. It could also be due to hyperkalemai and/or uremia. 2. Nephrology to see in consult and assist with HD needs. 3. Will need PT/OT evaluations. 4. Patient will need to follow up soon with [facility] for formal diagnosis and treatment options, if any. 5. I ordered blood cultures, stool cultures given above symptoms. I don't believe he needs antibiotics presently but we'll monitor clinically and follow cultures. 6. Monitor glucose for signs of hypoglycemia. (2) Adnexal mass Current visit: Yes Status: Chronic 1. Pt will need close follow up with [facility] regarding left adnexal mass. This may require inpatient transfer once her potassium and HD issues are addressed. (3) IDDM (insulin dependent diabetes mellitus) Current visit: Yes Status: Acute 1. Will place on SSI and monitor glucose closely, especially for hypoglycemia. 2. Need to verify home meds and dosing. 3. Check A1C. (4) Hyperkalemia Current visit: No Status: Acute 1. Follow potassium levels. 2. Nephrology to see this morning and likely proceed with hemodialysis. 3 (5) ESRD (end stage renal disease) on dialysis Current visit: No Status: Chronic 1. HD per nephrology. (6) DVT prophylaxis Current visit: Yes Status: Acute 1. Heparin SQ. Internal Medicine - H&P: HPI Chief complaint: weakness, hyperkalemia Admitted From: Emergency Dept Plans for Post Hospital Care: Home History of present illness: Ms. Fernández is a 51 year old female who presents with about a one-week history of profound weakness, diarrhea, decreased appetite, and nausea with occasional vomiting. She was seen in the ER and admitted to the hospitalist service for the above complaints. Of note, she is hyperkalemic. She is on chronic hemodialysis and missed her last 2 dialysis episodes because of her profound weakness. Prior to last week, she had been ambulating relatively well with a walker. However, since then, she was so weak she could not even bear weight. She has been bedbound since then. She denies any focal deficits. She does have an old stroke which has rendered her weak on her left side, but she has had some functional capacity until last week. Her daughter informs me that she was originally transferred from [place] to [facility] for concerns of a left lower abdominal mass in December of this year. She was due to have biopsy and further diagnostic workup at [facility], but she left AMA. She presented to our ER in December for concerns of UTI and kidney infection symptoms. She was found at that time to have a large left adnexal mass on CT scan in the ER. ER physician contacted our [facility] department who recommended transfer to [facility] for concerns of gynecologic malignancy. As such, she was transferred from the ER to [facility] and she signed out AMA a few days. She was due to undergo diagnostic workup, but she left the hospital they could proceed. She has not followed up with them since then. Her daughter inquires whether the current symptoms are related to the adnexal mass. She denies any increasing abdominal girth, any worsening edema over the legs, and/or chest pain. She will need to proceed with further diagnostic workup of her left adnexal mass. This will likely need to happen at a [facility]. Past Med Surg Social Fam HX - Past Medical History Attestation: Yes The following information was validated with the patient. Source: patient, old records reviewed, obtained from family Medical history: coronary artery disease, CVA, diabetes, dialysis, hyperlipidemia, hypertension, renal disease, venous stasis Psychiatric history: no psych history - Past Surgical History Surgical History: - Social History Smoking Status: Former smoker Packs per day: 2 packs Smokeless Tobacco Status: No Alcohol use: none Drug use: none Current living situation: Home, With Family Activity Level: Bed bound (since last week) - Family History Mother Living Status: Hx Family Cardiac Disorders: Yes Father Living Status: Hx Family Respiratory Disorders: Yes Hx Family Cancer: Yes Hx Family GI Disorders: No Hx Family Endocrine Disorder: No Hx Family Neuromuscular Disorders: No Hx Family Neurologic Disorders: No Hx Family HEENT Disorders: No Hx Family Autoimmune Disorders: No Brother Hx Family Respiratory Disorders: Yes Hx Family Cancer: Yes Grandmother Hx Family Cancer: Yes Internal Medicine - H&P: Meds Aspirin 81 mg PO DAILY 06/07/16 [History] Atorvastatin Calcium [Lipitor] 20 mg PO DAILY 06/07/16 [History] Furosemide [Lasix] 80 mg PO QAM 06/07/16 [History] Gabapentin [Neurontin] 300 mg PO BID 06/07/16 [History] Insulin DETEMIR [Levemir Flextouch] 5 unit SQ QAM 06/07/16 [History] Insulin DETEMIR [Levemir Flextouch] 15 unit SQ QPM 06/07/16 [History] NIFEdipine [Nifedical Xl] 60 mg PO DAILY 06/07/16 [History] Carvedilol 12.5 mg PO BID 30 Days 06/10/16 [Rx] Furosemide [Lasix] 20 mg PO QPM 10/18/16 [History] Oxygen 2.5 - 3 l .ROUTE AD 10/18/16 [History] Albuterol Sulfate [Albuterol Inhaler] 2 puff IH Q4H PRN #0 inhaler 10/30/16 [Rx] Miconazole w/zinc oxide&karaya [Antifungal Extra Thick] 1 appl TP BID PRN #1 tube 10/30/16 [Rx] Ciprofloxacin [Cipro] 500 mg PO BID #14 tablet 12/10/16 [Rx] Allergies Fish Containing Products Allergy (Verified 11/18/16 14:30) Anaphylaxis lisinopril Adverse Reaction (Verified 11/18/16 10:28) Cough - Constitutional Constitutional: fatigue, lethargy, weakness, no chills, no fever(s) Additional comments: unable to bear any weight now - EENT Eyes: no blurry vision, no change in vision Ears: no ear pain, no tinnitus Nose, mouth and throat: no nasal congestion, no nasal obstruction, no sinus pressure - Cardiovascular Cardiovascular ROS IM: no chest pain, no dyspnea, no lightheadedness, no palpitations, no paroxysmal nocturnal dyspnea - Respiratory Respiratory: no cough, no dyspnea, no hemoptysis, no dyspnea on exertion, no wheezing - Gastrointestinal Gastrointestinal: abdominal pain, bloating, diarrhea, loose stools, no cramping , no hematemesis, no hematochezia, no melena - Musculoskeletal Musculoskeletal ROS IM: arthralgias, back pain, muscle weakness - Integumentary Integumentary IM: sores (bilateral lower extremity venous stasis lesions), no jaundice - Neurological Neurological ROS: weakness, no disequilibrium, no dizziness, no focal weakness - Psychiatric Psychiatric: no anxiety, no depression - Endocrine Endocrine IM: fatigue, no polydipsia, no polyuria - Hematologic/Lymphatic Hematologic/Lymphatic: easy bruising - Allergic/Immunologic Allergic/Immunologic: no wheezing, no GI upset with certain foods - Constitutional Vitals: Temp Pulse Resp BP Pulse Ox 97.4 F L 55 18 100/61 97 02/21/17 04:00 02/21/17 04:00 02/21/17 04:00 02/21/17 04:00 02/21/17 04:00 General appearance: Present: cooperative, mild distress, A&O X 3, pleasant - Head Head exam: Present: atraumatic, normal inspection - Expanded Head Exam Head exam expanded: Absent: abrasion, contusion, general tenderness - Eye Eye exam: Present: EOMI, normal appearance, PERRL. Absent: scleral icterus Pupils: Present: normal accommodation - ENT ENT exam: Present: mucous membranes dry, normal oropharynx - Neck Neck exam general surgery: Present: full ROM, supple. Absent: tenderness, nuchal rigidity - Respiratory Respiratory exam: Present: decreased breath sounds (subtle decresae in bases), CTAB. Absent: rales, rhonchi, wheezes - Cardiovascular Cardiovascular exam: Present: RRR, +S1, +S2. Absent: JVD - GI/Abdominal GI/Abdominal exam: Present: hepatomegaly, soft. Absent: guarding, rebound, tenderness Additional comments: left adnexal mass not appreciated but exam compromised due to large panus. - Extremities Exam Extremities exam: Present: warm. Absent: calf tenderness, joint swelling, normal inspection (BLE venous stasis changes to both pretibial areas) - Back Exam Back exam: Present: CVA tenderness (R), normal inspection. Absent: CVA tenderness (L) - Neurological Exam Neurological exam: Present: alert, oriented X3, no focal deficits, strengths equal and symetr throughout - Psychiatric Psychiatric exam: Present: normal affect, normal mood - Skin Skin exam: Present: dry, warm Internal Med - H&P Results - Labs CBC & Chem 7: 02/20/17 22:32 02/20/17 22:32
[2017-02-21 05:36] LABS: Basophils % 0.8 %; Eosinophils % 1.8 %; Nucleated Red Blood Cells 0.3 /100 WBC (0)
[2017-02-21 05:37] LABS: Basophils # 0.1 K/mcL (0.0-0.2); Eosinophils # 0.1 K/mcL (0.0-0.6); Hematocrit 28.3 % (35.3-44.9); Hemoglobin 8.2 g/dL (11.5-15.4); Immature Granulocytes % 4.7 % (0-4); Lymphocytes # 0.6 K/mcL (0.6-4.6); Lymphocytes % 7.5 %; Mean Corpuscular Hemoglobin 27.2 pg (28.0-33.3); Mean Corpuscular Volume 93.7 fL (83.0-100.0); Mean Platelet Volume 9.5 fL (9.4-12.4); Monocytes # 0.9 K/mcL (0.0-1.3); Monocytes % 11.3 %; Neutrophils # 5.6 K/mcL (1.6-8.9); Platelet Count 147 K/mcL (140-400); Red Blood Count 3.02 M/mcL (3.82-4.97); Red Cell Distribution Width 20.3 % (11.5-14.5); Segmented Neutrophils % 73.9 %
[2017-02-21 05:45] LABS: Hemoglobin A1C 5.2 %
[2017-02-21 05:49] LABS: Albumin 2.4 g/dL (3.5-5.0); Albumin/Globulin Ratio 0.4 (1.1-2.2); Calcium 6.8 mg/dL (8.6-10.8); Globulin 6.5 g/dL (2.4-3.5); Magnesium 1.7 mg/dL (1.6-2.6); Potassium 6.1 mEq/L (3.5-4.5); Total Protein 8.9 g/dL (6.0-8.3)
[2017-02-21 06:00] LABS: Hypochromasia Present (Not Present); Macrocytosis Present (Not Present)
[2017-02-21 06:01] LABS: Polychromasia 1+ (Not Present)
[2017-02-21 06:02] LABS: Anisocytosis 1+ (Not Present); Platelet Estimate Normal (Normal)
[2017-02-21] MEDS: *HR* Heparin 5,000 UNIT/ML VIAL SQ SCH ×2 (06:13→18:31)
[2017-02-21] MEDS: *HR* OxyCODONE Immed Rel 5 MG TABLET PO PRN ×2 (06:13→18:27)
--- NOTE | 2017-02-21 08:44 | Nephrology Consult Note ---
Date of Encounter: 02/21/17 Time of Encounter: 09:45 Assessment and Plan (1) ESRD (end stage renal disease) on dialysis Current Visit: Yes Status: Chronic Before arranging for any urgent dialysis, I recommend providing a proper dose of Kayexalate given her weight. I've ordered an additional 60gm now with repeat K + levels at 14:00. Depending upon results, if she remains medically with refractory hyperkalemia, then I'll arrange for HD today (Wednesday). Nevertheless, I'll also plan for HD on Wednesday. Should have a PT/OT consult and strong consideration for ECF. She is missing HD on a frequent basis, likely d/t her obesity, several comorbidities and generalized weakness. Continue home Rx for SHPT, IDDM, Anemia of CKD, HTN, Hyperphosphatemia. Low K+ diet and diabetic dietary restrictions are recommended. Thank you for consulting the [facility] group. (2) Hyperkalemia Current Visit: Yes Status: Acute (3) Anemia in chronic kidney disease (CKD) Current Visit: Yes Status: Acute (4) Morbid obesity Current Visit: Yes Status: Acute Qualifiers: Obesity type: unspecified obesity type Qualified Code(s): E66.01 - Morbid ( severe) obesity due to excess calories (5) Weakness Current Visit: Yes Status: Acute (6) Hyperphosphatemia Current Visit: No Status: Acute (7) Secondary hyperparathyroidism (of renal origin) Current Visit: No Status: Acute History of Present Illness - Reason for Consult Consult date: 02/21/17 end stage renal disease, hyperkalemia Requesting physician: Pramod Downey - Chief Complaint Missed dialysis - History of Present Illness Areli Fernández is a very pleasant 51 y/o WF with a pmh of obesity, T2DM, HTN, ESRD on HD M/W/F and et al who presented with missed HD. She missed HD on Wednesday and Wednesday. Her daughter was present and provided the majority of the history. The pt has progressively become weaker over the last week and was not able to stand on her power. She has also experienced more "twitching" recently. She has diminished appetite and some confusion as well. I am her primary planning feeder and reviewed the outside medical records from [facility]. She dialyzes via a Right sided Permacath. Past Med Surg Social Fam HX - Past Medical History Medical history: coronary artery disease, CVA, diabetes, dialysis, hyperlipidemia, hypertension, renal disease, venous stasis, other Psychiatric history: no psych history - Past Surgical History Surgical History: no surgical history - Social History Smoking Status: Never smoker Packs per day: 2 packs Smokeless Tobacco Status: No Alcohol use: none Drug use: none - Family History Mother Living Status: Hx Family Cardiac Disorders: Yes Father Living Status: Hx Family Respiratory Disorders: Yes Hx Family Cancer: Yes Hx Family GI Disorders: No Hx Family Endocrine Disorder: No Hx Family Neuromuscular Disorders: No Hx Family Neurologic Disorders: No Hx Family HEENT Disorders: No Hx Family Autoimmune Disorders: No Brother Hx Family Respiratory Disorders: Yes Hx Family Cancer: Yes Grandmother Hx Family Cancer: Yes Medications and Allergies Aspirin 81 mg PO DAILY 06/07/16 [History] Atorvastatin Calcium [Lipitor] 20 mg PO DAILY 06/07/16 [History] Furosemide [Lasix] 80 mg PO QAM 06/07/16 [History] Gabapentin [Neurontin] 300 mg PO BID 06/07/16 [History] Insulin DETEMIR [Levemir Flextouch] 5 unit SQ QAM 06/07/16 [History] Insulin DETEMIR [Levemir Flextouch] 15 unit SQ QPM 06/07/16 [History] NIFEdipine [Nifedical Xl] 60 mg PO DAILY 06/07/16 [History] Carvedilol 12.5 mg PO BID 30 Days 06/10/16 [Rx] Furosemide [Lasix] 20 mg PO QPM 10/18/16 [History] Oxygen 2.5 - 3 l NS AD PRN 10/18/16 [History] Albuterol Sulfate [Albuterol Inhaler] 2 puff IH Q4H PRN #0 inhaler 10/30/16 [Rx] Allopurinol [Zyloprim 100 MG] 100 mg PO Q48H 02/21/17 [History] Calcium Acetate [Phos-LO] 667 mg PO TID 02/21/17 [History] Ergocalciferol (VITAMIN D2) [Vitamin D2] 50,000 unit PO QWEEK 02/21/17 [History] Folic Acid 1 mg PO DAILY 02/21/17 [History] Tramadol HCl [Ultram] 50 mg PO TID PRN 02/21/17 [History] Vitamin B Complex 1 each PO DAILY 02/21/17 [History] Allergies Fish Containing Products Allergy (Verified 02/21/17 09:40) Anaphylaxis lisinopril Adverse Reaction (Verified 02/21/17 09:40) Cough Review of Systems All Systems: reviewed and no additional remarkable complaints except as stated Exam - Vital Signs Vital signs: Initial Vital Signs Temp Pulse Resp BP Pulse Ox 98.5 F 57 16 116/54 96 02/20/17 21:10 02/20/17 21:10 02/20/17 21:10 02/20/17 21:10 02/20/17 21:10 Vital Signs - Last 8 Hours Temp Pulse Resp BP Pulse Ox 02/21/17 07:53 97.9 F 52 16 119/69 97 02/21/17 04:00 97.4 F L 55 18 100/61 97 02/21/17 02:37 18 120/68 Intake and Output 02/20/17 02/21/17 02/21/17 23:59 07:59 15:59 Intake Total 120.1 / 120.1 Balance 120.1 / 120.1 Intake: IV Fluids 120.1 / 120.1 HumuLIN R 10 UNIT In 10.1 / 10.1 Normal Saline Flush 10 ML @ 1212 mls/hr IV ONCE ONE Rx#:[id number] Calcium Gluconate 1,000 110 / 110 MG In Dextrose 5% 100 ML @ 220 mls/hr IVPB ONCE ONE Rx#:[id number] Other: Blood Glucose* 91 - General Appearance General appearance: obese, chronically ill, frail EENT: ATNC, mucous membranes moist Neck: supple Respiratory: course breath sounds Cardiology: edema, regular rate, regular rhythm, normal S1, normal S2 - Dialysis Access Dialysis Vascular Access: Venous Catheter (Right sided Permacath with C/D/I) Gastrointestinal: normoactive bowel sounds, no tenderness, no guarding Integumentary: no rash, warm and dry Neurologic: no focal deficit, no asterixis, alert and oriented x3 Musculoskeletal: no deformities, no erythema, no cyanosis Psychiatric: mood/affect appropriate, cooperative Results - Lab Results 02/21/17 05:25 02/21/17 13:44 Most recent lab results Calcium 6.8 mg/dL (8.6-10.8) L 02/21/17 05:25 Magnesium 1.7 mg/dL (1.6-2.6) 02/21/17 05:25 I reviewed the above autogenerated data barrientos. Consult Discharge Plan - Plan Referrals: Dee Negron, STAFF MINE WARFARE OFFICER [Primary Care Provider] -
[2017-02-21] MEDS: Gabapentin 300 MG CAPSULE PO SCH ×2 (09:47→20:16)
[2017-02-21] MEDS: Aspirin 81 MG TAB.CHEW PO SCH (09:47)
[2017-02-21] MEDS: Insulin LISPRO 300 UNITS/3 ML VIAL SQ SCH ×3 (09:48→18:28)
[2017-02-21] MEDS ORDERED: Furosemide 40 MG/4 ML VIAL IVP ONE (09:53)
--- NOTE | 2017-02-21 12:55 | Electrocardiograph Report ---
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
--- NOTE | 2017-02-21 13:29 | Internal Med Progress Note ---
Date of Encounter: 02/21/17 Time of Encounter: 10:05 - Assessment and plan (1) Hyperkalemia Current Visit: Yes Status: Acute Assessment and plan: kayaxelate given, will monitor potassium levels, nephrology involved,will follow input, hd as per [facility]. has missed a few hd sessions. (2) ESRD (end stage renal disease) on dialysis Current Visit: Yes Status: Chronic Assessment and plan: folow nephorlogy input, next regular session scheduled for tomorrow. 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 development director insulin use: with [facility] use Chronic kidney disease stage: on chronic dialysis Qualified Code(s): E11.22 - Type 2 diabetes mellitus with diabetic chronic kidney disease; N18.6 - End stage renal disease; Z79.4 - correction (current) use of insulin; Z99.2 - Dependence on renal dialysis (4) Morbid obesity Current Visit: Yes Status: Acute Qualifiers: Obesity type: unspecified obesity type Qualified Code(s): E66.01 - Morbid ( severe) obesity due to excess calories (5) Adnexal mass Current Visit: Yes Status: Chronic Assessment and plan: follow up at [facility] upon discharge (6) DVT prophylaxis Current Visit: Yes Status: Acute (7) Weakness of both lower extremities Current Visit: Yes Status: Acute Assessment and plan: PT OT eval. manager social services consulted. - Subjective Interval history: 1st encounter with the patient. feels weak. had bowel movements earlier today after a dose of kayaxelate. - Constitutional Vitals: Temp Pulse Resp BP Pulse Ox 98.4 F 56 18 101/67 91 02/21/17 12:27 02/21/17 12:27 02/21/17 12:27 02/21/17 12:27 02/21/17 12:27 General appearance: Present: cooperative, mild distress, A&O X 3, morbidly obese , pleasant - Head Head exam: Present: atraumatic, normocephalic - Eye Eye exam: Present: PERRL, conjuntiva pink, sclera anicteric Pupils: Present: PERRL - Neck Neck exam general surgery: Present: supple, trachea midline. Absent: lymphadenopathy - Respiratory Respiratory exam: Present: CTAB. Absent: accessory muscle use, rales, rhonchi, wheezes - Cardiovascular Cardiovascular exam: Present: RRR, +S1, +S2. Absent: diastolic murmur, gallop, rubs, systolic murmur - GI/Abdominal GI/Abdominal exam: Present: normal bowel sounds, soft, no peritoneal signs. Absent: distended, tenderness - Extremities Exam Extremities exam: Present: pedal edema, warm, radial pulses palpable and symetrical. Absent: calf tenderness, cyanotic - Neurological Exam Neurological exam: Present: CN II-XII intact, oriented X3, no focal deficits. Absent: pronater drift, facial droop, speech deficit - Skin Skin exam: Present: dry, intact Internal Medicine: Result - Labs CBC & Chem 7: 02/21/17 05:25 02/21/17 05:25 Labs: Short CBC 02/21/17 Range/Units 05:25 WBC 7.6 (4.3-11.1) K/mcL Hgb 8.2 L (11.5-15.4) g/dL Hct 28.3 L (35.3-44.9) % Plt Count 147 (140-400) K/mcL Neutrophils # 5.6 (1.6-8.9) K/mcL BMP 02/21/17 05:25 Sodium 136 Potassium 6.1 H Chloride 102 Carbon Dioxide 19 BUN 102 H Creatinine 10.61 H Glucose 96 Calcium 6.8 L Liver Function 02/21/17 Range/Units 05:25 Total Bilirubin 1.0 (0.2-1.2) mg/dL AST 10 (5-34) Units/L ALT 9 (0-55) Units/L Alkaline Phosphatase 174 H (38-126) Units/L Albumin 2.4 L (3.5-5.0) g/dL Consult Discharge Plan - Plan Referrals: Dee Negron, SUPERVISOR ELECTRIC MOTOR TESTING [Primary Care Provider] -
[2017-02-22 04:30] LABS: Eosinophils % 1.1 %; Hemoglobin 8.3 g/dL (11.5-15.4)
[2017-02-22 04:31] LABS: Basophils # 0.1 K/mcL (0.0-0.2); Basophils % 0.8 %; Eosinophils # 0.1 K/mcL (0.0-0.6); Hematocrit 29.2 % (35.3-44.9); Immature Granulocytes % 3.2 % (0-4); Lymphocytes # 0.8 K/mcL (0.6-4.6); Mean Corpuscular HGB Conc 28.4 g/dL (31.6-35.5); Mean Corpuscular Hemoglobin 27.3 pg (28.0-33.3); Mean Corpuscular Volume 96.1 fL (83.0-100.0); Mean Platelet Volume 10.4 fL (9.4-12.4); Monocytes # 1.2 K/mcL (0.0-1.3); Monocytes % 13.2 %; Platelet Count 153 K/mcL (140-400); Red Blood Count 3.04 M/mcL (3.82-4.97); Segmented Neutrophils % 72.7 %
[2017-02-22 04:43] LABS: Calcium 6.7 mg/dL (8.6-10.8); Potassium 6.2 mEq/L (3.5-4.5)
[2017-02-22 04:49] LABS: Neutrophils # 6.5 K/mcL (1.6-8.9)
[2017-02-22 05:17] LABS: Anisocytosis 2+ (Not Present)
[2017-02-22 05:18] LABS: Macrocytosis Present (Not Present); Microcytosis Present (Not Present); Platelet Estimate Normal (Normal); Polychromasia 1+ (Not Present)
[2017-02-22] MEDS: *HR* Heparin 5,000 UNIT/ML VIAL SQ SCH ×2 (06:02→17:24)
[2017-02-22] MEDS ORDERED: Albumin 25% 12.5gm/50mL 12.5 GM/50 ML IV.SOLN IVPB PRN (07:42)
[2017-02-22] MEDS ORDERED: 0.9 % Sodium Chloride 250 ML IVC PRN (07:42)
[2017-02-22] MEDS: Insulin LISPRO 300 UNITS/3 ML VIAL SQ SCH ×3 (09:09→16:23)
[2017-02-22] MEDS: Aspirin 81 MG TAB.CHEW PO SCH (09:11)
[2017-02-22] MEDS: Gabapentin 300 MG CAPSULE PO SCH ×2 (09:11→20:07)
--- NOTE | 2017-02-22 09:15 | Nephrology Progress Note ---
Date of Encounter: 02/23/17 Time of Encounter: 09:45 - Assessment and Plan (1) ESRD (end stage renal disease) on dialysis Current Visit: Yes Status: Chronic HD today, tomorrow and Wednesday d/t missed HD, she will need several rounds for clearance and volume status corrections (2) Hyperkalemia Current Visit: Yes Status: Acute See above (3) Anemia in chronic kidney disease (CKD) Current Visit: Yes Status: Acute Hgb 10-11 (4) Morbid obesity Current Visit: Yes Status: Acute counseled her on lifestyle modifications Qualifiers: Obesity type: unspecified obesity type Qualified Code(s): E66.01 - Morbid ( severe) obesity due to excess calories (5) Weakness Current Visit: Yes Status: Acute Uremia. HD today. (6) Secondary hyperparathyroidism (of renal origin) Current Visit: No Status: Chronic Subjective Principal diagnosis: ESRD Interval history: Pt was s/e earlier today while on HD. She reported having some mild nausea but was able to eat breakfast earlier today. She did not affirm any cramping. Objective - Vital Signs Vital signs: Vital Signs Temp Pulse Resp BP Pulse Ox 02/22/17 08:00 94 02/22/17 07:15 98.4 F 56 20 99/64 94 02/22/17 03:23 98 F 58 16 99/53 91 02/21/17 23:32 97.7 F 63 14 98/58 87 02/21/17 19:50 98.2 F 57 18 94/60 91 02/21/17 15:39 97.6 F 53 18 100/63 95 02/21/17 12:27 98.4 F 56 18 101/67 91 Intake and Output 02/21/17 02/22/17 02/22/17 23:59 07:59 15:59 Intake Total 800 / 800 Balance 800 / 800 Intake: Free Water 800 / 800 Other: Stool Size Smear Stool Consistency soft Stool Color Brown Yellow Weight 171.004 kg Blood Glucose* 90 Patient Weight 02/22/17 23:59 Weight 171.004 kg - General Appearance General appearance: Present: well-developed, well-nourished, appears started age , obese, chronically ill EENT: Present: ATNC, PERRL, mucous membranes moist Neck: Present: supple Respiratory: Present: course breath sounds Cardiology: Present: edema, regular rate, normal S1, normal S2 Dialysis Vascular Access: Venous Catheter Gastrointestinal: Present: normoactive bowel sounds, no tenderness, no guarding Integumentary: Present: no rash, warm and dry Neurologic: Present: no focal deficit, no asterixis Musculoskeletal: Present: no deformities, no erythema Psychiatric: Present: mood/affect appropriate, cooperative - Lab 02/22/17 03:00 02/22/17 18:22 Most recent lab results Calcium 6.7 mg/dL (8.6-10.8) L 02/22/17 03:00 Magnesium 1.7 mg/dL (1.6-2.6) 02/21/17 05:25 Consult Discharge Plan - Plan Referrals: Dee Negron, EXCHANGE TELLER [Primary Care Provider] - (possible going to ECF)
[2017-02-22] MEDS: *HR* OxyCODONE Immed Rel 5 MG TABLET PO PRN (09:50)
[2017-02-22] MEDS ORDERED: *HR* Heparin 10,000 UNIT/10 ML VIAL IV PRN (13:04)
[2017-02-22] MEDS ORDERED: 0.9 % Sodium Chloride 2,000 ML ONE (13:12)
--- NOTE | 2017-02-22 17:42 | Internal Med Progress Note ---
Date of Encounter: 02/22/17 Time of Encounter: 17:40 - Assessment and plan (1) Hyperkalemia Current Visit: Yes Status: Acute Assessment and plan: potassium today 6.2, 2/2 multiple missed HD, renal on board. HD today, tomorrow and Wednesday d/t missed HD, she will need several rounds for clearance and volume status corrections as per renal. (2) Adnexal mass Current Visit: Yes Status: Chronic Assessment and plan: she was referred to [facility] for evaluation of the adnexal mass and has signed out multiple times. she has not completed diagnostic work up and no treatmnet yet. follow up at [facility] upon discharge, may need transfer once hyperkalemia stabilizes. (3) ESRD (end stage renal disease) on dialysis Current Visit: Yes Status: Chronic Assessment and plan: folow nephorlogy input,renal on board s/p HD today (4) Weakness Current Visit: Yes Status: Acute Assessment and plan: this is chronic and could be multifactorial. she has hyperkalemia and missed HD, also has yet to be diagnosed possible ovarian malignancy. will follow what PT/OT recommends. will need f/u at [facility] for early dx and treatment,. - Time Spent With Patient 25 - 35 minutes - Subjective Interval history: patient admitted for profound weakness and missed HD with hyperkalemia/ renal is on board, s/p HD today. seen at the bedside, appears drwosy and hard to arouse. opens eyes on verbal command but goes back to sleep. - Constitutional Vitals: Temp Pulse Resp BP Pulse Ox 97.5 F L 67 20 105/54 94 02/22/17 16:04 02/22/17 16:04 02/22/17 16:04 02/22/17 16:04 02/22/17 16:04 General appearance: Present: cooperative, mild distress, A&O X 3, morbidly obese , pleasant Exam: neck- supple chest- b/l clear, no added sounds CVS-s1 and s2, no mr/g/ abd-soft, non tender, bs are present ext- b/l pedal edema neuro- drowsy, opens eyes on verbal command but goes back to sleep, moving all extremities at this time. Internal Medicine: Result - Labs CBC & Chem 7: 02/22/17 03:00 02/22/17 18:22 Labs: Short CBC 02/22/17 Range/Units 03:00 WBC 9.0 (4.3-11.1) K/mcL Hgb 8.3 L (11.5-15.4) g/dL Hct 29.2 L (35.3-44.9) % Plt Count 153 (140-400) K/mcL Neutrophils # 6.5 (1.6-8.9) K/mcL BMP 02/22/17 03:00 Sodium 137 Potassium 6.2 H Chloride 102 Carbon Dioxide 18 L BUN 103 H Creatinine 11.11 H Glucose 80 Calcium 6.7 L Consult Discharge Plan - Plan Referrals: Dee Negron, FILAMENT CUTTER [Primary Care Provider] - (possible going to ECF)
[2017-02-22 18:34] LABS: ABG HCO3 29.3 mEQ/L (21-27); ABG Oxygen Saturation 94 % (95-98); ABG PO2 88 mmHg (85-104); ABG TCO2 31.9 mEq/L (20-26)
[2017-02-22 18:36] LABS: ABG PCO2 84 mmHg (35-45); ABG PH 7.15 pH Units (7.32-7.45); Blood Gas FiO2 36 %; Blood Gas Liter Flow 4 L/MIN
[2017-02-22 18:40] LABS: Calcium 6.9 mg/dL (8.6-10.8); Potassium 4.2 mEq/L (3.5-4.5)
[2017-02-22 20:47] LABS: ABG Base Excess -0.8 mEq/L (-2.0 to 3.0); ABG HCO3 29.2 mEQ/L (21-27); ABG Oxygen Saturation 93 % (95-98); ABG PO2 83 mmHg (85-104); ABG TCO2 31.7 mEq/L (20-26)
[2017-02-22 20:48] LABS: Blood Gas FiO2 40 %
[2017-02-22 20:49] LABS: ABG PCO2 82 mmHg (35-45); ABG PH 7.16 pH Units (7.32-7.45)
[2017-02-22 23:37] LABS: ABG HCO3 28.8 mEQ/L (21-27); ABG Oxygen Saturation 96 % (95-98); ABG PO2 102 mmHg (85-104); ABG TCO2 31.2 mEq/L (20-26)
[2017-02-22 23:39] LABS: ABG PCO2 79 mmHg (35-45); ABG PH 7.17 pH Units (7.32-7.45); Blood Gas FiO2 40 %
[2017-02-23 05:40] LABS: Basophils % 0.5 %; Hemoglobin 7.8 g/dL (11.5-15.4); Nucleated Red Blood Cells 0.2 /100 WBC (0)
[2017-02-23 05:42] LABS: Eosinophils # 0.2 K/mcL (0.0-0.6); Hematocrit 27.4 % (35.3-44.9); Immature Granulocytes % 2.5 % (0-4); Lymphocytes # 0.6 K/mcL (0.6-4.6); Lymphocytes % 7.5 %; Mean Corpuscular HGB Conc 28.5 g/dL (31.6-35.5); Mean Corpuscular Volume 94.8 fL (83.0-100.0); Mean Platelet Volume 9.5 fL (9.4-12.4); Monocytes # 1.2 K/mcL (0.0-1.3); Monocytes % 14.5 %; Neutrophils # 5.9 K/mcL (1.6-8.9); Platelet Count 131 K/mcL (140-400); Red Blood Count 2.89 M/mcL (3.82-4.97); Red Cell Distribution Width 19.9 % (11.5-14.5)
[2017-02-23] MEDS: *HR* Heparin 5,000 UNIT/ML VIAL SQ SCH ×2 (05:47→17:31)
[2017-02-23 05:56] LABS: Calcium 6.9 mg/dL (8.6-10.8); Potassium 4.5 mEq/L (3.5-4.5)
[2017-02-23 06:03] LABS: Basophilic Stippling 2+ (Not Present)
[2017-02-23 06:04] LABS: Anisocytosis 2+ (Not Present); Platelet Estimate Decreased (Normal)
[2017-02-23 06:17] LABS: ABG Base Excess -1.6 mEq/L (-2.0 to 3.0); ABG HCO3 27.1 mEQ/L (21-27); ABG Oxygen Saturation 97 % (95-98); ABG PO2 115 mmHg (85-104); ABG TCO2 29.3 mEq/L (20-26)
[2017-02-23 06:19] LABS: Blood Gas FiO2 40 %
[2017-02-23 06:20] LABS: ABG PCO2 71 mmHg (35-45); ABG PH 7.19 pH Units (7.32-7.45)
[2017-02-23] MEDS: Insulin LISPRO 300 UNITS/3 ML VIAL SQ SCH ×3 (07:28→17:27)
[2017-02-23] MEDS ORDERED: 0.9 % Sodium Chloride 250 ML IVC PRN (08:15)
--- NOTE | 2017-02-23 08:51 | Nephrology Progress Note ---
Date of Encounter: 02/23/17 Time of Encounter: 08:49 - Assessment and Plan (1) ESRD (end stage renal disease) on dialysis Current Visit: Yes Status: Chronic Dialysis today Most likely will get HD again tomorrow Continue renal diet and fluid restriction Avoid nephrotoxins if possible (2) Anemia in chronic kidney disease (CKD) Current Visit: Yes Status: Acute Hgb down to 7.8 Goal hgb 10-11 Transfuse per parameters (3) Hyperkalemia Current Visit: Yes Status: Resolved Subjective Principal diagnosis: ESRD Interval history: Patient seen and examined; answers questions with one word answers, seems a little confused. Objective - Vital Signs Vital signs: Vital Signs Temp Pulse Resp BP Pulse Ox 02/23/17 06:43 97 F L 64 20 113/72 92 02/22/17 23:40 98.4 F 65 17 115/64 99 02/22/17 20:15 16 100 02/22/17 19:18 98.2 F 51 15 108/62 98 02/22/17 18:59 16 99 02/22/17 16:04 97.5 F L 67 20 105/54 94 02/22/17 14:05 98.4 F 16 142/50 02/22/17 14:00 120/60 02/22/17 13:45 135/69 02/22/17 13:30 127/61 02/22/17 13:15 134/66 02/22/17 13:00 136/56 02/22/17 12:45 135/56 02/22/17 12:30 119/48 02/22/17 12:15 112/47 02/22/17 12:00 123/50 02/22/17 11:45 111/52 02/22/17 11:38 98.4 F 68 20 130/45 93 02/22/17 11:30 136/57 02/22/17 11:15 136/55 02/22/17 11:00 134/70 02/22/17 10:45 156/65 02/22/17 10:30 137/68 02/22/17 10:15 109/66 02/22/17 10:00 98.4 F 20 110/64 Intake and Output 02/22/17 02/23/17 02/23/17 23:59 07:59 15:59 Other: Weight 174.86 kg Blood Glucose* 99 79 Patient Weight 02/23/17 23:59 Weight 174.86 kg - General Appearance General appearance: Present: obese EENT: Present: ATNC, mucous membranes moist, hearing intact, vision intact Neck: Present: supple Respiratory: Present: clear (decreased throughout) Cardiology: Present: edema, normal S1, normal S2 Dialysis Vascular Access: Venous Catheter Gastrointestinal: Present: no tenderness, no guarding, obese Integumentary: Present: warm and dry Neurologic: Present: confused Psychiatric: Present: cooperative - Lab 02/23/17 05:19 02/23/17 05:19 Most recent lab results ABG pH 7.19 pH Units (7.32-7.45) L* 02/23/17 06:10 ABG pCO2 71 mmHg (35-45) H* 02/23/17 06:10 ABG pO2 115 mmHg (85-104) H 02/23/17 06:10 ABG HCO3 27.1 mEQ/L (21-27) H 02/23/17 06:10 ABG O2 Saturation 97 % (95-98) 02/23/17 06:10 Calcium 6.9 mg/dL (8.6-10.8) L 02/23/17 05:19 Magnesium 1.7 mg/dL (1.6-2.6) 02/21/17 05:25 Consult Discharge Plan - Plan Referrals: Dee Negron, SALVAGE WINDER [Primary Care Provider] - (possible going to ECF)
[2017-02-23] MEDS: Aspirin 81 MG TAB.CHEW PO SCH (09:12)
[2017-02-23] MEDS: Gabapentin 300 MG CAPSULE PO SCH ×3 (09:12→22:05)
[2017-02-23 11:29] LABS: ABG Base Excess 1.4 mEq/L (-2.0 to 3.0); ABG HCO3 30.9 mEQ/L (21-27); ABG Oxygen Saturation 70 % (95-98); ABG PH 7.24 pH Units (7.32-7.45); ABG TCO2 33.1 mEq/L (20-26)
[2017-02-23 11:31] LABS: ABG PCO2 72 mmHg (35-45)
[2017-02-23 11:32] LABS: ABG PO2 44 mmHg (85-104); Blood Gas FiO2 35 %
--- NOTE | 2017-02-23 14:44 | Internal Med Progress Note ---
Date of Encounter: 02/23/17 Time of Encounter: 14:40 - Assessment and plan (1) Hyperkalemia Current Visit: Yes Status: Resolved Assessment and plan: potassium today 4.5, 2/2 multiple missed HD, renal on board. HD today and tomorrow d/t missed HD, she will need several rounds for clearance and volume status corrections as per renal. (2) Adnexal mass Current Visit: Yes Status: Chronic Assessment and plan: she was referred to [facility] for evaluation of the adnexal mass and has signed out multiple times. she has not completed diagnostic work up and no treatmnet yet. When asked today, she reports that she wants to get the graft first and will then follow-up at [facility]. She was notified about the increase in the size of the adnexal mass in the repeat CAT scan, howvever she refuses to go there at this time. [facility]. (3) ESRD (end stage renal disease) on dialysis Current Visit: Yes Status: Chronic Assessment and plan: folow nephorlogy input,renal on board s/p HD today (4) Weakness Current Visit: Yes Status: Acute Assessment and plan: this is chronic and could be multifactorial. she has hyperkalemia and missed HD, also has yet to be diagnosed possible ovarian malignancy. will follow what PT/OT recommends. will need f/u at [facility] for early dx and treatment,. (5) Acute hypercapnic respiratory failure Current Visit: Yes Status: Acute Assessment and plan: unclear if she has h/o COPD, she has no wheezing on exam and o2 sats are normal. she was placed on BiPAP yesterday after ABG showed hypercapnic respiratory failure. This may be multifactorial secondary to the uremia and depressed respiratory drive from multiple missed hemodialysis. abg repeated today shows improved pH of 7.24 and PCO2 is improved to 72. We will continue BiPAP for now and repeat ABG in the evening. - Time Spent With Patient 25 - 35 minutes - Subjective Interval history: patient admitted for profound weakness and missed HD with hyperkalemia/ renal is on board, s/p extra HD today. seen at the bedside, in hemodialysis today. Appears much awake and alert today as compared to yesterday Oriented to time place and person. - Constitutional Vitals: Temp Pulse Resp BP Pulse Ox 98.1 F 64 18 133/56 96 05/16/17 13:35 02/23/17 06:43 02/23/17 14:34 02/23/17 13:35 02/23/17 14:34 General appearance: Present: cooperative, A&O X 3, morbidly obese, pleasant Exam: Noted twitching of her body during dialysis. neck- supple chest- b/l clear, no added sounds CVS-s1 and s2, no mr/g/ abd-soft, non tender, bs are present ext- b/l pedal edema neuro- awake and alert and oriented 3, moving all extremities. Internal Medicine: Result - Labs CBC & Chem 7: 02/23/17 05:19 02/23/17 05:19 Labs: Short CBC 02/23/17 Range/Units 05:19 WBC 8.1 (4.3-11.1) K/mcL Hgb 7.8 L (11.5-15.4) g/dL Hct 27.4 L (35.3-44.9) % Plt Count 131 L (140-400) K/mcL Neutrophils # 5.9 (1.6-8.9) K/mcL BMP 02/22/17 02/23/17 18:22 05:19 Sodium 137 137 Potassium 4.2 D 4.5 Chloride 102 101 Carbon Dioxide 24 25 BUN 55 H D 59 H Creatinine 7.12 H 7.57 H Glucose 115 H 75 Calcium 6.9 L 6.9 L - ABG Interpretation ABG results: ABG ABG pH 7.24 pH Units (7.32-7.45) L 02/23/17 11:15 ABG pCO2 72 mmHg (35-45) H* 02/23/17 11:15 ABG pO2 44 mmHg (85-104) L* D 02/23/17 11:15 ABG O2 Saturation 70 % (95-98) L 02/23/17 11:15 - Impressions Impressions Chest X-Ray 02/22/17 21:01 IMPRESSION: Cardiomegaly and pulmonary vascular congestion. D/ / Beto Esquivel MD / Beto Esquivel MD Interpreting Provider: Beto Esquivel MD Consult Discharge Plan - Plan Referrals: Dee Negron, UKE DRIVER [Primary Care Provider] - (possible going to [facility])
[2017-02-23] MEDS: *HR* OxyCODONE Immed Rel 5 MG TABLET PO PRN (18:34)
--- NOTE | 2017-02-23 19:09 | Venous Imaging Report ---
LE Venous Duplex Patient Name:Areli Fernández Order Number:[id number] Procedure Date:02/22/2017 Date:1965Age:51 yrs Gender:Female Location:[facility] Room #: 2A47 Bar Staff:Stone Shilpa Referring MD:Pramod Downey MD youth counselor:Dee Negron, ASSISTANT GROCERY STORE MANAGER Reading MD:Aki Scott MD Primary Indications:Rule out DVT Secondary Indications: Risk Factors Yes/No Anticoagulants Yes Impressions: Chronic deep venous thrombosis is present in the right popliteal vein. Normal right lower extremity superficial venous exam. Normal left lower extremity deep and superficial venous exam. Recommendations: After imaging the patient returned to their room. Findings Venous Duplex Results: Right: Venous imaging of the lower extremity reveals full patency and normal vessel compressibility of the right distal iliac, right common femoral, right superficial femoral, right posterior tibial, right great saphenous and right lesser saphenous. Doppler signals in the evaluated veins were normal. The right popliteal demonstrates a partially compressible vein. Flow was phasic and it did augment. Left: Venous imaging of the lower extremity reveals full patency and normal vessel compressibility of the left distal iliac, left common femoral, left superficial femoral, left popliteal, left posterior tibial, left great saphenous and left lesser saphenous. Doppler signals in the evaluated veins were normal. Lower Extremity Venous Duplex Side Vein Compress Spontaneous Flow Augment Diameter (cm) Depth (cm) Right Distal Iliac Normal Yes Phasic Yes Right Common Femoral Normal Yes Phasic Yes Right Superficial Femoral Normal Yes Phasic Yes Right Popliteal Partial Yes Phasic Yes Right Posterior Tibial Normal Yes Phasic Yes Right Great Saphenous Normal Yes Phasic Yes Right Lesser Saphenous Normal Yes Phasic Yes Left Distal Iliac Normal Yes Phasic Yes Left Common Femoral Normal Yes Phasic Yes Left Superficial Femoral Normal Yes Phasic Yes Left Popliteal Normal Yes Phasic Yes Left Posterior Tibial Normal Yes Phasic Yes Left Great Saphenous Normal Yes Phasic Yes Left Lesser Saphenous Normal Yes Phasic Yes Updated by Aki Scott MD on 02/23/2017 7:04:10 PM electronically signed on 02/23/2017 7:05:40 PM with status of Final
[2017-02-23 21:59] LABS: ABG Base Excess 4.7 mEq/L (-2.0 to 3.0); ABG HCO3 32.5 mEQ/L (21-27); ABG Oxygen Saturation 97 % (95-98); ABG PCO2 66 mmHg (35-45); ABG PO2 99 mmHg (85-104); ABG TCO2 34.5 mEq/L (20-26)
[2017-02-23 22:00] LABS: Blood Gas FiO2 35 %
[2017-02-24] MEDS: Aspirin 81 MG TAB.CHEW PO SCH (05:41)
[2017-02-24] MEDS: *HR* Heparin 5,000 UNIT/ML VIAL SQ SCH ×2 (05:41→17:04)
[2017-02-24] MEDS: Gabapentin 300 MG CAPSULE PO SCH ×2 (05:41→20:43)
[2017-02-24 06:01] LABS: Red Cell Distribution Width 19.8 % (11.5-14.5)
[2017-02-24 06:03] LABS: Basophils # 0.1 K/mcL (0.0-0.2); Basophils % 0.7 %; Eosinophils # 0.2 K/mcL (0.0-0.6); Eosinophils % 3.5 %; Hematocrit 27.1 % (35.3-44.9); Hemoglobin 7.9 g/dL (11.5-15.4); Immature Granulocytes % 1.5 % (0-4); Lymphocytes # 0.7 K/mcL (0.6-4.6); Lymphocytes % 10.3 %; Mean Corpuscular HGB Conc 29.2 g/dL (31.6-35.5); Mean Corpuscular Hemoglobin 27.6 pg (28.0-33.3); Mean Corpuscular Volume 94.8 fL (83.0-100.0); Mean Platelet Volume 9.6 fL (9.4-12.4); Monocytes # 1.2 K/mcL (0.0-1.3); Monocytes % 17.8 %; Neutrophils # 4.6 K/mcL (1.6-8.9); Platelet Count 125 K/mcL (140-400); Red Blood Count 2.86 M/mcL (3.82-4.97); Segmented Neutrophils % 66.2 %
[2017-02-24 06:20] LABS: Calcium 7.5 mg/dL (8.6-10.8); Potassium 3.8 mEq/L (3.5-4.5)
[2017-02-24 06:46] LABS: Hypochromasia Present (Not Present); Platelet Estimate Slight Decrease (Normal)
[2017-02-24] MEDS ORDERED: 0.9 % Sodium Chloride 250 ML IVC PRN (08:04)
[2017-02-24] MEDS: Insulin LISPRO 300 UNITS/3 ML VIAL SQ SCH ×3 (10:23→16:39)
--- NOTE | 2017-02-24 10:56 | Nephrology Progress Note ---
Date of Encounter: 02/24/17 Time of Encounter: 10:45 - Assessment and Plan (1) ESRD (end stage renal disease) on dialysis Current Visit: Yes Status: Chronic HD today for maintenance of her HD schedule: //. Next HD planned for Wednesday (2) Hyperkalemia Current Visit: Yes Status: Resolved Renal diet (3) Anemia in chronic kidney disease (CKD) Current Visit: Yes Status: Acute Goal Hgb 10-11, and will target with periodic CHAVO (4) Morbid obesity Current Visit: Yes Status: Acute counseled her on lifestyle modifications Qualifiers: Obesity type: unspecified obesity type Qualified Code(s): E66.01 - Morbid ( severe) obesity due to excess calories (5) Weakness Current Visit: Yes Status: Acute Uremia likely contributed to her severe weakness upon presentation. (6) Secondary hyperparathyroidism (of renal origin) Current Visit: No Status: Chronic Subjective Principal diagnosis: ESRD Interval history: Pt was s/e earlier today while on HD. She did not affirm N/V/D, cramping while seen on dialysis. Objective - Vital Signs Vital signs: Vital Signs Temp Pulse Resp BP Pulse Ox 02/24/17 08:07 98.7 F 67 16 143/69 97 02/24/17 03:31 98.4 F 68 18 113/72 98 02/23/17 23:57 98.2 F 70 17 119/73 98 02/23/17 20:27 98.9 F 66 18 133/66 100 02/23/17 15:32 98.9 F 61 20 142/70 99 02/23/17 14:34 18 96 02/23/17 13:35 98.1 F 18 133/56 02/23/17 13:05 125/59 02/23/17 12:50 125/56 02/23/17 12:35 150/41 02/23/17 12:20 139/65 02/23/17 12:05 136/67 02/23/17 11:50 132/56 02/23/17 11:35 151/79 02/23/17 11:20 141/67 02/23/17 11:05 138/64 02/23/17 11:00 20 92 Intake and Output 02/23/17 02/24/17 02/24/17 23:59 07:59 15:59 Intake Total 120 / 120 Balance 120 / 120 Intake: Oral 120 / 120 Other: Meal Breakfast Percent of Meal Consumed 60% Weight 175.4 kg Blood Glucose* 124 77 Patient Weight 02/24/17 23:59 Weight 175.4 kg - General Appearance General appearance: Present: well-developed, well-nourished, appears started age EENT: Present: ATNC, PERRL, mucous membranes moist Neck: Present: supple Respiratory: Present: clear Cardiology: Present: edema, regular rate, normal S1, normal S2 Dialysis Vascular Access: Venous Catheter (Right sided tunneled dialysis catheter, appears clear) Gastrointestinal: Present: normoactive bowel sounds, no tenderness, no guarding Integumentary: Present: no rash, warm and dry Neurologic: Present: no focal deficit, no asterixis Musculoskeletal: Present: no deformities, no clubbing Psychiatric: Present: cooperative - Lab 02/24/17 05:29 02/24/17 05:29 Most recent lab results ABG pH 7.30 pH Units (7.32-7.45) L 02/23/17 21:49 ABG pCO2 66 mmHg (35-45) H 02/23/17 21:49 ABG pO2 99 mmHg (85-104) 02/23/17 21:49 ABG HCO3 32.5 mEQ/L (21-27) H 02/23/17 21:49 ABG O2 Saturation 97 % (95-98) 02/23/17 21:49 Calcium 7.5 mg/dL (8.6-10.8) L 02/24/17 05:29 Magnesium 1.7 mg/dL (1.6-2.6) 02/21/17 05:25 Consult Discharge Plan - Plan Referrals: Dee Negron, CEMENT FINISHING SUPERVISOR [Primary Care Provider] - (possible going to [facility])
[2017-02-24] MEDS ORDERED: *HR* Heparin 10,000 UNIT/10 ML VIAL IV PRN (12:32)
--- NOTE | 2017-02-24 15:56 | Internal Med Progress Note ---
Date of Encounter: 02/24/17 Time of Encounter: 15:51 - Assessment and plan (1) Hyperkalemia Current Visit: Yes Status: Resolved Assessment and plan: potassium today 3.8, hyperkalemia 2/2 multiple missed HD, renal on board. HD today and tomorrow d/t missed HD, she will need several rounds for clearance and volume status corrections as per renal. (2) Adnexal mass Current Visit: Yes Status: Chronic Assessment and plan: she was referred to [facility] for evaluation of the adnexal mass and has signed out multiple times. she has not completed diagnostic work up and no treatmnet yet. When asked again today, she reports that she is willling to go there after dc. She was notified about the increase in the size of the adnexal mass in the repeat CAT scan. [facility]. (3) ESRD (end stage renal disease) on dialysis Current Visit: Yes Status: Chronic Assessment and plan: folow nephorlogy input,renal on board s/p HD today (4) Weakness Current Visit: Yes Status: Acute Assessment and plan: this is chronic and could be multifactorial. she had hyperkalemia and missed HD, also has yet to be diagnosed possible ovarian malignancy. PT/OT recommends inpt. rehab await social work for placement. will need f/u at [facility] for early dx and treatment,. (5) Acute hypercapnic respiratory failure Current Visit: Yes Status: Acute Assessment and plan: unclear if she has h/o COPD, she has no wheezing on exam and o2 sats are normal. ABG showed hypercapnic respiratory failure initially which has improved. This may be multifactorial secondary to the uremia and depressed respiratory drive from multiple missed hemodialysis. We will continue BiPAP at night and titrate o2 to maintain sats >95% - Subjective Interval history: patient admitted for profound weakness and missed HD with hyperkalemia/ renal is on board, s/p HD today. seen at the bedside, in hemodialysis today. Appears awake and alert , did discuss again about her being referred to [facility] and she agreed to make an appt. Oriented to time place and person. - Constitutional Vitals: Temp Pulse Resp BP Pulse Ox 98.2 F 72 18 133/68 100 02/24/17 14:56 02/24/17 14:56 02/24/17 14:56 02/24/17 14:56 02/24/17 14:56 General appearance: Present: cooperative, A&O X 3, morbidly obese, pleasant Exam: neck- supple chest- b/l clear, no added sounds CVS-s1 and s2, no mr/g/ abd-soft, non tender, bs are present ext- b/l pedal edema neuro- awake and alert and oriented 3, moving all extremities. Internal Medicine: Result - Labs CBC & Chem 7: 02/24/17 05:29 02/24/17 05:29 Labs: Short CBC 02/24/17 Range/Units 05:29 WBC 6.9 (4.3-11.1) K/mcL Hgb 7.9 L (11.5-15.4) g/dL Hct 27.1 L (35.3-44.9) % Plt Count 125 L (140-400) K/mcL Neutrophils # 4.6 (1.6-8.9) K/mcL BMP 02/24/17 05:29 Sodium 136 Potassium 3.8 Chloride 100 Carbon Dioxide 27 BUN 37 H D Creatinine 5.49 H Glucose 79 Calcium 7.5 L - ABG Interpretation ABG results: ABG ABG pH 7.30 pH Units (7.32-7.45) L 02/23/17 21:49 ABG pCO2 66 mmHg (35-45) H 02/23/17 21:49 ABG pO2 99 mmHg (85-104) 02/23/17 21:49 ABG O2 Saturation 97 % (95-98) 02/23/17 21:49 Consult Discharge Plan - Plan Referrals: Dee Negron, GEAR GRINDING MACHINE OPERATOR [Primary Care Provider] - (possible going to [facility])
[2017-02-25 05:20] LABS: Eosinophils % 4.1 %; Monocytes % 15.7 %
[2017-02-25 05:21] LABS: Basophils % 0.6 %; Eosinophils # 0.3 K/mcL (0.0-0.6); Hematocrit 25.7 % (35.3-44.9); Hemoglobin 7.4 g/dL (11.5-15.4); Immature Granulocytes % 1.3 % (0-4); Lymphocytes # 0.7 K/mcL (0.6-4.6); Lymphocytes % 10.6 %; Mean Corpuscular HGB Conc 28.8 g/dL (31.6-35.5); Mean Corpuscular Hemoglobin 27.4 pg (28.0-33.3); Mean Corpuscular Volume 95.2 fL (83.0-100.0); Mean Platelet Volume 10.1 fL (9.4-12.4); Neutrophils # 4.3 K/mcL (1.6-8.9); Platelet Count 127 K/mcL (140-400); Red Cell Distribution Width 19.7 % (11.5-14.5); Segmented Neutrophils % 67.7 %
[2017-02-25 05:35] LABS: Calcium 7.7 mg/dL (8.6-10.8); Potassium 3.9 mEq/L (3.5-4.5)
[2017-02-25 06:09] LABS: Platelet Estimate Normal (Normal)
[2017-02-25 06:10] LABS: Anisocytosis 1+ (Not Present); Hypochromasia Present (Not Present)
[2017-02-25] MEDS: *HR* Heparin 5,000 UNIT/ML VIAL SQ SCH ×2 (06:28→17:59)
[2017-02-25] MEDS: Insulin LISPRO 300 UNITS/3 ML VIAL SQ SCH ×3 (07:47→16:37)
--- NOTE | 2017-02-25 08:48 | Nephrology Progress Note ---
Date of Encounter: 02/25/17 Time of Encounter: 08:46 - Assessment and Plan (1) ESRD (end stage renal disease) on dialysis Current Visit: Yes Status: Chronic Plan for dialysis tomorrow Continue renal diet and fluid restriction Avoid nephrotoxins if possible (2) Anemia in chronic kidney disease (CKD) Current Visit: Yes Status: Acute Hgb down to 7.7 Goal hgb 10-11 Continue CHAVO Transfuse per parameters (3) Morbid obesity Current Visit: Yes Status: Acute per primary team Qualifiers: Obesity type: unspecified obesity type Qualified Code(s): E66.01 - Morbid ( severe) obesity due to excess calories (4) Adnexal mass Current Visit: Yes Status: Chronic To follow up after discharge with [facility] Subjective Principal diagnosis: ESRD Interval history: Patient seen and examined. Much more awake and alert today. Objective - Vital Signs Vital signs: Vital Signs Temp Pulse Resp BP Pulse Ox 02/25/17 06:54 98 F 68 30 146/61 96 02/25/17 03:46 98.1 F 67 19 133/66 98 02/25/17 00:20 98.2 F 66 19 134/65 99 02/24/17 21:47 21 99 02/24/17 19:58 98.1 F 71 19 135/66 99 02/24/17 14:56 98.2 F 72 18 133/68 100 02/24/17 14:10 98.1 F 18 135/48 02/24/17 13:30 124/58 02/24/17 13:15 135/54 02/24/17 13:00 125/78 02/24/17 12:56 22 97 02/24/17 12:45 122/60 02/24/17 12:30 134/59 02/24/17 12:15 128/65 02/24/17 12:00 147/66 02/24/17 11:45 100/57 02/24/17 11:30 128/59 02/24/17 11:15 119/58 02/24/17 11:00 119/54 02/24/17 10:45 100/53 02/24/17 10:30 118/53 02/24/17 10:15 122/66 02/24/17 10:00 107/55 02/24/17 09:45 116/63 02/24/17 09:30 98.3 F 22 116/63 Intake and Output 02/24/17 02/25/17 02/25/17 23:59 07:59 15:59 Intake Total 120 / 120 Balance 120 / 120 Intake: Oral 120 / 120 Other: Meal Dinner Percent of Meal Consumed 100% Weight 175.42 kg Blood Glucose* 137 103 Patient Weight 02/25/17 23:59 Weight 175.42 kg - General Appearance General appearance: Present: obese EENT: Present: ATNC, mucous membranes moist, hearing intact, vision intact Neck: Present: supple Respiratory: Present: clear Cardiology: Present: edema, normal S1, normal S2 Dialysis Vascular Access: Venous Catheter Gastrointestinal: Present: no tenderness, no guarding, obese Integumentary: Present: warm and dry Neurologic: Present: alert and oriented x3 Psychiatric: Present: mood/affect appropriate, cooperative - Lab 02/25/17 03:26 02/25/17 03:26 Most recent lab results ABG pH 7.30 pH Units (7.32-7.45) L 02/23/17 21:49 ABG pCO2 66 mmHg (35-45) H 02/23/17 21:49 ABG pO2 99 mmHg (85-104) 02/23/17 21:49 ABG HCO3 32.5 mEQ/L (21-27) H 02/23/17 21:49 ABG O2 Saturation 97 % (95-98) 02/23/17 21:49 Calcium 7.7 mg/dL (8.6-10.8) L 02/25/17 03:26 Magnesium 1.7 mg/dL (1.6-2.6) 02/21/17 05:25 Consult Discharge Plan - Plan Referrals: Dee Negron, AIRFRAME AND POWERPLANT MECHANIC [Primary Care Provider] - (possible going to [facility])
[2017-02-25] MEDS: Aspirin 81 MG TAB.CHEW PO SCH (09:08)
[2017-02-25] MEDS: Gabapentin 300 MG CAPSULE PO SCH ×2 (09:08→21:57)
--- NOTE | 2017-02-25 14:04 | Internal Med Progress Note ---
Date of Encounter: 02/25/17 Time of Encounter: 13:58 - Assessment and plan (1) Hyperkalemia Current Visit: Yes Status: Resolved Assessment and plan: potassium today 3.8, hyperkalemia 2/2 multiple missed HD, renal on board. (2) Adnexal mass Current Visit: Yes Status: Chronic Assessment and plan: she was referred to [facility] for evaluation of the adnexal mass and has signed out multiple times. she has not completed diagnostic work up and no treatmnet yet. When asked again today, she reports that she is willling to go there after dc. She was notified about the increase in the size of the adnexal mass in the repeat CAT scan. [facility]. (3) ESRD (end stage renal disease) on dialysis Current Visit: Yes Status: Chronic Assessment and plan: folow nephorlogy input,renal on board for HD tomm. (4) Weakness Current Visit: Yes Status: Acute Assessment and plan: this is chronic and could be multifactorial. she had hyperkalemia and missed HD, also has yet to be diagnosed possible ovarian malignancy. PT/OT recommends inpt. rehab patient refusing ECF , social work to arrange family meeting. will need f/u at [facility] for early dx and treatment as well. (5) Acute hypercapnic respiratory failure Current Visit: Yes Status: Acute Assessment and plan: unclear if she has h/o COPD, she has no wheezing on exam and o2 sats are normal. ABG showed hypercapnic respiratory failure initially which has improved. This may be multifactorial secondary to the uremia and depressed respiratory drive from multiple missed hemodialysis. currently sating 96% on 2 l, will continue o2 with nasal cannula for now - Subjective Interval history: patient admitted for profound weakness and missed HD with hyperkalemia/ renal is on board, seen at the bedside, denies any complains Appears awake and alert , now sating well on 2l NC. refuses to go to ECF, patinet is not safe to return home at this time, PT /OT recommended HH, social work to arrange family meeting. - Constitutional Vitals: Temp Pulse Resp BP Pulse Ox 98.9 F 71 22 145/84 96 02/25/17 09:52 02/25/17 09:52 02/25/17 09:52 02/25/17 09:52 02/25/17 09:52 General appearance: Present: cooperative, A&O X 3, morbidly obese, pleasant Exam: neck- supple chest- b/l clear, no added sounds CVS-s1 and s2, no mr/g/ abd-soft, non tender, bs are present ext- b/l pedal edema neuro- awake and alert and oriented 3, moving all extremities. Internal Medicine: Result - Labs CBC & Chem 7: 02/25/17 03:26 02/25/17 03:26 Labs: Short CBC 02/25/17 Range/Units 03:26 WBC 6.4 (4.3-11.1) K/mcL Hgb 7.4 L (11.5-15.4) g/dL Hct 25.7 L (35.3-44.9) % Plt Count 127 L (140-400) K/mcL Neutrophils # 4.3 (1.6-8.9) K/mcL BMP 02/25/17 03:26 Sodium 137 Potassium 3.9 Chloride 100 Carbon Dioxide 27 BUN 24 H D Creatinine 4.17 H Glucose 90 Calcium 7.7 L - ABG Interpretation ABG results: ABG ABG pH 7.30 pH Units (7.32-7.45) L 02/23/17 21:49 ABG pCO2 66 mmHg (35-45) H 02/23/17 21:49 ABG pO2 99 mmHg (85-104) 02/23/17 21:49 ABG O2 Saturation 97 % (95-98) 02/23/17 21:49 Consult Discharge Plan - Plan Referrals: Dee Negron, IT INTERN [Primary Care Provider] - (possible going to [facility])
[2017-02-25] MEDS: *HR* OxyCODONE Immed Rel 5 MG TABLET PO PRN (22:01)
[2017-02-26 04:53] LABS: Hemoglobin 7.8 g/dL (11.5-15.4); Red Cell Distribution Width 18.9 % (11.5-14.5)
[2017-02-26 04:54] LABS: Basophils % 0.6 %; Eosinophils # 0.3 K/mcL (0.0-0.6); Eosinophils % 4.2 %; Hematocrit 28.3 % (35.3-44.9); Immature Granulocytes % 2.2 % (0-4); Lymphocytes # 0.7 K/mcL (0.6-4.6); Lymphocytes % 10.5 %; Mean Corpuscular HGB Conc 27.6 g/dL (31.6-35.5); Mean Corpuscular Hemoglobin 26.5 pg (28.0-33.3); Mean Corpuscular Volume 96.3 fL (83.0-100.0); Mean Platelet Volume 9.7 fL (9.4-12.4); Monocytes % 16.1 %; Platelet Count 140 K/mcL (140-400); Red Blood Count 2.94 M/mcL (3.82-4.97); Segmented Neutrophils % 66.4 %
[2017-02-26 04:57] LABS: Neutrophils # 4.3 K/mcL (1.6-8.9)
[2017-02-26 05:05] LABS: Potassium 4.4 mEq/L (3.5-4.5)
[2017-02-26 05:44] LABS: Hypochromasia Present (Not Present); Platelet Estimate Normal (Normal)
[2017-02-26 05:45] LABS: Anisocytosis 1+ (Not Present)
[2017-02-26] MEDS: *HR* Heparin 5,000 UNIT/ML VIAL SQ SCH ×2 (06:38→17:02)
[2017-02-26] MEDS: Insulin LISPRO 300 UNITS/3 ML VIAL SQ SCH ×3 (08:00→17:03)
[2017-02-26] MEDS: Gabapentin 300 MG CAPSULE PO SCH (08:00)
[2017-02-26] MEDS: Aspirin 81 MG TAB.CHEW PO SCH (08:00)
[2017-02-26] MEDS ORDERED: 0.9 % Sodium Chloride 250 ML IVC PRN (08:29)
[2017-02-26] MEDS ORDERED: *HR* Heparin 10,000 UNIT/10 ML VIAL IV PRN (08:29)
[2017-02-26] MEDS ORDERED: 0.9 % Sodium Chloride 1,000 ML PRIME SCH (08:30)
--- NOTE | 2017-02-26 08:53 | Electrocardiograph Report ---
[address] [address] Test Date: 2017-02-25 Pat Name: Areli Fernández Department: 112 Room: 2A Gender: F Personal Lines Sales Executive: : 1965 Requested By: Pramod Downey Order Number: [id number] Reading MD: Mahamed Castle MD Measurements Intervals [place] Rate: 70 P: 78 [place]: 210 QRS: 3 QRSD: 104 T: 45 QT: 370 QTc: 390 Interpretive Statements SINUS RHYTHM WITH FIRST DEGREE AV BLOCK WITH OCCASIONAL ECTOPIC PREMATURE COMPLEXES BASELINE ARTIFACT COMPLICATES ACCURATE INTERPRETATION Electronically Signed On 02-26-2017 8:52:05 EDT by Mahamed Castle MD
--- NOTE | 2017-02-26 11:22 | Nephrology Progress Note ---
Date of Encounter: 02/26/17 Time of Encounter: 11:21 - Assessment and Plan (1) ESRD (end stage renal disease) on dialysis Current Visit: Yes Status: Chronic HD MWF. Renal dose medications. Renal diet. (2) DVT prophylaxis Current Visit: Yes Status: Acute per primary team. (3) Debility Current Visit: Yes Status: Acute (4) Debility Current Visit: Yes Status: Acute PT/OT. She need a SNF, but will only consent to one and that facility has rejected her. She is high risk for return to the hospital, but from a renal standpoint she has maximized her benefit from inpatient hospitalization. I spoke with primary team. Subjective Principal diagnosis: ESRD Interval history: Patient seen and evaluated on dialysis. Patient is refusing to go to any ECF with the exception of the one from which she was rejected. No other new complaint. Objective - General Appearance General appearance: Present: well-developed, well-nourished, obese EENT: Present: ATNC Neck: Present: supple Respiratory: Present: clear Cardiology: Present: edema, regular rate Gastrointestinal: Present: no tenderness Integumentary: Present: warm and dry Psychiatric: Present: mood/affect appropriate - Lab 02/26/17 04:25 02/26/17 04:25 Most recent lab results ABG pH 7.30 pH Units (7.32-7.45) L 02/23/17 21:49 ABG pCO2 66 mmHg (35-45) H 02/23/17 21:49 ABG pO2 99 mmHg (85-104) 02/23/17 21:49 ABG HCO3 32.5 mEQ/L (21-27) H 02/23/17 21:49 ABG O2 Saturation 97 % (95-98) 02/23/17 21:49 Calcium 8.0 mg/dL (8.6-10.8) L 02/26/17 04:25 Magnesium 1.7 mg/dL (1.6-2.6) 02/21/17 05:25 Consult Discharge Plan - Plan Additional Instructions: Follow [facility] at [facility] for evaluation of the adnexal mass. PCP. Nehrology for continuity of HD. Referrals: Dee Negron, LABORATORY AIDE [Primary Care Provider] - (possible going to ECF)
--- NOTE | 2017-02-26 14:09 | Discharge Summary ---
Date of Encounter: 02/26/17 Time of Encounter: 14:02 - Discharge Diagnosis (1) Hyperkalemia Priority: Primary Status: Acute (2) ESRD (end stage renal disease) on dialysis Priority: Secondary Status: Chronic (3) Type 2 diabetes mellitus Priority: Secondary Status: Acute Qualifiers: Diabetes mellitus complication status: with kidney complications Diabetes mellitus complication detail: with chronic kidney disease Diabetes mellitus alf insulin use: with watermaster use Chronic kidney disease stage: on chronic dialysis Qualified Code(s): E11.22 - Type 2 diabetes mellitus with diabetic chronic kidney disease; N18.6 - End stage renal disease; Z79.4 - jail (current) use of insulin; Z99.2 - Dependence on renal dialysis (4) Morbid obesity Priority: Secondary Status: Acute Qualifiers: Obesity type: unspecified obesity type Qualified Code(s): E66.01 - Morbid ( severe) obesity due to excess calories (5) Adnexal mass Priority: Secondary Status: Chronic (6) DVT prophylaxis Priority: Secondary Status: Acute (7) Weakness of both lower extremities Priority: Secondary Status: Acute - Discharge Medications Home Medications: Aspirin 81 mg PO DAILY 06/07/16 [History] Atorvastatin Calcium [Lipitor] 20 mg PO DAILY 06/07/16 [History] Gabapentin [Neurontin] 300 mg PO BID 06/07/16 [History] Insulin DETEMIR [Levemir Flextouch] 5 unit SQ QAM 06/07/16 [History] Insulin DETEMIR [Levemir Flextouch] 15 unit SQ QPM 06/07/16 [History] NIFEdipine [Nifedical Xl] 60 mg PO DAILY 06/07/16 [History] Carvedilol 12.5 mg PO BID 30 Days 06/10/16 [Rx] Oxygen 2.5 - 3 l NS AD PRN 10/18/16 [History] Albuterol Sulfate [Albuterol Inhaler] 2 puff IH Q4H PRN #0 inhaler 10/30/16 [Rx] Allopurinol [Zyloprim 100 MG] 100 mg PO Q48H 02/21/17 [History] Calcium Acetate [Phos-LO] 667 mg PO TID 02/21/17 [History] Ergocalciferol (VITAMIN D2) [Vitamin D2] 50,000 unit PO QWEEK 02/21/17 [History] Folic Acid 1 mg PO DAILY 02/21/17 [History] Tramadol HCl [Ultram] 50 mg PO TID PRN 02/21/17 [History] Vitamin B Complex 1 each PO DAILY 02/21/17 [History] Allergies/Adverse Reactions: Allergies Fish Containing Products Allergy (Verified 02/21/17 09:40) Anaphylaxis lisinopril Adverse Reaction (Verified 02/21/17 09:40) Cough Date of admission: 02/26/17 10:13 Primary care physician: Dee Negron CNP Discharging clinician: Geoffrey Lopez Anticipated date of discharge: 02/26/17 - Patient Status Disposition: Home Health Service Condition: Fair Functional capacity at discharge: uses cane/walker Overall status at discharge: patient is progressing back to baseline - Discharge Instructions Follow Up With: Dee Negron CNP [Primary Care Provider] - (possible going to [facility]) Additional Instructions: Follow up at [facility] for evaluation of the adnexal mass. PCP. Nehrology for continuity of HD. - Diet and Activity Activity: as per physical therapy Diet: other (Renal diet) Interval History: Ms. Fernández is a 51 year old female who presents with about a one-week history of profound weakness, diarrhea, decreased appetite, and nausea with occasional vomiting. She was seen in the ER and admitted to the hospitalist service for the above complaints. Of note, she is hyperkalemic. She is on chronic hemodialysis and missed her last 2 dialysis episodes because of her profound weakness. Prior to last week, she had been ambulating relatively well with a walker. However, since then, she was so weak she could not even bear weight. She has been bedbound since then. She denies any focal deficits. She does have an old stroke which has rendered her weak on her left side, but she has had some functional capacity until last week. Her daughter informs me that she was originally transferred from [place] to [facility] for concerns of a left lower abdominal mass in December of this year. She was due to have biopsy and further diagnostic workup at [facility], but she left [place]. She presented to our ER in December for concerns of UTI and kidney infection symptoms. She was found at that time to have a large left adnexal mass on CT scan in the ER. ER physician contacted our [employer]ER department who recommended transfer to [facility] for concerns of gynecologic malignancy. As such, she was transferred from the ER to [facility] and she signed out AMA a few days. She was due to undergo diagnostic workup, but she left the hospital they could proceed. She has not followed up with them since then. Her daughter inquires whether the current symptoms are related to the adnexal mass. She denies any increasing abdominal girth, any worsening edema over the legs, and/or chest pain. She will need to proceed with further diagnostic workup of her left adnexal mass. This will likely need to happen at a [facility]. Hospital course: Ms. Fernández is a 51 year old female admitted due to generalized weakness, hyperkalemia due to the fact the patient missed hemodialysis. The patient was evaluated by physical therapy and the patient in therapy, they recommended placement to inpatient rehabilitation facility. The patient has been refusing transfer to ECF multiple times, neonatal social worker has been talking to the patient and his family members however the patient insists in being discharged home. I spoke today with the patient in detail during hemodialysis, she states that she is going home today, she will not go to an extended care facility. The patient is alert, awake, oriented, she is able to make medical decisions. I strongly recommended this patient to go to an extended care facility for continuity of care and aggressive rehabilitation. However she declined once again. She was referred to [facility] for evaluation of the adnexal mass and has signed out multiple times, she has not completed diagnostic work up and no treatment yet. When asked again today, she reports that she is willing to go there after dc. She was notified about the increase in the size of the adnexal mass in the repeat CAT scan. Follow up at [facility] upon discharge. - Time Spent with Patient Total time spent providing and/or coordinating discharge services: - Constitutional Vitals: Temp Pulse Resp BP Pulse Ox 98.3 F 69 18 137/76 95 02/26/17 10:10 02/26/17 07:19 02/26/17 10:10 02/26/17 13:10 02/26/17 07:19 General appearance: Present: cooperative, A&O X 3, morbidly obese, pleasant - Head Head exam: Present: atraumatic, normocephalic - Eye Eye exam: Present: PERRL, conjuntiva pink, sclera anicteric Pupils: Present: PERRL - Neck Neck exam general surgery: Present: supple, trachea midline. Absent: lymphadenopathy - Respiratory Respiratory exam: Present: CTAB. Absent: accessory muscle use, rales, rhonchi, wheezes - Cardiovascular Cardiovascular exam: Present: RRR, +S1, +S2. Absent: diastolic murmur, gallop, rubs, systolic murmur - GI/Abdominal GI/Abdominal exam: Present: normal bowel sounds, soft, no peritoneal signs. Absent: distended, tenderness - Extremities Exam Extremities exam: Present: warm, radial pulses palpable and symetrical. Absent : calf tenderness, cyanotic, pedal edema - Neurological Exam Neurological exam: Present: CN II-XII intact, oriented X3, no focal deficits. Absent: pronater drift, facial droop, speech deficit - Skin Skin exam: Present: dry, intact
--- NOTE | 2017-02-26 14:16 | Physician Discharge Referral ---
Home Health/Hosp Referral Info Transfer to: Home Health - Diagnosis (1) Hyperkalemia Status: Acute (2) ESRD (end stage renal disease) on dialysis Status: Chronic (3) Type 2 diabetes mellitus Status: Acute (4) Morbid obesity Status: Acute (5) Adnexal mass Status: Chronic (6) DVT prophylaxis Status: Acute (7) Weakness of both lower extremities Status: Acute - Respiratory Orders Smoking Cessation: Smoking cessation has been advised. For more information, call the [place] Tobacco Quit Line at 7-338-GWHR-NOW. - Diet/Nutrition Diet/Nutrition Orders: Renal - Activity Activity: List: As per PT - Services Needed Following services are medically necessary services: Nursing, Home Health Aide, Physical Therapy, Occupational Therapy - Transfer Medications Home Medications: Aspirin 81 mg PO DAILY 06/07/16 [History] Atorvastatin Calcium [Lipitor] 20 mg PO DAILY 06/07/16 [History] Gabapentin [Neurontin] 300 mg PO BID 06/07/16 [History] Insulin DETEMIR [Levemir Flextouch] 5 unit SQ QAM 06/07/16 [History] Insulin DETEMIR [Levemir Flextouch] 15 unit SQ QPM 06/07/16 [History] NIFEdipine [Nifedical Xl] 60 mg PO DAILY 06/07/16 [History] Carvedilol 12.5 mg PO BID 30 Days 06/10/16 [Rx] Oxygen 2.5 - 3 l NS AD PRN 10/18/16 [History] Albuterol Sulfate [Albuterol Inhaler] 2 puff IH Q4H PRN #0 inhaler 10/30/16 [Rx] Allopurinol [Zyloprim 100 MG] 100 mg PO Q48H 02/21/17 [History] Calcium Acetate [Phos-LO] 667 mg PO TID 02/21/17 [History] Ergocalciferol (VITAMIN D2) [Vitamin D2] 50,000 unit PO QWEEK 02/21/17 [History] Folic Acid 1 mg PO DAILY 02/21/17 [History] Tramadol HCl [Ultram] 50 mg PO TID PRN 02/21/17 [History] Vitamin B Complex 1 each PO DAILY 02/21/17 [History] Allergies/Adverse Reactions: Allergies Fish Containing Products Allergy (Verified 02/21/17 09:40) Anaphylaxis lisinopril Adverse Reaction (Verified 02/21/17 09:40) Cough Certification: Further, I certify that my clinical findings support that this patient is homebound (i.e. absences from home require considerable and taxing effort and are for medical reasons or mandaeism services or infrequently or short duration when for other reasons) because: Homebound Reason: Patient requires assistance of a person or device to safely leave home, Leaving home requires considerable and taxing effort due to condition, Severity of cardiac or pulmonary status limits activity tolerance Attestation: My signature below is to certify that this patient is under my care and that I, or nurse practitioner, or a physician's executive assistant working with me, has a face-to -face encounter with this patient.
[2017-02-26] MEDS ORDERED: 0.9 % Sodium Chloride 2,000 ML ONE (16:08)
[2017-02-26] MEDS ORDERED: Gabapentin 300 MG CAPSULE PO SCH (19:00)
[2017-02-26] MEDS ORDERED: Insulin LISPRO 300 UNITS/3 ML VIAL SQ SCH (21:00)
[2017-02-26] MEDS: *HR* OxyCODONE Immed Rel 5 MG TABLET PO PRN (22:00)
[2017-02-27 05:05] LABS: Segmented Neutrophils % 66.7 %
[2017-02-27 05:06] LABS: Basophils # 0.1 K/mcL (0.0-0.2); Basophils % 0.8 %; Eosinophils # 0.4 K/mcL (0.0-0.6); Eosinophils % 4.9 %; Hematocrit 28.5 % (35.3-44.9); Immature Granulocytes % 0.8 % (0-4); Lymphocytes # 0.8 K/mcL (0.6-4.6); Lymphocytes % 10.5 %; Mean Corpuscular HGB Conc 28.1 g/dL (31.6-35.5); Mean Corpuscular Hemoglobin 27.3 pg (28.0-33.3); Mean Corpuscular Volume 97.3 fL (83.0-100.0); Mean Platelet Volume 10.7 fL (9.4-12.4); Monocytes # 1.2 K/mcL (0.0-1.3); Monocytes % 16.3 %; Neutrophils # 4.7 K/mcL (1.6-8.9); Nucleated Red Blood Cells 0.3 /100 WBC (0); Platelet Count 153 K/mcL (140-400); Red Blood Count 2.93 M/mcL (3.82-4.97); Red Cell Distribution Width 18.7 % (11.5-14.5)
[2017-02-27 05:18] LABS: Calcium 8.3 mg/dL (8.6-10.8); Potassium 4.3 mEq/L (3.5-4.5)
[2017-02-27 05:43] LABS: Hypochromasia Present (Not Present); Platelet Estimate Normal (Normal); Reactive Lymphocytes Present (Not Present)
[2017-02-27] MEDS: *HR* Heparin 5,000 UNIT/ML VIAL SQ SCH (05:48)
[2017-02-27 08:02] VITALS: BP 132/60
[2017-02-27] MEDS: Insulin LISPRO 300 UNITS/3 ML VIAL SQ SCH (08:26)
[2017-02-27] MEDS ORDERED: Gabapentin 300 MG CAPSULE PO SCH (09:00)
[2017-02-27] MEDS: Aspirin 81 MG TAB.CHEW PO SCH (09:13)
--- NOTE | 2017-02-27 10:55 | Nephrology Progress Note ---
Date of Encounter: 02/27/17 Time of Encounter: 10:52 - Assessment and Plan (1) ESRD (end stage renal disease) on dialysis Current Visit: Yes Status: Chronic HD MWF. Renal dose medications. Renal diet. For her small abrasion nursing is getting a band-aid. (2) DVT prophylaxis Current Visit: Yes Status: Acute per primary team. (3) Debility Current Visit: Yes Status: Acute She refuses to go to an ECF. (4) Debility Current Visit: Yes Status: Acute PT/OT. She need a SNF, but will only consent to one and that facility has rejected her. She is high risk for return to the hospital, but from a renal standpoint she has maximized her benefit from inpatient hospitalization. I spoke with primary team and she has maximized her benefit from inpatient hospitalization from their standpoint and will be discharged today. Subjective Principal diagnosis: ESRD Interval history: Patient seen. She has a small abrasion that is bleeding and she is applying a cloth. She has no other complaints and anticipates discharge today. Objective - Vital Signs Vital signs: Vital Signs Temp Pulse Resp BP Pulse Ox 02/27/17 07:57 98.6 F 67 17 132/60 95 02/27/17 03:48 98.1 F 68 13 188/80 99 02/26/17 23:15 98.9 F 73 19 161/69 93 02/26/17 22:00 93 02/26/17 19:39 99 F 69 16 130/61 93 02/26/17 14:50 98.3 F 18 147/79 02/26/17 14:46 98.4 F 69 18 171/68 99 02/26/17 13:55 137/74 02/26/17 13:40 135/65 02/26/17 13:25 157/67 02/26/17 13:10 137/76 02/26/17 12:55 159/67 02/26/17 12:40 155/69 02/26/17 12:25 154/66 02/26/17 12:10 169/66 02/26/17 11:55 154/61 02/26/17 11:40 152/66 02/26/17 11:25 114/52 02/26/17 11:10 119/58 02/26/17 10:55 121/53 Intake and Output 0502/27/17 02/27/17 23:59 07:59 15:59 Intake Total 1600 / 1600 120 / 120 Balance 1600 / 1600 120 / 120 Intake: Oral 1600 / 1600 120 / 120 Other: Meal Breakfast Percent of Meal Consumed 100% Weight 172.6 kg Blood Glucose* 114 94 Patient Weight 02/27/17 23:59 Weight 172.6 kg - General Appearance General appearance: Present: well-developed, well-nourished, obese EENT: Present: ATNC Neck: Present: supple Cardiology: Present: regular rate Gastrointestinal: Present: obese Additional Comments: Small abrasion on the left knee with a small amount of blood. Psychiatric: Present: mood/affect appropriate - Lab 02/27/17 04:24 02/27/17 04:24 Most recent lab results ABG pH 7.30 pH Units (7.32-7.45) L 02/23/17 21:49 ABG pCO2 66 mmHg (35-45) H 02/23/17 21:49 ABG pO2 99 mmHg (85-104) 02/23/17 21:49 ABG HCO3 32.5 mEQ/L (21-27) H 02/23/17 21:49 ABG O2 Saturation 97 % (95-98) 02/23/17 21:49 Calcium 8.3 mg/dL (8.6-10.8) L 02/27/17 04:24 Magnesium 1.7 mg/dL (1.6-2.6) 02/21/17 05:25 Consult Discharge Plan - Plan Instructions: Diabetes Mellitus Type 2 in Adults (DC), Anemia (GEN), End-Stage Kidney Disease (DC) Additional Instructions: Follow up at [facility] for evaluation of the adnexal mass. PCP. Nehrology for continuity of HD. Referrals: Dee Negron, DOCUMENT CONTROL SUPERVISOR [Primary Care Provider] - (possible going to [facility])
--- NOTE | 2017-02-27 10:59 | Internal Med Progress Note ---
Date of Encounter: 02/27/17 Time of Encounter: 10:57 - Assessment and plan (1) Hyperkalemia Current Visit: Yes Status: Acute Assessment and plan: Corrected. patient discharged to home, she was offered the chance to go to ECF, however she declined, she does not wan to go a rehab center. (2) ESRD (end stage renal disease) on dialysis Current Visit: Yes Status: Chronic Assessment and plan: folow nephorlogy input, hd as per nephrology. (3) Type 2 diabetes mellitus Current Visit: No Status: Acute Qualifiers: Diabetes mellitus complication status: with kidney complications Diabetes mellitus complication detail: with chronic kidney disease Diabetes mellitus assisted insulin use: with termite treater use Chronic kidney disease stage: on chronic dialysis Qualified Code(s): E11.22 - Type 2 diabetes mellitus with diabetic chronic kidney disease; N18.6 - End stage renal disease; Z79.4 - adjunct faculty for medical terminology (current) use of insulin; Z99.2 - Dependence on renal dialysis (4) Morbid obesity Current Visit: Yes Status: Acute Qualifiers: Obesity type: unspecified obesity type Qualified Code(s): E66.01 - Morbid ( severe) obesity due to excess calories (5) Adnexal mass Current Visit: Yes Status: Chronic Assessment and plan: she was referred to [facility] for evaluation of the adnexal mass and has signed out multiple times. she has not completed diagnostic work up and no treatmnet yet. When asked again today, she reports that she is willling to go there after dc. She was notified about the increase in the size of the adnexal mass in the repeat CAT scan. [facility] upon [facility]. (6) DVT prophylaxis Current Visit: Yes Status: Acute (7) Weakness of both lower extremities Current Visit: Yes Status: Acute - Subjective Interval history: feels comofrtable today, not in distress, no chest pain. - Constitutional Vitals: Temp Pulse Resp BP Pulse Ox 98.6 F 67 17 132/60 95 02/27/17 07:57 02/27/17 07:57 02/27/17 07:57 02/27/17 07:57 02/27/17 07:57 General appearance: Present: cooperative, A&O X 3, morbidly obese, pleasant - Head Head exam: Present: atraumatic, normocephalic - Eye Eye exam: Present: PERRL, conjuntiva pink, sclera anicteric Pupils: Present: PERRL - Neck Neck exam general surgery: Present: supple, trachea midline. Absent: lymphadenopathy - Respiratory Respiratory exam: Present: CTAB. Absent: accessory muscle use, rales, rhonchi, wheezes - Cardiovascular Cardiovascular exam: Present: RRR, +S1, +S2. Absent: diastolic murmur, gallop, rubs, systolic murmur - GI/Abdominal GI/Abdominal exam: Present: normal bowel sounds, soft, no peritoneal signs. Absent: distended, tenderness - Extremities Exam Extremities exam: Present: warm, radial pulses palpable and symetrical. Absent : calf tenderness, cyanotic, pedal edema - Neurological Exam Neurological exam: Present: CN II-XII intact, oriented X3, no focal deficits. Absent: pronater drift, facial droop, speech deficit - Skin Skin exam: Present: dry, intact Internal Medicine: Result - Labs CBC & Chem 7: 02/27/17 04:24 02/27/17 04:24 Labs: Short CBC 02/27/17 Range/Units 04:24 WBC 7.1 (4.3-11.1) K/mcL Hgb 8.0 L (11.5-15.4) g/dL Hct 28.5 L (35.3-44.9) % Plt Count 153 (140-400) K/mcL Neutrophils # 4.7 (1.6-8.9) K/mcL BMP 02/27/17 04:24 Sodium 133 L Potassium 4.3 Chloride 98 Carbon Dioxide 29 BUN 24 H D Creatinine 4.11 H Glucose 91 Calcium 8.3 L - ABG Interpretation ABG results: ABG ABG pH 7.30 pH Units (7.32-7.45) L 02/23/17 21:49 ABG pCO2 66 mmHg (35-45) H 02/23/17 21:49 ABG pO2 99 mmHg (85-104) 02/23/17 21:49 ABG O2 Saturation 97 % (95-98) 02/23/17 21:49 Consult Discharge Plan - Plan Instructions: Diabetes Mellitus Type 2 in Adults (DC), Anemia (GEN), End-Stage Kidney Disease (DC) Additional Instructions: Follow up at [facility] for evaluation of the adnexal mass. PCP. Nehrology for continuity of HD. Referrals: Dee Negron, ASSISTANT BASEBALL COACH [Primary Care Provider] - (possible going to [facility])
== END 2017-02-27 11:56 | disposition home health service (06) | DRG 425 ==
LOC: EMEROO 21:04 → 2ANU 21:04
PROVIDERS: ADMIT Pediatrics; ATTEND Internal Medicine

== ENCOUNTER 2017-04-13 07:03 | Inpatient (IN) ==
[2017-04-13] MEDS ORDERED: *HR* Dextrose 50 % in Water (Syg) 50 ML SYRINGE ONE (07:08)
[2017-04-13] MEDS ORDERED: Ipratropium/Albuterol Neb 3 ML ONE (07:11)
[2017-04-13] MEDS ORDERED: *HR* Dextrose 50 % in Water (Syg) 50 ML SYRINGE IVP ONE ×2 (07:12→09:11)
[2017-04-13] MEDS ORDERED: Ipratropium/Albuterol Neb 3 ML IH ONE ×3 (07:12→07:14)
[2017-04-13] MEDS ORDERED: 0.9 % Sodium Chloride 1,000 ML ONE (07:19)
[2017-04-13] MEDS: *HR* Dextrose 50 % in Water (Syg) 50 ML SYRINGE IVP ONE (07:19)
[2017-04-13] MEDS ORDERED: 0.9 % Sodium Chloride 1,000 ML IVC ONE (07:24)
[2017-04-13 07:36] LABS: Basophils % 0.2 %; Eosinophils # 0.1 K/mcL (0.0-0.6); Eosinophils % 1.2 %; Hematocrit 32.2 % (35.3-44.9); Hemoglobin 9.5 g/dL (11.5-15.4); Immature Granulocytes % 0.9 % (0-4); Lymphocytes # 0.3 K/mcL (0.6-4.6); Lymphocytes % 3.4 %; Mean Corpuscular HGB Conc 29.5 g/dL (31.6-35.5); Mean Corpuscular Volume 91.5 fL (83.0-100.0); Mean Platelet Volume 9.1 fL (9.4-12.4); Monocytes # 1.2 K/mcL (0.0-1.3); Monocytes % 12.5 %; Neutrophils # 7.6 K/mcL (1.6-8.9); Platelet Count 166 K/mcL (140-400); Red Blood Count 3.52 M/mcL (3.82-4.97); Red Cell Distribution Width 17.7 % (11.5-14.5); Segmented Neutrophils % 81.8 %
[2017-04-13 07:41] LABS: INR 1.5; Prothrombin Time 16.4 Seconds (9.4-12.1)
[2017-04-13 07:44] LABS: Activated Partial Thrombo Time 32.5 Seconds (26.0-36.0)
[2017-04-13 07:54] LABS: Albumin 2.7 g/dL (3.5-5.0); Albumin/Globulin Ratio 0.5 (1.1-2.2); Bilirubin,Direct 0.8 mg/dL (0.0-0.5); Bilirubin,Indirect 0.2 mg/dL (0.0-1.2); Globulin 5.7 g/dL (2.4-3.5); Magnesium 1.6 mg/dL (1.6-2.6); Phosphorous 5.6 mg/dL (2.3-4.7); Potassium 4.6 mEq/L (3.5-4.5); Total Protein 8.4 g/dL (6.0-8.3)
--- NOTE | 2017-04-13 08:36 | Emergency Department Note ---
Disposition Clinical Impression: Hypoglycemia, CKD (chronic kidney disease) stage 5, GFR less than 15 ml/min Pulmonary edema Qualifiers: Chronicity: chronic Qualified Code(s): J81.1 - Chronic pulmonary edema Type 2 diabetes mellitus Qualifiers: Diabetes mellitus complication status: with hypoglycemia Diabetes mellitus complication detail: without coma Diabetes mellitus bid manager insulin use: with prison use Qualified Code(s): E11.649 - Type 2 diabetes mellitus with hypoglycemia without coma; Z79.4 - pump erector helper (current) use of insulin Disposition: Admitted As Inpatient Condition: Fair Referrals: Dee Negron, LANGUAGE TEACHER [Primary Care Provider] - Forms: ED Satisfaction Letter Time of Disposition: 09:46 Altered Mental Status HPI - General Chief Complaint: ED Altered Mental Status Stated Complaint: Unresponsive Time Seen by Provider: 04/13/17 07:06 Source: EMS Mode of arrival: EMS Limitations: altered mental status, physical limitation Nursing Notes Reviewed: Yes Vital Signs Reviewed: Yes - History of Present Illness HPI Narrative: Patient presents by EMS after having issues of altered mental status at home. EMS present the hospital and our prior coming emergency room. Patient was lying in her bed and attempted to get up out of bed to bring her to the ER to unresponsive according to them. Patient stable vital signs and transit attempt to get an Accu-Chek and it read as low. No intervention was provided interns except for transport here to the emergency room. Patient according to EMS and the family who arrived later had recently been discharged from the hospital after being admitted and evaluated for respiratory failure cardiac arrest and end-stage renal disease requiring arteriovenous fistula in the left arm. 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 Timing confirmed by: family member Consistency of Symptoms: constant Context: other - Related Data Home Medications Medication Instructions Recorded Confirmed Aspirin 81 mg PO DAILY 06/07/16 02/21/17 Atorvastatin Calcium [Lipitor] 20 mg PO DAILY 06/07/16 02/21/17 Gabapentin [Neurontin] 300 mg PO BID 06/07/16 02/21/17 Insulin DETEMIR [Levemir Flextouch] 5 unit SQ QAM 06/07/16 02/21/17 Insulin DETEMIR [Levemir Flextouch] 15 unit SQ QPM 06/07/16 02/21/17 NIFEdipine [Nifedical Xl] 60 mg PO DAILY 06/07/16 02/21/17 Oxygen 2.5 - 3 l NS AD PRN 10/18/16 02/21/17 Allopurinol [Zyloprim 100 MG] 100 mg PO Q48H 02/21/17 02/21/17 Calcium Acetate [Phos-LO] 667 mg PO TID 02/21/17 02/21/17 Ergocalciferol (VITAMIN D2) 50,000 unit PO QWEEK 02/21/17 02/21/17 [Vitamin D2] Folic Acid 1 mg PO DAILY 02/21/17 02/21/17 Vitamin B Complex 1 each PO DAILY 02/21/17 02/21/17 Furosemide [Lasix] 20 mg PO DAILY PRN 04/13/17 04/13/17 Furosemide [Lasix] 80 mg PO DAILY PRN 04/13/17 04/13/17 Previous Rx's Medication Instructions Recorded Carvedilol 12.5 mg PO BID 30 Days 06/10/16 Albuterol Sulfate [Albuterol 2 puff IH Q4H PRN #0 inhaler 10/30/16 Inhaler] Allergies Allergy/AdvReac Type Severity Reaction Status Date / Time Fish Containing Products Allergy Anaphylaxis Verified 02/21/17 09:40 lisinopril AdvReac Cough Verified 02/21/17 09:40 Limitations: ROS unobtainable due to patients medical condition Past Medical History - Past Medical History Attestation: Yes The following information was validated with the patient. Source: old records reviewed, obtained from family Medical history: Reports: coronary artery disease, CVA, diabetes, dialysis, hyperlipidemia, hypertension, renal disease, venous stasis, other Surgical history: Reports: no surgical history Psychiatric history: Reports: no psych history ACUTE CARE PHYSICIAN history: Reports: no ACUTE CARE PHYSICIAN history - Social History Smoking Status: Never smoker Smokeless Tobacco Status: No Alcohol use: Reports: none Drug use: Reports: none Physical Exam - General Limitations: altered mental status, physical limitation General appearance: obese, other - Head Head exam: atraumatic, normocephalic, normal inspection - Eye Eye exam: Present: normal appearance, PERRL, EOMI. Absent: scleral icterus, conjunctival injection - Chest Chest inspection: Present: normal inspection, symmetric chest wall rise - Respiratory Respiratory exam: Present: normal lung sounds bilaterally. Absent: respiratory distress, wheezes - Cardiovascular Cardiovascular exam: Present: regular rate - Abdominal Exam Abdominal exam: Present: soft, Non-Tender, normal bowel sounds. Absent: tenderness, distention, guarding, rebound, rigidity, Donohue's sign, Rovsing's sign, tenderness at McBurney's Point - Extremities Exam Extremities exam: Present: normal capillary refill, pedal edema. Absent: tenderness, calf tenderness - Back Exam Back exam: Present: normal inspection, full ROM. Absent: tenderness - Skin Skin exam: Present: warm, dry, intact, normal color Course Course Narrative: Patient seen and examined the time of arrival to the emergency room by EMS. 51- year-old female presented unresponsive from home. EMS was called to the hospital the patient was found to decrease responsiveness by family. Family last seen her on Wednesday night. Patient was just admitted and discharged from the hospital several days ago after being treated for end-stage renal disease. She had an AV fistula placed. During that procedure she became apneic and hypercarbic and had a cardiac arrest secondary to these interventions. She was resuscitated immediately at that time. She was discharged home at her request. They did recommend she go to an assisted living facility for continued medical care with the patient refused to do so. Vital signs on presentation here heart rate was 50-60 blood pressure was stable oxygenation was 98- 100% on room air. Mental status is significantly diminished. Bedside Accu-Chek was collected on presentation was read as 14. No IV access or medical interventions provided by EMS in transit. They did not have any other physical findings including trauma or injury at that time. Patient otherwise presented with no visible signs of trauma or underlying medical issues at this point. Immediately IV access was obtained and 2 A of dextrose were given. Patient is neurologic evaluation is completed at the bedside by myself head is atraumatic pupils are equal round and reactive to light. Minimal gag reflex but patient was maintaining airway and breathing on her own. Cardiac ultrasounds completed by myself at the bedside there is good contractility with no visible signs of pericardial effusion or fluid. Bilateral lungs had wheezing but were stable. Abdomen is soft nontender nondistended. Surgical site appeared to be stable. Tunnel dialysis catheter and right upper chest wall was normal. Patient is concerning for hypoglycemic event of unknown etiology. Could be secondary to medications or infectious etiology. Detailed lab evaluation clueing CT of the head chest x-ray and blood cultures urinalysis to be ordered at this time. 2 IVs be obtained fluids to be given. We will continue to check Accu-Cheks every 30 minutes until patient stable. Patient will be evaluated here in the emergency room for long-acting medications and disposition be determined. Family arrived at the bedside after resuscitation process that started and there is saying that they had not seen her since Wednesday she has been taking care of herself may do not know the medications that they have. There is concern for patient being unable to take care of herself at home and poorly educated to her medical conditions and how to manage them. Disposition pending treatment course. Patient is under the care of Dr. Mccabe for her dialysis and will contact him for his recommendations albuterol and ipratropium breathing treatments given at this time. - Reevaluation(s) Reevaluation #1: Patient is now alert and oriented 3. Denies any recent trauma or injuries. Labs appear to be stable at this point chronically anemic, kidney function appears to be at baseline. Potassium is 4.6. EKG was reviewed by side myself at the bedside immediately on presentation showing normal sinus rhythm with no acute signs of ST segment elevation or pathology. The T waves appear to be stable. This was compared to an EKG performed on 02/25/17 chest x-ray reviewed and shows no acute signs of pulmonary infiltrate. CT imaging to be evaluated. Patient is ambulatory at this time will repeat Accu-Chek in and discuss disposition. Medical student to be collected by the pharmacist in the emergency room. We will continue to monitor as treatment course is completed Time: 08:25 Reevaluation #2: Patient found a stable chest x-ray mild pulmonary congestion. Patient is not hypoxic and is resting comfortably in the bed. Will not acutely treat this time. We will start passive fluids of D5 half-normal saline at 100 per hour. 3. Accu-Chek was collected after patient ate a meal and42. Repeat dosage of D50 will be given at this time. Patient will not require admission to the hospital for refractory hypoglycemia no other acute etiology. Urinalysis is still pending. Troponin 0.04 with no acute EKG changes. Patient is otherwise comfortable resting in the bed. We will continue to monitor his treatment course is completed. Aspirin to be given here. Patient will be admitted for refractory hypoglycemia this time. Hospice patient at this point admission process to be completed Time: 09:43 Reevaluation #3: Patient discussed with the hospitalist Dr Anaya. We reviewed the presentation symptoms and refractory hypoglycemia. Reviewed the presentation symptoms medical intervention as well as the refractory hypoglycemia requiring intermittent doses of dextrose here. No other recommendations this time. Patient will be brought in for unknown etiology of hypoglycemia failure to thrive and poor outpatient care. Patient is otherwise stable. Consult placed into the group chief operator. We will continue to monitor his admission process is completed. Time: 10:05 - Consultations Consultation #1: Discussed the patient with the on-call group chief operator. Review the presentation symptoms and medical history. No other concerns at this point. We will continue to monitor here. He will happily follow up as an inpatient or as an outpatient if symptoms are resolved. Patient otherwise is stable we will continue to monitor here Vital Signs Temperature 0 F L 04/13/17 07:05 Pulse Rate 66 04/13/17 07:05 Respiratory Rate 16 04/13/17 07:05 Blood Pressure 138/117 04/13/17 07:05 O2 Sat by Pulse Oximetry 100 04/13/17 07:05 Temperature 0 F L 04/13/17 07:05 Pulse Rate 57 04/13/17 07:47 Respiratory Rate 18 04/13/17 07:47 Blood Pressure 104/44 04/13/17 07:47 O2 Sat by Pulse Oximetry 99 04/13/17 07:47 Oxygen Delivery Oxygen Delivery Nasal Cannula Altered Mental Status - MDM Narrative Medical decision making narrative: Hypoglycemia, altered mental status, failure to thrive, - Medical Records Medical records reviewed: Yes I reviewed the patient's medical records. - Lab Data Lab results reviewed: Yes I reviewed the patient's lab results. Result diagrams: 04/13/17 07:27 04/13/17 07:27 Lab Results 04/13/17 04/13/17 04/13/17 Range/Units 07:05 07:12 07:23 WBC (4.3-11.1) K/mcL RBC (3.82-4.97) M/mcL Hgb (11.5-15.4) g/dL Hct (35.3-44.9) % MCV (83.0-100.0) fL MCH (28.0-33.3) pg MCHC (31.6-35.5) g/dL RDW (11.5-14.5) % Plt Count (140-400) K/mcL MPV (9.4-12.4) fL Immature Gran % (0-4) % Seg Neutrophils % % Lymphocytes % % Monocytes % % Eosinophils % % Basophils % % Neutrophils # (1.6-8.9) K/mcL Lymphocytes # (0.6-4.6) K/mcL Monocytes # (0.0-1.3) K/mcL Eosinophils # (0.0-0.6) K/mcL Basophils # (0.0-0.2) K/mcL PT (9.4-12.1) Seconds INR APTT (26.0-36.0) Seconds Sodium (136-145) mEq/L Potassium (3.5-4.5) mEq/L Chloride (98-109) mEq/L Carbon Dioxide (19-29) mEq/L BUN (7-20) mg/dL Creatinine (0.57-1.11) mg/dL Est GFR ( Amer) (> 60) Est GFR (Non-Af Amer) (> 60) BUN/Creatinine Ratio (6-26) Glucose (70-99) mg/dL POC Glucose 14 L* 66 83 (58-89) Calculated Osmolality (280-300) Lactic Acid (0.5-2.2) mmol/L Calcium (8.6-10.8) mg/dL Phosphorus (2.3-4.7) mg/dL Magnesium (1.6-2.6) mg/dL Total Bilirubin (0.2-1.2) mg/dL Direct Bilirubin (0.0-0.5) mg/dL Indirect Bilirubin (0.0-1.2) mg/dL AST (5-34) Units/L ALT (0-55) Units/L Alkaline Phosphatase (38-126) Units/L Troponin I (0-0.03) ng/mL Serum Total Protein (6.0-8.3) g/dL Albumin (3.5-5.0) g/dL Globulin (2.4-3.5) g/dL Albumin/Globulin Ratio (1.1-2.2) 04/13/17 04/13/17 04/13/17 Range/Units 07:27 07:27 07:27 WBC 9.3 (4.3-11.1) K/mcL RBC 3.52 L (3.82-4.97) M/mcL Hgb 9.5 L (11.5-15.4) g/dL Hct 32.2 L (35.3-44.9) % MCV 91.5 (83.0-100.0) fL MCH 27.0 L (28.0-33.3) pg MCHC 29.5 L (31.6-35.5) g/dL RDW 17.7 H (11.5-14.5) % Plt Count 166 (140-400) K/mcL MPV 9.1 L (9.4-12.4) fL Immature Gran % 0.9 (0-4) % Seg Neutrophils % 81.8 % Lymphocytes % 3.4 % Monocytes % 12.5 % Eosinophils % 1.2 % Basophils % 0.2 % Neutrophils # 7.6 (1.6-8.9) K/mcL Lymphocytes # 0.3 L (0.6-4.6) K/mcL Monocytes # 1.2 (0.0-1.3) K/mcL Eosinophils # 0.1 (0.0-0.6) K/mcL Basophils # 0.0 (0.0-0.2) K/mcL PT 16.4 H (9.4-12.1) Seconds INR 1.5 APTT 32.5 (26.0-36.0) Seconds Sodium 138 (136-145) mEq/L Potassium 4.6 H (3.5-4.5) mEq/L Chloride 101 (98-109) mEq/L Carbon Dioxide 24 (19-29) mEq/L BUN 95 H (7-20) mg/dL Creatinine 6.55 H (0.57-1.11) mg/dL Est GFR ( Amer) 8 L (> 60) Est GFR (Non-Af Amer) 7 L (> 60) BUN/Creatinine Ratio 15 (6-26) Glucose 133 H (70-99) mg/dL POC Glucose (58-89) Calculated Osmolality 317 H (280-300) Lactic Acid (0.5-2.2) mmol/L Calcium 8.0 L (8.6-10.8) mg/dL Phosphorus 5.6 H (2.3-4.7) mg/dL Magnesium 1.6 (1.6-2.6) mg/dL Total Bilirubin 1.0 (0.2-1.2) mg/dL Direct Bilirubin 0.8 H (0.0-0.5) mg/dL Indirect Bilirubin 0.2 (0.0-1.2) mg/dL AST 17 (5-34) Units/L ALT 11 (0-55) Units/L Alkaline Phosphatase 255 H (38-126) Units/L Troponin I (0-0.03) ng/mL Serum Total Protein 8.4 H (6.0-8.3) g/dL Albumin 2.7 L (3.5-5.0) g/dL Globulin 5.7 H (2.4-3.5) g/dL Albumin/Globulin Ratio 0.5 L (1.1-2.2) 04/13/17 04/13/17 04/13/17 Range/Units 07:27 07:27 07:53 WBC (4.3-11.1) K/mcL RBC (3.82-4.97) M/mcL Hgb (11.5-15.4) g/dL Hct (35.3-44.9) % MCV (83.0-100.0) fL MCH (28.0-33.3) pg MCHC (31.6-35.5) g/dL RDW (11.5-14.5) % Plt Count (140-400) K/mcL MPV (9.4-12.4) fL Immature Gran % (0-4) % Seg Neutrophils % % Lymphocytes % % Monocytes % % Eosinophils % % Basophils % % Neutrophils # (1.6-8.9) K/mcL Lymphocytes # (0.6-4.6) K/mcL Monocytes # (0.0-1.3) K/mcL Eosinophils # (0.0-0.6) K/mcL Basophils # (0.0-0.2) K/mcL PT (9.4-12.1) Seconds INR APTT (26.0-36.0) Seconds Sodium (136-145) mEq/L Potassium (3.5-4.5) mEq/L Chloride (98-109) mEq/L Carbon Dioxide (19-29) mEq/L BUN (7-20) mg/dL Creatinine (0.57-1.11) mg/dL Est GFR ( Amer) (> 60) Est GFR (Non-Af Amer) (> 60) BUN/Creatinine Ratio (6-26) Glucose (70-99) mg/dL POC Glucose 65 (58-89) Calculated Osmolality (280-300) Lactic Acid 0.6 (0.5-2.2) mmol/L Calcium (8.6-10.8) mg/dL Phosphorus (2.3-4.7) mg/dL Magnesium (1.6-2.6) mg/dL Total Bilirubin (0.2-1.2) mg/dL Direct Bilirubin (0.0-0.5) mg/dL Indirect Bilirubin (0.0-1.2) mg/dL AST (5-34) Units/L ALT (0-55) Units/L Alkaline Phosphatase (38-126) Units/L Troponin I 0.04 H* (0-0.03) ng/mL Serum Total Protein (6.0-8.3) g/dL Albumin (3.5-5.0) g/dL Globulin (2.4-3.5) g/dL Albumin/Globulin Ratio (1.1-2.2) 04/13/17 Range/Units 09:10 WBC (4.3-11.1) K/mcL RBC (3.82-4.97) M/mcL Hgb (11.5-15.4) g/dL Hct (35.3-44.9) % MCV (83.0-100.0) fL MCH (28.0-33.3) pg MCHC (31.6-35.5) g/dL RDW (11.5-14.5) % Plt Count (140-400) K/mcL MPV (9.4-12.4) fL Immature Gran % (0-4) % Seg Neutrophils % % Lymphocytes % % Monocytes % % Eosinophils % % Basophils % % Neutrophils # (1.6-8.9) K/mcL Lymphocytes # (0.6-4.6) K/mcL Monocytes # (0.0-1.3) K/mcL Eosinophils # (0.0-0.6) K/mcL Basophils # (0.0-0.2) K/mcL PT (9.4-12.1) Seconds INR APTT (26.0-36.0) Seconds Sodium (136-145) mEq/L Potassium (3.5-4.5) mEq/L Chloride (98-109) mEq/L Carbon Dioxide (19-29) mEq/L BUN (7-20) mg/dL Creatinine (0.57-1.11) mg/dL Est GFR ( Amer) (> 60) Est GFR (Non-Af Amer) (> 60) BUN/Creatinine Ratio (6-26) Glucose (70-99) mg/dL POC Glucose 42 L* (58-89) Calculated Osmolality (280-300) Lactic Acid (0.5-2.2) mmol/L Calcium (8.6-10.8) mg/dL Phosphorus (2.3-4.7) mg/dL Magnesium (1.6-2.6) mg/dL Total Bilirubin (0.2-1.2) mg/dL Direct Bilirubin (0.0-0.5) mg/dL Indirect Bilirubin (0.0-1.2) mg/dL AST (5-34) Units/L ALT (0-55) Units/L Alkaline Phosphatase (38-126) Units/L Troponin I (0-0.03) ng/mL Serum Total Protein (6.0-8.3) g/dL Albumin (3.5-5.0) g/dL Globulin (2.4-3.5) g/dL Albumin/Globulin Ratio (1.1-2.2) - Radiology Data Radiology results reviewed: Yes I reviewed the patient's radiology results. Chest x-ray shows mild pulmonary congestion with possible effusion. CT head is negative for acute intracranial pathology at this time. Reviewed by myself and confirmed by the radiologist - EKG Data EKG attestation: Yes I reviewed and interpreted this EKG. EKG shows normal: sinus rhythm, axis, intervals, QRS complexes, ST-T waves Rate: normal Rhythm: NSR [place]/QRS: normal When compared to previous EKG there are: no significant changes Interpretation: no acute changes, unchanged when compared to prior tracing (date ) (02/25/17) TPA Checklist - LKW: 3-4.5 hrs Add. Warnings/Precautions Patient/family understanding: The patient/family members have been counseled and understood the risk, benefit , and alternatives of treatment. Critical Care Time Critical Care Time: Yes Total Critical Care Time: 45 Attestation: Independent of medical management and intervention.
[2017-04-13] MEDS ORDERED: D5% in 0.45% NACL 1,000 ML IVC SCH (09:15)
[2017-04-13] MEDS ORDERED: Naloxone 0.4 MG/ML INJ IVP PRN (09:59)
[2017-04-13] MEDS ORDERED: Ondansetron 4 MG/2 ML VIAL IVP PRN (09:59)
[2017-04-13] MEDS ORDERED: Aspirin 81 MG TAB.CHEW PO STA (10:02)
[2017-04-13] MEDS ORDERED: D5% in Water 1,000 ML IVC PRN (10:03)
[2017-04-13] MEDS ORDERED: Dextrose Gel 15 GM PO PRN ×2 (10:03)
[2017-04-13] MEDS ORDERED: *HR* Dextrose 50 % in Water (Syg) 50 ML SYRINGE IVP PRN (10:03)
[2017-04-13] MEDS ORDERED: NON-FORMULARY MEDICATION 1 EACH EACH (Oxygen [Oxygen] 3 L) NS SCH (10:15)
--- NOTE | 2017-04-13 11:09 | Internal Med History&Physical ---
Date of Encounter: 04/13/17 Time of Encounter: 10:30 Assessment and Plan (1) Altered mental state Current visit: No Status: Acute Acute encephalopathy, metabolic - secondary to hypoglycemia (unclear etiology) or possible new CVA, or possibly due to obesity hypoventilation/CHARLES Glucose checks, dextrose as needed, hold insulin Continue aspirin, statin Chest x-ray - cardiomegaly with pulmonary congestion CT head - no acute intracranial process EKG - normal sinus rhythm with no acute ST-T changes Echocardiogram (October 2016) - LVEF 50% with moderate diastolic dysfunction Nuclear stress test (January 2017) - Gated EF 71%, negative for ischemia or infarct Labs in a.m. Neurology consult Qualifiers: Altered mental status type: transient alteration of awareness Qualified Code(s): R40.4 - Transient alteration of awareness (2) CVA (cerebral vascular accident) Current visit: Yes Status: Chronic History of CVA with left-sided hemiparesis Continue aspirin and statin Qualifiers: CVA mechanism: thrombosis Precerebral and cerebral artery: unspecified precerebral artery Qualified Code(s): I63.00 - Cerebral infarction due to thrombosis of unspecified precerebral artery (3) HTN (hypertension) Current visit: No Status: Chronic Essential hypertension, controlled, Continue meds Qualifiers: Hypertension type: essential hypertension Qualified Code(s): I10 - Essential (primary) hypertension (4) Diabetes mellitus Current visit: No Status: Chronic Thank you diabetes, insulin-dependent, hypoglycemia glucose checks, will hold insulin Qualifiers: Diabetes mellitus type: type 2 Diabetes mellitus complication status: with skin complications Diabetes mellitus complication detail: with other skin complication Diabetes mellitus manager terminal insulin use: with manager terminal use Qualified Code(s): E11.628 - Type 2 diabetes mellitus with other skin complications; Z79.4 - care home (current) use of insulin (5) Super-super obese Current visit: No Status: Chronic BMI greater than 70 (6) COPD (chronic obstructive pulmonary disease) Current visit: No Status: Chronic Chronic COPD, with mild exacerbation Continue DuoNeb breathing treatments, continue BiPAP Qualifiers: COPD type: unspecified COPD Qualified Code(s): J44.9 - Chronic obstructive pulmonary disease, unspecified (7) ESRD (end stage renal disease) on dialysis Current visit: No Status: Chronic On hemodialysis on Wednesday - HD via right subclavian catheter Recent left forearm AV fistula placed Nephrology consultation (8) Anemia Current visit: No Status: Chronic Chronic anemia secondary to iron deficiency and end-stage renal disease H&H stable, monitor Qualifiers: Anemia type: iron deficiency Iron deficiency anemia type: unspecified iron deficiency Qualified Code(s): D50.9 - Iron deficiency anemia, unspecified (9) Obstructive sleep apnea Current visit: Yes Status: Chronic Obstructive sleep apnea on CPAP, with obesity hypoventilation Continue BiPAP (10) Lymphedema of both lower extremities Current visit: Yes Status: Chronic Chronic lymphedema, chronic venous stasis (11) Physical deconditioning Current visit: Yes Status: Chronic Morbid obesity, with physical deconditioning, bedbound - nonambulatory oil well services supervisor consult, PT consult (12) Adnexal mass Current visit: No Status: Chronic Patient is referred to [facility] multiple times for adnexal mass, but has signed out AGAINST MEDICAL ADVICE Has not completed diagnostic workup Daughter states she does not want patient to undergo surgery at this time for the mass. (13) DVT prophylaxis Current visit: No Status: Acute Continue heparin subcutaneous Internal Medicine - H&P: HPI Chief complaint: Altered mental status Admitted From: Emergency Dept History of present illness: Ms. Fernández is a 51 year old female with past medical history of coronary artery disease, CVA, diabetes, end-stage renal disease on hemodialysis, hyperlipidemia , hypertension, adnexal mass, obstructive sleep apnea and chronic venous stasis. Patient was brought to the ED via EMS after having altered mental status at home early this morning. Patient was apparently found unresponsive by a family member. Initial blood glucose reading was 14. Patient has been given 2 A of dextrose in the ED and glucose has now improved, but she continues to be drowsy. On examination patient is drowsy, but easily wakes up. She is a poor historian. Daughter is at bedside and provides all history. Patient is apparently bed bound most of the time, and she has family check on her frequently. Daughter states today that the patient's mental status is slightly worse than her baseline. Patient does have chronic left hemiparesis from a previous CVA. At present patient's speech seems normal, she is oriented to place and person but not to time today. Daughter thinks that the patient may have had a new stroke, because patient had similar symptoms in the past preceding the stroke. CT head is negative for any acute intracranial process and chest x-ray reveals cardiomegaly with pulmonary congestion. EKG shows normal sinus rhythm. ED physician I discussed with patient's business records manager Dr Mccabe, and he will evaluate patient in the hospital. Troponin slightly elevated at 0.04, will trend. Daughter states patient was apparently at baseline yesterday, and this is a new development. Daughter states patient was recently discharged from the hospital at [place] after being treated for end-stage renal disease. She had an AV fistula placed in the left forearm. Patient apparently had an apneic episode and also had a cardiac arrest at that time and was resuscitated, and she was eventually discharged home in stable condition. Patient has been advised to go to ECF multiple times but she has declined. Patient has also been advised to follow up at [facility] for an adnexal mass and patient has left AGAINST MEDICAL ADVICE multiple times from [facility]. Patient is being admitted for altered mental status and persistent hypoglycemia. Patient and her daughter have been explained about her guarded condition and care. Understood and agreed. No unanswered questions. CODE STATUS full code. Past Med Surg Social Fam HX - Past Medical History Medical history: coronary artery disease, CVA, diabetes, dialysis, hyperlipidemia, hypertension, renal disease, venous stasis, other Psychiatric history: no psych history - Past Surgical History Surgical History: no surgical history - Social History Smoking Status: Never smoker Smokeless Tobacco Status: No Alcohol use: none Drug use: none - Family History Mother Living Status: Hx Family Cardiac Disorders: Yes Father Living Status: Hx Family Respiratory Disorders: Yes Hx Family Cancer: Yes Hx Family GI Disorders: No Hx Family Endocrine Disorder: No Hx Family Neuromuscular Disorders: No Hx Family Neurologic Disorders: No Hx Family HEENT Disorders: No Hx Family Autoimmune Disorders: No Brother Hx Family Respiratory Disorders: Yes Hx Family Cancer: Yes Grandmother Hx Family Cancer: Yes Internal Medicine - H&P: Meds Aspirin 81 mg PO DAILY 06/07/16 [History] Atorvastatin Calcium [Lipitor] 20 mg PO HS 06/07/16 [History] Gabapentin [Neurontin] 300 mg PO BID 06/07/16 [History] Insulin DETEMIR [Levemir Flextouch] 5 unit SQ QAM 06/07/16 [History] Insulin DETEMIR [Levemir Flextouch] 15 unit SQ QPM 06/07/16 [History] NIFEdipine [Nifedical Xl] 60 mg PO DAILY 06/07/16 [History] Carvedilol 12.5 mg PO BID 30 Days 06/10/16 [Rx] Oxygen 2.5 - 3 l NS AD PRN 10/18/16 [History] Albuterol Sulfate [Albuterol Inhaler] 2 puff IH Q4H PRN #0 inhaler 10/30/16 [Rx] Allopurinol [Zyloprim 100 MG] 100 mg PO Q48H 02/21/17 [History] Calcium Acetate [Phos-LO] 667 mg PO TID 02/21/17 [History] Ergocalciferol (VITAMIN D2) [Vitamin D2] 50,000 unit PO QWEEK 02/21/17 [History] Folic Acid 1 mg PO DAILY 02/21/17 [History] Vitamin B Complex 1 each PO DAILY 02/21/17 [History] Furosemide [Lasix] 20 mg PO DAILY PRN 04/13/17 [History] Furosemide [Lasix] 80 mg PO DAILY PRN 04/13/17 [History] Allergies Fish Containing Products Allergy (Verified 02/21/17 09:40) Anaphylaxis lisinopril Adverse Reaction (Verified 02/21/17 09:40) Cough ROS unobtainable: due to mental status All Systems PM: A 10-system review of systems was performed and is negative for pertinent findings except as documented above in the HPI. Review of systems: Patient is a poor historian. - Constitutional Constitutional: fatigue, weakness - Cardiovascular Cardiovascular ROS IM: no chest pain, no dyspnea on exertion, no orthopnea - Respiratory Respiratory: no cough, no dyspnea, no dyspnea on exertion, no wheezing - Gastrointestinal Gastrointestinal: no bloating, no diarrhea, no melena, no vomiting - Neurological Neurological ROS: frequent falls, no loss of vision - Constitutional Vitals: Temp Pulse Resp BP Pulse Ox 0 F L 64 18 139/83 100 04/13/17 07:05 04/13/17 09:35 04/13/17 10:13 04/13/17 10:13 04/13/17 09:35 General appearance: Present: A&O X 2, morbidly obese, no acute distress, answers questions appropriately Exam: Patient is drowsy but wakes up easily on her name is called, generalized weakness, chronically ill-appearing - Head Head exam: Present: atraumatic - Eye Eye exam: Present: EOMI - ENT ENT exam: Present: mucous membranes dry - Neck Neck exam general surgery: Present: supple - Respiratory Respiratory exam: Present: rales (Mild bilateral), wheezes (Mild bilateral). Absent: rhonchi, tachypnea - Cardiovascular Cardiovascular exam: Present: RRR, +S1, +S2, systolic murmur - GI/Abdominal GI/Abdominal exam: Present: distended (Obese), soft, no peritoneal signs. Absent: firm, guarding, rigid, tenderness - Extremities Exam Extremities exam: Present: pedal edema (Bilateral lower leg 4+ pitting with chronic venous stasis), radial pulses palpable and symetrical. Absent: cyanotic , tenderness - Neurological Exam Neurological exam: Absent: facial droop, speech deficit Additional comments: Chronic left-sided hemiparesis, patient is drowsy but wakes up easily when name is called, follows simple verbal commands, able to verbalize Oriented to place and person - Skin Additional comments: Chronic venous stasis of both lower legs Internal Med - H&P Results - Labs CBC & Chem 7: 04/13/17 07:27 04/13/17 07:27
--- NOTE | 2017-04-13 11:13 | Nephrology Consult Note ---
Date of Encounter: 04/13/17 Time of Encounter: 11:11 Assessment and Plan (1) ESRD (end stage renal disease) on dialysis Current Visit: No Status: Chronic She completed all her HD yesterday (Wednesday). To avoid worsening her respiratory status, I do not recommend continuing all the IVF, which she was receiving at 125mL/hr. This had been started for her refractory hypoglycemia. I've changed her to D5W at 25mL/hr to minimize the risk for fluid overload to develop from the IVF. I'll tentatively plan for HD tomorrow (Wednesday). Failure to thrive/chronic debility: she should truly be evaluated for and placed into a permanent ECF. Her daughter specifically is asking for this. During prior admissions, the daughter and I had recommended it d/t poor self care, frequent missed HD d/t transportations and etc. Hx of anemia of CKD. Goal Hgb is 10-11, will assess for EPO during this admission. Dialysis access: Eduard appears to be in good position. She recently has an AVF placed but it's not yet mature for use DM, Obesity, CHARLES as per primary. Thank you for consulting the [facility] group. Will follow with you. (2) Hypoglycemia Current Visit: Yes Status: Acute (3) Pulmonary edema Current Visit: Yes Status: Acute Qualifiers: Chronicity: chronic Qualified Code(s): J81.1 - Chronic pulmonary edema (4) Anemia in chronic kidney disease (CKD) Current Visit: No Status: Acute Qualifiers: Chronic kidney disease stage: on chronic dialysis Qualified Code(s): N18.6 - End stage renal disease; D63.1 - Anemia in chronic kidney disease; Z99.2 - Dependence on renal dialysis (5) HTN (hypertension) Current Visit: No Status: Chronic Hemodynamically stable. Qualifiers: Hypertension type: essential hypertension Qualified Code(s): I10 - Essential (primary) hypertension (6) Obstructive sleep apnea Current Visit: Yes Status: Chronic History of Present Illness - Reason for Consult Consult date: 04/13/17 end stage renal disease Requesting physician: Juan Nevarez - Chief Complaint Hx of ESRD - History of Present Illness Areli Fernández is a very pleasant 51 y/o obese WF with a pmh of ESRD on HD M/W/F, DM, HTN, frequent hospitalizations, CHARLES and et al who presented with AMS. She was found to have severe hypoglycemia. She last completed HD yesterday for 230 min. She dialyzes at [facility] ([place], [place]) Dialysis unit in [place], [place]. Last month she underwent AVF placement as an outpt but developed cardiac arrest and required a prolonged hospitalization in the [facility] hospital. I logged into the [facility] EMR system and reviewed her dialysis records from yesterday. She completed her whole treatment. In the ER, she was given several D50s but the hypoglycemia persisted and she was placed on .45% with D5W at 125mL/hr. Her daughter was present at the bedside and said that it has been very hard to take care of the pt at home is strongly asking for placement into an ECF. Past Med Surg Social Fam HX - Past Medical History Medical history: coronary artery disease, CVA, diabetes, dialysis, hyperlipidemia, hypertension, renal disease, venous stasis, other Psychiatric history: no psych history - Past Surgical History Surgical History: no surgical history - Social History Smoking Status: Never smoker Smokeless Tobacco Status: No Alcohol use: none Drug use: none - Family History Mother Living Status: Hx Family Cardiac Disorders: Yes Father Living Status: Hx Family Respiratory Disorders: Yes Hx Family Cancer: Yes Hx Family GI Disorders: No Hx Family Endocrine Disorder: No Hx Family Neuromuscular Disorders: No Hx Family Neurologic Disorders: No Hx Family HEENT Disorders: No Hx Family Autoimmune Disorders: No Brother Hx Family Respiratory Disorders: Yes Hx Family Cancer: Yes Grandmother Hx Family Cancer: Yes Medications and Allergies Aspirin 81 mg PO DAILY 06/07/16 [History] Atorvastatin Calcium [Lipitor] 20 mg PO HS 06/07/16 [History] Gabapentin [Neurontin] 300 mg PO BID 06/07/16 [History] Insulin DETEMIR [Levemir Flextouch] 5 unit SQ QAM 06/07/16 [History] Insulin DETEMIR [Levemir Flextouch] 15 unit SQ QPM 06/07/16 [History] NIFEdipine [Nifedical Xl] 60 mg PO DAILY 06/07/16 [History] Carvedilol 12.5 mg PO BID 30 Days 06/10/16 [Rx] Oxygen 2.5 - 3 l NS AD PRN 10/18/16 [History] Albuterol Sulfate [Albuterol Inhaler] 2 puff IH Q4H PRN #0 inhaler 10/30/16 [Rx] Allopurinol [Zyloprim 100 MG] 100 mg PO Q48H 02/21/17 [History] Calcium Acetate [Phos-LO] 667 mg PO TID 02/21/17 [History] Ergocalciferol (VITAMIN D2) [Vitamin D2] 50,000 unit PO QWEEK 02/21/17 [History] Folic Acid 1 mg PO DAILY 02/21/17 [History] Vitamin B Complex 1 each PO DAILY 02/21/17 [History] Furosemide [Lasix] 20 mg PO DAILY PRN 04/13/17 [History] Furosemide [Lasix] 80 mg PO DAILY PRN 04/13/17 [History] Allergies Fish Containing Products Allergy (Verified 02/21/17 09:40) Anaphylaxis lisinopril Adverse Reaction (Verified 02/21/17 09:40) Cough Review of Systems ROS unobtainable: due to mental status Exam - Vital Signs Vital signs: Initial Vital Signs Temp Pulse Resp BP Pulse Ox 0 F L 66 16 138/117 100 04/13/17 07:05 04/13/17 07:05 04/13/17 07:05 04/13/17 07:05 04/13/17 07:05 Vital Signs - Last 8 Hours Temp Pulse Resp BP Pulse Ox 04/13/17 10:58 97.5 F L 61 18 154/73 94 04/13/17 10:13 18 139/83 Intake and Output 04/12/17 04/13/17 04/13/17 23:59 07:59 15:59 Other: Blood Glucose* 82 - General Appearance General appearance: obese, chronically ill, frail, comatose EENT: ATNC, PERRL, mucous membranes moist Neck: supple Respiratory: course breath sounds Cardiology: edema, regular rate, regular rhythm, normal S1, normal S2 - Dialysis Access Dialysis Vascular Access: Arteriovenous Fistula (LUE AVF with recent surgerical site with heal heaing margins and +thrill/bruit. Permacath also in place with dressing C/D/I) thrill: Yes bruit: Yes Gastrointestinal: normoactive bowel sounds, no tenderness, no guarding, obese Integumentary: no rash, warm and dry Neurologic: asterixis, confused, disoriented Musculoskeletal: no deformities, no erythema, no cyanosis Psychiatric: cooperative Results - Lab Results 04/13/17 07:27 04/13/17 07:27 Most recent lab results Calcium 8.0 mg/dL (8.6-10.8) L 04/13/17 07:27 Phosphorus 5.6 mg/dL (2.3-4.7) H 04/13/17 07:27 Magnesium 1.6 mg/dL (1.6-2.6) 04/13/17 07:27 I reviewed the above auto-generated data barrientos and also reviewed progress notes , Labs, Meds, vitals and imaging. Consult Discharge Plan - Plan Referrals: Dee Negron, NURSE EXAMINER [Primary Care Provider] -
[2017-04-13] MEDS: Ipratropium/Albuterol Neb 3 ML IH SCH ×4 (11:30→23:40)
--- NOTE | 2017-04-13 12:20 | Neurology - Consult Note ---
Date of Encounter: 04/13/17 Time of Encounter: 12:15 Assessment and Plan (1) Hypoglycemia Current Visit: Yes Status: Acute Patient's acute unresponsiveness this morning likely largely due to the profound hypoglycemia. The etiology for this at this point time is unknown. She also has a history of sleep apnea however CO2 levels were not elevated. BUN /creatinine are however elevated at 95/6.55 respectively. This may also be contributing. I see no evidence on her CT scan to suggest an acute central nervous system ischemic event however CT scan of the head may lag behind for up to 72 hours before revealing evidence of acute infarct. She is however arousable and makes eye contact and attempts to talk which are all good prognostic signs. Recommend ongoing neuro checks per protocol. Your proper medical management for her multiple ongoing chronic issues. I will hold off on ordering EEG or repeat neuroimaging for now. Amount also recommend a urinalysis to rule out UTI. I will reevaluate her in the morning. History of Present Illness HPI: Ms. Fernández is a 51 year old female with a history of previous right cerebral vascular accident left hemiparesis, obstructive sleep apnea, morbid obesity, diabetes, and end-stage renal disease on hemodialysis being seen for neurologic evaluation secondary to mental status change. She was brought to [facility] for decreased levels of consciousness. Apparently she was found unconscious by a family member. Apparently an initial glucose reading was 14. She has been given to answer dextrose in the ED and was arousable however remains somnolent. Apparently she is bed bound most of the time. CT scan of the head was negative for any acute abnormality. She is somnolent however arousable. Past Med Surg Social Fam HX - Past Medical History Medical history: coronary artery disease, CVA, diabetes, dialysis, hyperlipidemia, hypertension, renal disease, venous stasis, other Psychiatric history: no psych history - Past Surgical History Surgical History: no surgical history - Social History Smoking Status: Never smoker Smokeless Tobacco Status: No Alcohol use: none Drug use: none - Family History Mother Living Status: Hx Family Cardiac Disorders: Yes Father Living Status: Hx Family Respiratory Disorders: Yes Hx Family Cancer: Yes Hx Family GI Disorders: No Hx Family Endocrine Disorder: No Hx Family Neuromuscular Disorders: No Hx Family Neurologic Disorders: No Hx Family HEENT Disorders: No Hx Family Autoimmune Disorders: No Brother Hx Family Respiratory Disorders: Yes Hx Family Cancer: Yes Grandmother Hx Family Cancer: Yes Medications and Allergies Aspirin 81 mg PO DAILY 06/07/16 [History] Atorvastatin Calcium [Lipitor] 20 mg PO HS 06/07/16 [History] Gabapentin [Neurontin] 300 mg PO BID 06/07/16 [History] Insulin DETEMIR [Levemir Flextouch] 5 unit SQ QAM 06/07/16 [History] Insulin DETEMIR [Levemir Flextouch] 15 unit SQ QPM 06/07/16 [History] NIFEdipine [Nifedical Xl] 60 mg PO DAILY 06/07/16 [History] Carvedilol 12.5 mg PO BID 30 Days 06/10/16 [Rx] Oxygen 2.5 - 3 l NS AD PRN 10/18/16 [History] Albuterol Sulfate [Albuterol Inhaler] 2 puff IH Q4H PRN #0 inhaler 10/30/16 [Rx] Allopurinol [Zyloprim 100 MG] 100 mg PO Q48H 02/21/17 [History] Calcium Acetate [Phos-LO] 667 mg PO TID 02/21/17 [History] Ergocalciferol (VITAMIN D2) [Vitamin D2] 50,000 unit PO QWEEK 02/21/17 [History] Folic Acid 1 mg PO DAILY 02/21/17 [History] Vitamin B Complex 1 each PO DAILY 02/21/17 [History] Furosemide [Lasix] 20 mg PO DAILY PRN 04/13/17 [History] Furosemide [Lasix] 80 mg PO DAILY PRN 04/13/17 [History] Allergies Fish Containing Products Allergy (Verified 02/21/17 09:40) Anaphylaxis lisinopril Adverse Reaction (Verified 02/21/17 09:40) Cough ROS unobtainable: due to mental status All Systems: A 10-system review of systems was performed and is negative for pertinent findings except as documented above in the HPI. Physical Examination - Vital Signs Vital Signs: Initial Vital Signs Temp Pulse Resp BP Pulse Ox 0 F L 66 16 138/117 100 04/13/17 07:05 04/13/17 07:05 04/13/17 07:05 04/13/17 07:05 04/13/17 07:05 - Exam Exam: Neurologic examination finds the following: Cerebral functions-patient is somnolent but arousable. When aroused, she does attempt to talk however she does have the CPAP mask on. She does follow simple commands, however she rapidly drifts off into sleep. She is not able to provide a good history due to her excessive somnolence. Cranial nerves-pupils are equal and reactive to light, doll's eyes are intact, corneal reflexes are brisk. There is no facial asymmetry identified. Speech is dysarthric however she is somnolent. Gag reflex is intact. Motor exam-very difficult to assess due to her somnolence. History relates that she has a residual left hemiparesis however she seems to have equal tone on examination. She is able to squeeze adequately with both hands, she was the toes on both feet at command. No involuntary movements or atrophy are present. Sensory exam-difficult to assess in an unresponsive patient however she does respond to noxious stimuli globally. Deep tendon reflexes-diminished throughout, no Babinski, no ankle clonus. Results - Laboratory Findings CBC and BMP: 04/13/17 07:27 04/13/17 07:27 Abnormal lab findings: Abnormal lab results RBC 3.52 M/mcL (3.82-4.97) L 04/13/17 07:27 Hgb 9.5 g/dL (11.5-15.4) L 04/13/17 07: Hct 32.2 % (35.3-44.9) L 04/13/17 07:27 MCH 27.0 pg (28.0-33.3) L 04/13/17 07: MCHC 29.5 g/dL (31.6-35.5) L 04/13/17 07: RDW 17.7 % (11.5-14.5) H 04/13/17 07: MPV 9.1 fL (9.4-12.4) L 04/13/17 07:27 Lymphocytes # 0.3 K/mcL (0.6-4.6) L 04/13/17 07:27 PT 16.4 Seconds (9.4-12.1) H 04/13/17 07:27 Potassium 4.6 mEq/L (3.5-4.5) H 04/13/17 07:27 BUN 95 mg/dL (7-20) H 04/13/17 07:27 Creatinine 6.55 mg/dL (0.57-1.11) H 04/13/17 07:27 Est GFR ( Amer) 8 (> 60) L 04/13/17 07:27 Est GFR (Non-Af Amer) 7 (> 60) L 04/13/17 07:27 Glucose 133 mg/dL (70-99) H 04/13/17 07:27 Calculated Osmolality 317 (280-300) H 04/13/17 07:27 Calcium 8.0 mg/dL (8.6-10.8) L 04/13/17 07:27 Phosphorus 5.6 mg/dL (2.3-4.7) H 04/13/17 07:27 Direct Bilirubin 0.8 mg/dL (0.0-0.5) H 04/13/17 07:27 Alkaline Phosphatase 255 Units/L (38-126) H 04/13/17 07:27 B-Natriuretic Peptide 744 pg/mL (0-100) H 04/13/17 11:19 Serum Total Protein 8.4 g/dL (6.0-8.3) H 04/13/17 07:27 Albumin 2.7 g/dL (3.5-5.0) L 04/13/17 07:27 Globulin 5.7 g/dL (2.4-3.5) H 04/13/17 07:27 Albumin/Globulin Ratio 0.5 (1.1-2.2) L 04/13/17 07:27 Consult Discharge Plan - Plan Referrals: Dee Negron, HOT KNIFE FOXING CUTTER [Primary Care Provider] -
[2017-04-13] MEDS: Calcium Acetate 667 MG CAPSULE PO SCH ×2 (13:13→16:31)
[2017-04-13] MEDS: Folic Acid 1 MG TABLET PO SCH (13:13)
[2017-04-13] MEDS: D5% in Water 1,000 ML IVC SCH (13:20)
[2017-04-13] MEDS: Famotidine 20 MG TABLET PO SCH (16:32)
[2017-04-13] MEDS: *HR* Heparin 5,000 UNIT/ML VIAL SQ SCH ×2 (16:33→22:39)
[2017-04-14] MEDS: Acetaminophen 325 MG TABLET PO PRN ×3 (03:56→21:25)
[2017-04-14] MEDS: Ipratropium/Albuterol Neb 3 ML IH SCH ×6 (04:20→23:35)
[2017-04-14 06:10] LABS: Basophils % 0.3 %; Eosinophils # 0.2 K/mcL (0.0-0.6); Eosinophils % 2.3 %; Hematocrit 27.4 % (35.3-44.9); Immature Granulocytes % 0.6 % (0-4); Lymphocytes # 0.5 K/mcL (0.6-4.6); Lymphocytes % 7.5 %; Mean Corpuscular HGB Conc 29.2 g/dL (31.6-35.5); Mean Corpuscular Hemoglobin 27.5 pg (28.0-33.3); Mean Corpuscular Volume 94.2 fL (83.0-100.0); Mean Platelet Volume 10.7 fL (9.4-12.4); Monocytes % 15.2 %; Neutrophils # 4.9 K/mcL (1.6-8.9); Platelet Count 149 K/mcL (140-400); Red Blood Count 2.91 M/mcL (3.82-4.97); Red Cell Distribution Width 17.7 % (11.5-14.5); Segmented Neutrophils % 74.1 %
[2017-04-14 06:17] LABS: Albumin 2.3 g/dL (3.5-5.0); Albumin/Globulin Ratio 0.5 (1.1-2.2); Bilirubin,Total 0.6 mg/dL (0.2-1.2); Calcium 7.7 mg/dL (8.6-10.8); Globulin 4.9 g/dL (2.4-3.5); Potassium 5.3 mEq/L (3.5-4.5); Total Protein 7.2 g/dL (6.0-8.3)
[2017-04-14] MEDS ORDERED: Albumin 25% 12.5gm/50mL 12.5 GM/50 ML IV.SOLN IVPB PRN (07:56)
[2017-04-14] MEDS ORDERED: 0.9 % Sodium Chloride 250 ML IVC PRN (07:56)
[2017-04-14] MEDS: Vitamin B Complex/Vit C/Vit E 1 EACH TABLET PO SCH (08:16)
[2017-04-14] MEDS: Folic Acid 1 MG TABLET PO SCH (08:16)
[2017-04-14] MEDS: Calcium Acetate 667 MG CAPSULE PO SCH ×3 (08:16→16:49)
[2017-04-14] MEDS: Aspirin 81 MG TAB.CHEW PO SCH (08:16)
[2017-04-14] MEDS: Famotidine 20 MG TABLET PO SCH (08:16)
[2017-04-14] MEDS: *HR* Heparin 5,000 UNIT/ML VIAL SQ SCH ×3 (08:16→17:11)
[2017-04-14] MEDS: NIFEdipine XL (24 HR) 60 MG TAB.ER.24 PO SCH (08:20)
--- NOTE | 2017-04-14 08:44 | Internal Med Progress Note ---
<Jason Sales - Last Filed: 04/14/17 17:06> Date of Encounter: 04/14/17 Time of Encounter: 08:43 - Assessment and plan (1) Diabetes mellitus Current Visit: No Status: Chronic Assessment and plan: Patient had hypoglycemic event yesterday prior to arrival with blood glucose 14. Patient reports taking insulin as directed but not eating dinner last night. She refuses to go to rehabilitation facility at this time to assist with medication administration. Repeat Blood glucose 107 this morning. Check HGB a1c and stop Levemir. Continue Novalog SSI. Qualifiers: Diabetes mellitus type: type 2 Diabetes mellitus complication status: with skin complications Diabetes mellitus complication detail: with other skin complication Diabetes mellitus terminal operations manager insulin use: with terminal operations manager use Qualified Code(s): E11.628 - Type 2 diabetes mellitus with other skin complications; Z79.4 - assistant terminal manager (current) use of insulin (2) Acute encephalopathy Current Visit: Yes Status: Acute Assessment and plan: Resolved. Likely related to hypoglycemia. Pt found unresponsive by family at home. Will check CPK level. (3) CKD (chronic kidney disease) stage 5, GFR less than 15 ml/min Current Visit: Yes Status: Chronic Assessment and plan: Continue hemodialysis MWF. Aranesp x1 while admitted per nephrology (4) HTN (hypertension) Current Visit: No Status: Chronic Assessment and plan: Continue Coreg Qualifiers: Hypertension type: essential hypertension Qualified Code(s): I10 - Essential (primary) hypertension (5) Hyperkalemia Current Visit: No Status: Acute (6) Lymphedema of both lower extremities Current Visit: Yes Status: Chronic (7) Adnexal mass Current Visit: No Status: Chronic Assessment and plan: Recommended outpatient follow-up (8) Physical deconditioning Current Visit: Yes Status: Chronic Assessment and plan: Patient is mostly bedbound status post CVA but able to transfer to bedside commode with assistance. PT OT consulted. (9) Obstructive sleep apnea Current Visit: Yes Status: Chronic Assessment and plan: Continue CPAP at night. (10) CVA (cerebral vascular accident) Current Visit: Yes Status: Chronic Assessment and plan: CT brain negative. Neurology following. No acute neurologic deficits at this time. Patient is mostly bedbound but is able to transfer to bedside commode with assistance consider repeat CT brain in 72 hours if further concern for acute CVA. Qualifiers: CVA mechanism: thrombosis Precerebral and cerebral artery: unspecified precerebral artery Qualified Code(s): I63.00 - Cerebral infarction due to thrombosis of unspecified precerebral artery (11) Hyperkalemia, diminished renal excretion Current Visit: Yes Status: Acute Assessment and plan: Continue HD MWF. No Kayexalate needed at this time (12) Anemia in chronic kidney disease, on chronic dialysis Current Visit: Yes Status: Acute Assessment and plan: Will give dose Aranesp x1 per nephrology while admitted. Goal Hgb is 10-11 in the setting of CKD (13) Super obesity Current Visit: Yes Status: Acute Assessment and plan: Discussed diet modification. Patient has limited ability to exercise due to chronic debilitation and co-morbid medical conditions. (14) COPD (chronic obstructive pulmonary disease) Current Visit: No Status: Chronic Assessment and plan: Patient is O2 dependent at home. Continue current management. Qualifiers: COPD type: unspecified COPD Qualified Code(s): J44.9 - Chronic obstructive pulmonary disease, unspecified (15) DVT prophylaxis Current Visit: No Status: Acute Assessment and plan: Subcutaneous Heparin. Patient seen and examined. Case discussed with and agreed upon with Dr. Guallpa - Subjective Interval history: Patient sitting up in bed and denies any complaints at this time. Patient scheduled for HD today. Patient reports adhering to insulin regimen at home and not eating dinner last night before hypoglycemic event. Patient reports she does not want to go to rehabilitation facility - Constitutional Vitals: Temp Pulse Resp BP Pulse Ox 98.1 F 59 15 110/72 92 04/14/17 07:47 04/14/17 07:47 04/14/17 07:47 04/14/17 07:47 04/14/17 07:47 General appearance: Present: A&O X 2, morbidly obese, no acute distress, answers questions appropriately - Head Head exam: Present: atraumatic, normocephalic - Eye Eye exam: Present: PERRL, conjuntiva pink, sclera anicteric Pupils: Present: PERRL - Neck Neck exam general surgery: Present: supple, trachea midline. Absent: lymphadenopathy - Respiratory Respiratory exam: Present: CTAB. Absent: accessory muscle use, rales, rhonchi, wheezes - Cardiovascular Cardiovascular exam: Present: RRR, +S1, +S2, systolic murmur. Absent: diastolic murmur, gallop, rubs - GI/Abdominal GI/Abdominal exam: Present: normal bowel sounds, soft, no peritoneal signs. Absent: tenderness - Extremities Exam Extremities exam: Present: warm, radial pulses palpable and symetrical. Absent : calf tenderness, cyanotic, pedal edema Additional comments: AV fistula noted in left forearm. Chronic venous stasis changes evident in bilateral lower extremities - Neurological Exam Neurological exam: Present: CN II-XII intact, oriented X3, no focal deficits. Absent: pronater drift, facial droop, speech deficit - Psychiatric Psychiatric exam: Present: normal affect, normal mood - Skin Skin exam: Present: dry, intact Additional comments: Right chest permacath in place. Chronic venous stasis changes in bilateral lower extremities Internal Medicine: Result - Labs CBC & Chem 7: 04/14/17 05:00 04/14/17 05:00 Labs: Short CBC 04/14/17 Range/Units 05:00 WBC 6.6 (4.3-11.1) K/mcL Hgb 8.0 L D (11.5-15.4) g/dL Hct 27.4 L (35.3-44.9) % Plt Count 149 (140-400) K/mcL Neutrophils # 4.9 (1.6-8.9) K/mcL BMP 04/14/17 05:00 Sodium 137 Potassium 5.3 H Chloride 103 Carbon Dioxide 22 BUN 105 H Creatinine 7.07 H Glucose 128 H Calcium 7.7 L Cardiac Enzymes 04/13/17 04/13/17 04/13/17 Range/Units 11:19 16:22 22:24 Troponin I 0.03 0.04 H* 0.03 (0-0.03) ng/mL Liver Function 04/14/17 Range/Units 05:00 Total Bilirubin 0.6 (0.2-1.2) mg/dL AST 13 (5-34) Units/L ALT 9 (0-55) Units/L Alkaline Phosphatase 207 H (38-126) Units/L Albumin 2.3 L (3.5-5.0) g/dL - ABG Interpretation ABG results: PT/INR, D-dimer PT 16.4 Seconds (9.4-12.1) H 04/13/17 07:27 Consult Discharge Plan - Plan Referrals: Dee Negron, SUSTAINABLE DESIGN CONSULTANT [Primary Care Provider] - (family wanted this patient in ECF placement) <Fili Guallpa - Last Filed: 04/14/17 17:33> Date of Encounter: 04/14/17 - Constitutional Vitals: Temp Pulse Resp BP Pulse Ox 98.4 F 67 16 118/59 97 04/14/17 15:20 04/14/17 15:20 04/14/17 15:20 04/14/17 15:20 04/14/17 15:20 Internal Medicine: Result - Labs CBC & Chem 7: 04/14/17 05:00 04/14/17 05:00 Labs: Short CBC 04/14/17 Range/Units 05:00 WBC 6.6 (4.3-11.1) K/mcL Hgb 8.0 L D (11.5-15.4) g/dL Hct 27.4 L (35.3-44.9) % Plt Count 149 (140-400) K/mcL Neutrophils # 4.9 (1.6-8.9) K/mcL BMP 04/14/17 05:00 Sodium 137 Potassium 5.3 H Chloride 103 Carbon Dioxide 22 BUN 105 H Creatinine 7.07 H Glucose 128 H Calcium 7.7 L Cardiac Enzymes 04/13/17 Range/Units 22:24 Troponin I 0.03 (0-0.03) ng/mL Liver Function 04/14/17 Range/Units 05:00 Total Bilirubin 0.6 (0.2-1.2) mg/dL AST 13 (5-34) Units/L ALT 9 (0-55) Units/L Alkaline Phosphatase 207 H (38-126) Units/L Albumin 2.3 L (3.5-5.0) g/dL - ABG Interpretation ABG results: PT/INR, D-dimer PT 16.4 Seconds (9.4-12.1) H 04/13/17 07:27 - Attending Attestation I examined this patient and my medical decision-making was reviewed with the Resident Physician, Dr Sales. I agree with the documented findings, disposition and treatment plan as described except to the extent set forth below. Patient is in no acute distress, appears disheveled and unkempt. patient is currently awake alert oriented 3. Heart exam reveals regular S1-S2 and 4/6 systolic murmur at the apex. Plan: We will stop long-acting insulin. On review of her medical record hemoglobin A1c was 5.2 in February. We will recheck hemoglobin A1c. Due to high risk of hypoglycemia she should not be on Levemir or Lantus. We will prescribe short-acting pre-meal insulin sliding scale for discharge.
[2017-04-14] MEDS ORDERED: *HR* Heparin 10,000 UNIT/10 ML VIAL IV PRN (08:57)
[2017-04-14] MEDS ORDERED: 0.9 % Sodium Chloride 2,000 ML ONE (09:11)
--- NOTE | 2017-04-14 09:31 | Nephrology Progress Note ---
Date of Encounter: 04/14/17 Time of Encounter: 09:20 - Assessment and Plan (1) ESRD (end stage renal disease) on dialysis Current Visit: No Status: Chronic HD today for clearance and volume mgt I highly, strongly recommend ECF placement d/t high rates of hospital recidivism , poor self care. Pt's family is also strongly requesting it. Anemia: will dose Aranesp x1 while admitted. Goal Hgb is 10-11 in the setting of CKD Obesity: advised weight loss Mild hyperkalemia: I have arranged for HD instead of kayexalate. CHARLES/Obesity hypoventilatory syndrome: as per primary Next HD is planned for Wednesday after today. (2) Hypoglycemia Current Visit: Yes Status: Acute (3) Pulmonary edema Current Visit: Yes Status: Acute Qualifiers: Chronicity: chronic Qualified Code(s): J81.1 - Chronic pulmonary edema (4) Anemia in chronic kidney disease (CKD) Current Visit: No Status: Acute Qualifiers: Chronic kidney disease stage: on chronic dialysis Qualified Code(s): N18.6 - End stage renal disease; D63.1 - Anemia in chronic kidney disease; Z99.2 - Dependence on renal dialysis (5) HTN (hypertension) Current Visit: No Status: Chronic Qualifiers: Hypertension type: essential hypertension Qualified Code(s): I10 - Essential (primary) hypertension (6) Obstructive sleep apnea Current Visit: Yes Status: Chronic Subjective Principal diagnosis: ESRD, Hypoglycemia Interval history: The pt was s/e earlier today. She affirmed feeling somewhat better today. She did not affirm N/V/D. Objective - Vital Signs Vital signs: Vital Signs Temp Pulse Resp BP Pulse Ox 04/14/17 07:47 98.1 F 59 15 110/72 92 04/14/17 07:40 18 95 04/14/17 05:22 98.1 F 62 18 96/57 93 04/14/17 04:21 17 97 04/14/17 01:30 97.9 F 64 16 109/67 95 04/13/17 23:40 21 94 04/13/17 21:37 18 95 04/13/17 20:18 98.1 F 72 14 111/67 96 04/13/17 15:53 18 100 04/13/17 15:29 98.3 F 62 16 113/84 100 04/13/17 11:30 13 100 04/13/17 10:58 97.5 F L 61 18 154/73 94 04/13/17 10:13 18 139/83 Intake and Output 04/13/17 04/14/17 04/14/17 23:59 07:59 15:59 Other: Weight 162.1 kg Blood Glucose* 142 115 Patient Weight 04/14/17 23:59 Weight 162.1 kg - General Appearance Exam: General appearance: obese, chronically ill, frail, comatose EENT: ATNC, PERRL, mucous membranes moist Neck: supple Respiratory: course breath sounds Cardiology: edema, regular rate, regular rhythm, normal S1, normal S2 - Dialysis Access Dialysis Vascular Access: Arteriovenous Fistula (LUE AVF with recent surgerical site with heal heaing margins and +thrill/bruit. Permacath also in place with dressing C/D/I) thrill: Yes bruit: Yes Gastrointestinal: normoactive bowel sounds, no tenderness, no guarding, obese Integumentary: no rash, warm and dry Neurologic: asterixis, confused, disoriented Musculoskeletal: no deformities, no erythema, no cyanosis Psychiatric: cooperative - Lab 04/14/17 05:00 04/14/17 05:00 Most recent lab results Calcium 7.7 mg/dL (8.6-10.8) L 04/14/17 05:00 Phosphorus 5.6 mg/dL (2.3-4.7) H 04/13/17 07:27 Magnesium 1.6 mg/dL (1.6-2.6) 04/13/17 07:27 Consult Discharge Plan - Plan Referrals: Dee Negron, BALANCE SHEET ANALYST [Primary Care Provider] - (family wanted this patient in ECF placement)
--- NOTE | 2017-04-14 13:29 | Electrocardiograph Report ---
[place] [id number] Test Date: 2017-04-13 Pat Name: Areli Fernández Department: 105 Room: 2A Gender: F [employer]: CORBY : 1965 Requested By: Paz Lopez Order Number: [id number] Reading MD: Mahamed Castle MD Measurements Intervals [place] Rate: 63 P: 71 MO: 237 QRS: -59 QRSD: 110 T: 61 QT: 426 QTc: 434 Interpretive Statements SINUS RHYTHM WITH FIRST DEGREE AV BLOCK Electronically Signed On 04-14-2017 13:27:36 EDT by Mahamed Castle MD
[2017-04-14] MEDS ORDERED: *HR* Dextrose 50 % in Water (Syg) 50 ML SYRINGE IVP PRN ×2 (15:59→16:00)
[2017-04-14] MEDS ORDERED: D5% in Water 1,000 ML IVC PRN ×2 (15:59→16:00)
[2017-04-14] MEDS ORDERED: Dextrose Gel 15 GM PO PRN ×4 (15:59→16:00)
[2017-04-14] MEDS: Insulin LISPRO 300 UNITS/3 ML VIAL SQ SCH (17:03)
[2017-04-14 19:39] LABS: Hepatitis B Surface Antigen Nonreactive (Nonreactive)
[2017-04-14 19:41] LABS: Hemoglobin A1C 5.4 %
[2017-04-14] MEDS ORDERED: Insulin LISPRO 300 UNITS/3 ML VIAL SQ SCH (21:00)
[2017-04-15] MEDS: *HR* Heparin 5,000 UNIT/ML VIAL SQ SCH ×3 (00:25→16:51)
[2017-04-15] MEDS: Ipratropium/Albuterol Neb 3 ML IH SCH ×4 (03:59→15:51)
[2017-04-15] MEDS: Gabapentin 300 MG CAPSULE PO SCH ×2 (04:31→07:56)
[2017-04-15] MEDS: Acetaminophen 325 MG TABLET PO PRN (04:47)
[2017-04-15 06:59] LABS: Basophils % 0.4 %; Eosinophils # 0.3 K/mcL (0.0-0.6); Eosinophils % 4.1 %; Hematocrit 28.9 % (35.3-44.9); Hemoglobin 8.4 g/dL (11.5-15.4); Immature Granulocytes % 0.8 % (0-4); Lymphocytes # 0.6 K/mcL (0.6-4.6); Lymphocytes % 8.3 %; Mean Corpuscular HGB Conc 29.1 g/dL (31.6-35.5); Mean Corpuscular Hemoglobin 26.7 pg (28.0-33.3); Mean Corpuscular Volume 91.7 fL (83.0-100.0); Monocytes # 0.9 K/mcL (0.0-1.3); Monocytes % 12.4 %; Neutrophils # 5.4 K/mcL (1.6-8.9); Platelet Count 187 K/mcL (140-400); Red Blood Count 3.15 M/mcL (3.82-4.97); Red Cell Distribution Width 17.5 % (11.5-14.5)
[2017-04-15 07:18] LABS: Potassium 4.5 mEq/L (3.5-4.5)
[2017-04-15] MEDS ORDERED: Famotidine 20 MG TABLET PO SCH (07:30)
[2017-04-15] MEDS: Insulin LISPRO 300 UNITS/3 ML VIAL SQ SCH ×3 (07:38→16:51)
[2017-04-15] MEDS: Folic Acid 1 MG TABLET PO SCH (07:55)
[2017-04-15] MEDS: Aspirin 81 MG TAB.CHEW PO SCH (07:55)
[2017-04-15] MEDS: Calcium Acetate 667 MG CAPSULE PO SCH ×3 (07:55→16:52)
[2017-04-15] MEDS: NIFEdipine XL (24 HR) 60 MG TAB.ER.24 PO SCH (07:56)
[2017-04-15] MEDS: Vitamin B Complex/Vit C/Vit E 1 EACH TABLET PO SCH (07:56)
--- NOTE | 2017-04-15 08:46 | Discharge Summary ---
<Jason Sales - Last Filed: 04/15/17 17:20> Date of Encounter: 04/15/17 Time of Encounter: 08:46 - Discharge Diagnosis (1) Diabetes mellitus Priority: Primary Status: Chronic Comments: We will stop long-acting insulin. On review of her medical record hemoglobin A1c was 5.2 in February. We will recheck hemoglobin A1c. Due to high risk of hypoglycemia she should not be on Levemir or Lantus. We will prescribe short- acting pre-meal insulin sliding scale for discharge. Qualifiers: Diabetes mellitus type: type 2 Diabetes mellitus complication status: with skin complications Diabetes mellitus complication detail: with other skin complication Diabetes mellitus healthcare recruiter insulin use: with alf use Qualified Code(s): E11.628 - Type 2 diabetes mellitus with other skin complications; Z79.4 - FPC (current) use of insulin (2) Acute encephalopathy Priority: Primary Status: Acute Comments: Resolved, likely related to hypoglycemic event. (3) CKD (chronic kidney disease) stage 5, GFR less than 15 ml/min Priority: Primary Status: Chronic Comments: Patient to follow up with nephrology as an outpatient. Continue hemodialysis every Wednesday. (4) HTN (hypertension) Priority: Secondary Status: Chronic Comments: Continue home anti- hypertensive meds. Qualifiers: Hypertension type: essential hypertension Qualified Code(s): I10 - Essential (primary) hypertension (5) Lymphedema of both lower extremities Priority: Secondary Status: Chronic Comments: Continue Lasix and outpatient follow-up. (6) Adnexal mass Priority: Secondary Status: Chronic (7) Physical deconditioning Priority: Primary Status: Chronic Comments: Patient referred to extended care facility due to chronic deconditioning. She is at a high risk for bounce back. Recommend ECF d/t her known poor self care, and out of the family's request for an ECF. Pt has been refusing to go to an ECF. She is largely bed bound. (8) Obstructive sleep apnea Priority: Secondary Status: Chronic Comments: Continue CPAP at night (9) CVA (cerebral vascular accident) Priority: Secondary Status: Chronic Comments: CT brain negative. Neurology following. No acute neurologic deficits at this time. Patient is mostly bedbound but is able to transfer to bedside commode with assistance Qualifiers: CVA mechanism: thrombosis Precerebral and cerebral artery: unspecified precerebral artery Qualified Code(s): I63.00 - Cerebral infarction due to thrombosis of unspecified precerebral artery (10) Hyperkalemia, diminished renal excretion Priority: Primary Status: Acute Comments: Follow up with nephrology outpatient (11) Anemia in chronic kidney disease, on chronic dialysis Priority: Primary Status: Acute Comments: Continue to monitor as outpatient follow up with nephrology. (12) Super obesity Priority: Secondary Status: Acute Comments: Discussed diet modification (13) COPD (chronic obstructive pulmonary disease) Priority: Secondary Status: Chronic Comments: Patient is O2 dependent at home. Continue current management. Qualifiers: COPD type: unspecified COPD Qualified Code(s): J44.9 - Chronic obstructive pulmonary disease, unspecified (14) DVT prophylaxis Priority: Primary Status: Acute Comments: Subcutaneous Heparin. - Discharge Medications Prescriptions: Insulin LISPRO [HumaLOG] 0 units SQ TIDWM 30 Days Insulin LISPRO [HumaLOG] 0 units SQ HS 30 Days Home Medications: Aspirin 81 mg PO DAILY 06/07/16 [History] Atorvastatin Calcium [Lipitor] 20 mg PO HS 06/07/16 [History] Gabapentin [Neurontin] 300 mg PO BID 06/07/16 [History] NIFEdipine [Nifedical Xl] 60 mg PO DAILY 06/07/16 [History] Carvedilol 12.5 mg PO BID 30 Days 06/10/16 [Rx] Oxygen 2.5 - 3 l NS AD PRN 10/18/16 [History] Albuterol Sulfate [Albuterol Inhaler] 2 puff IH Q4H PRN #0 inhaler 10/30/16 [Rx] Allopurinol [Zyloprim 100 MG] 100 mg PO Q48H 02/21/17 [History] Calcium Acetate [Phos-LO] 667 mg PO TID 02/21/17 [History] Ergocalciferol (VITAMIN D2) [Vitamin D2] 50,000 unit PO QWEEK 02/21/17 [History] Folic Acid 1 mg PO DAILY 02/21/17 [History] Vitamin B Complex 1 each PO DAILY 02/21/17 [History] Furosemide [Lasix] 20 mg PO DAILY PRN 04/13/17 [History] Furosemide [Lasix] 80 mg PO DAILY PRN 04/13/17 [History] Acetaminophen [Tylenol] 650 mg PO Q6HR PRN #0 tablet 07/06/17 [Rx] Famotidine [Pepcid] 20 mg PO DAILY@0730 tablet 04/15/17 [Rx] Insulin LISPRO [HumaLOG] 0 units SQ HS 30 Days 04/15/17 [Rx] Insulin LISPRO [HumaLOG] 0 units SQ TIDWM 30 Days 04/15/17 [Rx] Ipratropium/Albuterol Neb [Duoneb] 3 ml IH [id number] inhsol 04/15/17 [Rx] Allergies/Adverse Reactions: Allergies Fish Containing Products Allergy (Verified 02/21/17 09:40) Anaphylaxis lisinopril Adverse Reaction (Verified 02/21/17 09:40) Cough Procedures/tests Complete & Pending: Short CBC 04/15/17 Range/Units 04:59 WBC 7.3 (4.3-11.1) K/mcL Hgb 8.4 L (11.5-15.4) g/dL Hct 28.9 L (35.3-44.9) % Plt Count 187 (140-400) K/mcL Neutrophils # 5.4 (1.6-8.9) K/mcL BMP 04/15/17 Range/Units 04:59 Sodium 135 L (136-145) mEq/L Potassium 4.5 (3.5-4.5) mEq/L Chloride 98 (98-109) mEq/L Carbon Dioxide 27 (19-29) mEq/L BUN 58 H D (7-20) mg/dL Creatinine 4.81 H (0.57-1.11) mg/dL Glucose 97 (70-99) mg/dL Calcium 8.0 L (8.6-10.8) mg/dL Date of admission: 04/13/17 09:59 Primary care physician: Dee Negron CNP Consults: 04/13/17 10:55 Consult to Neurology [CONS] Routine Consulting Provider: [facility] Reason for Consult: Altered mental status, possible CVA Call Completed: No 04/14/17 08:00 Consult to Dialysis [CONS] ONCE 04/14/17 11:38 OT [Consult to Occupational Therapy] [CONS] Routine Comment: Evaluate, develop and implement POC Reason for Consult: eval&tx Discharging clinician: Fili Guallpa Anticipated date of discharge: 04/15/17 - Patient Status Disposition: Transfer SNF Condition: Fair Functional capacity at discharge: bed bound (She is at a high risk for bounce back. Recommend ECF d/t her known poor self care, and out of the family's request for an ECF. Pt has been refusing to go to an ECF. She is largely bed bound and has limited ability to transfer out of bed to bedside commode.) Overall status at discharge: patient is progressing back to baseline - Ambulatory Orders Ambulatory Orders: Sleep Study Time Frame: 1 Week, Facility: [facility], Location: [facility] - Discharge Instructions Instructions: Dialysis Diet (GEN), Diabetes Mellitus Type 2 in Adults (DC) Follow Up With: Dee Negron CNP [Primary Care Provider] - (family wanted this patient in ECF placement) Additional Instructions: Continue hemodialysis every MWF. Follow up with [facility] in 1 week. Take sliding scale insulin as directed. - Diet and Activity Activity: as per physical therapy, increase activity as tolerated, wear oxygen at all times Diet: diabetic diet Hospital course: Ms. Fernández is a 51 year old female with past medical history of coronary artery disease, CVA, diabetes, end-stage renal disease on hemodialysis, hyperlipidemia , hypertension, adnexal mass, obstructive sleep apnea and chronic venous stasis that was brought to the ED via EMS after having altered mental status at home. Patient was apparently found unresponsive by a family member. Initial blood glucose reading was 14. Patient has been given 2 A of dextrose in the ED and glucose has now improved, but she continues to be drowsy. She is a poor historian. Daughter was at bedside and provides all history. Patient is apparently bed bound most of the time, and she has family check on her frequently. Daughter states today that the patient's mental status is slightly worse than her baseline. Patient does have chronic left hemiparesis from a previous CVA. Daughter states patient was recently discharged from the hospital at [facility] after being treated for end-stage renal disease. She had an AV fistula placed in the left forearm. Patient apparently had an apneic episode and also had a cardiac arrest at that time and was resuscitated, and she was eventually discharged home in stable condition. Patient has been advised to go to ECF multiple times but she has declined. Patient has also been advised to follow up at [facility] for an adnexal mass and patient has left AGAINST MEDICAL ADVICE multiple times from [facility]. Patient is being admitted for altered mental status and persistent hypoglycemia. Patient was oriented to place and person but not to time on presentation. Daughter thinks that the patient may have had a new stroke, because patient had similar symptoms in the past preceding the stroke. CT head is negative for any acute intracranial process and chest x-ray revealed cardiomegaly with pulmonary congestion. EKG shows normal sinus rhythm. Patient's goal umpire Dr Mccabe, evaluated patient in the hospital and recommended continued hemodialysis every Wednesday. Patient improve during hospital course and was awake alert oriented 3. Heart exam reveals regular S1-S2 and 4/6 systolic murmur at the apex. On review of her medical record hemoglobin A1c was 5.2 in February. We will recheck hemoglobin A1c. Due to high risk of hypoglycemia stop long-acting insulin Levemir or Lantus. We prescribed short-acting pre-meal insulin sliding scale for discharge. Time spent discussing smoking cessation with patient: more than 10 minutes - Time Spent with Patient Total time spent providing and/or coordinating discharge services: Greater than 30 minutes - Constitutional Vitals: Temp Pulse Resp BP Pulse Ox 97.6 F 58 16 105/54 100 04/15/17 06:40 04/15/17 06:40 04/15/17 07:40 04/15/17 06:40 04/15/17 07:40 General appearance: Present: A&O X 3, morbidly obese, no acute distress, answers questions appropriately. Absent: A&O X 2 - Head Head exam: Present: atraumatic, normocephalic - Eye Eye exam: Present: PERRL, conjuntiva pink, sclera anicteric Pupils: Present: PERRL - ENT ENT exam: Present: mucous membranes moist, normal oropharynx - Neck Neck exam general surgery: Present: supple, trachea midline. Absent: lymphadenopathy - Respiratory Respiratory exam: Present: CTAB. Absent: accessory muscle use, rales, rhonchi, wheezes - Cardiovascular Cardiovascular exam: Present: RRR, +S1, +S2, systolic murmur (4/6 ROMI). Absent : diastolic murmur, gallop, rubs - GI/Abdominal GI/Abdominal exam: Present: normal bowel sounds, soft, no peritoneal signs. Absent: distended, tenderness - Extremities Exam Extremities exam: Present: warm, radial pulses palpable and symetrical. Absent : calf tenderness, cyanotic, pedal edema Additional comments: chronic venous stasis changes noted in bilateral lower extremities - Neurological Exam Neurological exam: Present: CN II-XII intact, oriented X3, no focal deficits. Absent: pronater drift, facial droop, speech deficit - Skin Skin exam: Present: dry, intact Additional comments: Venous stasis lateral legs. Left upper extremity AV fistula site intact. Poor and right upper chest. <Fili Guallpa - Last Filed: 04/15/17 20:24> Date of Encounter: 04/15/17 Date of admission: 04/13/17 09:59 Primary care physician: Dee Negron CNP Consults: 04/13/17 10:55 Consult to Neurology [CONS] Routine Consulting Provider: [facility] Reason for Consult: Altered mental status, possible CVA Call Completed: No 04/14/17 08:00 Consult to Dialysis [CONS] ONCE 04/14/17 11:38 OT [Consult to Occupational Therapy] [CONS] Routine Comment: Evaluate, develop and implement POC Reason for Consult: eval&tx 04/15/17 08:43 Consult to French Instructor [CONS] Stat Comment: Reason for Consult: Diabetic Education prior to d/c this AM. Pt had hypoglycemic event with BG 14 after taking insulin and skipping a meal. Pt will be put on sliding scale insulin instead. Hospital course: Ms. Fernández is a 51 year old female - Time Spent with Patient Total time spent providing and/or coordinating discharge services: - Constitutional Vitals: Temp Pulse Resp BP Pulse Ox 98.0 F 70 16 118/61 96 04/15/17 15:19 04/15/17 16:38 04/15/17 15:51 04/15/17 16:38 04/15/17 15:51 - Attending Attestation I examined this patient and my medical decision-making was reviewed with the Resident Physician, Dr Sales. I agree with the documented findings, disposition and treatment plan as described except to the extent set forth below. Patient admitted with hypoglycemia. This was severe. The glucose was 14. This is a life-threatening condition. The patient was admitted as inpatient. Her long-acting glucose was likely responsible for her severe hypoglycemia and was discontinued. Her hemoglobin A1c is 5.4. She should not be treated with any long-acting insulin. She was started on low-dose short-acting insulin sliding scale. Due to morbid obesity and high likelihood of obstructive sleep apnea she will be referred for an outpatient sleep study.
--- NOTE | 2017-04-15 09:58 | Physician Discharge Referral ---
Home Health/Hosp Referral Info Transfer to: Home Health (She is at a high risk for bounce back. Recommend ECF d /t her known poor self care, and out of the family's request for an ECF. Pt has been refusing to go to an ECF. She is largely bed bound and has limited ability to transfer out of bed to bedside commode.) Attending Provider: Dr. Guallpa Provider in Charge Post Discharge: PCP - Diagnosis (1) Physical deconditioning Priority: Primary Status: Chronic (2) Diabetes mellitus Priority: Primary Status: Chronic (3) Acute encephalopathy Priority: Primary Status: Acute (4) CKD (chronic kidney disease) stage 5, GFR less than 15 ml/min Priority: Primary Status: Chronic (5) HTN (hypertension) Priority: Primary Status: Chronic (6) Lymphedema of both lower extremities Priority: Primary Status: Chronic (7) Adnexal mass Priority: Primary Status: Chronic (8) Obstructive sleep apnea Priority: Primary Status: Chronic (9) CVA (cerebral vascular accident) Priority: Primary Status: Chronic (10) Hyperkalemia, diminished renal excretion Priority: Primary Status: Acute (11) Anemia in chronic kidney disease, on chronic dialysis Priority: Primary Status: Acute (12) Super obesity Priority: Primary Status: Acute (13) COPD (chronic obstructive pulmonary disease) Priority: Primary Status: Chronic (14) DVT prophylaxis Priority: Primary Status: Acute - Respiratory Orders Oxygen / L per min (Patient wears oxygen at home) Smoking Cessation: Smoking cessation has been advised. For more information, call the [place] Tobacco Quit Line at 3-598-FCTK-NOW. - Diet/Nutrition Diet/Nutrition Orders: Renal Diet/Nutrition: List: Diabetic Diet - Activity Activity Orders: Chair, Walker - Services Needed Following services are medically necessary services: Home Health Aide - Transfer Medications Prescriptions: Insulin LISPRO [HumaLOG] 0 units SQ TIDWM 30 Days Insulin LISPRO [HumaLOG] 0 units SQ HS 30 Days Home Medications: Aspirin 81 mg PO DAILY 06/07/16 [History] Atorvastatin Calcium [Lipitor] 20 mg PO HS 06/07/16 [History] Gabapentin [Neurontin] 300 mg PO BID 06/07/16 [History] NIFEdipine [Nifedical Xl] 60 mg PO DAILY 06/07/16 [History] Carvedilol 12.5 mg PO BID 30 Days 06/10/16 [Rx] Oxygen 2.5 - 3 l NS AD PRN 10/18/16 [History] Albuterol Sulfate [Albuterol Inhaler] 2 puff IH Q4H PRN #0 inhaler 10/30/16 [Rx] Allopurinol [Zyloprim 100 MG] 100 mg PO Q48H 02/21/17 [History] Calcium Acetate [Phos-LO] 667 mg PO TID 02/21/17 [History] Ergocalciferol (VITAMIN D2) [Vitamin D2] 50,000 unit PO QWEEK 02/21/17 [History] Folic Acid 1 mg PO DAILY 02/21/17 [History] Vitamin B Complex 1 each PO DAILY 02/21/17 [History] Furosemide [Lasix] 20 mg PO DAILY PRN 04/13/17 [History] Furosemide [Lasix] 80 mg PO DAILY PRN 04/13/17 [History] Acetaminophen [Tylenol] 650 mg PO Q6HR PRN #0 tablet 04/15/17 [Rx] Famotidine [Pepcid] 20 mg PO DAILY@0730 tablet 04/15/17 [Rx] Insulin LISPRO [HumaLOG] 0 units SQ HS 30 Days 04/15/17 [Rx] Insulin LISPRO [HumaLOG] 0 units SQ TIDWM 30 Days 04/15/17 [Rx] Ipratropium/Albuterol Neb [Duoneb] 3 ml IH [id number] inhsol 04/15/17 [Rx] Allergies/Adverse Reactions: Allergies Fish Containing Products Allergy (Verified 02/21/17 09:40) Anaphylaxis lisinopril Adverse Reaction (Verified 02/21/17 09:40) Cough Certification: Further, I certify that my clinical findings support that this patient is homebound (i.e. absences from home require considerable and taxing effort and are for medical reasons or pentecostal services or infrequently or short duration when for other reasons) because: Homebound Reason: Patient requires assistance of a person or device to safely leave home (She is at a high risk for bounce back. Recommend ECF d/t her known poor self care, and out of the family's request for an ECF. Pt has been refusing to go to an ECF. She is largely bed bound and has limited ability to transfer out of bed to bedside commode.) Attestation: My signature below is to certify that this patient is under my care and that I, or nurse practitioner, or a physician's assistant corporate secretary working with me, has a face-to -face encounter with this patient.
[2017-04-15] MEDS: D5% in Water 1,000 ML IVC SCH (11:17)
--- NOTE | 2017-04-15 12:54 | Nephrology Progress Note ---
Date of Encounter: 04/16/17 Time of Encounter: 09:00 - Assessment and Plan (1) ESRD (end stage renal disease) on dialysis Status: Chronic Next HD is planned for tomorrow She is at a high risk for bounce back. Recommend ECF d/t her known poor self care, and out of the family's request for an ECF. Pt has been refusing to go to an ECF. She is largely bed bound. Anemia: will dose Aranesp x1 while admitted. Goal Hgb is 10-11 in the setting of CKD Obesity: advised weight loss. Limited mobility from her obesity is evident. CHARLES/Obesity hypoventilatory syndrome: as per primary Next HD is planned for Wednesday if she were to remain hospitalized. Thank you. (2) Hypoglycemia Status: Acute (3) Pulmonary edema Status: Acute Qualifiers: Chronicity: chronic Qualified Code(s): J81.1 - Chronic pulmonary edema (4) Anemia in chronic kidney disease (CKD) Status: Acute Qualifiers: Chronic kidney disease stage: on chronic dialysis Qualified Code(s): N18.6 - End stage renal disease; D63.1 - Anemia in chronic kidney disease; Z99.2 - Dependence on renal dialysis (5) HTN (hypertension) Status: Chronic Qualifiers: Hypertension type: essential hypertension Qualified Code(s): I10 - Essential (primary) hypertension (6) Obstructive sleep apnea Status: Chronic Subjective Principal diagnosis: ESRD, Hypoglycemia Interval history: The pt was s/e earlier today. She affirmed feeling somewhat better today. She did not affirm N/V/D. She stated that she refuses to go to an ECF/care home. She affirmed that she is not able to ambulate by herself and had no response when I asked her how and who will help her move about her home. She asked to be discharged to home. Objective - Vital Signs Vital signs: Vital Signs Temp Pulse Resp BP Pulse Ox 04/15/17 11:05 97.3 F L 60 16 117/55 04/15/17 10:50 97.4 F L 79 18 95/59 96 04/15/17 07:40 16 100 04/15/17 06:40 97.6 F 58 20 105/54 98 04/15/17 04:17 97.9 F 71 22 116/56 93 04/15/17 04:01 18 96 04/15/17 00:21 97.9 F 67 22 126/66 99 04/14/17 19:25 98.4 F 71 22 128/55 95 04/14/17 16:30 16 97 04/14/17 15:20 98.4 F 67 16 118/59 97 04/14/17 14:46 115/65 04/14/17 14:15 98.5 F 20 115/65 04/14/17 14:00 107/50 04/14/17 13:45 94/67 04/14/17 13:30 115/55 04/14/17 13:15 91/51 04/14/17 13:00 117/46 Intake and Output 04/14/17 04/15/17 04/15/17 23:59 07:59 15:59 Intake Total 1060 / 1060 120 / 120 Output Total 10 / 10 0 / 0 Balance -10 / -10 1060 / 1060 120 / 120 Intake: IV Fluids 1000 / 1000 Dextrose 5% 1,000 ML @ 25 1000 / 1000 mls/hr IVC .Q24H [facility] Rx# :[id number] Oral 60 / 60 120 / 120 Output: Urine 10 / 10 0 / 0 Other: Meal Breakfast Percent of Meal Consumed 90% Stool Size Large Stool Consistency formed Stool Color Brown Weight 158.6 kg Blood Glucose* 133 119 166 Patient Weight 04/15/17 23:59 Weight 158.6 kg - General Appearance Exam: General appearance: obese, chronically ill, frail, comatose EENT: ATNC, PERRL, mucous membranes moist Neck: supple Respiratory: course breath sounds Cardiology: edema, regular rate, regular rhythm, normal S1, normal S2 - Dialysis Access Dialysis Vascular Access: Arteriovenous Fistula (LUE AVF with recent surgerical site with heal heaing margins and +thrill/bruit. Permacath also in place with dressing C/D/I) thrill: Yes bruit: Yes Gastrointestinal: normoactive bowel sounds, no tenderness, no guarding, obese Integumentary: no rash, warm and dry Neurologic: asterixis, confused, disoriented Musculoskeletal: no deformities, no erythema, no cyanosis Psychiatric: cooperative - Lab 04/15/17 04:59 04/15/17 04:59 Most recent lab results Calcium 8.0 mg/dL (8.6-10.8) L 04/15/17 04:59 Phosphorus 5.0 mg/dL (2.3-4.7) H 04/15/17 04:59 Magnesium 1.6 mg/dL (1.6-2.6) 04/13/17 07:27 Consult Discharge Plan - Plan Instructions: Dialysis Diet (GEN), Diabetes Mellitus Type 2 in Adults (DC) Additional Instructions: Continue hemodialysis every MWF. Follow up with Traveling Clerk in 1 week. Take sliding scale insulin as directed. Referrals: Dee Negron, HAND PRINTED CIRCUIT BOARD ASSEMBLER [Primary Care Provider] - (family wanted this patient in ECF placement) Prescriptions: Insulin LISPRO [HumaLOG] 0 units SQ TIDWM 30 Days Insulin LISPRO [HumaLOG] 0 units SQ HS 30 Days
[2017-04-15 15:22] VITALS: BP 118/61
--- NOTE | 2017-04-15 15:38 | Physician Discharge Referral ---
<Jason Sales - Last Filed: 04/15/17 15:35> ExtendedCare Referral Info Transfer To: SNF/ECF Provider in Charge after Transfer: PCP Institutional Level of Care: Intermediate (She is at a high risk for bounce back. Recommend ECF d/t her known poor self care, and out of the family's request for an ECF. Pt has been refusing to go to an ECF. She is largely bed bound and has limited ability to transfer out of bed to bedside commode.) - Diagnosis (1) Diabetes mellitus Priority: Primary Status: Chronic (2) Acute encephalopathy Priority: Primary Status: Acute (3) CKD (chronic kidney disease) stage 5, GFR less than 15 ml/min Priority: Primary Status: Chronic (4) HTN (hypertension) Priority: Primary Status: Chronic (5) Lymphedema of both lower extremities Status: Chronic (6) Adnexal mass Priority: Primary Status: Chronic (7) Physical deconditioning Priority: Primary Status: Chronic (8) Obstructive sleep apnea Priority: Primary Status: Chronic (9) CVA (cerebral vascular accident) Priority: Primary Status: Chronic (10) Hyperkalemia, diminished renal excretion Priority: Primary Status: Acute (11) Anemia in chronic kidney disease, on chronic dialysis Priority: Primary Status: Acute (12) Super obesity Priority: Primary Status: Acute (13) COPD (chronic obstructive pulmonary disease) Priority: Primary Status: Chronic (14) DVT prophylaxis Priority: Primary Status: Acute Prognosis: Fair Aware of Diagnosis: Patient Aware of Prognosis: Patient - Transfer Medications Prescriptions: Insulin LISPRO [HumaLOG] 0 units SQ TIDWM 30 Days Insulin LISPRO [HumaLOG] 0 units SQ HS 30 Days Home Medications: Aspirin 81 mg PO DAILY 06/07/16 [History] Atorvastatin Calcium [Lipitor] 20 mg PO HS 06/07/16 [History] Gabapentin [Neurontin] 300 mg PO BID 06/07/16 [History] NIFEdipine [Nifedical Xl] 60 mg PO DAILY 06/07/16 [History] Carvedilol 12.5 mg PO BID 30 Days 06/10/16 [Rx] Oxygen 2.5 - 3 l NS AD PRN 10/18/16 [History] Albuterol Sulfate [Albuterol Inhaler] 2 puff IH Q4H PRN #0 inhaler 10/30/16 [Rx] Allopurinol [Zyloprim 100 MG] 100 mg PO Q48H 02/21/17 [History] Calcium Acetate [Phos-LO] 667 mg PO TID 02/21/17 [History] Ergocalciferol (VITAMIN D2) [Vitamin D2] 50,000 unit PO QWEEK 02/21/17 [History] Folic Acid 1 mg PO DAILY 02/21/17 [History] Vitamin B Complex 1 each PO DAILY 02/21/17 [History] Furosemide [Lasix] 20 mg PO DAILY PRN 04/13/17 [History] Furosemide [Lasix] 80 mg PO DAILY PRN 04/13/17 [History] Acetaminophen [Tylenol] 650 mg PO Q6HR PRN #0 tablet 04/15/17 [Rx] Famotidine [Pepcid] 20 mg PO DAILY@0730 tablet 04/15/17 [Rx] Insulin LISPRO [HumaLOG] 0 units SQ HS 30 Days 04/15/17 [Rx] Insulin LISPRO [HumaLOG] 0 units SQ TIDWM 30 Days 04/15/17 [Rx] Ipratropium/Albuterol Neb [Duoneb] 3 ml IH [id number] inhsol 04/15/17 [Rx] Allergies/Adverse Reactions: Allergies Fish Containing Products Allergy (Verified 02/21/17 09:40) Anaphylaxis lisinopril Adverse Reaction (Verified 02/21/17 09:40) Cough - Respiratory Orders Smoking Cessation: Smoking cessation has been advised. For more information, call the [place] Tobacco Quit Line at 7-905-ZTIL-NOW. - Advance Directives Code Status: Full Code - History and Physical History/Physical reviewed & approved w/add comments: Yes - Mobility Orders Other - Rehabiliation Orders Rehab Orders: Evaluation for Physical Therapy, Evaluation for Occupational Therapy - Diet Orders Renal CERTIFICATION: She is at a high risk for bounce back. Recommend ECF d/t her known poor self care, and out of the family's request for an ECF. Pt has been refusing to go to an ECF. She is largely bed bound and has limited ability to transfer out of bed to bedside commode. I certify that the transfer of the above named patient to an Extended Care Facility is necessary for the continuing treatment of the diagnosis listed. The above information is true and accurate reflection of patient's current condition. Confidential - Redisclosure prohibited without a patient's written consent. <RamuFili - Last Filed: 04/15/17 20:25> ExtendedCare Referral Info Provider in Charge after Transfer: PCP Institutional Level of Care: Intermediate - Respiratory Orders Smoking Cessation: Smoking cessation has been advised. For more information, call the [place] Tobacco Quit Line at 3-296-JYHK-NOW. CERTIFICATION: I certify that the transfer of the above named patient to an Extended Care Facility is necessary for the continuing treatment of the diagnosis listed. The above information is true and accurate reflection of patient's current condition. Confidential - Redisclosure prohibited without a patient's written consent. I examined this patient and my medical decision-making was reviewed with the Resident Physician, Dr Sales. I agree with the documented findings, disposition and treatment plan as described except to the extent set forth below.
== END 2017-04-15 18:00 | DRG 52 ==
LOC: EMEROO 07:03 → 2ANU 07:03 → SUATTDRO 09:59 → 2ANU 10:20
PROVIDERS: ADMIT Family Medicine; ATTEND Internal Medicine

== ENCOUNTER 2017-05-02 13:19 | Observation (INO) ==
--- NOTE | 2017-05-02 13:28 | Emergency Department Note ---
Disposition Clinical Impression: Shortness of breath, Acute hyperkalemia Disposition: Admitted As Inpatient Condition: Fair General Adult HPI - General Chief complaint: ED Shortness of Breath/Dyspnea Stated complaint: PAULIE/Nausea/Vomiting Time Seen by Provider: 05/02/17 13:20 Source: patient, EMS Limitations: no limitations - History of Present Illness Pain Scale: 0 - Related Data Home Medications Medication Instructions Recorded Confirmed Aspirin 81 mg PO DAILY 06/07/16 05/02/17 Atorvastatin Calcium [Lipitor] 20 mg PO HS 06/07/16 05/02/17 Gabapentin [Neurontin] 300 mg PO BID 06/07/16 05/02/17 NIFEdipine [Nifedical Xl] 60 mg PO DAILY 06/07/16 05/02/17 Oxygen 2.5 - 3 l NS AD PRN 10/18/16 05/02/17 Allopurinol [Zyloprim 100 MG] 100 mg PO Q48H 02/21/17 05/02/17 Calcium Acetate [Phos-LO] 667 mg PO TID 02/21/17 05/02/17 Ergocalciferol (VITAMIN D2) 50,000 unit PO QWEEK 02/21/17 05/02/17 [Vitamin D2] Folic Acid 1 mg PO DAILY 02/21/17 05/02/17 Insulin DETEMIR [Levemir Flextouch] 5 unit SQ QAM 05/02/17 05/02/17 Insulin DETEMIR [Levemir Flextouch] 15 unit SQ QPM 05/02/17 05/02/17 Previous Rx's Medication Instructions Recorded Carvedilol 12.5 mg PO BID 30 Days 06/10/16 Albuterol Sulfate [Albuterol 2 puff IH Q4H PRN #0 inhaler 10/30/16 Inhaler] Acetaminophen [Tylenol] 650 mg PO Q6HR PRN #0 tablet 04/15/17 Famotidine [Pepcid] 20 mg PO DAILY@0730 tablet 04/15/17 Insulin LISPRO [HumaLOG] 0 units SQ TIDWM 30 Days 04/15/17 Ipratropium/Albuterol Neb [Duoneb] 3 ml IH [id number] inhsol 04/15/17 Furosemide [Lasix] 80 mg PO BID #30 tablet 05/03/17 Allergies Allergy/AdvReac Type Severity Reaction Status Date / Time Fish Containing Products Allergy Anaphylaxis Verified 02/21/17 09:40 lisinopril AdvReac Cough Verified 02/21/17 09:40 Past Medical History - Past Medical History Medical history: Reports: diabetes, dialysis, hyperlipidemia, hypertension, venous stasis Surgical history: Reports: no surgical history Psychiatric history: Reports: no psych history LEAD PONY RIDER history: Reports: no LEAD PONY RIDER history - Social History Smoking Status: Never smoker Smokeless Tobacco Status: No Alcohol use: Reports: none Drug use: Reports: none Physical Exam - General Limitations: no limitations General appearance: alert Course Vital Signs Temperature 98.9 F 05/02/17 13:20 Pulse Rate 61 05/02/17 13:20 Respiratory Rate 16 05/02/17 13:20 Blood Pressure 115/54 05/02/17 13:20 O2 Sat by Pulse Oximetry 95 05/02/17 13:20 Temperature 98.0 F 05/03/17 14:41 Pulse Rate 65 05/03/17 14:41 Respiratory Rate 16 05/03/17 14:41 Blood Pressure 128/75 05/03/17 14:41 O2 Sat by Pulse Oximetry 98 05/03/17 14:41 Oxygen Delivery Oxygen Delivery Bipap Medical Decision Making - Lab Data Result diagrams: 05/03/17 01:05 05/03/17 01:05 Lab Results 05/02/17 05/02/17 05/02/17 Range/Units 13:24 13:24 13:24 WBC 5.4 (4.3-11.1) K/mcL RBC 3.14 L (3.82-4.97) M/mcL Hgb 8.6 L (11.5-15.4) g/dL Hct 29.7 L (35.3-44.9) % MCV 94.6 (83.0-100.0) fL MCH 27.4 L (28.0-33.3) pg MCHC 29.0 L (31.6-35.5) g/dL RDW 17.2 H (11.5-14.5) % Plt Count 180 (140-400) K/mcL MPV 10.1 (9.4-12.4) fL Immature Gran % 0.9 (0-4) % Seg Neutrophils % 68.3 % Lymphocytes % 14.9 % Monocytes % 12.2 % Eosinophils % 3.0 % Basophils % 0.7 % Neutrophils # 3.7 (1.6-8.9) K/mcL Lymphocytes # 0.8 (0.6-4.6) K/mcL Monocytes # 0.7 (0.0-1.3) K/mcL Eosinophils # 0.2 (0.0-0.6) K/mcL Basophils # 0.0 (0.0-0.2) K/mcL Platelet Estimate Normal (Normal) Anisocytosis 1+ A (Not Present) Sodium 137 (136-145) mEq/L Potassium 6.4 H (3.5-4.5) mEq/L Chloride 102 (98-109) mEq/L Carbon Dioxide 22 (19-29) mEq/L BUN 77 H (7-20) mg/dL Creatinine 8.32 H (0.57-1.11) mg/dL Est GFR ( Amer) 6 L (> 60) Est GFR (Non-Af Amer) 5 L (> 60) BUN/Creatinine Ratio 9 (6-26) Glucose 82 (70-99) mg/dL Calculated Osmolality 306 H (280-300) Lactic Acid (0.5-2.2) mmol/L Calcium 7.9 L (8.6-10.8) mg/dL Total Bilirubin 1.3 H (0.2-1.2) mg/dL AST 17 (5-34) Units/L ALT 8 (0-55) Units/L Alkaline Phosphatase 341 H (38-126) Units/L Troponin I 0.01 (0-0.03) ng/mL Serum Total Protein 8.5 H (6.0-8.3) g/dL Albumin 2.6 L (3.5-5.0) g/dL Globulin 5.9 H (2.4-3.5) g/dL Albumin/Globulin Ratio 0.4 L (1.1-2.2) 05/02/ Range/Units 13:24 WBC (4.3-11.1) K/mcL RBC (3.82-4.97) M/mcL Hgb (11.5-15.4) g/dL Hct (35.3-44.9) % MCV (83.0-100.0) fL MCH (28.0-33.3) pg MCHC (31.6-35.5) g/dL RDW (11.5-14.5) % Plt Count (140-400) K/mcL MPV (9.4-12.4) fL Immature Gran % (0-4) % Seg Neutrophils % % Lymphocytes % % Monocytes % % Eosinophils % % Basophils % % Neutrophils # (1.6-8.9) K/mcL Lymphocytes # (0.6-4.6) K/mcL Monocytes # (0.0-1.3) K/mcL Eosinophils # (0.0-0.6) K/mcL Basophils # (0.0-0.2) K/mcL Platelet Estimate (Normal) Anisocytosis (Not Present) Sodium (136-145) mEq/L Potassium (3.5-4.5) mEq/L Chloride (98-109) mEq/L Carbon Dioxide (19-29) mEq/L BUN (7-20) mg/dL Creatinine (0.57-1.11) mg/dL Est GFR ( Amer) (> 60) Est GFR (Non-Af Amer) (> 60) BUN/Creatinine Ratio (6-26) Glucose (70-99) mg/dL Calculated Osmolality (280-300) Lactic Acid 2.4 H (0.5-2.2) mmol/L Calcium (8.6-10.8) mg/dL Total Bilirubin (0.2-1.2) mg/dL AST (5-34) Units/L ALT (0-55) Units/L Alkaline Phosphatase (38-126) Units/L Troponin I (0-0.03) ng/mL Serum Total Protein (6.0-8.3) g/dL Albumin (3.5-5.0) g/dL Globulin (2.4-3.5) g/dL Albumin/Globulin Ratio (1.1-2.2) Critical Care Time Critical Care Time: Yes Total Critical Care Time: 30 Attestation: Patient arrived with dyspnea. She required BiPAP therapy Attestation Statement - Attestation Attestation: I examined this patient and my medical decision-making was reviewed with the Resident Physician. I agree with the documented findings, disposition and treatment plan as described except to the extent set forth below. [id number] time provider The patient arrives by EMS from home. The initial report was for a medical code. The patient was found dyspneic and then transiently became unresponsive. At the time of arrival she is alert and lucid. Nasal trumpet in place. Pulse ox in the mid to high 80s without supplemental oxygen. Peripheral edema to her legs on exam
[2017-05-02 13:37] LABS: Monocytes % 12.2 %; Red Cell Distribution Width 17.2 % (11.5-14.5)
[2017-05-02 13:38] LABS: Hematocrit 29.7 % (35.3-44.9); Hemoglobin 8.6 g/dL (11.5-15.4); Immature Granulocytes % 0.9 % (0-4); Lymphocytes % 14.9 %; Mean Corpuscular Hemoglobin 27.4 pg (28.0-33.3); Mean Corpuscular Volume 94.6 fL (83.0-100.0); Mean Platelet Volume 10.1 fL (9.4-12.4); Platelet Count 180 K/mcL (140-400); Red Blood Count 3.14 M/mcL (3.82-4.97); Segmented Neutrophils % 68.3 %
[2017-05-02 13:39] LABS: Basophils % 0.7 %; Eosinophils # 0.2 K/mcL (0.0-0.6); Lymphocytes # 0.8 K/mcL (0.6-4.6); Monocytes # 0.7 K/mcL (0.0-1.3); Neutrophils # 3.7 K/mcL (1.6-8.9)
--- NOTE | 2017-05-02 13:46 | Emergency Department Note ---
Disposition Clinical Impression: Shortness of breath, Acute hyperkalemia Disposition: Admitted As Inpatient Condition: Fair Referrals: NO,PCP [Primary Care Provider] - Forms: ED Satisfaction Letter Time of Disposition: 14:40 General Adult HPI - General Chief complaint: ED Shortness of Breath/Dyspnea Stated complaint: PAULIE/Nausea/Vomiting Time Seen by Provider: 05/02/17 13:20 Source: patient, EMS Mode of arrival: EMS Limitations: no limitations Nursing Notes Reviewed: Yes Vital Signs Reviewed: Yes - History of Present Illness HPI Narrative: Patient is a 51-year-old female with past medical history of dialysis. She came to the emergency Department by squad for dehydration, weakness and diarrhea that has been going on since yesterday evening. Patient was alert and oriented on arrival per squad, however in route the patient was unresponsive when they moved her to the cot. EMS reports that the patient was not breathing on her on the inserted a nasal trumpet. The patient states she did not attend her dialysis appointments 3 and 5 days ago because she was moving. She denies any nausea or vomiting, no headache, no chest pain or abdominal pain and no blood in her stool. Pain Scale: 0 - Related Data Home Medications Medication Instructions Recorded Confirmed Aspirin 81 mg PO DAILY 06/07/16 04/13/17 Atorvastatin Calcium [Lipitor] 20 mg PO HS 06/07/16 04/13/17 Gabapentin [Neurontin] 300 mg PO BID 06/07/16 04/13/17 NIFEdipine [Nifedical Xl] 60 mg PO DAILY 06/07/16 04/13/17 Oxygen 2.5 - 3 l NS AD PRN 10/18/16 04/13/17 Allopurinol [Zyloprim 100 MG] 100 mg PO Q48H 02/21/17 04/13/17 Calcium Acetate [Phos-LO] 667 mg PO TID 02/21/17 04/13/17 Ergocalciferol (VITAMIN D2) 50,000 unit PO QWEEK 02/21/17 04/13/17 [Vitamin D2] Folic Acid 1 mg PO DAILY 02/21/17 04/13/17 Vitamin B Complex 1 each PO DAILY 02/21/17 04/13/17 Furosemide [Lasix] 20 mg PO DAILY PRN 04/13/17 04/13/17 Furosemide [Lasix] 80 mg PO DAILY PRN 04/13/17 04/13/17 Previous Rx's Medication Instructions Recorded Carvedilol 12.5 mg PO BID 30 Days 06/10/16 Albuterol Sulfate [Albuterol 2 puff IH Q4H PRN #0 inhaler 10/30/16 Inhaler] Acetaminophen [Tylenol] 650 mg PO Q6HR PRN #0 tablet 04/15/17 Famotidine [Pepcid] 20 mg PO DAILY@0730 tablet 04/15/17 Insulin LISPRO [HumaLOG] 0 units SQ HS 30 Days 04/15/17 Insulin LISPRO [HumaLOG] 0 units SQ TIDWM 30 Days 04/15/17 Ipratropium/Albuterol Neb [Duoneb] 3 ml IH [id number] inhsol 04/15/17 Allergies Allergy/AdvReac Type Severity Reaction Status Date / Time Fish Containing Products Allergy Anaphylaxis Verified 02/21/17 09:40 lisinopril AdvReac Cough Verified 02/21/17 09:40 All systems ED: reviewed and negative except as stated. Constitutional: Denies: fever, chills Eyes: Denies: eye pain, eye discharge ENT ED: Reports: ear pain (Patient is complaining of left-sided drainage) Cardiovascular: Denies: chest pain ( and pain consistent with ear infections in the past.), palpitations, dyspnea on exertion, syncope Respiratory: Reports: dyspnea. Denies: cough, wheezes, hemoptysis Gastrointestinal: Reports: diarrhea. Denies: abdominal pain, nausea, vomiting, hematemesis, melena, hematochezia Genitourinary: Denies: urgency, dysuria Integumentary: Denies: rash Neurological: Denies: headache, weakness, numbness, paresthesias Past Medical History - Past Medical History Medical history: Reports: diabetes, dialysis, hyperlipidemia, hypertension, venous stasis Surgical history: Reports: no surgical history Psychiatric history: Reports: no psych history ANALYTICS LEAD history: Reports: no ANALYTICS LEAD history - Social History Smoking Status: Never smoker Smokeless Tobacco Status: No Alcohol use: Reports: none Drug use: Reports: none Physical Exam Patient arrived by EMS with a nasal trumpet in place. She was alert and oriented on arrival. Answers my questions appropriately. The patient had episode of unresponsiveness in the ambulance. - General Limitations: no limitations General appearance: alert, obese - Head Head exam: atraumatic, normocephalic, normal inspection - Eye Eye exam: Present: normal appearance, PERRL, EOMI - ENT ENT exam: normal exam, normal oropharynx, mucous membranes moist - Neck Neck exam: Present: normal inspection, full ROM, trachea midline. Absent: tenderness - Chest Chest inspection: Present: normal inspection, symmetric chest wall rise. Absent : tenderness - Respiratory Respiratory exam: Present: other (Patient has rales in the base of her lungs.). Absent: respiratory distress, wheezes - Cardiovascular Cardiovascular exam: Present: regular rate, normal rhythm, normal heart sounds - Abdominal Exam Abdominal exam: Present: soft, Non-Tender, normal bowel sounds - Extremities Exam Extremities exam: Present: normal inspection, full ROM - Expanded Lower Extremity Exam Lower leg exam: Present: full ROM, swelling, other (Patient has significant edema bilaterally. Just she also has signs of chronic venous stasis skin changes.). Absent: tenderness - Neurological Exam Neurological exam: Present: alert, oriented X3 - Psychiatric Psychiatric exam: Present: normal affect, normal mood - Skin Skin exam: Present: warm, intact, diaphoresis Course Course Narrative: Patient is a 51-year-old female with a past medical history of missing her dialysis appointments presenting with weakness and difficulty breathing and diarrhea. The patient also had episode of unresponsiveness in the squad. Upon arrival the patient was alert she is answering questions appropriately we initiated BiPAP due to the patient's physical exam she did appear to have fluid overload with slow swollen lower extremities and her lungs did sound wet. I ordered a head CT because the patient did have episode of unresponsiveness. The patient will also get a cardiac workup with troponin, EKG, and chest x-ray due to the patient's overall status and her history of unresponsiveness. Also check blood work and labs and sent off for cultures. - Reevaluation(s) Reevaluation #1: The patient states she is feeling better on BiPAP she is satting at 100%. I spoke with the patient's family was on room air sat that she has been noncompliant with her dialysis treatments and I think that she may need to go into an assisted facility. I spoke with the on-call drain tiler Dr. Serrato and she agrees to accept the patient for inpatient dialysis. Time: 14:28 Reevaluation #2: Patient has a potassium level of 6.4. I initiated a gram of calcium gluconate, albuterol 10 mg, 10 units of insulin and an amp of dextrose. Time: 14:34 Reevaluation #3: I spoke with the hospitalist Dr. Norwood and he agrees to accept the patient. Time: 14:39 Vital Signs Temperature 98.9 F 05/02/17 13:20 Pulse Rate 61 05/02/17 13:20 Respiratory Rate 16 05/02/17 13:20 Blood Pressure 115/54 05/02/17 13:20 O2 Sat by Pulse Oximetry 95 05/02/17 13:20 Temperature 98.9 F 05/02/17 13:20 Pulse Rate 60 05/02/17 13:27 Respiratory Rate 20 05/02/17 13:30 Blood Pressure 115/54 05/02/17 13:30 O2 Sat by Pulse Oximetry 98 05/02/17 13:30 Oxygen Delivery Oxygen Delivery Bipap Medical Decision Making - Medical Records Medical records reviewed: Yes I reviewed the patient's medical records. - Lab Data Lab results reviewed: Yes I reviewed the patient's lab results. Result diagrams: 05/02/17 13:24 05/02/17 13:24 Lab Results 05/02/17 05/02/17 05/02/17 Range/Units 13:24 13:24 13:24 WBC 5.4 (4.3-11.1) K/mcL RBC 3.14 L (3.82-4.97) M/mcL Hgb 8.6 L (11.5-15.4) g/dL Hct 29.7 L (35.3-44.9) % MCV 94.6 (83.0-100.0) fL MCH 27.4 L (28.0-33.3) pg MCHC 29.0 L (31.6-35.5) g/dL RDW 17.2 H (11.5-14.5) % Plt Count 180 (140-400) K/mcL MPV 10.1 (9.4-12.4) fL Immature Gran % 0.9 (0-4) % Seg Neutrophils % 68.3 % Lymphocytes % 14.9 % Monocytes % 12.2 % Eosinophils % 3.0 % Basophils % 0.7 % Neutrophils # 3.7 (1.6-8.9) K/mcL Lymphocytes # 0.8 (0.6-4.6) K/mcL Monocytes # 0.7 (0.0-1.3) K/mcL Eosinophils # 0.2 (0.0-0.6) K/mcL Basophils # 0.0 (0.0-0.2) K/mcL Platelet Estimate Normal (Normal) Anisocytosis 1+ A (Not Present) Sodium 137 (136-145) mEq/L Potassium 6.4 H (3.5-4.5) mEq/L Chloride 102 (98-109) mEq/L Carbon Dioxide 22 (19-29) mEq/L BUN 77 H (7-20) mg/dL Creatinine 8.32 H (0.57-1.11) mg/dL Est GFR ( Amer) 6 L (> 60) Est GFR (Non-Af Amer) 5 L (> 60) BUN/Creatinine Ratio 9 (6-26) Glucose 82 (70-99) mg/dL Calculated Osmolality 306 H (280-300) Lactic Acid (0.5-2.2) mmol/L Calcium 7.9 L (8.6-10.8) mg/dL Total Bilirubin 1.3 H (0.2-1.2) mg/dL AST 17 (5-34) Units/L ALT 8 (0-55) Units/L Alkaline Phosphatase 341 H (38-126) Units/L Troponin I 0.01 (0-0.03) ng/mL Serum Total Protein 8.5 H (6.0-8.3) g/dL Albumin 2.6 L (3.5-5.0) g/dL Globulin 5.9 H (2.4-3.5) g/dL Albumin/Globulin Ratio 0.4 L (1.1-2.2) 05/02/17 Range/Units 13:24 WBC (4.3-11.1) K/mcL RBC (3.82-4.97) M/mcL Hgb (11.5-15.4) g/dL Hct (35.3-44.9) % MCV (83.0-100.0) fL MCH (28.0-33.3) pg MCHC (31.6-35.5) g/dL RDW (11.5-14.5) % Plt Count (140-400) K/mcL MPV (9.4-12.4) fL Immature Gran % (0-4) % Seg Neutrophils % % Lymphocytes % % Monocytes % % Eosinophils % % Basophils % % Neutrophils # (1.6-8.9) K/mcL Lymphocytes # (0.6-4.6) K/mcL Monocytes # (0.0-1.3) K/mcL Eosinophils # (0.0-0.6) K/mcL Basophils # (0.0-0.2) K/mcL Platelet Estimate (Normal) Anisocytosis (Not Present) Sodium (136-145) mEq/L Potassium (3.5-4.5) mEq/L Chloride (98-109) mEq/L Carbon Dioxide (19-29) mEq/L BUN (7-20) mg/dL Creatinine (0.57-1.11) mg/dL Est GFR ( Amer) (> 60) Est GFR (Non-Af Amer) (> 60) BUN/Creatinine Ratio (6-26) Glucose (70-99) mg/dL Calculated Osmolality (280-300) Lactic Acid 2.4 H (0.5-2.2) mmol/L Calcium (8.6-10.8) mg/dL Total Bilirubin (0.2-1.2) mg/dL AST (5-34) Units/L ALT (0-55) Units/L Alkaline Phosphatase (38-126) Units/L Troponin I (0-0.03) ng/mL Serum Total Protein (6.0-8.3) g/dL Albumin (3.5-5.0) g/dL Globulin (2.4-3.5) g/dL Albumin/Globulin Ratio (1.1-2.2) - EKG Data EKG #1 EKG attestation: Yes I reviewed and interpreted this EKG. EKG results narrative: I reviewed the patient's EKG. I interpreted as sinus bradycardia at a rate of 58 bpm. Possible first-degree AV block. Normal axis. QRS QT/QTC intervals are within normal limits. No ST segment elevations or depressions or Q waves. This is unchanged from her EKG done on 04/13/2017.
[2017-05-02 13:53] LABS: Albumin 2.6 g/dL (3.5-5.0); Albumin/Globulin Ratio 0.4 (1.1-2.2); Bilirubin,Total 1.3 mg/dL (0.2-1.2); Calcium 7.9 mg/dL (8.6-10.8); Globulin 5.9 g/dL (2.4-3.5); Potassium 6.4 mEq/L (3.5-4.5); Total Protein 8.5 g/dL (6.0-8.3)
[2017-05-02 14:10] LABS: Anisocytosis 1+ (Not Present)
[2017-05-02 14:11] LABS: Platelet Estimate Normal (Normal)
[2017-05-02] MEDS ORDERED: Insulin Human Regular 10 UNIT in 0.9 % Sodium Chloride 10 ML IV ONE (14:18)
[2017-05-02] MEDS ORDERED: Albuterol Neb 1.25 MG/3 ML VIAL IH ONE (14:18)
[2017-05-02] MEDS ORDERED: Calcium Gluconate 1,000 MG in D5% in Water 100 ML IVPB ONE (14:18)
[2017-05-02] MEDS ORDERED: *HR* Dextrose 50 % in Water (Syg) 50 ML SYRINGE IVP ONE (14:20)
[2017-05-02] MEDS ORDERED: Albuterol 2.5 MG/3 ML NEBULIZER IH ONE (14:30)
--- NOTE | 2017-05-02 15:06 | Nephrology Consult Note ---
Date of Encounter: 05/02/17 Time of Encounter: 15:00 Assessment and Plan (1) Hyperkalemia Current Visit: No Status: Acute Given respiratry distress and hyperkalemia, will proceed with urgent ACADEMIC SUPPORT SPECIALIST now Have already contacted nurse managed services consultant and she is on route to here with HD orders already given (2) ESRD (end stage renal disease) on dialysis Current Visit: No Status: Chronic (3) Fluid overload Current Visit: No Status: Acute Qualifiers: Hypervolemia type: other Qualified Code(s): E87.79 - Other fluid overload (4) Anemia in chronic kidney disease (CKD) Current Visit: No Status: Acute Qualifiers: Chronic kidney disease stage: on chronic dialysis Qualified Code(s): N18.6 - End stage renal disease; D63.1 - Anemia in chronic kidney disease; Z99.2 - Dependence on renal dialysis History of Present Illness - Reason for Consult Consult date: 05/02/17 end stage renal disease, hyperkalemia Requesting physician: Todd Bashir - History of Present Illness 51 y o female with PMH of ESRd on HD presenting to the ED with progressive SOB after missiing 2 HD sessions on wednesday and wednesday. She has a history of non compliance with her HD sessions and has been hospitalized in the recent past as a consequence. she is noted to have hyperkalemia at 6.6 and CXR shws congestion and she is needing biPAP. Past Med Surg Social Fam HX - Past Medical History Medical history: diabetes, dialysis, hyperlipidemia, hypertension, venous stasis Psychiatric history: no psych history - Past Surgical History Surgical History: no surgical history - Social History Smoking Status: Never smoker Smokeless Tobacco Status: No Alcohol use: none Drug use: none - Family History Mother Living Status: Hx Family Cardiac Disorders: Yes Father Living Status: Hx Family Respiratory Disorders: Yes Hx Family Cancer: Yes Hx Family GI Disorders: No Hx Family Endocrine Disorder: No Hx Family Neuromuscular Disorders: No Hx Family Neurologic Disorders: No Hx Family HEENT Disorders: No Hx Family Autoimmune Disorders: No Brother Hx Family Respiratory Disorders: Yes Hx Family Cancer: Yes Grandmother Hx Family Cancer: Yes Medications and Allergies Aspirin 81 mg PO DAILY 06/07/16 [History] Atorvastatin Calcium [Lipitor] 20 mg PO HS 06/07/16 [History] Gabapentin [Neurontin] 300 mg PO BID 06/07/16 [History] NIFEdipine [Nifedical Xl] 60 mg PO DAILY 06/07/16 [History] Carvedilol 12.5 mg PO BID 30 Days 06/10/16 [Rx] Oxygen 2.5 - 3 l NS AD PRN 10/18/16 [History] Albuterol Sulfate [Albuterol Inhaler] 2 puff IH Q4H PRN #0 inhaler 10/30/16 [Rx] Allopurinol [Zyloprim 100 MG] 100 mg PO Q48H 02/21/17 [History] Calcium Acetate [Phos-LO] 667 mg PO TID 02/21/17 [History] Ergocalciferol (VITAMIN D2) [Vitamin D2] 50,000 unit PO QWEEK 02/21/17 [History] Folic Acid 1 mg PO DAILY 02/21/17 [History] Vitamin B Complex 1 each PO DAILY 02/21/17 [History] Furosemide [Lasix] 20 mg PO DAILY PRN 04/13/17 [History] Furosemide [Lasix] 80 mg PO DAILY PRN 04/13/17 [History] Acetaminophen [Tylenol] 650 mg PO Q6HR PRN #0 tablet 04/15/17 [Rx] Famotidine [Pepcid] 20 mg PO DAILY@0730 tablet 04/15/17 [Rx] Insulin LISPRO [HumaLOG] 0 units SQ HS 30 Days 04/15/17 [Rx] Insulin LISPRO [HumaLOG] 0 units SQ TIDWM 30 Days 04/15/17 [Rx] Ipratropium/Albuterol Neb [Duoneb] 3 ml IH [id number] inhsol 04/15/17 [Rx] Allergies Fish Containing Products Allergy (Verified 02/21/17 09:40) Anaphylaxis lisinopril Adverse Reaction (Verified 02/21/17 09:40) Cough Exam - Vital Signs Vital signs: Initial Vital Signs Temp Pulse Resp BP Pulse Ox 98.9 F 61 16 115/54 95 05/02/17 13:20 05/02/17 13:20 05/02/17 13:20 05/02/17 13:20 05/02/17 13:20 Vital Signs - Last 8 Hours Temp Pulse Resp BP Pulse Ox 05/02/17 13:30 20 115/54 98 05/02/17 13:27 60 22 115/54 99 05/02/17 13:20 98.9 F 61 16 115/54 95 Intake and Output 05/01/17 05/02/17 05/02/17 23:59 07:59 15:59 Other: Weight 162.386 kg Patient Weight 05/02/17 23:59 Weight 162.386 kg Results - Lab Results 05/02/17 13:24 05/02/17 13:24 Most recent lab results Calcium 7.9 mg/dL (8.6-10.8) L 05/02/17 13:24 Consult Discharge Plan - Plan Referrals: NO,PCP [Primary Care Provider] -
[2017-05-02] MEDS ORDERED: Acetaminophen 325 MG TABLET PO PRN (15:37)
[2017-05-02] MEDS ORDERED: *HR* Morphine 2 MG/ML SYRINGE IVP PRN (15:37)
[2017-05-02] MEDS ORDERED: *HR* HYDROcodone/Acet 5/325 mg TABLET PO PRN (15:37)
[2017-05-02] MEDS ORDERED: Naloxone 0.4 MG/ML INJ IVP PRN (15:37)
[2017-05-02] MEDS ORDERED: Ondansetron 4 MG/2 ML VIAL IVP PRN (15:37)
[2017-05-02] MEDS ORDERED: Furosemide 40 MG/4 ML VIAL IVP ONE (15:53)
[2017-05-02] MEDS ORDERED: 0.9 % Sodium Chloride 250 ML IVC PRN (15:58)
[2017-05-02] MEDS ORDERED: *HR* Heparin 10,000 UNIT/10 ML VIAL IV PRN (15:58)
[2017-05-02] MEDS ORDERED: 0.9 % Sodium Chloride 1,000 ML PRIME SCH (16:00)
--- NOTE | 2017-05-02 16:03 | Internal Med History&Physical ---
<Dony Sahni - Last Filed: 05/02/17 17:22> Date of Encounter: 05/02/17 Time of Encounter: 15:00 Assessment and Plan (1) Shortness of breath Current visit: Yes Status: Acute Patient presents with chief complaint of SOB and dyspnea which has worsened over the past 48 hours. On examination, patient is using accessory muscles to breathe. Patient reports use of home O2 at 2L. Patient's current SOB likely due to COPD exacerbation, need for dialysis, fluid overload, and subsequent bradycardia. IVP Lasix ordered ONCE to address fluid overload. Patient currently being dialyzed. Electrolyte protocol ordered. Supplemental O2 ordered and patient placed on CPAP. Continuous SpO2 monitoring ordered. Will monitor patient closely for signs of increased respiratory distress. (2) Acute hyperkalemia Current visit: Yes Status: Acute Patient is experiencing acute hyperkalemia with current potassium level of 6.4. Patient was not given kayexalate due to current diarrhea. Patient is currently bradycardic with HR of 60 bpm on admission to ED. Will administer IVP Lasix 60 mg ONCE to help reduce potassium level. Follow-up labs ordered. Will consider administering kayexalate if patient's diarrhea resolves and she continues to be hyperkalemic. Electrolyte protocol ordered. Patient placed on continuous cardiac telemetry and will be monitored closely. (3) Risk for falls Current visit: Yes Status: Acute Patient is experiencing acute on chronic falls related to current SOB, dyspnea, and electrolyte imbalance from missing two dialysis appointments. Patient also reports chronic leg pain due to venous stasis and history of falls. Patient to be placed on falls precautions/up with assist/bed rest with bed side commode with assist only due to current bilateral LE weakness. Patient instructed not to attempt to get out of bed on her own. (4) Diarrhea Current visit: Yes Status: Acute Patient reports onset of diarrhea within the past 48 hours. Patient denies blood in diarrhea. C. Diff culture ordered. Qualifiers: Diarrhea type: unspecified type Qualified Code(s): R19.7 - Diarrhea, unspecified (5) Fluid overload Current visit: Yes Status: Acute Patient presents with acute fluid overload related to missing two dialysis appointments on Wednesday and Wednesday of this week. Patient is currently experiencing SOB and LE edema. IVP of Lasix 60 mg ONCE ordered. Will continue with patient's PO Lasix. 1.5L fluid daily fluid restriction ordered. Will monitor I&O and daily weight. Patient is currently being dialyzed on admission to the nursing unit per Dr. Serrato. Qualifiers: Hypervolemia type: other Qualified Code(s): E87.79 - Other fluid overload (6) Anemia in chronic kidney disease, on chronic dialysis Current visit: Yes Status: Chronic Patient presents with chronic anemia related to current CKD requiring dialysis. Patient is currently at her baseline Hgb and Hct and follow-up labs ordered to monitor H/H. (7) Type 2 diabetes mellitus Current visit: Yes Status: Chronic Patient presents with chronic diabetes type 2 that is currently not well controlled. Diabetes education consult ordered. Will continue patient's insulin therapy with correction and hypoglycemia protocols. A1c ordered. Blood glucose ACHS ordered. 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 Patient to be placed as falls precautions/up with assist/bed rest with bed side commode with assist only due to weakness. Heparin for DVT prophylaxis. (9) COPD (chronic obstructive pulmonary disease) Current visit: Yes Status: Chronic Patient presents with history of chronic COPD. Patient is a former 2 PPD smoker. Patient placed on CPAP due to dyspnea and will continue. DuoNebs ordered Q6. Continuous SpO2 monitoring ordered. Qualifiers: COPD type: unspecified COPD Qualified Code(s): J44.9 - Chronic obstructive pulmonary disease, unspecified (10) HTN (hypertension) Current visit: Yes Status: Chronic Patient presents with history of chronic HTN. Will continue patient's carvedilol and monitor patient/vital signs. Qualifiers: Hypertension type: essential hypertension Qualified Code(s): I10 - Essential (primary) hypertension (11) DVT prophylaxis Current visit: Yes Status: Acute Patient to be placed on DVT prophylaxis due to current admission protocol and bed rest status. Heparin 5,000 units SQ Q12 ordered. Internal Medicine - H&P: HPI Chief complaint: Shortness of breath/Dyspnea Admitted From: Emergency Dept Plans for Post Hospital Care: Home History of present illness: Mrs. Fernández is a 51 year old female who presents from the ED with chief complaint of SOB and dyspnea. Patient reports she has not felt well for the past several weeks and missed her dialysis appointment on Wednesday and Wednesday this past week. Patient states that she kept her Wednesday appointment. She reports feeling weak and having diarrhea since yesterday evening that became worse. Patient's family states that when the squad came to take her to the ED, the patient passed out and stopped breathing. She states this happened approximately one month ago as well. Patient has no recollection of this happening. She also reports bilateral leg weakness that causes her to fall. Patient's medical history includes diabetes with insulin dependency, chronic kidney disease requiring dialysis, hyperlipidemia, hypertension, venous stasis, COPD, and CVA in 2013. Patient is morbidly obese with current BMI of 52.9. Patient reports SOB, nausea, and chills, but denies fever, vomiting, recent illness, abdominal pain, constipation, or vision changes. Patient reports she feels as though she has an ear infection in her left ear. Upon admission, patient is SOB on examination and placed on CPAP. Patient reports she used to smoke 2 PPD but no longer smokes due to her COPD. Patient is chronically anemic due to her CKD and is currently hyperkalemic and experiencing fluid overload. Creatinine is 9.32 and GFR is 5. Patient reports she still is able to make urine. Patient is diabetic and blood glucose in not controlled well at this time. A1c ordered. Patient is at moderate risk for increased respiratory distress based on her COPD and current symptomatology and will be placed as observation status with orders for stat IVP Lasix of 60 mg to address fluid overload. Consult for nephrology placed in ED to address patient's need for immediate dialysis. Consults to PT and OT placed to address patient's current ambulation difficulties. Founder & Ceo consult placed to address need to rehabilitation post-discharge. Speech therapy consult ordered to address patient 's residual speech difficulties related to stroke in 2013. Patient to be monitored closely for signs of increasing respiratory distress and orders for safety precautions placed. Time spent with patient > 40 minutes. Past Med Surg Social Fam HX - Past Medical History Source: patient Medical history: diabetes, dialysis, hyperlipidemia, hypertension, venous stasis Psychiatric history: no psych history - Past Surgical History Surgical History: no surgical history - Social History Smoking Status: Former smoker Packs per day: 2 PPD Smokeless Tobacco Status: No Alcohol use: none Drug use: none Current living situation: Home, With Family Activity Level: Uses cane/walker Recent Out of Country Travel Within the Last 8 Weeks: No Exposure or Possible Exposure to Illness During Travel: No - Family History Mother Race: Family Member Ethnicity: Non- Living Status: Age at : 55 Cause of : [place] Hx Family Cardiac Disorders: Yes ([place]) Father Race: Family Member Ethnicity: Non- Living Status: Age at : 63 Cause of : Lung cancer Hx Family Cancer: Yes (Lung cancer) Brother Race: Family Member Ethnicity: Non- Living Status: Still Living Hx Family Cancer: Yes Grandmother Hx Family Cancer: Yes Sister Race: Family Member Ethnicity: Non- Living Status: Still Living Hx Family Medical Disorders: No Internal Medicine - H&P: Meds Aspirin 81 mg PO DAILY 06/07/16 [History] Atorvastatin Calcium [Lipitor] 20 mg PO HS 06/07/16 [History] Gabapentin [Neurontin] 300 mg PO BID 06/07/16 [History] NIFEdipine [Nifedical Xl] 60 mg PO DAILY 06/07/16 [History] Carvedilol 12.5 mg PO BID 30 Days 06/10/16 [Rx] Oxygen 2.5 - 3 l NS AD PRN 10/18/16 [History] Albuterol Sulfate [Albuterol Inhaler] 2 puff IH Q4H PRN #0 inhaler 10/30/16 [Rx] Allopurinol [Zyloprim 100 MG] 100 mg PO Q48H 02/21/17 [History] Calcium Acetate [Phos-LO] 667 mg PO TID 02/21/17 [History] Ergocalciferol (VITAMIN D2) [Vitamin D2] 50,000 unit PO QWEEK 02/21/17 [History] Folic Acid 1 mg PO DAILY 02/21/17 [History] Furosemide [Lasix] 20 mg PO DAILY PRN 04/13/17 [History] Furosemide [Lasix] 80 mg PO DAILY PRN 04/13/17 [History] Acetaminophen [Tylenol] 650 mg PO Q6HR PRN #0 tablet 04/15/17 [Rx] Famotidine [Pepcid] 20 mg PO DAILY@0730 tablet 04/15/17 [Rx] Insulin LISPRO [HumaLOG] 0 units SQ TIDWM 30 Days 04/15/17 [Rx] Ipratropium/Albuterol Neb [Duoneb] 3 ml IH Q6HFBWL inhsol 04/15/17 [Rx] Insulin DETEMIR [Levemir Flextouch] 5 unit SQ QAM 05/02/17 [History] Insulin DETEMIR [Levemir Flextouch] 15 unit SQ QPM 05/02/17 [History] Allergies Fish Containing Products Allergy (Verified 02/21/17 09:40) Anaphylaxis lisinopril Adverse Reaction (Verified 02/21/17 09:40) Cough All Systems PM: A 10-system review of systems was performed and is negative for pertinent findings except as documented above in the HPI. - Constitutional Constitutional: as per HPI, chills, falls, weakness, no fever(s), no night sweats - EENT Eyes: no change in vision, no discharge, no pain, no photophobia Ears: no ear discharge, no ear pain, no tinnitus Nose, mouth and throat: no dysphagia, no nasal discharge, no neck pain, no sore throat - Breasts Breasts: as per HPI - Cardiovascular Cardiovascular ROS IM: as per HPI, dyspnea, dyspnea on exertion, edema, no chest pain, no diaphoresis, no lightheadedness, no palpitations, no syncope - Respiratory Respiratory: as per HPI, dyspnea, dyspnea on exertion - Gastrointestinal Gastrointestinal: no abdominal pain, no diarrhea, no hematemesis, no hematochezia, no melena, no nausea, no vomiting - Genitourinary Genitourinary: no change in urinary stream, no dysuria, no flank pain, no hematuria Menstruation: as per HPI - Musculoskeletal Musculoskeletal ROS IM: no numbness, no tingling - Integumentary Integumentary IM: as per HPI, other (Venous stasis of bilateral LEs) - Neurological Neurological ROS: no confusion, no convulsions, no focal weakness, no numbness, no tingling, no tremor(s) - Psychiatric Psychiatric: as per HPI - Endocrine Endocrine IM: as per HPI - Hematologic/Lymphatic Hematologic/Lymphatic: no easy bruising - Allergic/Immunologic Allergic/Immunologic: as per HPI - Constitutional Vitals: Temp Pulse Resp BP Pulse Ox 98.9 F 62 21 125/57 100 05/02/17 13:20 05/02/17 15:18 05/02/17 15:39 05/02/17 15:39 05/02/17 15:21 General appearance: Present: cooperative, mild distress, A&O X 3, morbidly obese , pleasant, answers questions appropriately - Head Head exam: Present: atraumatic, normocephalic - Eye Eye exam: Present: PERRL, conjuntiva pink, sclera anicteric Pupils: Present: PERRL - ENT ENT exam: Present: normal exam, normal external ear exam - Neck Neck exam general surgery: Present: supple, trachea midline. Absent: lymphadenopathy - Respiratory Respiratory exam: Present: accessory muscle use, decreased breath sounds. Absent: rales, rhonchi, wheezes - Cardiovascular Cardiovascular exam: Present: bradycardia - GI/Abdominal GI/Abdominal exam: Present: normal bowel sounds, soft, no peritoneal signs. Absent: distended, tenderness - Rectal Rectal exam: Present: deferred - Additional comments: exam deferred. - Extremities Exam Extremities exam: Present: warm, radial pulses palpable and symetrical. Absent : calf tenderness, cyanotic, pedal edema - Back Exam Back exam: Present: normal inspection - Neurological Exam Neurological exam: Present: CN II-XII intact, oriented X3, no focal deficits. Absent: pronater drift, facial droop, speech deficit - Psychiatric Psychiatric exam: Present: normal affect, normal mood - Skin Skin exam: Present: erythema Additional comments: Patient has bilateral venous stasis of LEs with legs red through the thigh and dark/discolored at ankles. Internal Med - H&P Results - Labs CBC & Chem 7: 05/02/17 13:24 05/02/17 13:24 - EKG Data EKG shows normal: sinus rhythm Rate: bradycardia - EKG Data Prior EKG available for review: yes EKG comments: 05/02/17 16:16 EKG dated 04/13/17 shows sinus rhythm with first-degree AV block. EKG dated 05/02/17 shows sinus bradycardia with first-degree AV block, left anterior fascicular block, possible anterior myocardial infarction (probably old ). - Diagnostic Studies Chest x-ray Additional comments: Impressions Chest X-Ray 05/02/17 13:25 IMPRESSION: Cardiomegaly and mild pulmonary edema. D/ / Joseluis Leigh MD / Joseluis Leigh MD Interpreting Provider: Joseluis Leigh MD CT scan - head Additional comments: Impressions Head CT 05/02/17 13:25 IMPRESSION: No acute intracranial abnormality. Stable infarct in the right posterior parietal region. Stable chronic small vessel white matter ischemic changes. D/ / 05/02/2017 15:00:51 Jason Solares MD / zaria Interpreting Provider: Jason Solares MD <Kevin Norwood - Last Filed: 05/02/17 19:21> Date of Encounter: 05/02/17 Internal Medicine - H&P: HPI History of present illness: Ms. Fernández is a 51 year old female All Systems PM: A 10-system review of systems was performed and is negative for pertinent findings except as documented above in the HPI. - Constitutional Vitals: Temp Pulse Resp BP Pulse Ox 97.8 F 59 14 145/66 96 05/02/17 18:40 05/02/17 16:49 05/02/17 18:40 05/02/17 18:40 05/02/17 16:17 Internal Med - H&P Results - Labs CBC & Chem 7: 05/02/17 13:24 05/02/17 13:24 - Attending Attestation I saw and examined pt in dialysis room. I discussed with FORECLOSURE CLERK regarding management plan. Agree with the documentation. Pt has fluid overload and hyperkalemia due to missing HD. Improved after starting HD. Cont close monitoring.
[2017-05-02] MEDS: Ipratropium/Albuterol Neb 3 ML IH SCH ×2 (16:13→22:08)
[2017-05-02] MEDS ORDERED: 0.9 % Sodium Chloride 2,000 ML ONE (16:36)
[2017-05-02] MEDS ORDERED: Dextrose Gel 15 GM PO PRN ×2 (16:59)
[2017-05-02] MEDS ORDERED: *HR* Dextrose 50 % in Water (Syg) 50 ML SYRINGE IVP PRN (16:59)
[2017-05-02] MEDS ORDERED: D5% in Water 1,000 ML IVC PRN ×2 (16:59→19:18)
[2017-05-02] MEDS: *HR* Heparin 5,000 UNIT/ML VIAL SQ SCH (18:59)
[2017-05-02] MEDS ORDERED: Insulin LISPRO 300 UNITS/3 ML VIAL SQ SCH (21:00)
[2017-05-02] MEDS ORDERED: Furosemide 40 MG TABLET PO PRN (23:40)
[2017-05-02] MEDS ORDERED: Furosemide 20 MG TABLET PO PRN (23:40)
[2017-05-03 01:32] LABS: Mean Platelet Volume 9.7 fL (9.4-12.4); Red Cell Distribution Width 17.2 % (11.5-14.5)
[2017-05-03 01:33] LABS: Basophils % 0.9 %; Eosinophils # 0.2 K/mcL (0.0-0.6); Eosinophils % 3.9 %; Hemoglobin 7.2 g/dL (11.5-15.4); Immature Granulocytes % 0.9 % (0-4); Lymphocytes # 0.5 K/mcL (0.6-4.6); Lymphocytes % 11.6 %; Mean Corpuscular HGB Conc 27.7 g/dL (31.6-35.5); Mean Corpuscular Hemoglobin 26.3 pg (28.0-33.3); Mean Corpuscular Volume 94.9 fL (83.0-100.0); Monocytes # 0.6 K/mcL (0.0-1.3); Monocytes % 13.6 %; Platelet Count 161 K/mcL (140-400); Red Blood Count 2.74 M/mcL (3.82-4.97); Segmented Neutrophils % 69.1 %
[2017-05-03 01:40] LABS: Activated Partial Thrombo Time 29.6 Seconds (26.0-36.0)
[2017-05-03 01:41] LABS: INR 1.5; Prothrombin Time 15.8 Seconds (9.4-12.1)
[2017-05-03 01:44] LABS: Hemoglobin A1C 5.6 %
[2017-05-03 01:49] LABS: Calcium 7.6 mg/dL (8.6-10.8); Chol/HDL Ratio 4.4 (0-4.9); Magnesium 1.5 mg/dL (1.6-2.6); Phosphorous 6.1 mg/dL (2.3-4.7)
[2017-05-03 02:08] LABS: Anisocytosis 1+ (Not Present); Hypochromasia Present (Not Present); Platelet Estimate Normal (Normal); Poikilocytosis 1+ (Not Present)
[2017-05-03 02:09] LABS: Potassium 4.9 mEq/L (3.5-4.5)
[2017-05-03] MEDS: Ipratropium/Albuterol Neb 3 ML IH SCH ×3 (04:30→15:56)
[2017-05-03 04:39] LABS: Bilirubin,Urine Negative (Negative); Blood,Urine Large (Negative); Clarity,Urine Turbid (Clear); Color,Urine Yellow (Yellow); Glucose,Urine (UA) 100 mg/dL (Normal); Ketones,Urine Trace mg/dL (Negative); Leukocyte Esterase,Urine Moderate (Negative); Nitrite,Urine Negative (Negative); Protein,Urine >=300 mg/dL (Neg-Trace); Specific Gravity,Urine 1.014 (1.010-1.025); Urobilinogen,Urine Normal (Normal)
[2017-05-03 04:42] LABS: Bacteria,Urine Moderate per hpf (None-Few); Squamous Epithelial Cell,Urine Many per lpf (None-Few); WBC,Urine 15-30 per hpf (0-3)
[2017-05-03 05:00] LABS: RBC,Urine 50-100 per hpf (0-3)
[2017-05-03 05:01] LABS: Hyaline Casts,Urine Few per lpf (None-Few)
[2017-05-03 05:03] LABS: Mucus,Urine Few (Few)
[2017-05-03] MEDS: *HR* Heparin 5,000 UNIT/ML VIAL SQ SCH (06:05)
--- NOTE | 2017-05-03 08:53 | Discharge Summary ---
Date of Encounter: 05/03/17 Time of Encounter: 08:51 - Discharge Diagnosis (1) Fluid overload Priority: Primary Status: Acute Comments: Volume overload, history of diastolic CHF Echocardiogram from October of this year shows an ejection fraction of 55% with moderate concentric hypertrophic left ventricle moderate diastolic dysfunction Qualifiers: Hypervolemia type: other Qualified Code(s): E87.79 - Other fluid overload (2) Hyperkalemia Priority: Primary Status: Acute (3) Diastolic dysfunction Priority: Secondary Status: Acute (4) Aortic stenosis Priority: Secondary Status: Acute Qualifiers: Cardiac valve disease etiology: etiology unspecified Qualified Code(s): I35.0 - Nonrheumatic aortic (valve) stenosis (5) COPD (chronic obstructive pulmonary disease) Priority: Secondary Status: Chronic Qualifiers: COPD type: unspecified COPD Qualified Code(s): J44.9 - Chronic obstructive pulmonary disease, unspecified (6) ESRD (end stage renal disease) on dialysis Priority: Secondary Status: Chronic (7) Anemia in chronic kidney disease (CKD) Priority: Secondary Status: Acute Qualifiers: Chronic kidney disease stage: on chronic dialysis Qualified Code(s): N18.6 - End stage renal disease; D63.1 - Anemia in chronic kidney disease; Z99.2 - Dependence on renal dialysis (8) Diarrhea Priority: Secondary Status: Acute Qualifiers: Diarrhea type: unspecified type Qualified Code(s): R19.7 - Diarrhea, unspecified (9) HTN (hypertension) Priority: Secondary Status: Chronic Qualifiers: Hypertension type: essential hypertension Qualified Code(s): I10 - Essential (primary) hypertension (10) Diabetes mellitus Priority: Secondary Status: Chronic Qualifiers: Diabetes mellitus type: type 2 Diabetes mellitus complication status: with skin complications Diabetes mellitus complication detail: with other skin complication Diabetes mellitus skilled nursing insulin use: with procedure rn use Qualified Code(s): E11.628 - Type 2 diabetes mellitus with other skin complications; 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 - Discharge Medications Prescriptions: Furosemide [Lasix] 80 mg PO BID #30 tablet Home Medications: Aspirin 81 mg PO DAILY 06/07/16 [History] Atorvastatin Calcium [Lipitor] 20 mg PO HS 06/07/16 [History] Gabapentin [Neurontin] 300 mg PO BID 06/07/16 [History] NIFEdipine [Nifedical Xl] 60 mg PO DAILY 06/07/16 [History] Carvedilol 12.5 mg PO BID 30 Days 06/10/16 [Rx] Oxygen 2.5 - 3 l NS AD PRN 10/18/16 [History] Albuterol Sulfate [Albuterol Inhaler] 2 puff IH Q4H PRN #0 inhaler 10/30/16 [Rx] Allopurinol [Zyloprim 100 MG] 100 mg PO Q48H 02/21/17 [History] Calcium Acetate [Phos-LO] 667 mg PO TID 02/21/17 [History] Ergocalciferol (VITAMIN D2) [Vitamin D2] 50,000 unit PO QWEEK 02/21/17 [History] Folic Acid 1 mg PO DAILY 02/21/17 [History] Acetaminophen [Tylenol] 650 mg PO Q6HR PRN #0 tablet 04/15/17 [Rx] Famotidine [Pepcid] 20 mg PO DAILY@0730 tablet 04/15/17 [Rx] Insulin LISPRO [HumaLOG] 0 units SQ TIDWM 30 Days 04/15/17 [Rx] Ipratropium/Albuterol Neb [Duoneb] 3 ml IH [id number] inhsol 04/15/17 [Rx] Insulin DETEMIR [Levemir Flextouch] 5 unit SQ QAM 05/02/17 [History] Insulin DETEMIR [Levemir Flextouch] 15 unit SQ QPM 05/02/17 [History] Furosemide [Lasix] 80 mg PO BID #30 tablet 05/03/17 [Rx] Allergies/Adverse Reactions: Allergies Fish Containing Products Allergy (Verified 02/21/17 09:40) Anaphylaxis lisinopril Adverse Reaction (Verified 02/21/17 09:40) Cough Date of admission: 05/02/17 15:09 Primary care physician: Dee Negron CNP Consults: 05/02/17 15:41 Consult to Occupational Therapy [CONS] Routine Comment: Evaluate, develop and implement POC Reason for Consult: Patient has history of falls and previous stroke. Has major problems ambulating and is in need of rehabilitation services due to weakness/pain in legs bilaterally. Needs assessed for what is available post-discharge (patient does not want to do inpatient at a SNF). Consult to Physical Therapy [CONS] Routine Comment: Evaluate, develop and implement POC Reason for Consult: Patient has history of falls and previous stroke. Has major problems ambulating and is in need of rehabilitation services due to weakness/pain in legs bilaterally. Needs assessed for what is available post-discharge (patient does not want to do inpatient at a SNF). Consult to Senior Mechanical Technician [CONS] Routine Reason for SW Consult: Patient has history of falls and previous stroke. Has major problems ambulating and is in need of rehabilitation services. Needs assessed for what is available post-discharge (patient does not want to do inpatient at a SNF). Consult to Speech Therapy [CONS] Routine Comment: Evaluate, develop and implement POC Reason for Consult: Patient had a stroke in 2013 and is in need of speech therapy. She still suffers from occassional left-sided weakness. Call Completed: Yes 05/02/17 16:00 Consult to Dialysis [CONS] ONCE 05/02/17 16:57 Consult to Straight Line Press Setter [CONS] Routine Comment: Reason for Consult: Patient's diabetes is currently not well controlled due to medication non-compliance. Requires education regarding diabetic care and nutrition. - Patient Status Disposition: Home Health Service Condition: Fair Overall status at discharge: patient is progressing back to baseline - Discharge Instructions Follow Up With: Dee Negron CNP [Primary Care Provider] - Additional Instructions: Follow-up with primary care physician within the next 7 days. Be compliant with dialysis. Start Lasix 80 mg twice a day. Avoid excessive fluid intake. Follow up with nephrology within the next 2 weeks. - Diet and Activity Activity: increase activity as tolerated Diet: diabetic diet Hospital course: Ms. Fernández is a 51 year old female with a past medical history of diabetes type 2 insulin-dependent, end-stage renal disease on hemodialyses, hyperlipidemia, hypertension, chronic lower extremity edema, diastolic dysfunction/CHF, venous stasis, COPD not oxygen dependent, and CVA in 2013, who presented to the ED with chief complainta of SOB and dyspnea. Patient reported she did not feel well for the past several weeks and missed her dialysis appointment on Wednesday and Wednesday this past week. Patient stated that she kept her Wednesday appointment. She reported feeling weak and having diarrhea since yesterday evening that became worse although today she did not have any bowel movement and does not complain of abdominal pain. Patient's family states that when the squad came to take her to the ED, the patient passed out and stopped breathing. She stated this happened approximately one month ago as well. Patient has no recollection of this happening. S Patient is morbidly obese with current BMI of 52.9. She used to smoke 2 PPD but no longer smokes due to her COPD. Patient is chronically anemic due to her CKD and is currently hyperkalemic and experiencing fluid overload. Creatinine is 9.32 and GFR is 5. Still able to make urine. The patient was started on a BiPAP. She had to go to have the emergency dialysis due to hyperkalemia of 6.4 and the pulmonary edema that was evidenced on the chest x-ray. The patient will have dialysis later today. Her potassium is 4.9 and feels much better not requiring BiPAP any longer. Does not complain of any more episodes of diarrhea. Stable to be discharged after dialysis today. - Time Spent with Patient Total time spent providing and/or coordinating discharge services: Greater than 30 minutes (40 min) - Constitutional Vitals: Temp Pulse Resp BP Pulse Ox 98.3 F 62 20 109/53 100 05/03/17 06:41 05/03/17 06:41 05/03/17 06:41 05/03/17 06:41 05/03/17 06:41 General appearance: Present: cooperative, mild distress, A&O X 3, morbidly obese , pleasant, answers questions appropriately - Head Head exam: Present: atraumatic, normocephalic - Eye Eye exam: Present: PERRL, conjuntiva pink, sclera anicteric Pupils: Present: PERRL - Neck Neck exam general surgery: Present: supple, trachea midline. Absent: lymphadenopathy - Respiratory Respiratory exam: Present: CTAB. Absent: accessory muscle use, rales, rhonchi, wheezes Additional comments: Right subclavian dialysis catheter - Cardiovascular Cardiovascular exam: Present: RRR, +S1, +S2. Absent: diastolic murmur, gallop, rubs, systolic murmur - GI/Abdominal GI/Abdominal exam: Present: normal bowel sounds, soft, no peritoneal signs. Absent: distended, tenderness - Extremities Exam Extremities exam: Present: pedal edema (+3 pitting edema both lower extremities with chronic lymphedema), warm, radial pulses palpable and symetrical. Absent: calf tenderness, cyanotic - Neurological Exam Neurological exam: Present: CN II-XII intact, oriented X3, no focal deficits. Absent: pronater drift, facial droop, speech deficit - Skin Skin exam: Present: dry, intact
[2017-05-03] MEDS ORDERED: Pantoprazole 40 MG VIAL IVP SCH (09:00)
[2017-05-03] MEDS ORDERED: Folic Acid 1 MG TABLET PO SCH (09:00)
[2017-05-03] MEDS ORDERED: Aspirin 81 MG TAB.CHEW PO SCH (09:00)
[2017-05-03] MEDS ORDERED: Calcium Acetate 667 MG CAPSULE PO SCH (09:00)
[2017-05-03] MEDS ORDERED: NIFEdipine XL (24 HR) 60 MG TAB.ER.24 PO SCH (09:00)
[2017-05-03] MEDS ORDERED: Gabapentin 300 MG CAPSULE PO SCH ×2 (09:00→21:00)
--- NOTE | 2017-05-03 09:15 | Physician Discharge Referral ---
Home Health/Hosp Referral Info Transfer to: Home Health Provider in Charge Post Discharge: PCP - Diagnosis (1) Fluid overload Status: Acute (2) Hyperkalemia Status: Acute (3) Diastolic dysfunction Status: Acute (4) Aortic stenosis Status: Acute (5) COPD (chronic obstructive pulmonary disease) Status: Chronic (6) ESRD (end stage renal disease) on dialysis Status: Chronic (7) Anemia in chronic kidney disease (CKD) Status: Acute (8) Diarrhea Status: Acute (9) HTN (hypertension) Status: Chronic (10) Diabetes mellitus Status: Chronic - Respiratory Orders Smoking Cessation: Smoking cessation has been advised. For more information, call the [place] Tobacco Quit Line at 9-860-UZVJ-NOW. - Services Needed Following services are medically necessary services: Home Health Aide, Physical Therapy Home Care Orders: Follow-up with primary care physician within the next 7 days. Be compliant with dialysis. Start Lasix 80 mg twice a day. Avoid excessive fluid intake. Follow up with nephrology within the next 2 weeks. - Transfer Medications Prescriptions: Furosemide [Lasix] 80 mg PO BID #30 tablet Home Medications: Aspirin 81 mg PO DAILY 06/07/16 [History] Atorvastatin Calcium [Lipitor] 20 mg PO HS 06/07/16 [History] Gabapentin [Neurontin] 300 mg PO BID 06/07/16 [History] NIFEdipine [Nifedical Xl] 60 mg PO DAILY 06/07/16 [History] Carvedilol 12.5 mg PO BID 30 Days 06/10/16 [Rx] Oxygen 2.5 - 3 l NS AD PRN 10/18/16 [History] Albuterol Sulfate [Albuterol Inhaler] 2 puff IH Q4H PRN #0 inhaler 10/30/16 [Rx] Allopurinol [Zyloprim 100 MG] 100 mg PO Q48H 02/21/17 [History] Calcium Acetate [Phos-LO] 667 mg PO TID 02/21/17 [History] Ergocalciferol (VITAMIN D2) [Vitamin D2] 50,000 unit PO QWEEK 02/21/17 [History] Folic Acid 1 mg PO DAILY 02/21/17 [History] Acetaminophen [Tylenol] 650 mg PO Q6HR PRN #0 tablet 04/15/17 [Rx] Famotidine [Pepcid] 20 mg PO DAILY@0730 tablet 04/15/17 [Rx] Insulin LISPRO [HumaLOG] 0 units SQ TIDWM 30 Days 04/15/17 [Rx] Ipratropium/Albuterol Neb [Duoneb] 3 ml IH [id number] inhsol 04/15/17 [Rx] Insulin DETEMIR [Levemir Flextouch] 5 unit SQ QAM 05/02/17 [History] Insulin DETEMIR [Levemir Flextouch] 15 unit SQ QPM 05/02/17 [History] Furosemide [Lasix] 80 mg PO BID #30 tablet 05/03/17 [Rx] Allergies/Adverse Reactions: Allergies Fish Containing Products Allergy (Verified 02/21/17 09:40) Anaphylaxis lisinopril Adverse Reaction (Verified 02/21/17 09:40) Cough Certification: Further, I certify that my clinical findings support that this patient is homebound (i.e. absences from home require considerable and taxing effort and are for medical reasons or mu-ism services or infrequently or short duration when for other reasons) because: Homebound Reason: Patient requires assistance of a person or device to safely leave home Attestation: My signature below is to certify that this patient is under my care and that I, or nurse practitioner, or a physician's senior administrative assistant working with me, has a face-to -face encounter with this patient.
[2017-05-03] MEDS: Insulin LISPRO 300 UNITS/3 ML VIAL SQ SCH ×2 (09:21→11:55)
[2017-05-03] MEDS: Calcium Acetate 667 MG CAPSULE PO SCH ×2 (09:30→14:50)
[2017-05-03] MEDS ORDERED: *HR* Heparin 10,000 UNIT/10 ML VIAL IV PRN (09:39)
[2017-05-03] MEDS ORDERED: 0.9 % Sodium Chloride 250 ML IVC PRN (09:39)
[2017-05-03] MEDS ORDERED: 0.9 % Sodium Chloride 2,000 ML ONE (11:09)
[2017-05-03 14:44] VITALS: BP 128/75
--- NOTE | 2017-05-03 15:52 | Electrocardiograph Report ---
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
--- NOTE | 2017-05-03 17:54 | Nephrology Progress Note ---
Date of Encounter: 05/03/17 Time of Encounter: 12:00 - Assessment and Plan (1) Hyperkalemia Status: Acute Resolving after HD yesterady. Should improve more with HD today with 2k bath (2) ESRD (end stage renal disease) on dialysis Status: Chronic Continue HD second session toady for 3.5hrs with UF goal of 3-4kg as tolerated Discussed in great details goal of care once more. Patient and family open to rehab/ECF Compliance with HD strongly advised and encouraged for the future (3) Fluid overload Status: Acute Improving after HD with 2 kf UF yesterday. UF of 3-4kg planned today If still hospitalized in am, will plan another UF Qualifiers: Hypervolemia type: other Qualified Code(s): E87.79 - Other fluid overload (4) Anemia in chronic kidney disease (CKD) Status: Acute Hgb dropping to 7.2, etiology unclear. May need transfusion if persistent Qualifiers: Chronic kidney disease stage: on chronic dialysis Qualified Code(s): N18.6 - End stage renal disease; D63.1 - Anemia in chronic kidney disease; Z99.2 - Dependence on renal dialysis Subjective Interval history: Pt seen and examined on HD feeling much better after emergent HD last evening. She denies any complaints. She reports she was able to walk with assistance? this am. Objective - Vital Signs Vital signs: Vital Signs Temp Pulse Resp BP Pulse Ox 05/03/17 14:41 98.0 F 65 16 128/75 98 05/03/17 14:30 97.4 F L 20 157/76 05/03/17 14:20 139/68 05/03/17 14:05 123/69 05/03/17 13:50 118/59 05/03/17 13:35 113/54 05/03/17 13:20 119/57 05/03/17 13:05 114/61 05/03/17 12:50 112/63 05/03/17 12:35 112/56 05/03/17 12:20 116/47 05/03/17 12:05 129/65 05/03/17 11:50 122/59 05/03/17 11:35 125/53 05/03/17 11:20 113/55 05/03/17 11:05 126/50 05/03/17 10:50 98.1 F 22 134/67 07/24/17 10:39 28 90 05/03/17 09:31 97 05/03/17 06:41 98.3 F 62 20 109/53 100 05/03/17 04:43 97.6 F 60 18 120/71 100 05/03/17 04:40 16 99 05/03/17 00:24 97.7 F 64 17 118/62 100 05/02/17 23:50 20 100 05/02/17 20:48 97.9 F 65 16 137/77 96 05/02/17 18:40 97.8 F 14 145/66 05/02/17 18:30 135/63 05/02/17 18:15 143/74 05/02/17 18:00 136/73 Intake and Output 05/03/17 05/03/17 05/03/17 07:59 15:59 23:59 Intake Total 1080 / 1080 Output Total 4600 / 4600 Balance -3520 / -3520 Intake: Oral 480 / 480 Intake, Rinseback and 600 / 600 Flushes Output: Urine 0 / 0 Total Dialysis (HD) 4600 / 4600 Output Other: Meal Breakfast Percent of Meal Consumed 95% Weight 163.11 kg Blood Glucose* 102 120 Hemodialysis Net Fluid 4000 Removed (mL) Patient Weight 05/03/17 23:59 Weight 163.11 kg - Lab 05/03/17 01:05 05/03/17 01:05 Most recent lab results Calcium 7.6 mg/dL (8.6-10.8) L 05/03/17 01:05 Phosphorus 6.1 mg/dL (2.3-4.7) H 05/03/17 01:05 Magnesium 1.5 mg/dL (1.6-2.6) L 05/03/17 01:05 Consult Discharge Plan - Plan Instructions: Heart Failure (DC), Diabetes Mellitus Type 2 in Adults (DC), Chronic Obstructive Pulmonary Disease (DC), Chronic Hypertension (DC) Additional Instructions: Follow-up with primary care physician within the next 7 days. Be compliant with dialysis. Start Lasix 80 mg twice a day. Avoid excessive fluid intake. Follow up with nephrology within the next 2 weeks. Referrals: Dee Negron CNP [Primary Care Provider] - 05/07/17 10:00 am (Please follow up as schedule...) Prescriptions: Furosemide [Lasix] 80 mg PO BID #30 tablet
== END 2017-05-03 17:05 | disposition home health service (06) ==
LOC: EMEROO 13:19 → 2ANU 13:19
PROVIDERS: ADMIT Internal Medicine; ATTEND Internal Medicine